=== PATIENT | female | born 1955 | race Caucasian/White ===

== ENCOUNTER → 2017-01-04 | Outpatient (CLI) | payer MEDICARE, OTHER | END | disposition home or self-care (01) | LOC: LABWHC1 09:49 | PROVIDERS: ATTEND Internal Medicine | DX: E03.9 Hypothyroidism, unspecified (principal) | CPT/HCPCS: 36415; 84443 ==

== ENCOUNTER → 2017-08-22 | Outpatient (CLI) | payer MEDICARE, OTHER ==
[2017-08-22 14:45] LABS: Potassium 3.6 mmol/L (3.5-5.1)
--- NOTE | 2017-08-23 08:14 | MM ---
Reason for exam: screening (asymptomatic). Last mammogram was performed 1 year and 11 months ago. History: Patient is postmenopausal. MG 3D Screening Mammo W/Cad Bilateral CC and MLO view(s) were taken. Prior study comparison: September 23, 2015, bilateral MG 3d screening mammo w/cad. December 08, 2004, mammogram, performed at [facility]. The breast tissue is heterogeneously dense. This may lower the sensitivity of mammography. No suspicious abnormality. No significant changes when compared with prior studies. ASSESSMENT: Negative, BI-RAD 1 RECOMMENDATION: Routine screening mammogram of both breasts in 1 year.
== END | disposition home or self-care (01) ==
LOC: RADMAMWWP 13:26
PROVIDERS: ATTEND Internal Medicine
DX: Z12.31 Encounter for screening mammogram for malignant neoplasm of breast (principal); Z13.228 Encounter for screening for other metabolic disorders; Z00.00 Encounter for general adult medical examination without abnormal findings
CPT/HCPCS: 84439; 80051; 84443; 77063; 36415; G0202

== ENCOUNTER → 2018-01-31 | Outpatient (CLI) | payer MEDICARE, OTHER ==
--- NOTE | 2018-01-31 11:08 | XR ---
EXAMINATION TYPE: XR shoulder complete LT DATE OF EXAM: 01/31/2018 COMPARISON: NONE HISTORY: Pain TECHNIQUE: Three views are submitted. FINDINGS: The osseous structures are intact. There is no acute fracture or dislocation. The AC joint is maint ained. Diffuse osteopenia noted. IMPRESSION: 1. No acute process.
--- NOTE | 2018-01-31 11:11 | XR ---
EXAMINATION TYPE: XR chest 2V DATE OF EXAM: 01/31/2018 COMPARISON: NONE TECHNIQUE: PA and lateral views submitted. HISTORY: COPD FINDINGS: The lungs are clear and there is no pneumothorax, pleural effusion, or focal pneumonia. Hyperinflat ion compatible COPD and there is biapical pleural thickening. No overt failure. Degenerative change o f the spine. Atherosclerotic change aorta. Diffuse osteopenia. Vague nodular density involving the le ft lung apex. IMPRESSION: 1. Vague nodular density left lung apex. Recommend CT chest.. 2. COPD.
== END | disposition home or self-care (01) ==
LOC: RADXRYALE 10:40
PROVIDERS: ATTEND Internal Medicine
DX: J44.9 Chronic obstructive pulmonary disease, unspecified (principal); R91.8 Other nonspecific abnormal finding of lung field; M25.512 Pain in left shoulder
CPT/HCPCS: 71046

== ENCOUNTER → 2018-03-12 | Outpatient (CLI) | payer MEDICARE, OTHER ==
--- NOTE | 2018-03-12 12:01 | CT ---
EXAMINATION TYPE: CT chest w con DATE OF EXAM: 03/12/2018 COMPARISON: NONE HISTORY: 62-year-old female COPD, baseline CT, shortness of breath. TECHNIQUE: Contiguous axial scanning of the chest after the administration of 98 mL of Isovue 300. C oronal/sagittal reconstructions performed. CT DLP: 114.4mGycm. Automatic exposure control utilized for a dose reduction. FINDINGS: Heart is normal size without pericardial effusion. Coronary vessel calcifications are present in nery rkable for coronary artery disease. Aorta normal caliber with conventional arch vessel branching anatomy and mild atherosclerotic calcifi cations. Nonenlarged 8mm precarinal lymph node. No thoracic lymphadenopathy by CT size criteria. There is moderate to advanced centrilobular emphysema with biapical pleural-parenchymal scarring. 4 mm right midlung pulmonary nodule axial image 28. 3 mm subpleural pulmonary nodule posterior right mid lung axial image 37. 4 mm peripheral right lower lobe pulmonary nodule axial image 43. 4 mm posterior left basilar pulmonary nodule axial image 54. Indeterminate 2.1 cm nodule of the left adrenal gland. Moderate atherosclerotic calcification and ashish que within the infrarenal abdominal aorta. Subcentimeter hypodensity right liver lobe, axial image 59 too small for accurate CT characterization, probable tiny cyst. Mild endplate spondylosis midthoracic spine. No osseous destructive process. IMPRESSION: 1. COPD with moderate to advanced emphysema. 2. A few scattered pulmonary nodules measuring up to 4 mm. A 1 year follow-up exam is recommended to reassess. 3. A 2.1 cm indeterminate left adrenal gland nodule statistically represents a benign adrenal adenoma . This should be reassessed at the patient's one-year follow-up.
== END | disposition home or self-care (01) ==
LOC: RADCTMAIN 11:03
PROVIDERS: ATTEND Internal Medicine
DX: J43.9 Emphysema, unspecified (principal); R91.8 Other nonspecific abnormal finding of lung field
CPT/HCPCS: 71260; Q9967

== ENCOUNTER → 2019-02-18 | Outpatient (CLI) | payer MEDICARE, OTHER ==
[2019-02-18 09:52] LABS: Blood Urea Nitrogen 26 mg/dL (7-17)
--- NOTE | 2019-02-18 11:40 | CT ---
EXAMINATION TYPE: CT chest w con DATE OF EXAM: 02/18/2019 COMPARISON: Prior CT 03/12/2018 HISTORY: Pulmonary nodule CT DLP: 327 mGycm Automated exposure control for dose reduction was used. CONTRAST: CT scan of the chest is performed with IV Contrast, patient injected with 100 ml mL of Isovue 300. FINDINGS: LUNGS: There are extensive emphysematous changes as noted on prior exam, nodular appearance seen on p revious exam the level of the distal aspect of segmental branch in the right upper lobe is stable. Ad ditional subcentimeter nodules are also stable. MEDIASTINUM: There are no greater than 1 cm hilar or mediastinal lymph nodes. No pericardial effusi on is seen. AORTA: No additional significant abnormality is seen. OTHER: Adrenal gland show stable appearance. Low dense focus within the liver is unchanged. IMPRESSION: Stable benign-appearing pulmonary nodules. Emphysema.
== END | disposition home or self-care (01) ==
LOC: RADCTMAIN 08:46
PROVIDERS: ATTEND Internal Medicine
DX: R91.1 Solitary pulmonary nodule (principal)
CPT/HCPCS: 82565; 84520; 71260; 36415; Q9967

== ENCOUNTER → 2020-12-09 | Outpatient (CLI) | payer MEDICARE, OTHER ==
[2020-12-09 11:45] LABS: African American GFR (CKD) >90 (>60 ml/min/1.73 sqM); Blood Urea Nitrogen 24 mg/dL (7-17); Non-African American GFR(CKD) >90 (>60 ml/min/1.73 sqM)
--- NOTE | 2020-12-09 13:00 | CT ---
EXAMINATION TYPE: CT chest w con DATE OF EXAM: 12/09/2020 COMPARISON: Chest CT February 18, [address] March 12, 2018 HISTORY: Lung nodule. Cough CT DLP: 105.9 mGycm. Automated Exposure Control for Dose Reduction was Utilized. TECHNIQUE: CT scan of the thorax is performed following with IV Contrast, patient injected with 80 m L of Isovue 300. MIP Images are created on CT scanner and reviewed. 3D reconstructed images are crea loraine on an independent workstation and reviewed. FINDINGS: LUNGS: Moderate to advanced underlying emphysematous change greatest in the lung apices is redemonstr ated. There is 6 mm nodule in the right lower lobe axial image 42 and coronal image 57 is slightly mo re prominent from prior studies. Scattered micronodules are stable. No pleural effusion or pneumothor ax. Moderate biapical pleural/frontal scarring again seen and stable. MEDIASTINUM: There are no greater than 1 cm hilar or mediastinal lymph nodes. No cardiomegaly or pe ricardial effusion is seen. Some reflux of contrast into IVC and hepatic veins suggesting right hear t failure. Coronary artery calcification is redemonstrated. OTHER: Osseous structures are demineralized with underlying scoliotic curvature redemonstrated. IMPRESSION: Moderate to advanced emphysematous change with slightly larger 6 mm right lower lobe nodu le. Follow-up CT in 6 months time advised to reassess.
== END | disposition home or self-care (01) ==
LOC: RADCTMAIN 10:56
PROVIDERS: ATTEND Internal Medicine
DX: J43.9 Emphysema, unspecified (principal); R91.1 Solitary pulmonary nodule; I10 Essential (primary) hypertension
CPT/HCPCS: 82565; 84520; 71260; 36415; Q9967

== ENCOUNTER 2023-02-02 14:51 | Emergency (ER) | payer MEDICARE, OTHER ==
[2023-02-02 15:22] VITALS: BP 189/87; PULSE 67; RESP 20; TEMP 98.3
[2023-02-02] MEDS ORDERED: HYDROmorphone 1 MG/ML 1 ML SYRINGE IM STA (17:03)
--- NOTE | 2023-02-02 17:56 | CT ---
EXAMINATION TYPE: CT lumbar spine wo con CT DLP: 583.6 mGycm, Automated exposure control for dose reduction was used. DATE OF EXAM: 02/02/2023 5:48 PM COMPARISON: CT chest 02/02/2023., 12/09/2020. CLINICAL INDICATION:Female, 67 years old with history of low back injury and pain; , low back pain fo llowing heavy lifting TECHNIQUE: Multiple axial images were obtained from the midportion of T11 through the sacroiliac filiberto nts. Soft tissue and bone windows in coronal and sagittal planes were obtained and reviewed. 3-D ref ormats of the bones were created on a separate workstation and submitted for review. Contrast used: none. Oral contrast used: none. FINDINGS: Alignment: There are 5 lumbar type vertebral bodies within normal alignment. Bone: Age-indeterminate compression fracture of the L1-2 vertebral body with 50% height loss and 7 m m retropulsion. Discs: T12-L1: No spinal canal or neural foraminal stenosis is identified. L1-L2: Compression fracture with retropulsion resulting in at least mild to moderate effacement of th e anterior thecal sac. Bony fragment likely abutting the exiting and/or forming right nerve's. L2-L3: Facet joint arthropathy and disc bulging result with mild spinal canal stenosis and mild bilat eral neural foraminal stenosis. L3-L4: Facet joint arthropathy and disc bulging result with mild spinal canal stenosis and mild bilat eral neural foraminal stenosis. L4-L5: Facet joint arthropathy and disc bulging result with mild spinal canal stenosis and mild bila teral neural foraminal stenosis. L5-S1: No spinal canal or neural foraminal stenosis is identified. Other: Moderate to severe centrilobular emphysema changes. Excreted IV contrast seen within the renal collecting systems. Atherosclerosis of the arterial vasculature. Adenomatous hypertrophy changes of bilateral adrenal glands. IMPRESSION: Age-indeterminate compression fracture of the L2 vertebral body with 50% height loss and 7 mm retropu lsion. Consider MRI liver spine for further characterization. Findings are new from 2020.
--- NOTE | 2023-02-02 18:21 | ED ---
Back Pain HPI - General Chief Complaint: Back Pain/Injury Stated Complaint: back pain Time Seen by Provider: 02/02/23 16:53 Source: patient Limitations: no limitations - History of Present Illness Initial Comments: Patient is a 67-year-old female presenting with chief complaint of back pain. Patient states that 3 weeks ago she was moving furniture and felt sudden pain in the low back. Patient was sent in by her PCP for pain management after positive x-rays. She has been taking naproxen at home. No loss of bowel or bladder control or saddle paresthesia. No abdominal pain, dysuria, hematuria, fever, chills and no chest pain or difficulty breathing. - Related Data Home Medications Medication Instructions Recorded Confirmed Vilazodone HCl [Viibryd] 10 mg PO DAILY 12/16/14 07/21/15 clonazePAM [KlonoPIN] 0.5 mg PO BID 12/16/14 07/21/15 Budesonide-Formot 160-4.5 Mcg 2 puff INHALATION BID 07/21/15 07/21/15 [Symbicort 160-4.5 Mcg Inhaler] Cyclobenzaprine [Flexeril] 5 mg PO BID 07/21/15 07/21/15 Levothyroxine Sodium [Synthroid] 88 mcg PO DAILY 07/21/15 07/21/15 Pravastatin Sodium [Pravachol] 60 mg PO DAILY 07/21/15 07/21/15 atenoloL [Tenormin] 25 mg PO DAILY 07/21/15 07/21/15 cloNIDine [Catapres-TTS] 1 each TRANSDERM Q7D 07/21/15 07/21/15 clonazePAM [Clonazepam] 2 mg PO BID 07/21/15 07/21/15 Previous Rx's Medication Instructions Recorded Vilazodone HCl [Viibryd] 10 mg PO DAILY #20 tab 12/16/14 HYDROcodone/APAP 7.5-325MG [Java 1 tab PO Q4H PRN 3 Days #18 tab 02/02/23 7.5-325] Lidocaine 5% Patch [Lidoderm 5% 1 patch TOPICAL DAILY PRN #1 packet 02/02/23 Patch] Allergies Allergy/AdvReac Type Severity Reaction Status Date / Time codeine Allergy Unknown Verified 02/02/23 15:22 Review of Systems ROS Statement: Those systems with pertinent positive or pertinent negative responses have been documented in the HPI. ROS Other: All systems not noted in ROS Statement are negative. Past Medical History Past Medical History: Asthma, COPD, Osteoarthritis (OA) History of Any Multi-Drug Resistant Organisms: None Reported Past Surgical History: No Surgical Hx Reported Past Psychological History: Anxiety, Depression Smoking Status: Never smoker Past Alcohol Use History: Rare Past Drug Use History: None Reported General Exam Limitations: no limitations General appearance: alert, in no apparent distress Head exam: Present: atraumatic, normocephalic, normal inspection Eye exam: Present: normal appearance Neck exam: Present: normal inspection, full ROM Respiratory exam: Present: normal lung sounds bilaterally. Absent: respiratory distress, wheezes, rales, rhonchi, stridor Cardiovascular Exam: Present: regular rate, normal rhythm, normal heart sounds. Absent: systolic murmur, diastolic murmur, rubs, gallop, clicks Extremities exam: Present: normal inspection, full ROM Back exam: Present: normal inspection, tenderness Neurological exam: Present: alert, oriented X3, CN II-XII intact Psychiatric exam: Present: normal affect, normal mood Skin exam: Present: warm, dry, intact, normal color. Absent: rash Course Vital Signs 02/02/23 15:17 Temperature 98.3 F Pulse Rate 67 Respiratory 20 Rate Blood Pressure 189/87 O2 Sat by Pulse 97 Oximetry Medical Decision Making - Medical Decision Making Was pt. sent in by a medical professional or institution (HAMZAH Byrd, CLINICAL PROVIDER TRAINER, urgent care, hospital, or group home...) When possible be specific @ -No Did you speak to anyone other than the patient for history (EMS, parent, family, police, friend...)? What history was obtained from this source @ -No Did you review nursing and triage notes (agree or disagree)? Why? @ -I reviewed and agree with nursing and triage notes Were old charts reviewed (outside hosp., previous admission, EMS record, old EKG, old radiological studies, urgent care reports/EKG's, group home records)? Report findings @ -No old charts were reviewed Differential Diagnosis (chest pain, altered mental status, abdominal pain women, abdominal pain men, vaginal bleeding, weakness, fever, dyspnea, syncope, headache, dizziness, GI bleed, back pain, seizure, CVA, palpatations, mental health, musculoskeletal)? @ - MDM Differential Back Pain: Strain, zoster, cauda equina syndrome, epidural abscess, vertebral osteomyelitis, discitis, fracture, subluxation, disc herniation, DJD, spinal stenosis, dissection, AAA, pancreatitis, peptic ulcer disease, pyelonephritis, k idney stone this is not meant to be an all-inclusive list. EKG interpreted by me (3pts min.). @ -As above X-rays interpreted by me (1pt min.). @ -None done CT interpreted by me (1pt min.). @ -CT shows age-indeterminate compression fracture of the L2 vertebral body with 50% height loss and 7 mm retropulsion. U/S interpreted by me (1pt. min.). @ -None done What testing was considered but not performed or refused? (CT, X-rays, U/S, labs)? Why? @ -None What meds were considered but not given or refused? Why? @ -None Did you discuss the management of the patient with other professionals (professionals i.e. , PA, CLINICAL PROVIDER TRAINER, lab, RT, psych nurse, social sciences professor, station examiner, teacher, community resource officer, case consultant)? Give summary @ -No Was smoking cessation discussed for >3mins.? @ -No Was critical care preformed (if so, how long)? @ -No Were there social determinants of health that impacted care today? How? (Homelessness, low income, unemployed, alcoholism, drug addiction, transportation, low edu. Level, literacy, decrease access to med. care, retirement, rehab)? @ -No Was there de-escalation of care discussed even if they declined (Discuss DNR or withdrawal of care, Hospice)? DNR status @ -No What co-morbidities impacted this encounter? (DM, HTN, Smoking, COPD, CAD, Cancer, CVA, ARF, Chemo, Hep., AIDS, mental health diagnosis, sleep apnea, morbid obesity)? @ -None Was patient admitted / discharged? Hospital course, mention meds given and route, prescriptions, significant lab abnormalities, going to OR and other pertinent info. @ -Patient is 67-year-old female presenting with chief complaint of lower back pain. No red flag symptoms. Patient's PCP informed her that she had positive x-rays after an injury that occurred 3 weeks ago and sent her here for pain management. Patient is given pain medication and CT shows evidence of compression fracture to L2. These findings are discussed with my attending physician Dr. Jackman, determined that patient may be discharged home and follow up with orthopedics in outpatient setting. On reassessment patient reports that her pain is under good control. She'll be discharged with a short course of pain medication and referral for follow-up. Follow-up with PCP. Report back to ER with any new or worsening symptoms. Discussed return parameters and answered all questions. Patient conveyed verbal understanding and agreed to the plan. I discussed this case in detail with my attending Dr. Jackman Undiagnosed new problem with uncertain prognosis? @ -No Drug Therapy requiring intensive monitoring for toxicity (Heparin, Nitro, Insulin, Cardizem)? @ -No Were any procedures done? @ -No Diagnosis/symptom? @ -Compression fracture Acute, or Chronic, or Acute on Chronic? @ -Acute Uncomplicated (without systemic symptoms) or Complicated (systemic symptoms)? @ -Uncomplicated Side effects of treatment? @ -No Exacerbation, Progression, or Severe Exacerbation? @ -No Poses a threat to life or bodily function? How? (Chest pain, [place], [place], pneumonia, PE, COPD, DKA, ARF, appy, cholecystitis, CVA, Diverticulitis, Homicidal, Suicidal, threat to staff... and all critical care pts) @ -No Disposition Clinical Impression: Compression fracture Disposition: HOME SELF-CARE Condition: Fair Instructions (If sedation given, give patient instructions): Vertebral Compression Fracture (ED), Acute Low Back Pain (ED) Additional Instructions: Follow-up with PCP and orthopedics. Report back to ER with any new or worsening symptoms. Take Motrin and Tylenol as needed for pain control. Take medication as prescribed. Prescriptions: Lidocaine 5% Patch [Lidoderm 5% Patch] 1 patch TOPICAL DAILY PRN #1 packet PRN Reason: Pain HYDROcodone/APAP 7.5-325MG [Java 7.5-325] 1 tab PO Q4H PRN 3 Days #18 tab PRN Reason: Pain Is patient prescribed a controlled substance at d/c from ED?: No Referrals: Candice Jha MD [Primary Care Provider] - 1-2 days Marcelo Wakefield DO [Doctor of Osteopathic Medicine] - 1-2 days Time of Disposition: 18:20
== END 2023-02-02 19:05 | disposition home or self-care (01) ==
LOC: EC 14:51
DX: S32.029A Unspecified fracture of second lumbar vertebra, initial encounter for closed fracture (principal); J44.9 Chronic obstructive pulmonary disease, unspecified; M19.90 Unspecified osteoarthritis, unspecified site; F41.9 Anxiety disorder, unspecified; F32.A Depression, unspecified; Z88.5 Allergy status to narcotic agent; Z79.899 Other long term (current) drug therapy; X50.9XXA Other and unspecified overexertion or strenuous movements or postures, initial encounter
CPT/HCPCS: 72131; 99283; 96372; J1170

== ENCOUNTER → 2023-02-02 | Outpatient (CLI) | payer MEDICARE, OTHER ==
[2023-02-02 11:38] LABS: African American GFR (CKD) >90 (>60 ml/min/1.73 sqM); Blood Urea Nitrogen 23 mg/dL (7-17); Non-African American GFR(CKD) >90 (>60 ml/min/1.73 sqM)
--- NOTE | 2023-02-02 12:34 | CT ---
EXAMINATION TYPE: CT chest wo/w con DATE OF EXAM: 02/02/2023 COMPARISON: 12/09/2020, 03/12/2018 HISTORY: solitary pulmonary nodule, COPD CT DLP: 470 mGycm Automated exposure control for dose reduction was used. TECHNIQUE: CT scan of the chest is performed without and with IV Contrast, patient injected with 95 mL of Isovue 300. MIP Images are created on CT scanner and reviewed. 3D reconstructed images are created on an [employer] workstation and reviewed. FINDINGS: LUNGS: The lungs are grossly clear, there is consolidative pneumonia. There is a 2 mm nodule in the r ight upper lobe axial image 28. There is fairly advanced centrilobular emphysema greatest involving t he upper lung zones. There is a 2 mm subpleural nodule axial image 32 and adjacent 2 mm nodule axial image 32 superior seg ment right lower lobe. There is a stable 6 mm nodule right lower lobe axial image 36 There is a superior segment right lower lobe nodule axial image 28 measuring 1 mm.. There is no ple ural effusion or pneumothorax seen. The tracheobronchial tree is patent. MEDIASTINUM: There are no greater than 1 cm hilar or mediastinal lymph nodes. Aorta normal caliber. A therosclerotic changes seen. There is mild coronary artery calcification. Heart size is normal. OTHER: There is a completely severe compression fracture of the lower thoracic spine and endplate co mpression fracture near the thoracolumbar junction only partially included in the [id number] best noted on sagittal image 46 at approximately levels of T10 and L2. These were noted by recent x-ray 01/19/2023. Additional multilevel degenerative disc disease and hypertrophic spurring. There is a left ad renal nodule measuring 16 Hounsfield units and 1.4 cm stable from prior exam and indeterminate. They' re stable dating back to multiple prior exams and therefore likely is benign. Small hepatic hypodensi ty previously noted is no longer identified. A punctate nonobstructing bilateral renal calculi. IMPRESSION: 1. Severe centrilobular emphysema 2. Stable 6 mm or less bilateral pulmonary nodules and therefore likely benign.Recommend continued si x-month follow-up is the nodule measures 6 mm and may be slightly increased in size from the exam of 2018. 3. Severe compression fracture lower thoracic/ upper lumbar spine significant retropulsion and probab le canal stenosis. Suspect some degree of mass effect on the spinal cord. Recommend follow-up MRI. A [place] level critical message alert has been initiated for Candice Jha MD via the [employer] Critical Results System on 02/02/2023 12:30 PM. This message alert has been sent to Candice Jha MD via the preferences provided by the clinician for the receipt of Radiology Critical Findings. [employer] Mail e ID [id number].
== END | disposition home or self-care (01) ==
LOC: RADCTMAIN 10:44
PROVIDERS: ATTEND Internal Medicine
DX: M48.55XA Collapsed vertebra, not elsewhere classified, thoracolumbar region, initial encounter for fracture (principal); J43.2 Centrilobular emphysema; R91.8 Other nonspecific abnormal finding of lung field
CPT/HCPCS: 82565; 84520; 71270; 36415; Q9967

== ENCOUNTER → 2023-03-02 | Outpatient (CLI) | payer MEDICARE, OTHER ==
--- NOTE | 2023-03-04 11:01 | MR ---
EXAMINATION TYPE: MR tspine/lspine wo con DATE OF EXAM: 03/02/2023 4:44 PM CLINICAL INDICATION:Female, 67 years old with history of M48.50XA COLLAPSED VERTEBRA, NEC, SITE UNSP, INIT Collapsed Vertebra, Low and Mid back pain COMPARISON: CT lumbar spine and chest 02/02/2023 TECHNIQUE: Multi planar, multi sequence imaging was performed utilizing: T1-weighted, T2-weighted, a nd turbo inversion recovery imaging of the thoracic and lumbar spine. IV Contrast: None. FINDINGS: Alignment: Increased kyphotic alignment at T10 secondary to compression fracture. Cord: The conus medullaris and the distal spinal cord appear unremarkable with regards to their signa l intensity and morphology. Bones/Discs: There is a compression fracture of the T10 vertebral body with 3 mm retropulsion which e xtends towards the spinal cord and displaces it slightly. There is greater than 50% height loss. Ther e is only mild inversion recovery signal anteriorly suggesting subacute chronic process. The L2 vertebral body demonstrates increased bony edema with compression fracture of at least 50% hei ght loss. There is retropulsion of at least 6 mm which does not significantly narrow the spinal canal at this level. THORACIC: No evidence of significant spinal canal or neural foraminal stenosis mild retropulsion at t he level of T10 superior endplate with narrowing of the ventral subarachnoid space. The cord signal i s maintained. The remainder of the cord signal throughout the spine is maintained. There is a T10-T11 moderate neural foraminal stenosis bilaterally. The remainder of the thoracic levels are patent without evidence of significant spinal canal or neura l foraminal stenosis. The cord signal is maintained. LUMBAR: T12-L1: No evidence of significant spinal canal stenosis or neural foraminal stenosis. L1-L2: Suspected extrusion of disc material the right central and central portion without significant height loss. Some of this may be retropulsion from the compression deformity. There is moderate bila teral neural foraminal narrowing. L2-L3: Disc bulge and facet joint arthropathy result in mild spinal canal and mild bilateral neural f oraminal stenosis. L3-L4: Disc bulge and facet joint arthropathy result in mild spinal canal and mild bilateral neural f oraminal stenosis. L4-L5: Disc bulge and facet joint arthropathy result in mild spinal canal and mild bilateral neural f oraminal stenosis. L5-S1: The disc is rounded posterior morphology without significant spinal canal stenosis. Facet join t arthropathy with mild neural foraminal stenosis. Other findings: None. IMPRESSION: 1. Acute/subacute compression fracture of the L2 vertebral body with at least 50% height loss and 6 mm retropulsion. Superimposed L1-L2 disc herniation may also be present. The spinal canal is grossly patent there is moderate neural foraminal stenosis bilaterally. 2. T10-T11 mild spinal canal stenosis secondary to vertebral body compression deformity with 3 mm re tropulsion. There is at least moderate bilateral neural foraminal stenosis at this level. Cord signal is maintained. Compression fracture at T10 appears more subacute chronic given minimal osseous edema within the vertebral body.
== END | disposition home or self-care (01) ==
LOC: RADMRIMAIN 15:43
PROVIDERS: ATTEND Nurse Practitioner Family
DX: M48.54XA Collapsed vertebra, not elsewhere classified, thoracic region, initial encounter for fracture (principal); M48.56XA Collapsed vertebra, not elsewhere classified, lumbar region, initial encounter for fracture; M51.26 Other intervertebral disc displacement, lumbar region; M99.73 Connective tissue and disc stenosis of intervertebral foramina of lumbar region
CPT/HCPCS: 72146; 72148

== ENCOUNTER 2023-03-28 06:25 | Inpatient (IN) | payer MEDICARE, OTHER ==
[2023-03-24 15:19] VITALS: BMI 19.1
--- NOTE | 2023-03-27 06:42 | P.HPOR ---
History of Present Illness H&P Date: 03/08/23 .D:Date: 03/08/23 : 05:32pm .T:Title: [facility] Follow-up Date of :[birth year] R14 Allergies: Age: 67 year Height: 5' Weight: 97 lbs BMI: 18.94 kg/m2 Occupation: U/[employer] VAS: 7 CHIEF COMPLAINT: Low back pain follow up to lumbar MRI DOI: Chronic, injury 2 month ago 01/12 DOS: n/a Duration of current treatment regiment: 2 month HISTORY : Xrays No new xrays taken in office Trauma or injury yes Work-Related No Pain description aching, burning, throbbing . Location posterior diffuse Activity Modification yes Hand Dominance right TREATMENTS COMPLETED: 6 weeks of PT completed? Month and Year of last PT date? No Physician directed home exercise completed? No Medications yes List: IBU, Aspirin, and Tizanidine Alternative interventions Chiropractic: No Massage therapy: No R.I.C.E: yes Brace: No Injections No RFA: No SUBJECTIVE: Ms. Cheema presents to the office for a follow up for their lumbar MRI. Patient reports a posterior diffuse thoracolumbar pain with an onset of 12/2022 and no changes to this pain since her last appointment. Patient denies any radicular symptoms or numbness and tingling to bilateral lower extremities. Overall the patient has seen a progressive increase in symptoms since their onset. Ms. Cheema symptoms are exacerbated with ambulation she states sharp intermittent pain, with sitting she reports a constant dull ache, due to this they notes that it is increasingly difficult for Ms. Cheema to complete many of their daily tasks. Patient is having moderate sleep disturbances as well due to their ongoing pain and associated symptoms. Patient has trialed a TLSO brace without relief od her symptoms. Regarding treatments, the patient has previously trialed the above listed modalities. Patient denies trialing any other modalities at this time. For their symptoms, the patient has been taking IBU, Tizanadine and Aspirin. Otherwise the patient denies any f/c/sob/cp, no bladder or bowel retention/incontinence, no perineal numbness/tingling, and ambulates independently. The patients' past social, medical, family, surgical history, as well as review of systems, have been reviewed. Please refer to the Neurosurgery History and Physical form that has been scanned in to our electronic medical record system. 14 points review of systems completed and as stated in HPI, all other systems reviewed are negative. Social History: Reviewed, see appropriate section of the chart for details. P3 Family History: Reviewed, see appropriate section of the chart for details. P2 Past Medical History: Reviewed, see appropriate section of the chart for details. P1 Current Medications: Rx: albuterol sulfate Ref: 0 Rx: alendronate 70 mg tablet Ref: 0 Instructions: take 1 tablet (70 mg) by oral route once weekly in the morning, at least 30 min before first food, beverage, or medication of day Rx: atorvastatin Ref: 0 Instructions: DAILY Rx: biotin 5,000 mcg disintegrating tablet Ref: 0 Instructions: DAILY Rx: citalopram 40 mg tablet Ref: 0 Instructions: take 1 tablet (40 mg) by oral route once daily Rx: cloNIDine HCl 0.1 mg tablet Ref: 0 Instructions: take 1 tablet (0.1 mg) by oral route 3 times per day Rx: CoQ-10 100 mg capsule Ref: 0 Rx: levothyroxine Ref: 0 Instructions: 88MG DAILY Rx: losartan 50 mg tablet Ref: 0 Instructions: take 1 tablet (50 mg) by oral route once daily Rx: Medrol (Savage) 4 mg tablets in a dose pack Ref: 0 Instructions: take by oral route as directed per package instructions Rx: melatonin 10 mg capsule Ref: 0 Instructions: HS Rx: mirtazapine 15 mg tablet Ref: 0 Instructions: take 1 tablet (15 mg) by oral route once daily before bedtime Rx: OLANZapine 10 mg tablet Ref: 0 Instructions: take 1 tablet (10 mg) by oral route once daily Rx: oxyBUTYnin chloride ER 5 mg tablet,extended release 24 hr Ref: 0 Instructions: take 1 tablet (5 mg) by oral route once daily Rx: Symbicort 160 mcg-4.5 mcg/actuation HFA aerosol inhaler Ref: 0 Instructions: inhale 2 puffs by inhalation route 2 times per day in the morning andevening Rx: tiZANidine 4 mg tablet Ref: 0 Instructions: take 1 tablet (4 mg) by oral route every 6-8 hours as needed not to exceed 3 doses in 24 hours P1 PHYSICAL EXAMINATION: General: Awake, alert, appropriate for age, in no acute distress. HEENT: No unusual neck masses around region of lateral neck triangle, thyroid, supraclavicular groove Extremities: Skin warm and dry without acute lesions, coloration, temperature, skin intact, no tenderness or erythema Integument: Hairy patches: ABSENT Dorsal skin dimples: ABSENT Cafe au lait spots: ABSENT Surgical incisions: n/a Palpation: Please see Pain drawing on Intake sheet for further detail. Midline spinal tenderness: yes over the L2 region E6 Cervical Tenderness: No E6 Paralumbar tenderness:yes E6over the L2 region Parathoracic tenderness:mild E6 Buttocks tenderness: No E6 Sacroilliac Tenderness: No POSTURAL and MUSCULO-SKELETAL EVALUATION: Coronal Balance: NEUTRAL Recumbent testing: Patient is able to lay flat on back Sagittal Balance: NEUTRAL Shoulder Profile: LEVEL Pelvic Girdle: LEVEL Neck ROM: UNRESTRICTED Lumbar ROM: RESTRICTED Shoulder ROM: Symmetrical Hip ROM: Symmetrical Knee ROM: Symmetrical Hands: Normal appearance, symmetrical Feet: Normal appearance, Symmetrical VASCULAR STATUS : LEFT RIGHT Wrist Pulses INTACT INTACT Pedal Pulses (Dors. pedis & post.tibialis) INTACT INTACT Color NORMAL NORMAL Edema Absent Absent NEUROLOGIC EXAMINATION: Mental Status:Awake and alert, fully oriented, with normal attention, concentration and memory, and fluent, appropriate speech. Cranial Nerves: I: Olfactory not tested. II: Visual acuity normal, no visual field deficit noted with confrontation. III,IV: Normal pupillary reflexes & intact extraocular movements without nystagmus. V,: Intact symmetrical facial sensation. VII: Intact symmetrical facial motor movement VIII: Hearing intact. IX,X: Intact gag, swallow, & normal voice. XI: Sternocleidomastoid, trapezius function intact. XII: Tongue midline with normal movements. L'hermitte's Sign: Negative / absent Spurling'Sign: Absent bilaterally. Cubital percussion test: Absent bilaterally. Oneil-Tinel sign - Carpal region: Absent bilaterally. Straight Leg Raising: Absent bilaterally. Crossed straight leg raise: negative O8 MOTOR EXAM (0-5/5, N/T Muscle appearance: Symmetrical, without signs of atrophy or dystrophy UPPER EXTREMITY RIGHT LEFT Shoulder Abduction 4/5 4/5 Biceps 4/5 4/5 Triceps 4/5 4/5 Wrist Extension 4/5 4/5 Hand Intrnsics 4/5 4/5 Cut Out Operator 4/5 4/5 Hand and finger dexterity intact bilaterally? yes Disdiadochokinesis examination negative bilaterally? yes LOWER EXTREMITY RIGHT LEFT Hip Flexion 4/5 4/5 Knee Extension 4/5 4/5 Knee Flexion 4/5 4/5 Dorsiflexion 4/5 4/5 Plantarflexion 4/5 4/5 EHL 4/5 4/5 FHL 4/5 4/5 Toe heel walk / heel-toe walk intact while maintaining satisfactory balance? No Squatting/straightening w/o assistance to a min of 60 degree knee flexion? No Single leg stance: intact Trendelenburg sign negative bilaterally REFLEXES(0-4/2, NT)Upper ExtremityLower Extremity Right 2 2 Left 2 2 Pathological Reflexes RIGHT LEFT Oneil's Absent Absent Clonus Absent Absent Babinski Absent Absent Sensory system (0-4, N/T) Test type RU MARTA RL LL Joint-Position 2 2 2 2 Vibration 2 2 2 2 Pain & LT sense 2 2 2 2 Dermatomal Deficit: None None None None Gait and Functional Evaluation: Ambulatory aids: Cane Romberg's test: Intact bilaterally Steady Gait RADIOGRAPHIC STUDIES: Xray Lumbar spine, multifview, 02/13/23 taken at [facility]: Images reviewd with pt and show compression fracture of L2 with 50% height loss, anterior wedging and kyphotic alignment due to this. Severe spondylosis through the lumbar spine noted. No other fractures seen at this time. Transitional anatomy at L5-S1 skews view. AP pelvis shows post surgical changes with Lt hip hemiarthroplasty. There is medial migration of the head in the acetrabulum. No acute fracture. Thoracic and Lumbar MRI taken on 03/02/23 at [facility]: IMagres reviewed with the patient and demonstrate 2 different compression deformities. First in the lumbar spine at L2 there is the aforementioned fracture with 50% height loss edema within the fractured level mild and small retropulsed fragment causing moderate central stenosis but no severe impingement overall alignment is kyphotic secondary to this fracture. No other complicating process seen caudally. Cranially at T10 there is a severe burst,compression deformity with anterior wedging that is near 80% compressed. There is a fracture line that transverses posteriorly as well. There is severe foraminal stenosis related to the kyphotic alignment due to this fracture. There is no other acute fracture at this time. Computed tomography scan of the lumbar spine without contrast 02/02/2023 at [facility]: this is reviewed and demonstrates the L2 burst compression type fracture with retropulsed fragment. There is air within the disc space of L1 L2 secondary to this fracture. Endplate is violated cranially and caudally however there is a large void within the fractured vertebral body which would be well treated with cement placement or Spine cedric and cement for reduction. IMPRESSION: It was my pleasure to have seen and examined Zoila. I reviewed the patient's clinical syndrome, physical findings, and imaging studies during the appointment today. It is my impression that the patient has a diagnosis of. 1. Severe T10 burst fracture, old 2. L2 vertebral compression fracture, Acute on chronic with burst component 2.Lumbar spondylosis 3. Bilateral lower extremity weakness 4. Mechanical low back pain I outlined the natural course history without intervention and various interventional options. PLAN All options were reviewed today, we decided the best course of action would be: -Advised patient to continue with supplements, health maintenance, and home exercise programs. Patient expressed understanding and will continue with these modalities. -we did discuss treatment of the T10 compression fracture burst deformity however at this time the low back was causing most of the issues in this area. I discussed treatment options with the patient, including operative and non- operative options, and they have elected to proceed with the following surgical procedure: lumbar L2 Kyphoplasty The indications, risks, benefits, and alternatives to surgery were discussed with the patient at length. Specifically (but not limited to) the risks of infection, stiffness, recurrence of symptoms, need for revision surgery, local numbness, neurovascular injury, and blood clots were discussed. The patient's questions were answered. The decision to proceed was made. Consent will be obtained for the procedure. -Wear brace as needed/when up and about, do not sleep or shower in it. -Ambulate daily -Take pain medications and post op medications as needed and as directed -Ice and rest for pain and swelling control. Spine Surgery Risk Review Ms. Cheema is presenting for evaluation of lumbar pain. It was my pleasure to have seen and examined Ms. Cheema. In our visit today we have had a chance to go over subjective complaints, physi mitesh examination findings and treatments including the natural course history without intervention and various interventional options. The patients imaging demonstrates: Xray Lumbar spine, multifview, 02/13/23 taken at [facility]: Images reviewd with pt and show compression fracture of L2 with 50% height loss, anterior wedging and kyphotic alignment due to this. Severe spondylosis through the lumbar spine noted. No other fractures seen at this time. Transitional anatomy at L5-S1 skews view. AP pelvis shows post surgical changes with Lt hip hemiarthroplasty. There is me dial migration of the head in the acetrabulum. No acute fracture. Thoracic and Lumbar MRI taken on 03/02/23 at [facility]: IMagres reviewed with the patient and demonstrate 2 different compression deformities. First in the lumbar spine at L2 there is the aforementioned fracture with 50% height loss edema within the fractured level mild and small retropulsed fragment causing moderate central stenosis but no severe impingement overall alignment is kyphotic secondary to this fracture. No other complicating process seen caudally. Cranially at T10 there is a severe burst,compression deformity with anterior wedging that is near 80% compressed. There is a fracture line that transverses posteriorly as well. There is severe foraminal stenosis related to the kyphotic alignment due to this fracture. There is no other acute fracture at this time. Computed tomography scan of the lumbar spine without contrast 02/02/2023 at [facility]: this is reviewed and demonstrates the L2 burst compression type fracture with retropulsed fragment. There is air within the disc space of L1 L2 secondary to this fracture. Endplate is violated cranially and caudally however there is a large void within the fractured vertebral body which would be well treated with cement placement or Spine cedric and cement for reduction. On physical exam, Ms. Cheema demonstrates: Patient reports a posterior diffuse thoracolumbar pain with an onset of 12/2021 after patient was moving some small furniture. Patient report she was moving a side table when she heard a snap in he mid/lower back. Patient denies any radicular symtpoms or numbness and tingling to bilateral lower extremities. Patient was sent to [facility] ER 02/02/23 for evaluation after consistent pain and positive xrays. Overall the patient has seen a progressive increase in symptoms since their onset. Ms. Cheema symptoms are exacerbated with ambulation she states sharp intermittent pain, with sitting she reports a constant dull ache, due to this they notes that it is increasingly difficult for Ms. Cheema to complete many of their daily tasks. I have explained to the patient that as their condition progresses it will cause further neurological deficits and eventual paralysis. Based on the patients imaging, physical exam, and the rapid progression and disabling nature of their symptoms, at this time I recommend surgery in the form of a: lumbar L2 Kyphoplasty . I discussed the risk and benefits of this procedure at length with Ms. Cheema. The patient agreed to considered pursuing the procedure abovementioned. Prior to surgery, she should follow up with her PCP (Cardio, ID, IM etc) for clearance. Questions were invited and answered, and the patient wishes to proceed as outlined below. Currently, I am recommendin.lumbar L2 Kyphoplasty with biopsy and spine cedric placement 2.Follow up with PCP for surgical clearance 3.Review of surgical risks and benefits as well as an educational packet on the proposed surgical procedure. Risks: All surgical procedures come with inherent risks, including those related to positioning, anesthesia, intraoperative findings, and postoperative complications. It is important to understand that surgery does not come with any guarantee of a successful outcome as complications and adverse events are always possible. The patient was given a handout in office today discussing the surgical procedure and risks associated with the intervention, both of which were discussed with the patient. These risks include but are not limited to the following: * Experiencing same, different or even worse symptoms in back, neck, arms, or legs compared to before surgery. Requiring further surgery or other forms of treatment presently or at some time in the future at same or other levels of the intended spine surgery. On an extreme but fortunately relatively rare basis severe complication such as blindness, stroke, heart attack, temporary and/or permanent nerve injury, paralysis, coma, or may occur, sometimes without known explanation. Surgical complications may include but are not limited to risk of infection, fluid accumulation in the surgical dissection site, including a s eroma or hematoma, that requires additional surgery, wound drainage, bleeding, new numbness or weakness, vision changes/loss, spinal fluid leakage, non-healing and/or infected incision, headaches, difficulty or inability to swallow, hoarseness, hemopneumothorax, pneumothorax, impotence, retrograde ejaculation, vaginal dryness; injury to nerves, spinal cord, blood vessels, lymphatics or other vital organs (i.e., bowel injury, injury to the great vessels); heterotopic bone formation; complications related to the hardware such as screws, rods, cages including misplaced hardware, device failure, i nstrumentation at the wrong spine level, hardware fracture/breakage, or hardware loosening; vertebral failure of the spinal column above or below the newly placed hardware; retained surgical instrumentations or devices and the need for further surgery. * Medical risks of the planned spine surgery include but are not limited to generalized Infections to the whole body or local areas outside of the surgical site (sepsis), heart attack, bleeding, anaphylaxis, meningitis, seizure, epilepsy, hearing loss, burn early, laceration of the head or other areas of the body, bruising, hypersensitivity of the skin, bladder over distension; allergic reaction; shoulder injury related to positioning; fat, blood and air clots to other areas of the body like heart, lungs, brain; failure of internal organs such as lungs, kidneys, liver and excessive bleeding. If blood transfusions are necessary, note that transfusions may cause intolerance reactions such as anaphylaxis or other complex reactions. Despite best efforts, the results of spine surgery might not heal in terms of bone, soft tissues such as skin, fascia, ligaments, and joints. Additionally, in order to achieve best possible results, spine surgery may be carried out beyond the initially planned levels and involve decompression, fusion including insertion of hardware at levels other than the original intended area of surgical interest change some portions of the procedure in order to ensure the best possible outcomes. With spine surgery and spinal fusion, there are different off label uses of instrumentation (devices, implants and hardware) as well as biological substances (bone morphogenic proteins, demineralized bone matrix) as well as using extra bone from allograft sources (i.e. cadaver bone) or autograft (iliac crest bone, ribs, or the spine itself). The patient has been given information about these practices and their inherent risks and benefits. [facility] is an educational center that serves as a training facility for neurosurgical and orthopedic [employer] and Nursing students. Physician assistants are medically trained surgical providers who function in the outpatient, inpatient, and operating room setting under the direct supervision of the attending surgeon. [facility] has multiple operating rooms with single and overlapping rooms running daily. They currently function under the required guidelines as produced by the [facility] with regards to the overlapping rooms and will continue to comply with changes to this policy as they occur. The requirements include and are complied with as follows: (1) the critical portions of the overlapping rooms will not occur at the same time, (2) the attending physician will be physically present during the critical portions of the procedure and immediately available during the entire case, and (3) a back-up attending is designated should the primary attending not be immediately available. The patient has had a chance to review all the listed information, has been given print outs detailing this information, and has had all his/her questions answered to their satisfaction. It was my pleasure to have seen and examined Ms. Cheema. In our visit today we have had a chance to go over my understanding of our patient's current condition, the natural course history without intervention and various interventional options. Questions were invited and answered, and the patient wishes to proceed as outlined above. I have seen and examined the patient for 25 minutes and we have spent more than 50% of the time in repeat and detailed counseling about the patient's condition, its natural course history with out and as much as can be predicted with surgery and re-review of various surgical treatment options. In conclusion, Ms. Cheema and requested we proceed with the above suggested surgery and are willing to accept risks and limitations of the suggested surgery as nature of the disease process and our best attempts at treatment for the condition. FOLLOW-UP Pre op Pt Education (Informational booklet, instructions, etc) given at today's appointment: Yes .ED:Patient Education: Y Medications Reviewed: YES Attestation: In our visit today Ms. Cheema and I have had a chance to go over my understanding of the patient's current condition, the natural course history without intervention and various interventional options. Questions were invited and answered, and the patient wishes to proceed as outlined above. I will be sure to keep you updated afterMs. Cheema returns here for further follow-up. Thank you again for your referral. Please do not hesitate to contact me if you have any further questions. Signed and authenticated by: Marcelo [facility] [address] [address] This message is confidential, intended only for the named recipient(s) and may contain information that is privileged or exempt from disclosure under applicable law. If you are not the intended recipient(s), you are notified that the dissemination, distribution or copying of this information is strictly p rohibited. If you received this message in error, please notify the sender then delete this message. CC: Candice Jha M.D. # SIGNED BY Marcelo Wakefield ([facility])03/15/2023 07:56AM Past Medical History Past Medical History: Asthma, COPD, Hyperlipidemia, Osteoarthritis (OA) Additional Past Medical History / Comment(s): lumbar compression fx-back brace on-moving coffee table, osteoporosis History of Any Multi-Drug Resistant Organisms: None Reported Past Surgical History: Joint Replacement Additional Past Surgical History / Comment(s): bhaskar cataracts,lt hip replacement Past Anesthesia/Blood Transfusion Reactions: No Reported Reaction Additional Past Anesthesia/Blood Transfusion Reaction / Comment(s): no hx blood transfusion Smoking Status: Never smoker - Past Family History Mother Family Medical History: No Reported History Medications and Allergies Home Medications Medication Instructions Recorded Confirmed Type Budesonide-Formot 160-4.5 Mcg 2 puff INHALATION BID 07/21/15 03/24/23 History [Symbicort 160-4.5 Mcg Inhaler] Levothyroxine Sodium [Synthroid] 75 mcg PO QAM 07/21/15 03/24/23 History Albuterol Inhaler [Ventolin Hfa 1 - 2 puff INHALATION Q6H PRN 03/24/23 03/24/23 History Inhaler] Atorvastatin Calcium 20 mg PO DAILY 03/24/23 03/24/23 History Citalopram Hydrobromide [CeleXA] 40 mg PO QAM 03/24/23 03/24/23 History Melatonin 20 mg PO HS 03/24/23 03/24/23 History Mirtazapine [Remeron] 15 mg PO HS 03/24/23 03/24/23 History Naproxen [Naprosyn] 500 mg PO DAILY 03/24/23 03/24/23 History cloNIDine HCL [Catapres] 0.1 mg PO TID 03/24/23 03/24/23 History tiZANidine HCL [Zanaflex] 4 mg PO BID PRN 03/24/23 03/24/23 History Allergies Allergy/AdvReac Type Severity Reaction Status Date / Time No Known Allergies Allergy Verified 03/24/23 15:01 Physical Examination Osteopathic Statement: *. No significant issues noted on an osteopathic structural exam other than those noted in the History and Physical/Consult.
[~2023-03-28 06:25] MED LIST: ACETAMINOPHEN TAB 500 MG TAB PO PRN; DEXAMETHASONE SOD PHOSPHATE 4 MG/ML 1 ML VIAL IV ONE; LIDOCAINE 1% (10MG/ML) FOR IV START INTRADERMA PRN; MIDAZOLAM 2 MG/2 ML VIAL IV PRN; ONDANSETRON 4 MG/2 ML VIAL IVP ONE; ONDANSETRON 4 MG/2 ML VIAL IVP PRN
[2023-03-28] MEDS ORDERED: LACTATED RINGERS 1,000 ML IV ONE ×2 (06:40→15:15)
[2023-03-28] MEDS ORDERED: HYDROmorphone (PF) 1 MG/ML ONE ×2 (07:23→14:45)
[2023-03-28] MEDS ORDERED: LIDOCAINE 2% INJ 20 MG/ML (2 ML VIAL) ONE ×2 (07:23→14:45)
[2023-03-28] MEDS ORDERED: SUCCINYLCHOLINE CHLORIDE 200 MG/10 ML VIAL IV ONE ×2 (07:23→14:45)
[2023-03-28] MEDS ORDERED: PROPOFOL 10 MG/ML 20 ML VIAL IV ONE ×2 (07:23→14:45)
[2023-03-28] MEDS ORDERED: MIDAZOLAM 2 MG/2 ML VIAL ONE ×2 (07:23→14:45)
[2023-03-28] MEDS ORDERED: fentaNYL (PF) 50 MCG/ML 2 ML AMP ONE ×2 (07:23→14:45)
[2023-03-28] MEDS ORDERED: BUPIVACAINE (PF) 0.25% 30 ML VIAL SQ ONE (07:56)
--- NOTE | 2023-03-28 08:48 | FL ---
EXAMINATION TYPE: FL guidance operating room DATE OF EXAM: 03/28/2023 HISTORY: Fluoroscopy time Total dose area product (DAP) in mGy*cm? (or similar): 8.0045 IMPRESSION: 1. Fluoroscopy time.
[2023-03-28] MEDS: LACTATED RINGERS 1,000 ML IV SCH ×4 (08:50→20:45)
[2023-03-28] MEDS ORDERED: HYDROcodone/APAP 5-325MG 1 EACH TAB PO PRN (09:39)
[2023-03-28] MEDS ORDERED: SENNOSIDES-DOCUSATE SODIUM 1 EACH TAB PO PRN (09:39)
[2023-03-28] MEDS ORDERED: MAGNESIUM HYDROXIDE 2,400 MG/10 ML CUP PO PRN (09:39)
[2023-03-28] MEDS ORDERED: HYDROmorphone 0.5 MG/0.5 ML SYRINGE IVP PRN (09:39)
[2023-03-28] MEDS ORDERED: DEXAMETHASONE SOD PHOSPHATE 10 MG/ML 1 ML VIAL IV STA (11:02)
--- NOTE | 2023-03-28 11:02 | P.PN ---
Progress Note - Text Progress Note Date: 03/28/23 patient was evaluated and phase 2. She is having some weakness in her left lower extremity in dorsiflexion. She is having intermittent numbness of her leg as well. She is able to lift the leg out of bed with 4+ out of 5 strength in hip flexion and knee flexion and extension. She has 4 out of 5 strength in plantar flexion and 3 out of 5 strength in dorsiflexion and EHL. We will order a stat CT to make sure the cement did not extravasate. This could be due to nerve root irritation and she had extremely small pedicles that we are working through. Discussed this with the patient and her and they understand. We will revisit her when CT is done.
[2023-03-28] MEDS ORDERED: cloNIDine HCL 0.1 MG TAB PO STA ×2 (11:55→19:21)
--- NOTE | 2023-03-28 12:14 | CT ---
EXAMINATION TYPE: CT lumbar spine wo con CT DLP: 907 mGycm, Automated exposure control for dose reduction was used. DATE OF EXAM: 03/28/2023 11:48 AM COMPARISON: CT lumbar spine 02/02/2023, fluoroscopic images 03/28/2023. CLINICAL INDICATION:Female, 67 years old with history of Left lower ext numbness following Kyphoplast y; PHH, Left lower ext numbness following kyphoplasty TECHNIQUE: Multiple axial images were obtained from the midportion of T11 through the sacroiliac filiberto nts. Soft tissue and bone windows in coronal and sagittal planes were obtained and reviewed. FINDINGS: Alignment: There are 5 lumbar type vertebral bodies within normal alignment. Bone: No evidence of fracture is identified. Postsurgical changes with vertebral augmentation involv ing known L2 compression deformity. There is improved vertebral body height measuring up to 1.9 cm, p reviously 1.1 cm. Continued retropulsion identified measuring up to 6 mm. Augmentation cement does ex tend into the central spinal canal with moderate central canal stenosis suggested. There is associate d pneumorachis. Discs: T12-L1: No spinal canal or neural foraminal stenosis is identified. L1-L2: Described above. L2-L3: Facet joint arthropathy and disc bulging resulting in mild spinal canal stenosis and mild bila teral neural foraminal stenosis. There is pneumorachis at this level. L3-L4: Facet joint arthropathy and disc bulging resulting with mild spinal canal stenosis and mild bi lateral neural foraminal stenosis. There is pneumorachis at this level. L4-L5: Facet joint arthropathy and disc bulging result with mild spinal canal stenosis and mild bila teral neural foraminal stenosis. L5-S1: No spinal canal or neural foraminal stenosis is identified. Other: Trace right pleural effusion with associated atelectasis. Stable right 2.0 and left 1.3 cm sherly ign lipid rich adrenal adenomas. Nonobstructive bilateral renal calculi with largest on the right anisa suring up to 3 mm. Atherosclerotic calcification of the aorta and its branches. Sigmoid diverticulosi s without evidence for acute diverticulitis. IMPRESSION: 1. Postsurgical changes from vertebral augmentation involving known L2 vertebral body compression fr acture. There is improvement in the vertebral body height from prior examination. There is some cemen t extending into the central spinal canal with continued 6 mm of retropulsion of the posterior endpla te resulting in suggested moderate effacement of the thecal sac. 2. Trace right pleural effusion with associated atelectasis. 3. Nonobstructive bilateral renal calculi.
[2023-03-28] MEDS ORDERED: METOCLOPRAMIDE 5 MG/ML 2 ML VIAL ONE (13:12)
[2023-03-28] MEDS ORDERED: METOCLOPRAMIDE 5 MG/ML 2 ML VIAL IVP ONE (13:18)
--- NOTE | 2023-03-28 13:58 | P.PN ---
Progress Note - Text Progress Note Date: 03/28/23 CT is reviewed there was cement extravasation posteriorly from the body and medial pedicle due to the extent of the fracture. This is causing stenosis and compression on the nerves. Additionally, there is air in the dura likely due to the cement getting hard and possibly piercing this area. There is stenosis related to this as well. Pt deneis any HASSAN, N, V. However, she just tried to get up and and walk and could not bear weight on her LLE and she had a bout of bladder incontinence followed by a second. Rectal exam shows good tone and good sensation as well as good sensation in her genitals however with this it could have been stress related, urge related or due to the stenosis. It is difficult to tell, but due to the cement findings she needs to be taken back urgently to the OR for decompression and likely stabilization due to the fracture and current issues. We discussed this at length and reviewed the risks again and she was very understanding. She was willing to assume the risks of surgery once again. She will be admitted after surgery. Spine Surgery Clinical and Risk Review Zoila Cheema is a 67 yo female presenting for evaluation of L2 fracture with now LE weakness and incontinence after Kyphoplasty and cement extravasation. It was my pleasure to have seen and examined Zoila Cheema . In our visit today we have had a chance to go over subjective complaints, physical examination findings and treatments including the natural course history without intervention and various interventional options. The patients imaging demonstrates Cement extravasation with stenosis related to this L2 On physical exam, Zoila Cheema demonstrates Weakness in L2-3 LLE as well as decreased L5 sensation on the LLE. She has 4+/5 HF, KE, KF on the LLE and 3/5 DF with 4+/5 PF on the LLE. She has 5/5 strength in all facets of the RLE at this time. She had a bout of urinary incontience in the PACU and was unable to stand on her LLE. I have explained to the patient that as their condition progresses it will cause further neurological deficits and eventual paralysis. Based on the patients imaging, physical exam, and the rapid progression and disabling nature of their symptoms, at this time I recommend surgery in the form or a: L2 decompression with stabilization. I discussed the risk and benefits of this procedure at length with Zoila Cheema . The patient and her in the room with her agreed to considered pursuing the procedure abovementioned. Prior to surgery, she should follow up with her PCP (Cardio, ID, IM etc) for clearance. Questions were invited and answered, and the patient wishes to proceed as outlined below. Currently, I am recommendin. L2 decompression with stabilization 2. Follow up with PCP for surgical clearance 3. Review of surgical risks and benefits as well as an educational packet on the proposed surgical procedure. Risks: All surgical procedures come with inherent risks, including those related to positioning, anesthesia, intraoperative findings, and postoperative complications. It is important to understand that surgery does not come with any guarantee of a successful outcome as complications and adverse events are always possible. The patient was given a handout in office today discussing the surgical procedure and risks associated with the intervention, both of which were discuss ed with the patient. These risks include but are not limited to the following: * Experiencing same, different or even worse symptoms in back, neck, arms, or legs compared to before surgery. * Requiring further surgery or other forms of treatment presently or at some time in the future at same or other levels of the intended spine surgery. * On an extreme but fortunately relatively rare basis severe complication such as blindness, stroke, heart attack, temporary and/or permanent nerve injury, paralysis, coma, or may occur, sometimes without known explanation. * Surgical complications may include but are not limited to risk of infection, fluid accumulation in the surgical dissection site, including a seroma or hematoma, that requires additional surgery, wound drainage, bleeding, new numbness or weakness, vision changes/loss, spinal fluid leakage, non-healing and/or infected incision, headaches, difficulty or inability to swallow, hoarseness, hemopneumothorax, pneumothorax, impotence, retrograde ejaculation, vaginal dryness; injury to nerves, spinal cord, blood vessels, lymphatics or other vital organs (i.e., bowel injury, injury to the great vessels); heterotopic bone formation; complications related to the hardware such as screws, rods, cages including misplaced hardware, device failure, instrumentation at the wrong spine level, hardware fracture/breakage, or hardware loosening; vertebral failure of the spinal column above or below the newly placed hardware; retained surgical instrumentations or devices and the need for further surgery. * Medical risks of the planned spine surgery include but are not limited to generalized Infections to the whole body or local areas outside of the surgical site (sepsis), heart attack, bleeding, anaphylaxis, meningitis, seizure, epilepsy, hearing loss, burn early, laceration of the head or other areas of the body, bruising, hypersensitivity of the skin, bladder over distension; allergic reaction; shoulder injury related to positioning; fat, blood and air clots to other areas of the body like heart, lungs, brain; failure of internal organs such as lungs, kidneys, liver and excessive bleeding. If blood transfusions are necessary, note that transfusions may cause intolerance reactions such as anaphylaxis or other complex reactions. * Despite best efforts, the results of spine surgery might not heal in terms of bone, soft tissues such as skin, fascia, ligaments, and joints. Additionally, in order to achieve best possible results, spine surgery may be carried out beyond the initially planned levels and involve decompression, fusion including insertion of hardware at levels other than the original intended area of surgical interest change some portions of the procedure in order to ensure the best possible outcomes. * With spine surgery and spinal fusion, there are different off label uses of instrumentation (devices, implants and hardware) as well as biological substances (bone morphogenic proteins, demineralized bone matrix) as well as using extra bone from allograft sources (i.e. cadaver bone) or autograft (iliac crest bone, ribs, or the spine itself). The patient has been given i nformation about these practices and their inherent risks and benefits. The patient has had a chance to review all the listed information, has been given print outs detailing this information, and has had all his/her questions answered to their satisfaction. It was my pleasure to have seen and examined Zoila Cheema . In our visit today we have had a chance to go over my understanding of our patient's current condition, the natural course history without intervention and various interventional options. Questions were invited and answered, and the patient wishes to proceed as outlined above. I have seen and examined the patient for 25 minutes and we have spent more than 50% of the time in repeat and detailed counseling about the patient's condition, its natural course history with out and as much as can be predicted with surgery and re-review of various surgical treatment options. In conclusion, Zoila Cheema and [her in the room with her requested we proceed with the above suggested surgery and are willing to accept risks and limitations of the suggested surgery as nature of the disease process and our best attempts at treatment for the condition. Thank you again for allowing us to be part of your patient's care. Please don't hesitate to contact me if you have any further questions. Signed and authenticated by: Marcelo Leal [facility] [address], [address] [address]
[2023-03-28] MEDS ORDERED: TRANEXAMIC ACID IN NACL,ISO-OS 1,000 MG/100 ML BAG ONE (14:45)
[2023-03-28] MEDS ORDERED: ceFAZolin 1,000 MG VIAL ONE (14:45)
[2023-03-28] MEDS ORDERED: KETAMINE 10 MG/ML 20 ML VIAL ONE (14:45)
[2023-03-28] MEDS ORDERED: LABETALOL 5 MG/ML VIAL MDV ONE (14:45)
[2023-03-28] MEDS ORDERED: GLYCOPYRROLATE 0.2 MG/ML 2 ML VIAL ONE (14:45)
[2023-03-28] MEDS ORDERED: PHENYLEPHRINE-0.9% NACL SYG 1,000 MCG/10 ML SYRINGE ONE (14:45)
[2023-03-28] MEDS ORDERED: SODIUM CHLORIDE 0.9% 100 ML BAG ONE (14:45)
[2023-03-28] MEDS ORDERED: NEOSTIGMINE 1 MG/ML 10 ML VIAL ONE (14:45)
[2023-03-28] MEDS ORDERED: ROCURONIUM 10 MG/ML (5 ML VIAL) IV ONE (14:45)
[2023-03-28] MEDS ORDERED: SODIUM CHLORIDE 0.9% 100 ML with ceFAZolin 1,000 MG IV ONE ×2 (14:50)
[2023-03-28] MEDS ORDERED: IV FLUID CONTINUATION 500 ML IV ONE (14:50)
[2023-03-28] MEDS ORDERED: TRANEXAMIC ACID 1,000 MG in SODIUM CHLORIDE 0.9% 100 ML IVPB PRN (15:17)
[2023-03-28] MEDS ORDERED: GELATIN SPONGE,ABSORB (LARGE) 1 EACH SPONGE TOPICAL ONE (15:25)
[2023-03-28] MEDS ORDERED: THROMBIN (BOVINE) 5,000 UNIT VIAL TOPICAL ONE (15:26)
[2023-03-28] MEDS ORDERED: VANCOMYCIN 1,000 MG VIAL MISCELLANE ONE (16:35)
[2023-03-28] MEDS: HYDROmorphone 0.5 MG/0.5 ML SYRINGE IVP PRN ×2 (17:39→17:50)
[2023-03-28] MEDS ORDERED: ALBUTEROL NEBULIZED 2.5 MG/3 ML INHALATION ONE (19:15)
--- NOTE | 2023-03-28 19:54 | XR ---
Fluoroscopy INDICATION: Pain FINDINGS: Fluoroscopy time: 37 seconds. Total dose area product (DAP) in uGy*m?, mGy*cm? (or similar): 4.2714 Images obtained: 7. IMPRESSIONS: 1. Documentation of fluoroscopy.
[2023-03-28] MEDS: ACETAMINOPHEN TAB 325 MG TAB PO SCH ×2 (20:39→20:44)
[2023-03-28] MEDS: DEXAMETHASONE SOD PHOSPHATE 4 MG/ML 1 ML VIAL IVP SCH (20:45)
[2023-03-28] MEDS: HYDROmorphone 1 MG/ML 1 ML SYRINGE IVP PRN (22:29)
[2023-03-29] MEDS: ACETAMINOPHEN TAB 325 MG TAB PO SCH ×4 (00:58→17:49)
[2023-03-29] MEDS: DEXAMETHASONE SOD PHOSPHATE 4 MG/ML 1 ML VIAL IVP SCH ×6 (01:01→20:03)
[2023-03-29] MEDS: HYDROcodone/APAP 10-325MG 1 EACH TAB PO PRN ×3 (05:05→18:53)
[2023-03-29 06:10] LABS: Basophils % (A) 0 %; Eosinophils % (A) 0 %; HCT 37.3 % (34.0-46.0); HGB 11.4 gm/dL (11.4-16.0); Hypochromasia Slight; Lymphocytes # (A) 0.5 k/uL (1.0-4.8); Lymphocytes % (A) 8 %; MCH 28.8 pg (25.0-35.0); MCHC 30.7 g/dL (31.0-37.0); MCV 93.8 fL (80.0-100.0); Mean Platelet Volume 8.2; Monocytes # (A) 0.1 k/uL (0-1.0); Monocytes % (A) 2 %; Neutrophils # (A) 5.9 k/uL (1.3-7.7); Neutrophils % (A) 89 %; Platelet Count 229 k/uL (150-450); RBC 3.98 m/uL (3.80-5.40); RDW 12.8 % (11.5-15.5); WBC 6.7 k/uL (3.8-10.6)
[2023-03-29 06:24] LABS: African American GFR (CKD) >90 (>60 ml/min/1.73 sqM); Anion Gap 6 mmol/L; Blood Urea Nitrogen 14 mg/dL (7-17); Calcium 8.7 mg/dL (8.4-10.2); Carbon Dioxide 25 mmol/L (22-30); Chloride 106 mmol/L (98-107); Glucose 119 mg/dL (74-99); Non-African American GFR(CKD) >90 (>60 ml/min/1.73 sqM); Potassium 4.2 mmol/L (3.5-5.1); Sodium 137 mmol/L (137-145)
--- NOTE | 2023-03-29 07:35 | P.OP ---
Date of Procedure: 03/28/23 Preoperative Diagnosis: 1. L2 wedge compression fracture 50% collapse 2. Low back pain 3. LE weakness Postoperative Diagnosis: 1. L2 wedge compression fracture 50% collapse 2. Low back pain 3. LE weakness Procedure(s) Performed: 1. L2 Kyphoplasty with biopsy (55477) 2. Insertion of Spine Joe devices with reduction of fracture (16415) Implants: Kaila spine joe x2 Kaila cement Anesthesia: GETA Surgeon: Marcelo Wakefield Sugar Trucker #1: Nicola Stafford (Was present and assisted with all aspects of the case from positioning to dressing placement) Estimated Blood Loss (ml): 5 Pathology: other (L2 vertebral body) Condition: stable Disposition: PACU Indications for Procedure: Spine Surgery Risk Review Ms. Cheema is presenting for evaluation of lumbar pain. It was my pleasure to have seen and examined Ms. Cheema. In our visit today we have had a chance to go over subjective complaints, physical examination findings and treatments including the natural course history without intervention and various interventional options. The patients imaging demonstrates: Xray Lumbar spine, [facility], 02/13/23 taken at [facility]: Images reviewd with pt and show compression fracture of L2 with 50% height loss, anterior wedging and kyphotic alignment due to this. Severe spondylosis through the lumbar spine noted. No other fractures seen at this time. Transitional anatomy at L5-S1 skews view. AP pelvis shows post surgical changes with Lt hip hemiarthroplasty. There is medial migration of the head in the acetrabulum. No acute fracture. Thoracic and Lumbar MRI taken on 03/02/23 at [facility]: IMagres reviewed with the patient and demonstrate 2 different compression deformities. First in the lumbar spine at L2 there is the aforementioned fracture with 50% height loss edema within the fractured level mild and small retropulsed fragment causing moderate central stenosis but no severe impingement overall alignment is kyphotic secondary to this fracture. No other complicating process seen caudally. Cranially at T10 there is a severe burst,compression deformity with anterior wedging that is near 80% compressed. There is a fracture line that transverses posteriorly as well. There is severe foraminal stenosis related to the kyphotic alignment due to this fracture. There is no other acute fracture at this time. Computed tomography scan of the lumbar spine without contrast 02/02/2023 at [facility]: this is reviewed and demonstrates the L2 burst compression type fracture with retropulsed fragment. There is air within the disc space of L1 L2 secondary to this fracture. Endplate is violated cranially and caudally however there is a large void within the fractured vertebral body which would be well treated with cement placement or Spine joe and cement for reduction. On physical exam, Ms. Cheema demonstrates: Patient reports a posterior diffuse thoracolumbar pain with an onset of 12/2021 after patient was moving some small furniture. Patient report she was moving a side table when she heard a snap in he mid/lower back. Patient denies any radicular symtpoms or numbness and tingling to bilateral lower extremities. Patient was sent to [facility] ER 02/02/23 for evaluation after consistent pain and positive xrays. Overall the patient has seen a progressive increase in symptoms since their onset. Ms. Cheema symptoms are exacerbated with ambulation she states sharp intermittent pain, with sitting she reports a constant dull ache, due to this they notes that it is increasingly difficult for Ms. Cheema to complete many of their daily tasks. I have explained to the patient that as their condition progresses it will cause further neurological deficits and eventual paralysis. Based on the patients imaging, physical exam, and the rapid progression and disabling nature of their symptoms, at this time I recommend surgery in the form of a: lumbar L2 Kyphoplasty . I discussed the risk and benefits of this procedure at length with Ms. Cheema. The patient agreed to considered pursuing the procedure abovementioned. Prior to surgery, she should follow up with her PCP (Cardio, ID, IM etc) for clearance. Questions were invited and answered, and the patient wishes to proceed as outlined below. Currently, I am recommendin.lumbar L2 Kyphoplasty with biopsy and spine joe placement Description of Procedure: L2 Kyphoplasty, biopsy, spine joe The patient was seen and examined in the preoperative area. All preoperative protocols were followed. Informed consent was obtained, risks and benefits of the procedure were discussed at length. Risks including bleeding infection damage to the surrounding tissue and risk of re-operation were discussed with the patient. Risk of anesthesia up to and including was discussed with the patient. These are outlined in the risk review. They were willing to accept these risks and all the risks of surgery. The patient was given a weight-based dose of antibiotics in the form of 2 g Ancef. The patient was seen and evaluated by the anesthesia team who deemed them fit for surgery. The site was marked, the patient was willing to proceed with the procedure. The patient was transferred to the operative suite by the Department of anesthesia. They were then drifted off to sleep by the department anesthesia and GETA was performed. The patient tolerated this well. Once confirmation of lines and ventilation the patient was transferred to a prone Edward table very carefully. All bony prominences including wrists, elbows, axilla, chest, hips, and thighs, and feet were padded very well. Special attention was paid to the genitalia, and these were padded accordingly. SCDs were placed on bilateral lower extremities and were connected. Arms were well padded and placed on arm boards up and out in the 90/90 position. Once in position, again we confirmed good ventilation capabilities and that lines were running appropriately. The patients Lumbar spine was then exposed. 1010s were placed outlining the incision site. Standard alcohol was used to clean the incision site and allowed to dry. C-arm was used to needle localize the pedicles at L2 and bio-jenifer the patient and confirm level for incision which was marked with a skin marker. Operative briefing was performed with all teams and everyone in agreement to proceed. The patient was then prepped and draped in a normal sterile fashion. Timeout was then performed, and all parties agreed with the procedure to be performed. Skin hanna was made. Jamshitdi was passed into the L2 vertebral body via the pedicle bilaterally. The Left pedicle was difficult to enter and was poorly visualized on imaging. This was done with biplane fluoroscopy. Once in good position in the body the trochar removed. Biopsy needle was passed into the body and biopsy taken. Drill was then passed and biopsy material taken from drill as well. Curette then used to reduce endplate and create more space. The Spine Joe system was then used. Wire was placed and jamshidis removed. The trochar was then placed over the wire followed by the drill and then the template checking AP and lateral with every advancement. The left side again was somewhat medial, but seemed to be in good position and safe. The spine joe system was then placed through the trochar and expanded sequentially until there was good reduction in height of the vertebral body. Then cement was placed into the the spine joe system in standard fashion and under pulsed lateral flouroscopy. During placement on the left hand side there was noted some extravassation and so pressure was removed and this was stopped immediately. The patient remained stable. AP and Lateral were checked and there was good fill so this was aborted on the LHS. The trochar was then removed from the spine joe and the wound irrigated. The skin was closed with a simple stitch and dressed with a bandaid. The patient was then transferred off the table back to their hospital bed a- traumatically. They were extubated by the department of anesthesia. They were then transferred to PACU in stable condition having tolerated the procedure with no complications.
--- NOTE | 2023-03-29 07:49 | P.OP ---
Date of Procedure: 03/28/23 Preoperative Diagnosis: 1. Cement extravasation s/p L2 kyphoplast and spine cedric placement 2. LLE weakness 3. UI Postoperative Diagnosis: 1. Cement extravasation s/p L2 kyphoplasty and spine cedric placement 2. Dural tear due to #1 3. LLE weakness 4. UI Procedure(s) Performed: 1. Open reduction with L1-L3 stabilization and posteriolateral fusion for L2 fracture (27394, [id number], [id number]) 2. Bilateral laminectomy complete facetectomy and foraminotomy L1-3 for decompression of neural elements and exploration of dural sac and leak 3. Dural repair with patch graft Left L2 root take off (04364, [id number]) Implants: [place] everest screw and sp system MagnatOs, autograft Anesthesia: CRISTIAN Surgeon: Marcelo Wakefield Historic Interpreter #1: Nicola Stafford (Was present and assisted with all aspects of the case from positioning to dressing placement) Estimated Blood Loss (ml): 200 IV fluids (ml): 500 Urine output (ml): 1,250 Pathology: none sent Condition: stable Disposition: PACU Indications for Procedure: Zoila Chemea is a 67 yo female presenting for evaluation of L2 fracture with now LE weakness and incontinence after Kyphoplasty and cement extravasation. It was my pleasure to have seen and examined Zoila Cheema . In our visit today we have had a chance to go over subjective complaints, physical examination findings and treatments including the natural course history without intervention and various interventional options. The patients imaging demonstrates Cement extravasation with stenosis related to this L2 On physical exam, Zoila Cheema demonstrates Weakness in L2-3 LLE as well as decreased L5 sensation on the LLE. She has 4+/5 HF, KE, KF on the LLE and 3/5 DF with 4+/5 PF on the LLE. She has 5/5 strength in all facets of the RLE at this time. She had a bout of urinary incontience in the PACU and was unable to stand on her LLE. I have explained to the patient that as their condition progresses it will cause further neurological deficits and eventual paralysis. Based on the patients imaging, physical exam, and the rapid progression and disabling nature of their symptoms, at this time I recommend surgery in the form or a: L2 decompression with stabilization. I discussed the risk and benefits of this procedure at length with Zoila Cheema . The patient and her in the room with her agreed to considered pursuing the procedure abovementioned. Prior to surgery, she should follow up with her PCP (Cardio, ID, IM etc) for clearance. Questions were invited and answered, and the patient wishes to proceed as outlined below. Currently, I am recommendin. L2 decompression with stabilization Description of Procedure: The patient was seen and examined in the preoperative area. All preoperative protocols were followed. Informed consent was obtained risks and benefits of the procedure were discussed at length. Risks including bleeding infection damage to the surrounding tissue and risk of reoperation were discussed with the patient. Risk of anesthesia up to and including was a discussed with the patient. These are outlined in the risk review. They were willing to accept these risks and all of the risks of surgery. The patient was given a weight- based dose of antibiotics in the form of 2g ancef. The patient was seen and evaluated by the anesthesia team who deemed them fit for surgery. The site was marked, the patient was willing to proceed with the procedure. The patient was transferred to the operative suite by the Department of anesthesia. They were then drifted off to sleep by the department anesthesia and GETA was performed. The patient tolerated this well. Feldman catheter was placed by nursing staff, atraumatically. Once confirmation of lines and ventilation the patient was transferred to a prone Edward table very carefully. All bony prominences including wrists, elbows, axilla, chest, hips, and thighs, and feet were padded very well. Special attention was paid to the genitalia and these were padded accordingly. SCDs were placed on bilateral lower extremities and were connected. Arms were well padded and placed on arm boards up and out in the 90/90 position. Once in position, again we confirmed good ventilation capabilities and that lines were running appropriately. The patient's lumbar spine was then exposed. 1010s were placed outlining the incision site. Standard alcohol was used to clean the incision site and allowed to dry. C-arm was used to biomark the patient and confirm level for incision which was marked with a skin marker. Operative briefing was performed with all teams and everyone in agreement to proceed. The patient was then prepped and draped in a normal sterile fashion. Timeout was then performed and all parties were in agreement with the procedure to be performed. Midline skin incision was made over the previously biomarked area and dissection taken down to the facia over the SP of L1-L3. Facia was split and subperiosteal dissection done over the lamina, facet joints and TP of L1-3. Lateral imaged confirmed levels for surgery. Retractors were placed. Bilateral laminectomy partial medial facetectomy and foraminotomies were performed at L1 through L3 for decompressive purposes once this was unroofed it was evident there was dural leak and dural tear due to the flaccid nature of the dural sac as well as presence of CSF fluid. At this point it was necessary for a further decompression which would destabilize the spine and so it was elected for stabilization. Under Lateral fluoroscopy using a freehand technique screws were placed into L1 and L3 bilaterally. High-speed bur was used to make a master pilot hole followed by a pedicle finder feeler confirmed within the rubalcava of the pedicle and then a measured screw was placed. This was done under lateral fluoroscopy. Once completed at these levels AP fluoroscopy confirmed good placement of screws. Attention was then drawn back to the decompression bilateral complete facetectomy foraminotomy and complete laminectomy was performed from L1 through L3. This revealed on the left-hand side that there have been a dural injury. Cement was noted to be extravasated anteriorly and pushing its way through the dura. There was also likely injury from the Jamshidi in this area. It appears as though the pedicle had broken medially and there was likely translation of the Jamshidi medially undenounced and difficult to identify due to the fracture. The pedicles were exceedingly small and this patient and very fragile. There is also likely propagation of the fracture more posteriorly than initially observed. Once the area of dural leak was identified as well as a cement extravasation the cement was removed from this area. The dural leak was then identified and 6-0 Prolene was used to fix the dura. This is right over the area of the takeoff of the L2 nerve root. Nerve rootlets were placed back within the dural sac and the dural sac was then closed. A good closure was obtained with 6-0 Prolene. A Valsalva to 40 mmHg confirmed good closure with no continuous leak. Rods were then selected and placed into the screws and setscrews placed and final tightened. The wound was then copiously irrigated with 3 L of Ancef irrigation followed by 3 L of gentamicin followed by 3 L of normal sterile saline. Once this was accomplished a DuraGen graft was then sewn into place over the dura for added protection and fixed with fixation. Again a Valsalva 40 confirmed no continuous dural leak. Tisseel was then placed over this repair followed by Surgicel followed by another layer of Tisseel and a final layer of Surgicel. A cross-link was selected and placed and final tightened into position in the posterior lateral gutters were decorticated and a mixture of autograft and MagnatOs was placed for posterior lateral fusion and impacted into position. Final x-ray images confirmed good placement of hardware decompression and alignment. Vancomycin was then placed deep within the wound. A deep drain was placed and set to gravity suction only. A layered closure was then performed first in the deep fascia with #1 PDS followed by a running unidirectional strata fix oversew 0 PDS was then placed in the deep subcu tissue 2-0 Vicryl in the superficial subcu tissue and monika in the skin. The wound edges approximated very well. The patient was transferred back to their hospital bed atraumatically. Drain continued to hold suction and were in good position. Patient was then awakened and extubated by the department of anesthesia having tolerated the procedure very well with no complications. They were transferred to the postoperative care unit in stable condition.
--- NOTE | 2023-03-29 08:22 | FL ---
EXAMINATION TYPE: FL guidance operating room DATE OF EXAM: 03/28/2023 HISTORY: Fluoroscopy time Total dose area product (DAP) in mGy*cm? (or similar): 4.2714 IMPRESSION: 1. Fluoroscopy time.
--- NOTE | 2023-03-29 09:51 | P.PN ---
Subjective Progress Note Date: 03/29/23 Principal diagnosis: 1. Severe T10 burst fracture, old 2. L2 vertebral compression fracture, Acute on chronic with burst component 2.Lumbar spondylosis 3. Bilateral lower extremity weakness 4. Mechanical low back pain Patient seen and examined at bedside this morning. She is resting with head of bed at 0 and laying supine. Patient does have complaint of low back pain, states that it is managed on current regimen. She is also continuing to report left lower extremity weakness. Patient reports that from laying flat she does believe she is having some heartburn, medications will be ordered. Patient is currently denying any headaches, dizziness, blurred vision, or nausea or vomiting. Head of bed has been elevated to 10, nursing staff may continue to raise head of bed in 10 increments every hour as long as patient is not having any symptoms. If symptoms persist, return HOB to 0. Patient is to work with physical therapy today. Encouraged use of incentive spirometer. Patient has been afebrile, denies shortness of breath or chest pain. Objective - Vital Signs Vital signs: Vital Signs Temp 99.1 F 03/29/23 07:21 Pulse 78 03/29/23 07:21 Resp 19 03/29/23 07:21 BP 154/76 03/29/23 07:21 Pulse Ox 98 03/29/23 08:26 FiO2 Intake & Output 03/28/23 03/29/23 03/29/23 18:59 06:59 18:59 Intake Total 2800 Output Total 985 980 Balance 1815 -980 Weight 46.4 kg Intake: IV 2800 Output: Drainage 80 Lower Back 80 Urine 725 900 Estimated Blood Loss 260 Other: Voiding Method Indwelling Catheter - Exam Physical Examination General: The patient is awake and alert, in no acute distress Skin: Skin is warm and dry with no obvious rashes or lesions. Surgical incision to the lumbar spine, dressing is clean dry and intact with VALDEMAR drain present. Output of 80 mL overnight. Eye: Pupils are equal, round and reactive to light, extra-ocular movements are intact; there is normal conjunctiva bilaterally. Neck: The neck is supple, there is no tenderness and ROM intact. Cardiovascular: There is a regular rate and rhythm. No murmur, rub or gallop is appreciated. Respiratory: Lungs are clear to auscultation, respirations are non-labored, breath sounds are equal. Gastrointestinal: Soft, non-distended, non-tender abdomen. Back: There is mild tenderness to palpation in the midline lumbar region. There is no obvious deformity . Musculoskeletal: ROM limited secondary to pain and stiffness from surgical procedure. Muscle strength in all major muscle groups of bilateral upper extremities 5/5, right lower extremities 5/5; left lower extremity 2/5 dorsiflexion and 4-/5 plantar flexion, overall muscle strength 3/5. Neurological: CN 2-12 intact. There are no obvious motor or sensory deficits. Movement and coordination equal and intact. Sensory exam to light touch intact C5-T1 and intact from L2-S1. Reflexes 2/4 in bilateral upper and lower extremities. Negative Hoffmans, babinski, and clonus signs. Psychiatric: Cooperative, appropriate mood & affect, normal judgment. - Labs CBC & Chem 7: 03/29/23 05:28 03/29/23 05:28 Labs: Abnormal Lab Results - Last 24 Hours (Table) 03/29/23 03/29/23 Range/Units 05: 05:28 MCHC 30.7 L (31.0-37.0) g/dL Lymphocytes # 0.5 L (1.0-4.8) k/uL Glucose 119 H (74-99) mg/dL Assessment and Plan Assessment: Postop day 1: L2 kyphoplasty; L2 laminectomy and stabilization with dura repair 1. Severe T10 burst fracture, old 2. L2 vertebral compression fracture, Acute on chronic with burst component 2.Lumbar spondylosis 3. Bilateral lower extremity weakness 4. Mechanical low back pain Plan: -Appreciate supply chain consultant and team management. -Activity: Continue to raise head of bed in increments of 10 every hour as long patient continues to deny symptoms. If symptoms develop return HOB to 0. End goal is to proceed with the following : Ambulate QID, OOB all meals, up and about, limit lifting bending twisting to less than 5 lbs. Use walker or cane if needed for stability. -Daily PT/OT, increase ambulation strength and balance. -Brace when up and about, not needed in bed or chair -Pain control: Adequate at this time -Meds: reviewed -GI ppx: senna, Miralax -DC blackburn when up and about, bedside commode if needed -DVT PPX: OK to restart Heparin tonight -Hygiene: Shower today. Maintain dressing clean and dry. Meticulous cleaning after BMs away from the incision site -Drains: Maintain for now. Continue -Encourage IS 10x/hr -Dispo: Anticipate discharge home with homecare 48-72hrs *I reviewed and discussed this case with my attending Dr. Wakefield, whom has reviewed this chart and films and is in agreement with assessment and plan of care as outlined above. I have personally seen and examined the patient, performed the documentation and the assessment and plan as written. Number of minutes spent on the visit: 20m.
[2023-03-29] MEDS ORDERED: ALBUTEROL NEBULIZED 2.5 MG/3 ML INHALATION PRN (10:04)
[2023-03-29] MEDS: CYCLOBENZAPRINE 5 MG TAB PO PRN ×2 (10:24→18:54)
--- NOTE | 2023-03-29 10:24 | CT ---
EXAMINATION TYPE: CT lumbar spine wo con DATE OF EXAM: 03/29/2023 COMPARISON: 03/28/2023 HISTORY: post-op lumbar fusion CT DLP: 640.8 mGycm CONTRAST: None TECHNIQUE: CT of the lumbar spine is performed on a spiral scan at 3 mm thick sections. Reconstructed images are performed in the coronal and sagittal planes. FINDINGS: There are some minimal pleural effusions present within the emphysematous lung bases. T12-L1: No focal disc herniation or significant disc bulge is evident. No spinal canal stenosis or neural foraminal stenosis is present. L1-L2: No focal disc herniation or significant disc bulge is evident. No spinal canal stenosis or n eural foraminal stenosis is present Postsurgical changes are present from pedicle screw placement L1-L3. There is some vertebroplasty of L2 evident. There may be somewhat medial placement of the right L1 and L3 pedicle screws. L2 contains cement from vertebroplasty. There is some posterior wall displacement of the superior pos terior wall. Laminectomy has been performed and no spinal canal stenosis is appreciated. Postsurgical air is within the spinal canal at the L2-3 level. Postsurgical air is present within the laminectomy at L2-3 and L1-2. L2-L3: No focal disc herniation or significant disc bulge is evident. No spinal canal stenosis or n eural foraminal stenosis is present L3-L4: Minimal disc bulge with anterior thecal sac contact is present at the L3-4 level. No AP spinal canal stenosis present. The neural foramen appear patent. L4-L5: Broad-based disc bulge has moderate anterior thecal sac flattening. No AP spinal canal stenosi s is present. Some moderate left and mild right foraminal narrowing is present. L5-S1: No focal disc herniation or significant disc bulge is evident. No spinal canal stenosis or n eural foraminal stenosis is present Vertebral alignment appears normal. IMPRESSION: 1. Postsurgical changes from L1 through L3 fixation discussed above. 2. Disc bulging with moderate anterior thecal sac flattening without AP stenosis at L4-5.
--- NOTE | 2023-03-29 12:23 | P.CONS ---
History of Present Illness - Reason for Consult Consult date: 03/29/23 Medical management - History of Present Illness History of present illness; patient is a 67-year-old lady with past medical history significant for COPD, hyperlipidemia, hypothyroidism who was being seen outpatient by orthopedics for her back pain. Patient stated her back pain started in December of this year. Patient has been noticing progressive increase in her back pain symptoms. Back pain increases with ambulation and patient is unable to carry out her activities of daily living. Patient was initially recommended conservative treatment but all those measures failed, orthopedics recommended surgical intervention for which patient was admitted Initial lab work done showed WBC 6.7, hemoglobin 10.4, platelet count 229, sodium 137, potassium 4.2, chloride 106, BUN 14, creatinine 0.67 Patient underwent L2 kyphoplasty; L2 laminectomy and stabilization with dura repair 03/28. Interval medicine team was consulted for medical management REVIEW OF SYSTEMS: CONSTITUTIONAL: No fever, no malaise, no fatigue. HEENT: No recent visual problems or hearing problems. Denied any sore throat. CARDIOVASCULAR: No chest pain, orthopnea, PND, no palpitations, no syncope. PULMONARY: No shortness of breath, no cough, no hemoptysis. GASTROINTESTINAL: No diarrhea, no nausea, no vomiting, no abdominal pain. NEUROLOGICAL: No headaches, no weakness, no numbness. HEMATOLOGICAL: Denies any bleeding or petechiae. GENITOURINARY: Denies any burning micturition, frequency, or urgency. MUSCULOSKELETAL/RHEUMATOLOGICAL: Complaining of back pain. Complaining of numbness in the thigh area, improved from before ENDOCRINE: Denies any polyuria or polydipsia. The rest of the 14-point review of systems is negative. PHYSICAL EXAMINATION: GENERAL: The patient is alert and oriented x3, not in any acute distress. Well developed, well nourished. HEENT: Pupils are round and equally reacting to light. EOMI. No scleral icterus. No conjunctival pallor. Normocephalic, atraumatic. No pharyngeal erythema. No thyromegaly. CARDIOVASCULAR: S1 and S2 present. No murmurs, rubs, or gallops. PULMONARY: Chest is clear to auscultation, no wheezing or crackles. ABDOMEN: Soft, nontender, nondistended, normoactive bowel sounds. No palpable organomegaly. MUSCULOSKELETAL: No joint swelling or deformity. EXTREMITIES: No cyanosis, clubbing, or pedal edema. NEUROLOGICAL: Gross neurological examination did not reveal any focal deficits. SKIN: Lumbar area surgical incision seen, drain in place Assessment and plan Severe T10 burst fracture, old L2 vertebral compression fracture, Acute on chronic with burst component Lumbar spondylosis Bilateral lower extremity weakness Mechanical low back pain COPD Hyperlipidemia Plan; Monitor vital signs Monitor CBC Monitor CMP Status post L2 kyphoplasty; L2 laminectomy and stabilization with dura repair Encourage use of I-S Aggressive bronchopulmonary hygiene Continue home inhaler regimen Symbicort and albuterol Continue pain management per orthopedics Continue DVT prophylaxis per orthopedics PT and OT evaluation Past Medical History Past Medical History: Asthma, COPD, Hyperlipidemia, Osteoarthritis (OA) Additional Past Medical History / Comment(s): lumbar compression fx-back brace on-moving coffee table, osteoporosis History of Any Multi-Drug Resistant Organisms: None Reported Past Surgical History: Joint Replacement Additional Past Surgical History / Comment(s): bhaskar cataracts,left hip replacement Past Anesthesia/Blood Transfusion Reactions: No Reported Reaction Additional Past Anesthesia/Blood Transfusion Reaction / Comm: no hx blood transfusion Past Psychological History: Anxiety, Depression Smoking Status: Never smoker Past Alcohol Use History: Rare Past Drug Use History: None Reported - Past Family History Mother Family Medical History: No Reported History Medications and Allergies Home Medications Medication Instructions Recorded Confirmed Type Budesonide-Formot 160-4.5 Mcg 2 puff INHALATION BID 07/21/15 03/28/23 History [Symbicort 160-4.5 Mcg Inhaler] Levothyroxine Sodium [Synthroid] 75 mcg PO QAM 07/21/15 03/28/23 History Albuterol Inhaler [Ventolin Hfa 1 - 2 puff INHALATION Q6H PRN 03/24/23 03/28/23 History Inhaler] Atorvastatin Calcium 20 mg PO DAILY 03/24/23 03/28/23 History Citalopram Hydrobromide [CeleXA] 40 mg PO QAM 03/24/23 03/28/23 History Melatonin 20 mg PO HS 03/24/23 03/28/23 History Mirtazapine [Remeron] 15 mg PO HS 03/24/23 03/28/23 History Naproxen [Naprosyn] 500 mg PO DAILY 03/24/23 03/28/23 History cloNIDine HCL [Catapres] 0.1 mg PO TID 03/24/23 03/28/23 History tiZANidine HCL [Zanaflex] 4 mg PO BID PRN 03/24/23 03/28/23 History HYDROcodone/APAP 7.5-325MG [[place] 1 tab PO Q6HR PRN #28 tab 03/28/23 Rx 7.5-325] Sennosides/Docusate Sodium [Senna 1 each PO DAILY #20 capsule 03/28/23 Rx Plus 8.6-50 mg Softgel] cefaDROXiL [Duricef] 500 mg PO Q12HR 5 Days #10 cap 03/28/23 Rx tiZANidine [Zanaflex] 4 mg PO Q8HR PRN #21 tab 03/28/23 Rx Allergies Allergy/AdvReac Type Severity Reaction Status Date / Time No Known Allergies Allergy Verified 03/28/23 06:50 Physical Exam Vitals: Vital Signs Temp Pulse Pulse Pulse Resp BP Pulse Ox 03/29/23 08:26 98 03/29/23 07:21 99.1 F 78 19 154/76 98 03/29/23 00:45 98.2 F 94 18 149/82 96 03/28/23 21:30 89 151/82 03/28/23 21:15 94 163/89 93 L 03/28/23 21:00 96 150/82 03/28/23 20:45 97 162/86 95 03/28/23 20:30 98.9 F 103 H 18 195/98 92 L 03/28/23 20:00 78 16 120/67 98 03/28/23 19:45 80 16 114/75 97 03/28/23 19:30 80 16 137/79 98 03/28/23 19:00 88 16 191/106 96 03/28/23 18:45 80 16 183/84 98 03/28/23 18:30 74 16 151/76 100 03/28/23 18:15 74 16 133/71 100 03/28/23 18:00 74 16 150/79 99 03/28/23 17:45 88 16 201/97 94 L 03/28/23 17:26 75 16 179/86 100 03/28/23 17:11 97.2 F L 78 16 184/86 100 03/28/23 14:11 87 16 158/80 94 L 03/28/23 12:51 86 16 163/91 94 L 03/28/23 12:15 87 16 168/47 94 L 03/28/23 11:43 88 16 186/104 91 L 03/28/23 11:07 92 16 178/96 94 L 03/28/23 10:57 89 16 185/106 98 03/28/23 10:33 92 16 196/90 97 03/28/23 10:21 100 16 206/98 91 L 03/28/23 10:15 103 H 16 144/70 93 L Intake and Output 03/28/23 03/29/23 03/29/23 22:59 06:59 14:59 Intake Total 1500 Output Total 1425 530 Balance 75 -530 Intake: IV 1500 Output: Drainage 80 Lower Back 80 Urine 1175 450 Estimated Blood Loss 250 Other: Voiding Method Indwelling Catheter Weight 46.4 kg Results CBC & Chem 7: 03/29/23 05:28 03/29/23 05:28 Labs: Abnormal Lab Results - Last 24 Hours (Table) 03/29/23 03/29/23 Range/Units 05:28 05:28 MCHC 30.7 L (31.0-37.0) g/dL Lymphocytes # 0.5 L (1.0-4.8) k/uL Glucose 119 H (74-99) mg/dL
[2023-03-29] MEDS: HYDROmorphone 1 MG/ML 1 ML SYRINGE IVP PRN ×2 (13:49→20:11)
[2023-03-29] MEDS: SYMBICORT 160-4.5 MCG INHALER INHALATION SCH (20:38)
[2023-03-29] MEDS: cloNIDine HCL 0.1 MG TAB PO SCH ×2 (21:29→21:33)
[2023-03-29] MEDS: MIRTAZAPINE 15 MG TAB PO SCH (21:29)
[2023-03-30] MEDS: DEXAMETHASONE SOD PHOSPHATE 4 MG/ML 1 ML VIAL IVP SCH ×6 (00:42→21:01)
[2023-03-30] MEDS: ACETAMINOPHEN TAB 325 MG TAB PO SCH ×4 (00:42→17:44)
[2023-03-30] MEDS: HYDROcodone/APAP 10-325MG 1 EACH TAB PO PRN ×2 (04:20→21:13)
[2023-03-30] MEDS: CYCLOBENZAPRINE 5 MG TAB PO PRN ×2 (04:20→21:13)
[2023-03-30] MEDS: LEVOTHYROXINE 75 MCG TAB PO SCH (05:30)
--- NOTE | 2023-03-30 07:35 | P.PN ---
Subjective Progress Note Date: 03/30/23 Principal diagnosis: 1. Severe T10 burst fracture, old 2. L2 vertebral compression fracture, Acute on chronic with burst component 2.Lumbar spondylosis 3. Bilateral lower extremity weakness 4. Mechanical low back pain Patient seen and examined at bedside this morning. She is resting with head of bed at 40 and tolerating well. She has not sat at edge of bed or work with PT yet. Informed nursing staff that it is appropriate for patient to be up today in chair and increase her activity as tolerated. Patient does have complaint of low back pain, states that it is managed on current regimen. She continues to report left lower extremity weakness. Patient is currently denying any headaches, dizziness, blurred vision, or nausea or vomiting. Encouraged use of incentive spirometer. Patient has been afebrile, denies shortness of breath or chest pain. Objective - Vital Signs Vital signs: Vital Signs Temp 98.5 F 03/30/23 01:29 Pulse 77 03/30/23 01:29 Resp 17 03/30/23 01:29 BP 149/84 03/30/23 01:29 Pulse Ox 92 L 03/30/23 01:29 FiO2 Intake & Output 03/29/23 03/30/23 03/30/23 18:59 06:59 18:59 Output Total 1500 330 Balance -1500 -330 Output: Drainage 30 Lower Back 30 Urine 1500 300 Other: Voiding Method Indwelling Catheter Indwelling Catheter - Exam Physical Examination General: The patient is awake and alert, in no acute distress Skin: Skin is warm and dry with no obvious rashes or lesions. Surgical incision to the lumbar spine, dressing is clean dry and intact with VALDEMAR drain present. Output of 80 mL overnight. Eye: Pupils are equal, round and reactive to light, extra-ocular movements are intact; there is normal conjunctiva bilaterally. Neck: The neck is supple, there is no tenderness and ROM intact. Cardiovascular: There is a regular rate and rhythm. No murmur, rub or gallop is appreciated. Respiratory: Lungs are clear to auscultation, respirations are non-labored, breath sounds are equal. Gastrointestinal: Soft, non-distended, non-tender abdomen. Back: There is mild tenderness to palpation in the midline lumbar region. There is no obvious deformity . Musculoskeletal: ROM limited secondary to pain and stiffness from surgical procedure. Muscle strength in all major muscle groups of bilateral upper extremities 5/5, right lower extremities 5/5; left lower extremity 2/5 dorsiflexion and 4-/5 plantar flexion, overall muscle strength 3/5. Neurological: CN 2-12 intact. There are no obvious motor or sensory deficits. Movement and coordination equal and intact. Sensory exam to light touch intact C5-T1 and intact from L2-S1. Reflexes 2/4 in bilateral upper and lower extremities. Negative Hoffmans, babinski, and clonus signs. Psychiatric: Cooperative, appropriate mood & affect, normal judgment. - Labs CBC & Chem 7: 03/29/23 05:28 03/29/23 05:28 Assessment and Plan Assessment: Postop day 2: L2 kyphoplasty; L2 laminectomy and stabilization with dura repair 1. Severe T10 burst fracture, old 2. L2 vertebral compression fracture, Acute on chronic with burst component 2.Lumbar spondylosis 3. Bilateral lower extremity weakness 4. Mechanical low back pain Plan: -Appreciate market consultant and team management. -Activity: Ambulate QID, OOB all meals, up and about, limit lifting bending tw isting to less than 5 lbs. Use walker or cane if needed for stability. -Daily PT/OT, increase ambulation strength and balance. -Brace when up and about, not needed in bed or chair -Pain control: Adequate at this time -Meds: reviewed -GI ppx: senna, Miralax -DC blackburn when up and about, bedside commode if needed -DVT PPX: OK to restart Heparin tonight -Hygiene: Shower today. Maintain dressing clean and dry. Meticulous cleaning after BMs away from the incision site -Drains: Maintain for now. Continue -Encourage IS 10x/hr -Dispo: Anticipate discharge home with homecare *I reviewed and discussed this case with my attending Dr. Wakefield, whom has reviewed this chart and films and is in agreement with assessment and plan of care as outlined above. I have personally seen and examined the patient, performed the documentation and the assessment and plan as written. Number of minutes spent on the visit: 20m.
[2023-03-30] MEDS: SYMBICORT 160-4.5 MCG INHALER INHALATION SCH ×2 (09:18→21:12)
[2023-03-30] MEDS: cloNIDine HCL 0.1 MG TAB PO SCH ×3 (09:38→21:01)
[2023-03-30] MEDS: ATORVASTATIN 20 MG TAB PO SCH (09:38)
[2023-03-30] MEDS: CITALOPRAM HYDROBROMIDE 20 MG TAB PO SCH (09:38)
[2023-03-30] MEDS: HYDROmorphone 1 MG/ML 1 ML SYRINGE IVP PRN (09:43)
[2023-03-30 10:33] LABS: African American GFR (CKD) 102.5 (60.0-200.0); Albumin 3.5 g/dL (3.8-4.9); Albumin/Globulin Ratio 1.4 (1.60-3.17); Anion Gap 11.2 mmol/L (10.00-18.00); BUN/Creat Ratio 34.57 Ratio (12.00-20.00); Blood Urea Nitrogen 24.2 mg/dL (9.0-27.0); Calcium 9.4 mg/dL (8.7-10.3); Carbon Dioxide 21.8 mmol/L (20.0-27.5); Globulin 2.5 g/dL (1.6-3.3); Non-African American GFR(CKD) 88.4 (60.0-200.0); Potassium 3.6 mmol/L (3.5-5.5); Total Bilirubin 0.2 mg/dL (0.30-1.20)
[2023-03-30] MEDS: amLODIPine 5 MG TAB PO SCH (12:02)
[2023-03-30 12:27] LABS: Basophils # (A) 0 X 10*3/uL (0.00-0.10); Basophils % (A) 0 %; Eosinophils # (A) 0 X 10*3/uL (0.04-0.35); Eosinophils % (A) 0 %; HCT 34.2 % (37.2-46.3); HGB 10.9 g/dL (12.0-15.0); Immature Grans, Automated 0.5 %; Lymphocytes # (A) 0.66 X 10*3/uL (0.90-5.00); MCH 29.2 pg (27.0-32.0); MCHC 31.9 g/dL (32.0-37.0); MCV 91.7 fL (80.0-97.0); Mean Platelet Volume 11.3 fL (9.5-12.2); Monocytes # (A) 0.55 X 10*3/uL (0.20-1.00); NRBC Per 100 WBC 0 /100 WBCS (0.0-0.0); Neutrophils # (A) 9.68 X 10*3/uL (1.80-7.70); Neutrophils % (A) 88.5 %; Platelet Count 233 X 10*3/uL (140-440); RBC 3.73 X 10*6/uL (4.10-5.20); WBC 10.95 X 10*3/uL (4.50-10.00)
[2023-03-30 12:28] LABS: Acanthocytes 2+; Elliptocytes 2+
[2023-03-30] MEDS: MIRTAZAPINE 15 MG TAB PO SCH (21:01)
[2023-03-31] MEDS: ACETAMINOPHEN TAB 325 MG TAB PO SCH ×3 (00:24→12:21)
[2023-03-31] MEDS: DEXAMETHASONE SOD PHOSPHATE 4 MG/ML 1 ML VIAL IVP SCH ×5 (00:24→16:58)
[2023-03-31] MEDS: HYDROmorphone 1 MG/ML 1 ML SYRINGE IVP PRN ×2 (02:11→12:43)
[2023-03-31] MEDS: LEVOTHYROXINE 75 MCG TAB PO SCH (06:08)
[2023-03-31] MEDS: LACTATED RINGERS 1,000 ML IV SCH (06:09)
--- NOTE | 2023-03-31 08:32 | P.PN ---
Subjective Progress Note Date: 03/31/23 Principal diagnosis: 1. Severe T10 burst fracture, old 2. L2 vertebral compression fracture, Acute on chronic with burst component 2.Lumbar spondylosis 3. Bilateral lower extremity weakness 4. Mechanical low back pain Patient seen and examined at bedside this morning. Patient denies any pain at this time. She had been up with PT yesterday; she states she sat up in chair for approx 3 hours. Blackburn cath had been removed yesterday morning and patient has been incontinent of urine since. Blackburn cath will need to be replaced to maintain skin integrity. She reports this morning that she has no urge or feeling to go. She states she is passing gas, no BM since surgery. Patient states she has increased sensation into her left lower extremity and foot. Informed patient that we had ordered an AFO brace to assist her with ambulating. She states they did measure her foot for this yesterday. Patient has been afebrile, denies shortness of breath or chest pain. Objective - Vital Signs Vital signs: Vital Signs Temp 98.0 F 03/31/23 01:57 Pulse 76 03/31/23 01:57 Resp 19 03/31/23 01:57 BP 173/82 03/31/23 01:57 Pulse Ox 97 03/31/23 01:57 FiO2 Intake & Output 03/30/23 03/31/23 03/31/23 18:59 06:59 18:59 Intake Total 236 240 Output Total 30 12 60 Balance 206 228 -60 Intake: Oral 236 240 Output: Drainage 30 10 60 Lower Back 30 10 60 Urine 2 Other: Voiding Method Bedside Commode # Voids 2 - Exam Physical Examination General: The patient is awake and alert, in no acute distress Skin: Skin is warm and dry with no obvious rashes or lesions. Surgical incision to the lumbar spine, dressing is clean dry and intact with VALDEMAR drain present. Output of 60 mL overnight. Eye: Pupils are equal, round and reactive to light, extra-ocular movements are intact; there is normal conjunctiva bilaterally. Neck: The neck is supple, there is no tenderness and ROM intact. Cardiovascular: There is a regular rate and rhythm. No murmur, rub or gallop is appreciated. Respiratory: Lungs are clear to auscultation, respirations are non-labored, breath sounds are equal. Gastrointestinal: Soft, non-distended, non-tender abdomen. Back: There is mild tenderness to palpation in the midline lumbar region. There is no obvious deformity . Musculoskeletal: ROM limited secondary to pain and stiffness from surgical procedure. Muscle strength in all major muscle groups of bilateral upper extremities 5/5, right lower extremities 5/5; left lower extremity 2/5 dorsiflexion and 4-/5 plantar flexion, overall muscle strength 3/5. Neurological: CN 2-12 intact. There are no obvious motor or sensory deficits. Movement and coordination equal and intact. Sensory exam to light touch intact C5-T1 and intact from L2-S1. Reflexes 2/4 in bilateral upper and lower extremities. Negative Hoffmans, babinski, and clonus signs. Psychiatric: Cooperative, appropriate mood & affect, normal judgment. - Labs CBC & Chem 7: 03/30/23 05:05 03/30/23 05:05 Labs: Abnormal Lab Results - Last 24 Hours (Table) 03/30/23 03/30/23 Range/Units 05:05 05:05 WBC 10.95 H (4.50-10.00) X 10*3/uL RBC 3.73 L (4.10-5.20) X 10*6/uL Hgb 10.9 L (12.0-15.0) g/dL Hct 34.2 L (37.2-46.3) % MCHC 31.9 L (32.0-37.0) g/dL Immature Gran # 0.06 H (0.00-0.04) X 10*3/uL Neutrophils # 9.68 H (1.80-7.70) X 10*3/uL Lymphocytes # 0.66 L (0.90-5.00) X 10*3/uL Eosinophils # 0 L (0.04-0.35) X 10*3/uL BUN/Creatinine Ratio 34.57 H (12.00-20.00) Ratio Glucose 149 H (70-110) mg/dL Total Bilirubin 0.20 L (0.30-1.20) mg/dL AST 99 H (13-35) U/L Total Protein 6.0 L (6.2-8.2) g/dL Albumin 3.5 L (3.8-4.9) g/dL Albumin/Globulin Ratio 1.40 L (1.60-3.17) g/dL Assessment and Plan Assessment: Postop day 3: L2 kyphoplasty; L2 laminectomy and stabilization with dura repair 1. Severe T10 burst fracture, old 2. L2 vertebral compression fracture, Acute on chronic with burst component 2.Lumbar spondylosis 3. Bilateral lower extremity weakness 4. Mechanical low back pain Plan: -Appreciate technical assistance consultant and team management. -Insert blackburn catheter and record output q shift -Activity: Ambulate QID, OOB all meals, up and about, limit lifting bending twisting to less than 5 lbs. Use walker or cane if needed for stability. -Daily PT/OT, increase ambulation strength and balance. -Brace when up and about, not needed in bed or chair -Pain control: Adequate at this time -Meds: reviewed -GI ppx: senna, Miralax -DVT PPX: Heparin -Hygiene: Shower today. Maintain dressing clean and dry. Meticulous cleaning after BMs away from the incision site -Drains: Maintain for now. Continue -Encourage IS 10x/hr -Dispo: Anticipate discharge home with homecare *I reviewed and discussed this case with my attending Dr. Wakefield, whom has reviewed this chart and films and is in agreement with assessment and plan of care as outlined above. I have personally seen and examined the patient, performed the documentation and the assessment and plan as written. Number of minutes spent on the visit: 20m.
[2023-03-31] MEDS: SYMBICORT 160-4.5 MCG INHALER INHALATION SCH (08:46)
[2023-03-31] MEDS ORDERED: HEPARIN SODIUM,PORCINE/PF 5,000 UNIT/0.5 ML SYRINGE SQ SCH (09:00)
[2023-03-31] MEDS: amLODIPine 5 MG TAB PO SCH (09:01)
[2023-03-31] MEDS: cloNIDine HCL 0.1 MG TAB PO SCH ×2 (09:01→16:55)
[2023-03-31] MEDS: CITALOPRAM HYDROBROMIDE 20 MG TAB PO SCH (09:01)
[2023-03-31] MEDS: ATORVASTATIN 20 MG TAB PO SCH (09:01)
[2023-03-31] MEDS: HYDROcodone/APAP 10-325MG 1 EACH TAB PO PRN ×2 (09:01→16:55)
--- NOTE | 2023-03-31 09:58 | P.PN ---
Subjective Progress Note Date: 03/30/23 History of present illness; patient is a 67-year-old lady with past medical history significant for COPD, hyperlipidemia, hypothyroidism who was being seen outpatient by orthopedics for her back pain. Patient stated her back pain started in December of this year. Patient has been noticing progressive in crease in her back pain symptoms. Back pain increases with ambulation and patient is unable to carry out her activities of daily living. Patient was initially recommended conservative treatment but all those measures failed, orthopedics recommended surgical intervention for which patient was admitted Initial lab work done showed WBC 6.7, hemoglobin 10.4, platelet count 229, sodium 137, potassium 4.2, chloride 106, BUN 14, creatinine 0.67 Patient underwent L2 kyphoplasty; L2 laminectomy and stabilization with dura repair 03/28. Interval medicine team was consulted for medical management 03/30/2023 Patient is currently sitting in the bed. Awake alert and oriented x3. Pain is 7 out of 10 in severity. Otherwise blood pressure is elevated with SBP in 180s. Patient was started back on Catapres last night, Norvasc 5 mg daily was added. Denied any complaints of chest pain or shortness of breath. No nausea vomiting abdominal pain or diarrhea. No cough or sputum production. Patient is being continued on pain management with Dilaudid and Forest 10. Laboratory data showed WBC 10.9 hemoglobin 10.9 and platelets 233 blood sugar is 149 and albumin 3.5. Potassium 3.6. Current medications reviewed. REVIEW OF SYSTEMS: CONSTITUTIONAL: No fever, no malaise, no fatigue. HEENT: No recent visual problems or hearing problems. Denied any sore throat. CARDIOVASCULAR: No chest pain, orthopnea, PND, no palpitations, no syncope. PULMONARY: No shortness of breath, no cough, no hemoptysis. GASTROINTESTINAL: No diarrhea, no nausea, no vomiting, no abdominal pain. NEUROLOGICAL: No headaches, no weakness, no numbness. HEMATOLOGICAL: Denies any bleeding or petechiae. GENITOURINARY: Denies any burning micturition, frequency, or urgency. MUSCULOSKELETAL/RHEUMATOLOGICAL: Complaining of back pain. Complaining of numbness in the thigh area, improved from before ENDOCRINE: Denies any polyuria or polydipsia. The rest of the 14-point review of systems is negative. PHYSICAL EXAMINATION: GENERAL: The patient is alert and oriented x3, not in any acute distress. Well developed, well nourished. HEENT: Pupils are round and equally reacting to light. EOMI. No scleral icterus. No conjunctival pallor. Normocephalic, atraumatic. No pharyngeal erythema. No thyromegaly. CARDIOVASCULAR: S1 and S2 present. No murmurs, rubs, or gallops. PULMONARY: Chest is clear to auscultation, no wheezing or crackles. ABDOMEN: Soft, nontender, nondistended, normoactive bowel sounds. No palpable organomegaly. MUSCULOSKELETAL: No joint swelling or deformity. EXTREMITIES: No cyanosis, clubbing, or pedal edema. NEUROLOGICAL: Gross neurological examination did not reveal any focal deficits. SKIN: Lumbar area surgical incision seen, drain in place Assessment and plan Postoperative day 2. L2 kyphoplasty, L2 laminectomy and stabilization with dura repair. Severe T10 burst fracture, old L2 vertebral compression fracture, Acute on chronic with burst component Lumbar spondylosis Bilateral lower extremity weakness Mechanical low back pain Uncontrolled blood pressure COPD Hyperlipidemia Plan; Monitor vital signs Monitor CBC Monitor CMP Status post L2 kyphoplasty; L2 laminectomy and stabilization with dura repair Encourage use of I-S Aggressive bronchopulmonary hygiene Continue home inhaler regimen Symbicort and albuterol Continue pain management per orthopedics Continue the Catapres and Norvasc 5 mg daily was added for better blood pressure control. Continue to titrate blood pressure medications. Continue DVT prophylaxis per orthopedics PT and OT evaluation Objective - Vital Signs Vital signs: Vital Signs Temp 98.0 F 03/30/23 07:19 Pulse 92 03/30/23 07:19 Resp 17 03/30/23 07:19 BP 183/97 03/30/23 07:19 Pulse Ox 92 L 03/30/23 09:18 FiO2 Intake & Output 03/29/23 03/30/23 03/30/23 18:59 06:59 18:59 Intake Total 118 Output Total 1500 330 Balance -1500 -330 118 Intake: Oral 118 Output: Drainage 30 Lower Back 30 Urine 1500 300 Other: Voiding Method Indwelling Catheter Indwelling Catheter - Labs CBC & Chem 7: 03/30/23 05:05 03/30/23 05:05 Assessment and Plan Time with Patient: Greater than 30
[2023-03-31 11:13] LABS: Basophils # (A) 0.01 X 10*3/uL (0.00-0.10); Basophils % (A) 0.1 %; Eosinophils # (A) 0 X 10*3/uL (0.04-0.35); Eosinophils % (A) 0 %; HCT 36.2 % (37.2-46.3); HGB 11.6 g/dL (12.0-15.0); Immature Grans, Automated 0.5 %; Lymphocytes # (A) 0.65 X 10*3/uL (0.90-5.00); Lymphocytes % (A) 5.7 %; MCH 29.3 pg (27.0-32.0); MCV 91.4 fL (80.0-97.0); Mean Platelet Volume 11.3 fL (9.5-12.2); Monocytes # (A) 0.38 X 10*3/uL (0.20-1.00); Monocytes % (A) 3.4 %; NRBC Per 100 WBC 0 /100 WBCS (0.0-0.0); Neutrophils # (A) 10.22 X 10*3/uL (1.80-7.70); Neutrophils % (A) 90.3 %; Platelet Count 246 X 10*3/uL (140-440); RBC 3.96 X 10*6/uL (4.10-5.20); RDW 13.1 % (11.5-14.5); WBC 11.32 X 10*3/uL (4.50-10.00)
[2023-03-31 11:20] LABS: African American GFR (CKD) 114.5 (60.0-200.0); Anion Gap 12.5 mmol/L (10.00-18.00); BUN/Creat Ratio 50.4 Ratio (12.00-20.00); Blood Urea Nitrogen 25.2 mg/dL (9.0-27.0); Calcium 9.1 mg/dL (8.7-10.3); Carbon Dioxide 21.5 mmol/L (20.0-27.5); Non-African American GFR(CKD) 98.8 (60.0-200.0); Potassium 3.8 mmol/L (3.5-5.5)
[2023-03-31] MEDS: CYCLOBENZAPRINE 5 MG TAB PO PRN (12:22)
--- NOTE | 2023-03-31 14:28 | P.GSCN ---
History of Present Illness Consult date: 03/31/23 History of present illness: 67-year-old female who had a back fracture due to lifting requiring emergency surgery and stabilization of her back . She is postoperative and recuperating. She has been incontinent of urine in the postoperative period we are asked see the patient. Historically the patient be denies any significant leakage preoperatively other than some mild stress incontinence. She did not have recurrent urine infections. She had no major bowel issues preoperatively. She has not had a bowel movement postoperatively. Her left leg is weak in her right leg is relatively normal. Her incontinence is without awareness. Her depends has been wet. A bladder scan at my request was just done showing no evidence of urine remaining in the bladder. Review of Systems All systems: negative - Constitutional Denies fever, Denies weight loss - EENT Eyes: denies blurred vision Ears, nose, mouth and throat: Denies dysphagia - Cardiovascular Denies chest pain, Denies shortness of breath - Respiratory Denies cough, Denies 7 - Gastrointestinal Reports as per HPI - Genitourinary Genitourinary: Denies dysuria, Denies hematuria - Integumentary Denies rash, Denies unusual bruising - Neurological Denies headaches, Denies syncope - Hematologic/Lymphatic Denies easy bleeding, Denies easy bruising Past Medical History Past Medical History: Asthma, COPD, Hyperlipidemia, Osteoarthritis (OA) Additional Past Medical History / Comment(s): lumbar compression fx-back brace on-moving coffee table, osteoporosis History of Any Multi-Drug Resistant Organisms: None Reported Past Surgical History: Joint Replacement Additional Past Surgical History / Comment(s): bhaskar cataracts,left hip replacement Past Anesthesia/Blood Transfusion Reactions: No Reported Reaction Additional Past Anesthesia/Blood Transfusion Reaction / Comm: no hx blood transfusion Past Psychological History: Anxiety, Depression Smoking Status: Never smoker Past Alcohol Use History: Rare Past Drug Use History: None Reported - Past Family History Mother Family Medical History: No Reported History Medications and Allergies Home Medications Medication Instructions Recorded Confirmed Type Budesonide-Formot 160-4.5 Mcg 2 puff INHALATION BID 07/21/15 03/28/23 History [Symbicort 160-4.5 Mcg Inhaler] Levothyroxine Sodium [Synthroid] 75 mcg PO QAM 07/21/15 03/28/23 History Albuterol Inhaler [Ventolin Hfa 1 - 2 puff INHALATION Q6H PRN 03/24/23 03/28/23 History Inhaler] Atorvastatin Calcium 20 mg PO DAILY 03/24/23 03/28/23 History Citalopram Hydrobromide [CeleXA] 40 mg PO QAM 03/24/23 03/28/23 History Melatonin 20 mg PO HS 03/24/23 03/28/23 History Mirtazapine [Remeron] 15 mg PO HS 03/24/23 03/28/23 History Naproxen [Naprosyn] 500 mg PO DAILY 03/24/23 03/28/23 History cloNIDine HCL [Catapres] 0.1 mg PO TID 03/24/23 03/28/23 History tiZANidine HCL [Zanaflex] 4 mg PO BID PRN 03/24/23 03/28/23 History Cyclobenzaprine [Flexeril] 5 mg PO TID PRN #60 tablet 03/31/23 Rx Gabapentin 300 mg PO TID #90 cap 03/31/23 Rx HYDROcodone/APAP 10-325MG [Stephen 1 tab PO Q4-6H PRN #56 tab 03/31/23 Rx 10-325] Sennosides/Docusate Sodium [Senna 1 each PO DAILY PRN #20 tablet 03/31/23 Rx Plus 8.6-50 mg Tablet] cefaDROXiL [Duricef] 500 mg PO Q12HR 5 Days #10 cap 03/31/23 Rx Allergies Allergy/AdvReac Type Severity Reaction Status Date / Time No Known Allergies Allergy Verified 03/28/23 06:50 Surgical - Exam Vital Signs Temp Pulse Resp BP Pulse Ox 97.9 F 86 16 184/84 95 03/28/23 06:40 03/28/23 06:40 03/28/23 06:40 03/28/23 06:40 03/28/23 06:40 - General well developed, well nourished - Eyes PERRL - ENT no hearing loss - Neck no masses - Respiratory normal expansion, normal respiratory effort - Cardiovascular Rhythm: regular - Abdomen Abdomen: soft, non tender - Genitourinary normal external genitalia, normal perineum - Neurologic Decreased movement and sensation of the left leg - Psychiatric oriented to time, oriented to person, oriented to place Results - Labs 03/31/23 06:37 03/31/23 06:37 Abnormal Lab Results - Last 24 Hours (Table) 03/31/23 03/31/23 Range/Units 06:37 06:37 WBC 11.32 H (4.50-10.00) X 10*3/uL RBC 3.96 L (4.10-5.20) X 10*6/uL Hgb 11.6 L (12.0-15.0) g/dL Hct 36.2 L (37.2-46.3) % Immature Gran # 0.06 H (0.00-0.04) X 10*3/uL Neutrophils # 10.22 H (1.80-7.70) X 10*3/uL Lymphocytes # 0.65 L (0.90-5.00) X 10*3/uL Eosinophils # 0 L (0.04-0.35) X 10*3/uL Creatinine 0.5 L (0.6-1.5) mg/dL BUN/Creatinine Ratio 50.40 H (12.00-20.00) Ratio Glucose 154 H (70-110) mg/dL Diabetes panel 03/31/23 Range/Units 06:37 Sodium 139 (135-145) mmol/L Potassium 3.8 (3.5-5.5) mmol/L Chloride 105 (96-109) mmol/L Carbon Dioxide 21.5 (20.0-27.5) mmol/L BUN 25.2 (9.0-27.0) mg/dL Creatinine 0.5 L (0.6-1.5) mg/dL Glucose 154 H (70-110) mg/dL Calcium 9.1 (8.7-10.3) mg/dL Calcium panel 03/31/23 Range/Units 06:37 Calcium 9.1 (8.7-10.3) mg/dL Pituitary panel 03/31/23 Range/Units 06:37 Sodium 139 (135-145) mmol/L Potassium 3.8 (3.5-5.5) mmol/L Chloride 105 (96-109) mmol/L Carbon Dioxide 21.5 (20.0-27.5) mmol/L BUN 25.2 (9.0-27.0) mg/dL Creatinine 0.5 L (0.6-1.5) mg/dL Glucose 154 H (70-110) mg/dL Calcium 9.1 (8.7-10.3) mg/dL Adrenal panel 03/31/23 Range/Units 06:37 Sodium 139 (135-145) mmol/L Potassium 3.8 (3.5-5.5) mmol/L Chloride 105 (96-109) mmol/L Carbon Dioxide 21.5 (20.0-27.5) mmol/L BUN 25.2 (9.0-27.0) mg/dL Creatinine 0.5 L (0.6-1.5) mg/dL Glucose 154 H (70-110) mg/dL Calcium 9.1 (8.7-10.3) mg/dL Assessment and Plan Assessment: Impression: Urinary incontinence due to possible sphincteric weakness versus lack of sensation of a full bladder. Postoperative emergency surgery due to compression fracture of the vertebra. Recommendations: I concur with the Feldman catheter. Patient is going to [facility] in the near future. She should go with the catheter until she is more ambulatory and some of her sensations return. At that point in time a catheter can be removed for a voiding trial to try to clarify voiding dysfunction. If we're unable to do that she may need urodynamics to verify status.
[2023-03-31 15:13] VITALS: BP 133/83; PULSE 91; RESP 18; TEMP 98.8
--- NOTE | 2023-03-31 15:45 | P.DS ---
Providers Date of admission: 03/28/23 17:17 Expected date of discharge: 03/31/23 Attending physician: Marcelo Wakefield DO Consults: 03/28/23 17:13 Consult Physician Routine Consulting Provider: Richar Cavanaugh Consult Reason/Comments: Medical Management Do you want consulting provider notified?: Yes 03/31/23 10:14 Consult Physician Routine Consulting Provider: Mike Sánchez Consult Reason/Comments: Post-Op urinary incontinence Do you want consulting provider notified?: Yes Primary care physician: Candice Jha [facility] Course: Hospital Course: The patient was evaluated preoperatively and found to have the diagnosis of L2 compression fracture. They underwent appropriate preoperative care and were willing to undergo the intended procedure. They underwent a successful L2 kyphoplasty, L2 laminectomy with stabilization and dura repair, were recovered appropriately and sent to the floor. While on the floor they worked with physic al therapy, occupational therapy and nursing to enhance their recovery experience. Their pain was well controlled through their stay and they were started on appropriate medications, DVT ppx modalities, activity and dietary needs. Daily labs were monitored closely, and transfusions were only used when necessary. Medicine as well as other consulting services have made their input and have helped with our team approach and multidisciplinary care. PT milestones have been met and passed and they have made the recommendation of subacute rehab for this patient and treating providers agree with this care path. The patient will be discharged home with appropriate medications, instructions and follow-up information and in stable condition. Patient Condition at Discharge: Good Plan - Discharge Summary Discharge Rx Participant: No New Discharge Prescriptions: New Cyclobenzaprine [Flexeril] 5 mg PO TID PRN #60 tablet PRN Reason: Muscle Spasm Magnesium Hydroxide [Milk of Magnesia Concentrate] 2,400 mg PO DAILY PRN ml PRN Reason: Constipation amLODIPine [Norvasc] 5 mg PO DAILY tab cefaDROXiL [Duricef] 500 mg PO Q12HR 5 Days #10 cap Gabapentin 300 mg PO TID #90 cap HYDROcodone/APAP 10-325MG [[place] 10-325] 1 tab PO Q4-6H PRN #56 tab PRN Reason: Pain Sennosides/Docusate Sodium [Senna Plus 8.6-50 mg Tablet] 1 each PO DAILY PRN #20 tablet PRN Reason: Constipation Acetaminophen Tab [Tylenol] 650 mg PO Q6HR tab Continue Budesonide-Formot 160-4.5 Mcg [Symbicort 160-4.5 Mcg Inhaler] 2 puff INHALATION BID Levothyroxine Sodium [Synthroid] 75 mcg PO QAM Mirtazapine [Remeron] 15 mg PO HS Citalopram Hydrobromide [CeleXA] 40 mg PO QAM Atorvastatin Calcium 20 mg PO DAILY Albuterol Inhaler [Ventolin Hfa Inhaler] 1 - 2 puff INHALATION Q6H PRN PRN Reason: sob Melatonin 20 mg PO HS cloNIDine HCL [Catapres] 0.1 mg PO TID Discontinued Naproxen [Naprosyn] 500 mg PO DAILY tiZANidine HCL [Zanaflex] 4 mg PO BID PRN PRN Reason: Pain Discharge Medication List Budesonide-Formot 160-4.5 Mcg [Symbicort 160-4.5 Mcg Inhaler] 2 puff INHALATION BID 07/21/15 [History] Levothyroxine Sodium [Synthroid] 75 mcg PO QAM 07/21/15 [History] Albuterol Inhaler [Ventolin Hfa Inhaler] 1 - 2 puff INHALATION Q6H PRN 03/24/23 [History] Atorvastatin Calcium 20 mg PO DAILY 03/24/23 [History] Citalopram Hydrobromide [CeleXA] 40 mg PO QAM 03/24/23 [History] Melatonin 20 mg PO HS 03/24/23 [History] Mirtazapine [Remeron] 15 mg PO HS 03/24/23 [History] cloNIDine HCL [Catapres] 0.1 mg PO TID 03/24/23 [History] Acetaminophen Tab [Tylenol] 650 mg PO Q6HR tab 03/31/23 [Rx] Cyclobenzaprine [Flexeril] 5 mg PO TID PRN #60 tablet 03/31/23 [Rx] Gabapentin 300 mg PO TID #90 cap 03/31/23 [Rx] HYDROcodone/APAP 10-325MG [[place] 10-325] 1 tab PO Q4-6H PRN #56 tab 03/31/23 [Rx] Magnesium Hydroxide [Milk of Magnesia Concentrate] 2,400 mg PO DAILY PRN ml 03/31/23 [Rx] Sennosides/Docusate Sodium [Senna Plus 8.6-50 mg Tablet] 1 each PO DAILY PRN #20 tablet 03/31/23 [Rx] amLODIPine [Norvasc] 5 mg PO DAILY tab 03/31/23 [Rx] cefaDROXiL [Duricef] 500 mg PO Q12HR 5 Days #10 cap 03/31/23 [Rx] Follow up Appointment(s)/Referral(s): Marcelo Wakefield DO [Doctor of Osteopathic Medicine] - 2 Weeks Mike Sánchez MD [STAFF PHYSICIAN] - 1 Week (Follow up for Post-Op urinary incontinence and possible bladder training) Patient Instructions/Handouts: *Surgery [facility] - (Anesthesia) Discharge Instructions Outpatient Surgery, Kyphoplasty (DC) Activity/Diet/Wound Care/Special Instructions: - keep incision clean, dry, intact. Please change dressing daily or as needed, gauze and tape. - Okay to shower. Do not soak incision - weight bear as tolerated with walker and brace - pain medication as needed - follow up in office in 2 weeks - contact [facility] at [phone] if you have any questions Discharge Disposition: TRANSFER TO SNF/ECF
--- NOTE | 2023-03-31 16:03 | P.PN ---
Subjective Progress Note Date: 03/31/23 67-year-old lady with past medical history significant for COPD, hyperlipidemia, hypothyroidism who was being seen outpatient by orthopedics for her back pain. Patient stated her back pain started in December of this year. Patient has been noticing progressive increase in her back pain symptoms. Back pain increases with ambulation and patient is unable to carry out her activities of daily living. Patient was initially recommended conservative treatment but all those measures failed, orthopedics recommended surgical intervention for which patient was admitted Initial lab work done showed WBC 6.7, hemoglobin 10.4, platelet count 229, sodium 137, potassium 4.2, chloride 106, BUN 14, creatinine 0.67 Patient underwent L2 kyphoplasty; L2 laminectomy and stabilization with dura repair 03/28. Interval medicine team was consulted for medical management Patient has been recommended discharge home with home health care; patient is stable for discharge when deemed appropriate by orthopedic service Objective - Vital Signs Vital signs: Vital Signs Temp 98.8 F 03/31/23 13:42 Pulse 91 03/31/23 13:42 Resp 18 03/31/23 13:42 BP 133/83 03/31/23 13:42 Pulse Ox 97 03/31/23 13:42 FiO2 Intake & Output 03/30/23 03/31/23 03/31/23 18:59 06:59 18:59 Intake Total 236 240 Output Total 30 12 60 Balance 206 228 -60 Intake: Oral 236 240 Output: Drainage 30 10 60 Lower Back 30 10 60 Urine 2 Other: Voiding Method Bedside Commode Incontinent # Voids 2 - Exam GENERAL: The patient is alert and oriented x3, not in any acute distress. Well developed, well nourished. HEENT: Pupils are round and equally reacting to light. EOMI. No scleral icterus. No conjunctival pallor. Normocephalic, atraumatic. No pharyngeal erythema. No thyromegaly. CARDIOVASCULAR: S1 and S2 present. No murmurs, rubs, or gallops. PULMONARY: Chest is clear to auscultation, no wheezing or crackles. ABDOMEN: Soft, nontender, nondistended, normoactive bowel sounds. No palpable organomegaly. MUSCULOSKELETAL: No joint swelling or deformity. EXTREMITIES: No cyanosis, clubbing, or pedal edema. NEUROLOGICAL: Gross neurological examination did not reveal any focal deficits. SKIN: Lumbar area surgical incision seen, drain in place - Labs CBC & Chem 7: 03/31/23 06:37 03/31/23 06:37 Labs: Abnormal Lab Results - Last 24 Hours (Table) 03/31/23 03/31/23 Range/Units 06:37 06:37 WBC 11.32 H (4.50-10.00) X 10*3/uL RBC 3.96 L (4.10-5.20) X 10*6/uL Hgb 11.6 L (12.0-15.0) g/dL Hct 36.2 L (37.2-46.3) % Immature Gran # 0.06 H (0.00-0.04) X 10*3/uL Neutrophils # 10.22 H (1.80-7.70) X 10*3/uL Lymphocytes # 0.65 L (0.90-5.00) X 10*3/uL Eosinophils # 0 L (0.04-0.35) X 10*3/uL Creatinine 0.5 L (0.6-1.5) mg/dL BUN/Creatinine Ratio 50.40 H (12.00-20.00) Ratio Glucose 154 H (70-110) mg/dL Assessment and Plan Assessment: Postoperative day 2. L2 kyphoplasty, L2 laminectomy and stabilization with dura repair. Severe T10 burst fracture, old L2 vertebral compression fracture, Acute on chronic with burst component Lumbar spondylosis Bilateral lower extremity weakness Mechanical low back pain Uncontrolled blood pressure COPD Hyperlipidemia Plan; Monitor vital signs Monitor CBC Monitor CMP Status post L2 kyphoplasty; L2 laminectomy and stabilization with dura repair Encourage use of I-S Aggressive bronchopulmonary hygiene Continue home inhaler regimen Symbicort and albuterol Continue pain management per orthopedics Continue the Catapres and Norvasc 5 mg daily was added for better blood pressure control. Continue to titrate blood pressure medications. Continue DVT prophylaxis per orthopedics PT and OT evaluation
== END 2023-03-31 17:19 | DRG 460 ==
LOC: OR 06:25 → 4SSUR 16:58 → OR 17:17 → 4SSUR 17:17
PROVIDERS: ADMIT Orthopaedic Surgery; ATTEND Orthopaedic Surgery
PROC: 0QB00ZX Excision of Lumbar Vertebra, Open Approach, Diagnostic (ICD-10-PCS; principal; 2023-03-28 07:30)
PROC: 0QS004Z Reposition Lumbar Vertebra with Internal Fixation Device, Open Approach (ICD-10-PCS; principal; 2023-03-28 07:30)
PROC: 00U20KZ Supplement Dura Mater with Nonautologous Tissue Substitute, Open Approach (ICD-10-PCS; principal; 2023-03-28 07:30)
PROC: 0SG0071 Fusion of Lumbar Vertebral Joint with Autologous Tissue Substitute, Posterior Approach, Posterior Column, Open Approach (ICD-10-PCS; principal; 2023-03-28 07:30)
PROC: XNU0356 Supplement Lumbar Vertebra with Mechanically Expandable (Paired) Synthetic Substitute, Percutaneous Approach, New Technology Group 6 (ICD-10-PCS; principal; 2023-03-28 07:30)
DX: S32.020A Wedge compression fracture of second lumbar vertebra, initial encounter for closed fracture (principal); S22.071A Stable burst fracture of T9-T10 vertebra, initial encounter for closed fracture; G97.41 Accidental puncture or laceration of dura during a procedure; M47.816 Spondylosis without myelopathy or radiculopathy, lumbar region; E03.9 Hypothyroidism, unspecified; E78.5 Hyperlipidemia, unspecified; J44.9 Chronic obstructive pulmonary disease, unspecified; M48.00 Spinal stenosis, site unspecified; M81.0 Age-related osteoporosis without current pathological fracture; N39.3 Stress incontinence (female) (male); Z79.51 Long term (current) use of inhaled steroids; Z79.83 Long term (current) use of bisphosphonates; Z79.890 Hormone replacement therapy; Z79.899 Other long term (current) drug therapy; Z96.642 Presence of left artificial hip joint
CPT/HCPCS: 72100; 72131; 80048; 80053; 85025; 88307; 88311; 94640; 94760

== ENCOUNTER 2023-04-17 21:35 | Emergency (ER) | payer MEDICARE, OTHER ==
[2023-04-17] MEDS: SODIUM CHLORIDE 0.9% 500 ML 500 ML IV SCH ×2 (22:17→22:18)
--- NOTE | 2023-04-17 22:19 | XR ---
EXAMINATION TYPE: XR chest 1V portable DATE OF EXAM: 04/17/2023 9:57 PM COMPARISON: Chest radiographs from 01/31/2018 TECHNIQUE: XR chest 1V portable Frontal view of the chest. CLINICAL INDICATION:Female, 67 years old with history of Fever; FINDINGS: Lungs/Pleura: There is flattening of the diaphragm with increased lucency of the lungs. No evidence o f pneumothorax, pleural effusion or focal consolidation. Pulmonary vascularity: Unremarkable. Heart/mediastinum: Cardiomediastinal silhouette is unremarkable. Musculoskeletal: No acute osseous pathology. There is lower spine fixation hardware is present. IMPRESSION: 1. No acute cardiopulmonary disease process. 2. COPD changes.
[2023-04-17 22:38] LABS: Basophils % (A) 0 %; Eosinophils % (A) 1 %; HCT 32.5 % (34.0-46.0); HGB 10.7 gm/dL (11.4-16.0); Lymphocytes # (A) 0.3 k/uL (1.0-4.8); Lymphocytes % (A) 4 %; MCH 29.7 pg (25.0-35.0); MCHC 33.1 g/dL (31.0-37.0); MCV 89.7 fL (80.0-100.0); Mean Platelet Volume 7.7; Monocytes # (A) 0.4 k/uL (0-1.0); Monocytes % (A) 4 %; Neutrophils # (A) 7.2 k/uL (1.3-7.7); Neutrophils % (A) 89 %; Platelet Count 340 k/uL (150-450); RBC 3.62 m/uL (3.80-5.40); RDW 13.5 % (11.5-15.5); WBC 8.1 k/uL (3.8-10.6)
[2023-04-17 22:46] LABS: INR 0.9 (<1.2); Partial Thromboplastin Time 22.8 sec (22.0-30.0)
[2023-04-17 22:47] LABS: ALT 21 U/L (4-34); AST 39 U/L (14-36); African American GFR (CKD) >90 (>60 ml/min/1.73 sqM); Albumin 3.9 g/dL (3.5-5.0); Alkaline Phosphatase 142 U/L (38-126); Anion Gap 9 mmol/L; Blood Urea Nitrogen 19 mg/dL (7-17); Carbon Dioxide 19 mmol/L (22-30); Chloride 109 mmol/L (98-107); Glucose 147 mg/dL (74-99); Non-African American GFR(CKD) >90 (>60 ml/min/1.73 sqM); Sodium 137 mmol/L (137-145); Total Bilirubin 1.1 mg/dL (0.2-1.3); Total Protein 7.6 g/dL (6.3-8.2)
[2023-04-17 22:50] LABS: Potassium 3.9 mmol/L (3.5-5.1)
[2023-04-17 23:48] LABS: Appearance,Urine Turbid (Clear); Bacteria,Urine Many /hpf; Bilirubin,Urine Negative (Negative); Blood,Urine Large (Negative); Color,Urine Yellow; Glucose,Urine (UA) Negative (Negative); Ketones,Urine Negative (Negative); Leukocyte Esterase,Urine Large (Negative); Mucus,Urine Rare /hpf; Nitrite,Urine Negative (Negative); Protein,Urine 1+ (Negative); RBC,Urine 39 /hpf (0-5); Specific Gravity,Urine 1.013 (1.001-1.035); Squamous Epithelial Cell,Urine 3 /hpf (0-4); Urobilinogen,Urine <2.0 mg/dL (<2.0); WBC,Urine >182 /hpf (0-5)
--- NOTE | 2023-04-18 01:14 | CT ---
EXAM: CT Abdomen and Pelvis With Intravenous Contrast CLINICAL HISTORY: ITS.REASON CT Reason: Acute abd pain TECHNIQUE: Axial computed tomography images of the abdomen and pelvis with intravenous contrast. CTDI is . 22.9 mGy and DLP is 1114.1 mGy-cm. This CT exam was performed using one or more of the following dose reduction techniques: automated exposure control, adjustment of the mA and/or kV according to patient size, and/or use of iterative reconstruction technique. COMPARISON: No relevant prior studies available. FINDINGS: Lung bases: diffuse changes COPD. ABDOMEN: Liver: Unremarkable. No mass. Gallbladder and bile ducts: Unremarkable. No calcified stones. No ductal dilation. Pancreas: Unremarkable. No mass. No ductal dilation. Spleen: Unremarkable. No splenomegaly. Adrenals: Unremarkable. No mass. Kidneys and ureters: Unremarkable. No solid mass. No hydronephrosis. Stomach and bowel: Large amount of stool within the colon. No mucosal thickening. PELVIS: Appendix: No findings to suggest acute appendicitis. Bladder: Markedly distended urinary bladder. Reproductive: Unremarkable as visualized. ABDOMEN and PELVIS: Intraperitoneal space: Unremarkable. No free air. No significant fluid collection. Subtle hyperemia involving the rubalcava of a few nondistended loops of small bowel within the left mid abdomen. And Bones/joints: Postoperative changes left hip arthroplasty limits evaluation of the pelvis. Postoperative changes posterior fusion L1-L3. Patient is also status post L2 vertebroplasty. No acute fracture. No dislocation. Soft tissues: Unremarkable. Vasculature: Unremarkable. No abdominal aortic aneurysm. Lymph nodes: Unremarkable. No enlarged lymph nodes. IMPRESSION: Mild enteritis involving a number of loops of small bowel within the left mid abdomen. Other chronic changes as above
--- NOTE | 2023-04-18 01:47 | ED ---
General Adult HPI - General Chief complaint: Fever Stated complaint: FEVER Time Seen by Provider: 04/17/23 21:40 Source: patient Mode of arrival: EMS - History of Present Illness Initial comments: This is a 67-year-old female who presented to the emergency department via EMS from her nursing facility for concern for sepsis. The patient reportedly had a significantly elevated fever of 103F at the nursing facility and concern for worsening infection. The patient was brought into the emergency department for continued evaluation and management. The patient had been given Tylenol prior to arrival and was afebrile on arrival. The patient was ANO 2 and was unable to confirm what her baseline is. The patient otherwise was resting in bed comfortably without any further acute distress. The patient did state that she had some generalized abdominal pain but denied anything specific. The patient was resting in bed comfortably. - Related Data Home Medications Medication Instructions Recorded Confirmed Budesonide-Formot 160-4.5 Mcg 2 puff INHALATION BID 07/21/15 03/28/23 [Symbicort 160-4.5 Mcg Inhaler] Levothyroxine Sodium [Synthroid] 75 mcg PO QAM 07/21/15 03/28/23 Albuterol Inhaler [Ventolin Hfa 1 - 2 puff INHALATION Q6H PRN 03/24/23 03/28/23 Inhaler] Atorvastatin Calcium 20 mg PO DAILY 03/24/23 03/28/23 Citalopram Hydrobromide [CeleXA] 40 mg PO QAM 03/24/23 03/28/23 Melatonin 20 mg PO HS 03/24/23 03/28/23 Mirtazapine [Remeron] 15 mg PO HS 03/24/23 03/28/23 cloNIDine HCL [Catapres] 0.1 mg PO TID 03/24/23 03/28/23 Previous Rx's Medication Instructions Recorded Acetaminophen Tab [Tylenol] 650 mg PO Q6HR tab 03/31/23 Cyclobenzaprine [Flexeril] 5 mg PO TID PRN #60 tablet 03/31/23 Gabapentin 300 mg PO TID #90 cap 03/31/23 HYDROcodone/APAP 10-325MG [May 1 tab PO Q4-6H PRN #56 tab 03/31/23 10-325] Magnesium Hydroxide [Milk of 2,400 mg PO DAILY PRN ml 03/31/23 Magnesia Concentrate] Sennosides/Docusate Sodium [Senna 1 each PO DAILY PRN #20 tablet 03/31/23 Plus 8.6-50 mg Tablet] amLODIPine [Norvasc] 5 mg PO DAILY tab 03/31/23 cefaDROXiL [Duricef] 500 mg PO Q12HR 5 Days #10 cap 03/31/23 Cephalexin [Keflex] 500 mg PO Q6HR 1 Days #20 cap 04/18/23 Allergies Allergy/AdvReac Type Severity Reaction Status Date / Time No Known Allergies Allergy Verified 03/28/23 06:50 Review of Systems ROS Statement: Those systems with pertinent positive or pertinent negative responses have been documented in the HPI. ROS Other: All systems not noted in ROS Statement are negative. Past Medical History Past Medical History: Asthma, COPD, Hyperlipidemia, Osteoarthritis (OA) Additional Past Medical History / Comment(s): lumbar compression fx-back brace on-moving coffee table, osteoporosis History of Any Multi-Drug Resistant Organisms: None Reported Past Surgical History: Joint Replacement Additional Past Surgical History / Comment(s): bhaskar cataracts,left hip replacement Past Anesthesia/Blood Transfusion Reactions: No Reported Reaction Additional Past Anesthesia/Blood Transfusion Reaction / Comment(s): no hx blood transfusion Past Psychological History: Anxiety, Depression Smoking Status: Never smoker Past Alcohol Use History: Rare Past Drug Use History: None Reported - Past Family History Mother Family Medical History: No Reported History General Exam Limitations: altered mental status (ANOx2, possibly at baseline) General appearance: alert, in no apparent distress Head exam: Present: atraumatic, normocephalic, normal inspection Eye exam: Present: normal appearance, PERRL Pupils: Present: normal accommodation ENT exam: Present: normal exam, normal oropharynx, mucous membranes moist Neck exam: Present: normal inspection, full ROM Respiratory exam: Present: normal lung sounds bilaterally Cardiovascular Exam: Present: regular rate, normal rhythm, normal heart sounds GI/Abdominal exam: Present: soft, normal bowel sounds Extremities exam: Present: normal inspection, full ROM Back exam: Present: normal inspection, full ROM Neurological exam: Present: alert, altered (ANOx2, possibly at baseline) Psychiatric exam: Present: normal affect, normal mood Skin exam: Present: warm, dry Course Vital Signs 04/17/23 04/17/23 04/17/23 21:38 22:00 23:00 Temperature 99.1 F Pulse Rate 116 H 92 Pulse Rate [ 110 H [place] ] Respiratory 16 20 Rate Blood Pressure 150/78 148/82 O2 Sat by Pulse 97 98 Oximetry EKG Findings - EKG Comments: EKG Findings:: An EKG was obtained and was interpreted by myself showing a rate of 109, [place] interval 152, QRS duration 104 and QTC of 420. This EKG showed a sinus tachycardia with no ST segment elevation or depression noted. Medical Decision Making - Medical Decision Making Was pt. sent in by a medical professional or institution (, PA, FIRE ENGINE OPERATOR, urgent care, hospital, or fci...) When possible be specific @ -Yes, nursing facility with concern for high fever. Did you speak to anyone other than the patient for history (EMS, parent, family, police, friend...)? What history was obtained from this source @ -No Did you review nursing and triage notes (agree or disagree)? Why? @ -I reviewed and agree with nursing and triage notes Were old charts reviewed (outside hosp., previous admission, EMS record, old EKG, old radiological studies, urgent care reports/EKG's, fci records)? Report findings @ -No old charts were reviewed Differential Diagnosis (chest pain, altered mental status, abdominal pain women, abdominal pain men, vaginal bleeding, weakness, fever, dyspnea, syncope, headache, dizziness, GI bleed, back pain, seizure, CVA, palpatations, mental health)? @ -Sepsis, UTI, pneumonia EKG interpreted by me (3pts min.). @ -As above X-rays interpreted by me (1pt min.). @ -Chest x-ray was obtained and was interpreted by myself showing no active process. CT interpreted by me (1pt min.). @ -CT abdomen and pelvis with IV contrast was obtained and was interpreted by myself showing mild enteritis involving the number of loops of small bowel within the left mid abdomen otherwise there was no acute changes noted. U/S interpreted by me (1pt. min.). @ -None done What testing was considered but not performed or refused? (CT, X-rays, U/S, labs)? Why? @ -None What meds were considered but not given or refused? Why? @ -None Did you discuss the management of the patient with other professionals (professionals i.e. , PA, FIRE ENGINE OPERATOR, lab, RT, psych nurse, social sciences instructor, used car make ready mechanic, teacher, sheriff officer, pillowcase turner)? Give summary @ -No Was smoking cessation discussed for >3mins.? @ -No Was critical care preformed (if so, how long)? @ -No Were there social determinants of health that impacted care today? How? (Homelessness, low income, unemployed, alcoholism, drug addiction, transportation, low edu. Level, literacy, decrease access to med. care, fpc, rehab)? @ -No Was there de-escalation of care discussed even if they declined (Discuss DNR or withdrawal of care, Hospice)? DNR status @ -No What co-morbidities impacted this encounter? (DM, HTN, Smoking, COPD, CAD, Cancer, CVA, ARF, Chemo, Hep., AIDS, mental health diagnosis, sleep apnea, morbid obesity)? @ -Hypertension, COPD Was patient admitted / discharged? Hospital course, mention meds given and route, prescriptions, significant lab abnormalities, going to OR and other pertinent info. @ -The patient was seen and evaluated emergency department. Physical exam, the patient was resting in bed without any acute distress. Vital signs admission did show tachycardia however the patient was afebrile. Due to the concern for the patient's elevated fever and concern for sepsis, sepsis protocol was ordered. The patient did receive blood cultures and 30 mL per KG of normal s karen fluid. The patient did also receive 1 g of Rocephin. Laboratory workup was obtained and did not show any signs of sepsis however there was positive UTI. The patient remained stable in the emergency department with a normalized heart rate in the 70s and the patient remained afebrile. Due to the patient's negative workup in the setting of a UTI, the patient will be discharged back to the nursing facility with a prescription for Keflex to be taken at the nursing facility. The patient was agreeable to this as was a nursing facility. The patient was discharged back in stable condition. Undiagnosed new problem with uncertain prognosis? @ -No Drug Therapy requiring intensive monitoring for toxicity (Heparin, Nitro, Insulin, Cardizem)? @ -No Were any procedures done? @ -No Diagnosis/symptom? @ -Urinary tract infection Acute, or Chronic, or Acute on Chronic? @ -Acute Uncomplicated (without systemic symptoms) or Complicated (systemic symptoms)? @ -Uncomplicated Side effects of treatment? @ -No Exacerbation, Progression, or Severe Exacerbation? @ -No Poses a threat to life or bodily function? How? (Chest pain, USA, DC, pneumonia, PE, COPD, DKA, ARF, appy, cholecystitis, CVA, Diverticulitis, Homicidal, Suicidal, threat to staff... and all critical care pts) @ -No - Lab Data Result diagrams: 04/17/23 22:12 04/17/23 22:12 Lab Results 04/17/23 04/17/23 04/17/23 Range/Units 22:12 22:12 22:12 WBC 8.1 (3.8-10.6) k/uL RBC 3.62 L (3.80-5.40) m/uL Hgb 10.7 L (11.4-16.0) gm/dL Hct 32.5 L (34.0-46.0) % MCV 89.7 (80.0-100.0) fL MCH 29.7 (25.0-35.0) pg MCHC 33.1 (31.0-37.0) g/dL RDW 13.5 (11.5-15.5) % Plt Count 340 (150-450) k/uL MPV 7.7 Neutrophils % 89 % Lymphocytes % 4 % Monocytes % 4 % Eosinophils % 1 % Basophils % 0 % Neutrophils # 7.2 (1.3-7.7) k/uL Lymphocytes # 0.3 L (1.0-4.8) k/uL Monocytes # 0.4 (0-1.0) k/uL Eosinophils # 0.0 (0-0.7) k/uL Basophils # 0.0 (0-0.2) k/uL PT 10.0 (9.0-12.0) sec INR 0.9 (<1.2) APTT 22.8 (22.0-30.0) sec Sodium 137 (137-145) mmol/L Potassium 3.9 (3.5-5.1) mmol/L Chloride 109 H (98-107) mmol/L Carbon Dioxide 19 L (22-30) mmol/L Anion Gap 9 mmol/L BUN 19 H (7-17) mg/dL Creatinine 0.54 (0.52-1.04) mg/dL Est GFR (CKD-EPI)AfAm >90 (>60 ml/min/1.73 sqM) Est GFR (CKD-EPI)NonAf >90 (>60 ml/min/1.73 sqM) Glucose 147 H (74-99) mg/dL Plasma Lactic Acid Sunny (0.7-2.0) mmol/L Calcium 9.0 (8.4-10.2) mg/dL Total Bilirubin 1.1 (0.2-1.3) mg/dL AST 39 H (14-36) U/L ALT 21 (4-34) U/L Alkaline Phosphatase 142 H (38-126) U/L Total Protein 7.6 (6.3-8.2) g/dL Albumin 3.9 (3.5-5.0) g/dL Urine Color Urine Appearance (Clear) Urine pH (5.0-8.0) Ur Specific [place] (1.001-1.035) Urine Protein (Negative) Urine Glucose (UA) (Negative) Urine Ketones (Negative) Urine Blood (Negative) Urine Nitrite (Negative) Urine Bilirubin (Negative) Urine Urobilinogen (<2.0) mg/dL Ur Leukocyte Esterase (Negative) Urine RBC (0-5) /hpf Urine WBC (0-5) /hpf Urine WBC Clumps (None) /hpf Ur Squamous Epith Cells (0-4) /hpf Urine Bacteria (None) /hpf Urine Mucus (None) /hpf 04/17/23 04/17/23 Range/Units 22:12 23:22 WBC (3.8-10.6) k/uL RBC (3.80-5.40) m/uL Hgb (11.4-16.0) gm/dL Hct (34.0-46.0) % MCV (80.0-100.0) fL MCH (25.0-35.0) pg MCHC (31.0-37.0) g/dL RDW (11.5-15.5) % Plt Count (150-450) k/uL MPV Neutrophils % % Lymphocytes % % Monocytes % % Eosinophils % % Basophils % % Neutrophils # (1.3-7.7) k/uL Lymphocytes # (1.0-4.8) k/uL Monocytes # (0-1.0) k/uL Eosinophils # (0-0.7) k/uL Basophils # (0-0.2) k/uL PT (9.0-12.0) sec INR (<1.2) APTT (22.0-30.0) sec Sodium (137-145) mmol/L Potassium (3.5-5.1) mmol/L Chloride (98-107) mmol/L Carbon Dioxide (22-30) mmol/L Anion Gap mmol/L BUN (7-17) mg/dL Creatinine (0.52-1.04) mg/dL Est GFR (CKD-EPI)AfAm (>60 ml/min/1.73 sqM) Est GFR (CKD-EPI)NonAf (>60 ml/min/1.73 sqM) Glucose (74-99) mg/dL Plasma Lactic Acid Sunny 0.9 (0.7-2.0) mmol/L Calcium (8.4-10.2) mg/dL Total Bilirubin (0.2-1.3) mg/dL AST (14-36) U/L ALT (4-34) U/L Alkaline Phosphatase (38-126) U/L Total Protein (6.3-8.2) g/dL Albumin (3.5-5.0) g/dL Urine Color Yellow Urine Appearance Turbid H (Clear) Urine pH 6.0 (5.0-8.0) Ur Specific [place] 1.013 (1.001-1.035) Urine Protein 1+ H (Negative) Urine Glucose (UA) Negative (Negative) Urine Ketones Negative (Negative) Urine Blood Large H (Negative) Urine Nitrite Negative (Negative) Urine Bilirubin Negative (Negative) Urine Urobilinogen <2.0 (<2.0) mg/dL Ur Leukocyte Esterase Large H (Negative) Urine RBC 39 H (0-5) /hpf Urine WBC >182 H (0-5) /hpf Urine WBC Clumps Many H (None) /hpf Ur Squamous Epith Cells 3 (0-4) /hpf Urine Bacteria Many H (None) /hpf Urine Mucus Rare H (None) /hpf Disposition Clinical Impression: UTI (urinary tract infection) Disposition: HOME SELF-CARE Condition: Stable Instructions (If sedation given, give patient instructions): Urinary Tract Infection in Women (DC) Prescriptions: Cephalexin [Keflex] 500 mg PO Q6HR 1 Days #20 cap Is patient prescribed a controlled substance at d/c from ED?: No Referrals: Candice Jha MD [Primary Care Provider] - 1-2 days Time of Disposition: 00:30
[2023-04-18 02:49] VITALS: TEMP 98.6
[2023-04-18 04:07] VITALS: BP 120/74; PULSE 85; RESP 18
== END 2023-04-18 04:09 | disposition home or self-care (01) ==
LOC: EC 21:35
DX: N39.0 Urinary tract infection, site not specified (principal); R00.0 Tachycardia, unspecified; J44.9 Chronic obstructive pulmonary disease, unspecified; E78.5 Hyperlipidemia, unspecified; F32.A Depression, unspecified; F41.9 Anxiety disorder, unspecified; M19.90 Unspecified osteoarthritis, unspecified site; Z79.899 Other long term (current) drug therapy
CPT/HCPCS: 99285; 96365; 96361; 36415; 93005; 80053; 83605; 85025; 85610; 85730; 87040; 71045; 74177; J0696; Q9967; 81001; 87086

== ENCOUNTER → 2023-10-13 | Outpatient (CLI) | payer MEDICARE, OTHER ==
--- NOTE | 2023-10-13 11:02 | CT ---
EXAMINATION TYPE: CT chest wo con DATE OF EXAM: 10/13/2023 COMPARISON: 02/02/2023 HISTORY: 68-year-old female J18.1, right lobar pneumonia TECHNIQUE: Contiguous axial scanning of the chest without contrast. Coronal/sagittal reconstructions performed. CT DLP: 134.7mGycm. Automatic exposure control utilized for a dose reduction. FINDINGS: The heart is normal size without pericardial effusion. Three-vessel coronary artery calcifications ar e present and unremarkable for coronary artery disease. Aorta normal caliber with mild to moderate atherosclerotic arch calcifications and conventional arch vessel branching anatomy. 1 cm precarinal lymph node likely reactive/post inflammatory. Otherwise, no thoracic lymphadenopathy identified. Advanced emphysematous change. 5 mm posterior right lower lobe pulmonary nodule, axial image 34. Follow-up recommended. 6 mm posterior right midlung pulmonary nodule, axial image 30. Irregular patchy and confluent opacities posterior right midlung extending down along the posterior r ight lower lobe along with mild groundglass in the inferior lingula. Focal irregular opacity measurin g 1.6 x 0.9 cm medial left upper lobe also new. No pleural effusion. There is a small hiatal hernia. Moderate to large stool in the visualized upper abdomen. Nonobstructive renal calculi, one on each side measuring up to 3 mm. Low density thickening of the bi lateral adrenal glands without discrete nodularity remains unchanged. T10 vertebral compression collapse unchanged from 02/02/2023 with mild retropulsion into the ventral s penny canal. Posterior lumbar fusion changes are new from that time. IMPRESSION: 1. COPD with advanced emphysema and new patchy irregular opacities posterior right midlung extending down along the posterior right lower lobe. Mild groundglass change also in the inferior lingula and n ew focal irregular opacity measuring 1.6 x 0.9 cm in the left upper lobe. Findings suspected to repre sent multifocal pneumonia. Follow up in 2-3 months to ensure clearance and exclude any underlying per sisting abnormality/neoplasm. 2. A couple pulmonary nodules measuring 5 and 6 mm on the right should be reassessed at that time as well.
== END | disposition home or self-care (01) ==
LOC: RADCTMAIN 08:55
PROVIDERS: ATTEND Internal Medicine Sleep Medicine
DX: J18.1 Lobar pneumonia, unspecified organism (principal); J44.9 Chronic obstructive pulmonary disease, unspecified; J43.9 Emphysema, unspecified; R91.8 Other nonspecific abnormal finding of lung field
CPT/HCPCS: 71250

== ENCOUNTER 2023-11-24 11:47 | Inpatient (IN) | payer MEDICARE, OTHER ==
[2023-11-24] MEDS ORDERED: MORPHINE SULFATE 4 MG/ML SYRINGE IVP STA (12:39)
--- NOTE | 2023-11-24 13:57 | CT ---
EXAMINATION TYPE: CT brain cspine wo con DATE OF EXAM: 11/24/2023 COMPARISON: Prior brain CT July 21, 2015 HISTORY: Fall, head injury CT DLP: 1287.7 mGycm. Automated Exposure Control for Dose Reduction was Utilized. TECHNIQUE: CT scan of the head and cervical spine are performed without contrast. FINDINGS: Stable roughly 5 mm hyperdense focus right posterior brainstem near midbrain and mckayla xiomara ction axial image 22 favoring calcification given was present on prior. There is no new acute intracr anial hemorrhage or midline shift identified. Mild ventricular and sulcal prominence. Soto-white vishnu er differentiation is preserved. Bilateral aphakia is present. The calvarium is intact. Cervical spine is visualized in its entirety from C1 through upper thoracic levels and demonstrates s light grade 1 retrolisthesis C4 on C5 without evidence of acute fracture or dislocation. Prevertebra l soft tissue appears within normal limits. The C1-C2 articulation is within normal limits on craig l images. Vertebral body heights are within normal limits. Moderate multilevel disc space narrowing C3-C4 through C6-C7 levels. Mild to moderate multilevel anterior spurring. Posterior spur disc comple xes efface the anterior thecal sac at C3-C4 through C5-C6 levels. Axial images show some multilevel u ncovertebral facet degenerative changes bilaterally. Lung apices show moderate to advanced emphysemat ous change without pneumothorax. 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 There is moderate calcified plaque at bilateral carotid bulb level. IMPRESSION: 1. There is no acute fracture or dislocation evident in the cervical spine. 2. No acute intracranial hemorrhage or midline shift is clearly seen.
--- NOTE | 2023-11-24 14:48 | XR ---
EXAMINATION TYPE: XR ankle limited LT DATE OF EXAM: 11/24/2023 2:41 PM CLINICAL INDICATION:Female, 68 years old with history of pain, fall; COMPARISON: None TECHNIQUE: XR ankle limited LT; ankle is imaged in frontal, lateral projections. FINDINGS: There is no evidence of acute osseous pathology. The joint spaces are well-preserved without evidenc e of subluxation or dislocation. Kager's fat pad is intact. No radiopaque foreign bodies are identifi ed. IMPRESSION: 1. No evidence of acute fracture.
--- NOTE | 2023-11-24 14:50 | XR ---
EXAMINATION TYPE: XR Hip LT and AP Pelvis DATE OF EXAM: 11/24/2023 2:41 PM CLINICAL INDICATION:Female, 68 years old with history of fall, left hip pain; [facility] COMPARISON: None. TECHNIQUE: XR Hip LT and AP Pelvis; hip was examined in the frontal and lateral projections and a AP pelvis. FINDINGS/IMPRESSION: 1. No definitive fracture, 2. Hip arthroplasty with femoral head component migrating medially and superiorly. Unclear if this i s chronic given no priors. 3. Remote appearing left inferior pubic ramus fracture. 4. Fixation hardware in the lumbar spine appears intact. Multilevel degeneration changes of the spin e. 5. Moderate amount stool in the colon.
--- NOTE | 2023-11-24 15:46 | ED ---
General Adult HPI - General Chief complaint: Fall Stated complaint: Fall, L Hip Pain Time Seen by Provider: 11/24/23 12:10 Source: patient Mode of arrival: EMS Limitations: no limitations - History of Present Illness Initial comments: 68-year-old female presents to the emergency department as her transfer from [facility]. She states that she was attempting to help staff make her bed today. She leaned too far and fell out of her wheelchair. She recently just started walking. States that she landed on her left hip and has been having left hip pain. Patient was unable to weight bear on that extremity after the incident happened. EMS was called and transported the patient the hospital with her complaints. She is not provided any pain medications. She also hit her head and has a hematoma to the left occiput. Patient does not take any blood th inners. She has had previous hip replacement on the left by a surgeon at [facility]. No other alleviating, presented or modifying factors - Related Data Home Medications Medication Instructions Recorded Confirmed Albuterol Inhaler [Ventolin Hfa 2 puff INHALATION RT-Q6H PRN 03/24/23 11/24/23 Inhaler] Atorvastatin Calcium 20 mg PO HS 03/24/23 11/24/23 Citalopram Hydrobromide [CeleXA] 40 mg PO HS 03/24/23 11/24/23 Melatonin 10 mg PO HS 03/24/23 11/24/23 Mirtazapine [Remeron] 15 mg PO HS 03/24/23 11/24/23 cloNIDine HCL [Catapres] 0.1 mg PO Q8HR@0600,1400,2200 03/24/23 11/24/23 Acetaminophen Tab [Tylenol] 650 mg PO Q6HR PRN 11/24/23 11/24/23 Albuterol Nebulized [Ventolin 2.5 mg INHALATION RT-Q4H PRN 11/24/23 11/24/23 Nebulized] Ascorbic Acid [Vitamin C] 500 mg PO DAILY 11/24/23 11/24/23 Benzonatate [Tessalon Perles] 200 mg PO TID PRN 11/24/23 11/24/23 Cholecalciferol [Vitamin D3 (25 50 mcg PO DAILY 11/24/23 11/24/23 Mcg = 1000 Iu)] Cyclobenzaprine [Flexeril] 10 mg PO TID PRN 11/24/23 11/24/23 Fluticasone/Umeclidin/Vilanter 1 puff INHALATION RT-DAILY 11/24/23 11/24/23 [Treleliset Ellipta 100-62.5-25] Ipratropium-Albuterol Nebulize 3 ml INHALATION RT-Q8H 11/24/23 11/24/23 [Duoneb 0.5 mg-3 mg/3 ml Soln] Lactose-Reduced Food [Ensure Plus] 237 ml PO DAILY 11/24/23 11/24/23 Levothyroxine Sodium [Synthroid] 75 mcg PO DAILY@0600 11/24/23 11/24/23 Loratadine 10 mg PO Q24H PRN 11/24/23 11/24/23 Omeprazole Magnesium [PriLOSEC OTC] 20 mg PO HS 11/24/23 11/24/23 Sennosides/Docusate Sodium [Senna 1 tab PO DAILY PRN 11/24/23 11/24/23 Plus 8.6-50 mg Tablet] Suvorexant [Belsomra] 5 mg PO HS 11/24/23 11/24/23 Zinc Sulfate [Orazinc] 220 mg PO DAILY 11/24/23 11/24/23 Previous Rx's Medication Instructions Recorded amLODIPine [Norvasc] 5 mg PO DAILY tab 03/31/23 Budesonide-Formot 160-4.5 Mcg 2 puff INHALATION RT-BID each 11/30/23 [Symbicort 160-4.5 Mcg Inhaler] Gabapentin 300 mg PO Q8HR@0600,1400,2200 #6 11/30/23 cap HYDROcodone/APAP 5-325MG [[place] 1 tab PO Q4HR PRN #4 tab 11/30/23 5-325] Heparin Sodium,Porcine (1 ml) 5,000 unit SQ Q8HR each 11/30/23 [Heparin Sodium] Ipratropium-Albuterol Nebulize 3 ml INHALATION RT-QID PRN each 11/30/23 [Duoneb 0.5 mg-3 mg/3 ml Soln] cefUROXime axetiL [Ceftin] 500 mg PO BID 1 Days #2 tab 11/30/23 clonazePAM [KlonoPIN] 0.5 mg PO HS #2 tab 11/30/23 predniSONE 10 mg PO DIRECTED #30 tab 11/30/23 Allergies Allergy/AdvReac Type Severity Reaction Status Date / Time nut - unspecified Allergy Unknown Verified 11/24/23 15:45 Review of Systems ROS Statement: Those systems with pertinent positive or pertinent negative responses have been documented in the HPI. ROS Other: All systems not noted in ROS Statement are negative. Past Medical History Past Medical History: Asthma, COPD, Hyperlipidemia, Osteoarthritis (OA) Additional Past Medical History / Comment(s): lumbar compression fx-back brace on-moving coffee table, osteoporosis History of Any Multi-Drug Resistant Organisms: None Reported Past Surgical History: Joint Replacement Additional Past Surgical History / Comment(s): bhaskar cataracts,left hip replacement Past Anesthesia/Blood Transfusion Reactions: No Reported Reaction Additional Past Anesthesia/Blood Transfusion Reaction / Comment(s): no hx blood transfusion Past Psychological History: Anxiety, Depression Smoking Status: Never smoker Past Alcohol Use History: Rare Past Drug Use History: None Reported - Past Family History Mother Family Medical History: No Reported History General Exam Limitations: no limitations General appearance: alert, in distress Head exam: Present: other (left occipital hematoma with small overlying abrasion) Eye exam: Present: normal appearance, PERRL, EOMI. Absent: scleral icterus, conjunctival injection, periorbital swelling ENT exam: Present: normal exam, mucous membranes moist Neck exam: Present: normal inspection. Absent: tenderness, meningismus, lymphadenopathy Respiratory exam: Present: normal lung sounds bilaterally. Absent: respiratory distress, wheezes, rales, rhonchi, stridor Cardiovascular Exam: Present: regular rate, normal rhythm, normal heart sounds. Absent: systolic murmur, diastolic murmur, rubs, gallop, clicks GI/Abdominal exam: Present: soft, normal bowel sounds. Absent: distended, tenderness, guarding, rebound, rigid Extremities exam: Present: other (extreme tenderness to the left groin. unable to straight leg raise due to pain. no lumbar back pain. some tenderness to distal femur. no gross deformity). Absent: pedal edema Neurological exam: Present: alert, oriented X3, CN II-XII intact Psychiatric exam: Present: normal affect, normal mood Skin exam: Present: warm Course Vital Signs 11/24/23 11/24/23 11:51 20:50 Temperature 97.8 F Pulse Rate 92 94 Respiratory 20 22 Rate Blood Pressure 121/77 126/85 O2 Sat by Pulse 93 L 94 L Oximetry Medical Decision Making - Medical Decision Making Was pt. sent in by a medical professional or institution (HAMZAH Byrd, RN OFFICE, urgent care, hospital, or detention...) When possible be specific @ -nursing facility Did you speak to anyone other than the patient for history (EMS, parent, family, police, friend...)? What history was obtained from this source @ -ems Did you review nursing and triage notes (agree or disagree)? Why? @ -I reviewed and agree with nursing and triage notes Were old charts reviewed (outside hosp., previous admission, EMS record, old EKG, old radiological studies, urgent care reports/EKG's, detention records)? Report findings @ -No old charts were reviewed Differential Diagnosis (chest pain, altered mental status, abdominal pain women, abdominal pain men, vaginal bleeding, weakness, fever, dyspnea, syncope, headache, dizziness, GI bleed, back pain, seizure, CVA, palpatations, mental health, musculoskeletal)? @ -strain, sprain, fracture, hematoma EKG interpreted by me (3pts min.). @ -not done X-rays interpreted by me (1pt min.). @ -yes, no fractures CT interpreted by me (1pt min.). @ -yes, no fractures U/S interpreted by me (1pt. min.). @ -None done What testing was considered but not performed or refused? (CT, X-rays, U/S, labs)? Why? @ -None What meds were considered but not given or refused? Why? @ -None Did you discuss the management of the patient with other professionals (professionals i.e. HAMZAH Byrd, RN OFFICE, lab, RT, psych nurse, social worker psychiatric, chalk cutter, teacher, dispatch officer, home health care case manager)? Give summary @ -Dr. Vidal, dr mullins Was smoking cessation discussed for >3mins.? @ -No Was critical care preformed (if so, how long)? @ -No Were there social determinants of health that impacted care today? How? (Homelessness, low income, unemployed, alcoholism, drug addiction, transportation, low edu. Level, literacy, decrease access to med. care, long-term, rehab)? @ -No Was there de-escalation of care discussed even if they declined (Discuss DNR or withdrawal of care, Hospice)? DNR status @ -No What co-morbidities impacted this encounter? (DM, HTN, Smoking, COPD, CAD, Cancer, CVA, ARF, Chemo, Hep., AIDS, mental health diagnosis, sleep apnea, morbid obesity)? @ -copd, previous left hip replacement Was patient admitted / discharged? Hospital course, mention meds given and route, prescriptions, significant lab abnormalities, going to OR and other pertinent info. @ -Upon arrival patient was placed in the hallway 20. There are history of physical exam was performed. Patient is taking for CT of her head and cervical spine. No acute fractures. She does have an abrasion over her hematoma but no need for suture or staple repair. C-collar is removed. Patient is sent over for x-ray of her hip and pelvis. No acute fractures. Patient cannot weight- bear and therefore I did perform a CT of the extremity which continues to demonstrate no acute injuries. I did a further do an x-ray of the femur as the patient does have significant pain in this is not identified the source of her pain. Called and spoke with Dr. Mullins stating that the patient is in considerable amount of pain and cannot ambulate. He was agreeable to counseling on the patient should she be admitted to medicine. I spoke with Dr. Vidal who was agreeable to admitting the patient. Patient is pending a bed on the floor in stable condition Undiagnosed new problem with uncertain prognosis? @ -yes Drug Therapy requiring intensive monitoring for toxicity (Heparin, Nitro, Insulin, Cardizem)? @ -No Were any procedures done? @ -No Diagnosis/symptom? @ -acute fall, intractable left hip pain, blunt head trauma, scalp hematoma Acute, or Chronic, or Acute on Chronic? @ -acute Uncomplicated (without systemic symptoms) or Complicated (systemic symptoms)? @ -complicated Side effects of treatment? @ -No Exacerbation, Progression, or Severe Exacerbation? @ -No Poses a threat to life or bodily function? How? (Chest pain, [place], [place], pneumonia, PE, COPD, DKA, ARF, appy, cholecystitis, CVA, Diverticulitis, Homicidal, Suicidal, threat to staff... and all critical care pts) @ -No - Lab Data Result diagrams: 11/28/23 06:00 11/28/23 06:00 Disposition Clinical Impression: Left hip pain, Fall Disposition: ADMITTED IP TO [facility] Condition: Stable Is patient prescribed a controlled substance at d/c from ED?: No Time of Disposition: 19:51 Decision to Admit Reason: Admit from EC Decision Date: 11/24/23 Decision Time: 19:51
--- NOTE | 2023-11-24 15:56 | CT ---
EXAMINATION TYPE: CT pelvis wo con DATE OF EXAM: 11/24/2023 COMPARISON: CT abdomen and pelvis April 17, 2023 HISTORY: left hip pain, pall, unable to walk CT DLP: 479.3 mGycm Automated exposure control for dose reduction was used. FINDINGS: Surgical change to the lower lumbar spine terminating at L3 level is redemonstrated. There is persist ent asymmetric narrowing of the left sacroiliac joint. Metallic left hip prosthesis redemonstrated wi th protrusio acetabulum again seen. Streak artifact from metallic hardware is noted. No acute displac ed fracture is clearly seen. Pubic symphysis remains intact. Mildly distended bladder. No suspicious bowel dilatation. Normal-appearing appendix. Sigmoid colonic diverticula with mild thecal prominence. Asymmetric left thigh mild generalized muscular atrophy noted. IMPRESSION: No acute findings are present. No significant change from prior CT.
[2023-11-24] MEDS ORDERED: MORPHINE SULFATE 4 MG/ML SYRINGE IM STA (16:39)
--- NOTE | 2023-11-24 17:28 | XR ---
EXAMINATION TYPE: XR femur LT DATE OF EXAM: 11/24/2023 5:12 PM CLINICAL INDICATION:Female, 68 years old with history of intractable pain; [facility] COMPARISON: Hip radiograph same day. TECHNIQUE: XR femur LT examined in Frontal and lateral projections. FINDINGS/IMPRESSION: 1. There is high riding left femoral head component into the pelvis similar prior imaging same day f or acute fracture visualized. Consider cross-sectional imaging given patient's pain. 2. Remote appearing left inferior pubic ramus fracture suggested. 3. Degeneration changes of the left knee with osteophyte formation of the tibial plateau and patella . 4. Atherosclerosis of the vasculature of the leg.
[2023-11-24] MEDS ORDERED: HYDROmorphone 0.5 MG/0.5 ML SYRINGE IM STA (18:38)
[2023-11-24] MEDS ORDERED: ORPHENADRINE 30 MG/ML 2 ML VIAL IM STA (18:39)
[2023-11-24] MEDS ORDERED: NALOXONE 0.4 MG/ML 1 ML VIAL IV PRN (19:53)
[2023-11-24] MEDS: HYDROmorphone 0.5 MG/0.5 ML SYRINGE IVP PRN (21:01)
[2023-11-24] MEDS ORDERED: CYCLOBENZAPRINE 10 MG TAB PO PRN (21:35)
[2023-11-24] MEDS ORDERED: ACETAMINOPHEN TAB 325 MG TAB PO PRN (21:35)
[2023-11-24] MEDS ORDERED: ALBUTEROL NEBULIZED 2.5 MG/3 ML INHALATION PRN ×2 (21:35)
[2023-11-24] MEDS ORDERED: SENNOSIDES-DOCUSATE SODIUM 1 EACH TAB PO PRN (21:35)
[2023-11-24] MEDS: CITALOPRAM HYDROBROMIDE 20 MG TAB PO SCH (22:04)
[2023-11-24] MEDS: MELATONIN 5 MG TABLET PO SCH (22:04)
[2023-11-24] MEDS: MIRTAZAPINE 15 MG TAB PO SCH (22:04)
[2023-11-24] MEDS: clonazePAM 0.5 MG TAB PO SCH (22:04)
[2023-11-24] MEDS: PANTOPRAZOLE 40 MG TABLET PO SCH (22:05)
[2023-11-24] MEDS: cloNIDine HCL 0.1 MG TAB PO SCH (22:05)
[2023-11-24] MEDS: GABAPENTIN 300 MG CAP PO SCH (22:05)
[2023-11-24] MEDS: SUVOREXANT 5 MG PO SCH (23:25)
[2023-11-24] MEDS: IPRATROPIUM-ALBUTEROL 3 ML NEB INHALATION SCH (23:50)
[2023-11-25] MEDS: LEVOTHYROXINE 75 MCG TAB PO SCH (06:51)
[2023-11-25] MEDS: cloNIDine HCL 0.1 MG TAB PO SCH ×3 (06:51→20:53)
[2023-11-25] MEDS: GABAPENTIN 300 MG CAP PO SCH ×3 (06:51→20:53)
[2023-11-25] MEDS ORDERED: IPRATROPIUM 0.5 MG/2.5 ML NEBU INHALATION SCH (08:00)
[2023-11-25] MEDS: ZINC SULFATE 220 MG CAP PO SCH (08:24)
[2023-11-25] MEDS: ASCORBIC ACID 500 MG TAB PO SCH (08:24)
[2023-11-25] MEDS: amLODIPine 5 MG TAB PO SCH (08:24)
[2023-11-25] MEDS: CHOLECALCIFEROL 25 MCG (1000 IU) TABLET PO SCH (08:24)
[2023-11-25] MEDS: LORATADINE 10 MG TAB PO PRN (08:28)
[2023-11-25] MEDS: SYMBICORT 80-4.5 MCG INHALER INHALATION SCH ×2 (09:21→19:58)
[2023-11-25] MEDS: IPRATROPIUM-ALBUTEROL 3 ML NEB INHALATION SCH ×2 (09:21→15:48)
[2023-11-25 09:24] LABS: Basophils # (A) 0.04 X 10*3/uL (0.00-0.10); Basophils % (A) 0.4 %; Eosinophils # (A) 0.13 X 10*3/uL (0.04-0.35); Eosinophils % (A) 1.2 %; HCT 38.9 % (37.2-46.3); HGB 12.1 g/dL (12.0-15.0); Lymphocytes # (A) 1.81 X 10*3/uL (0.90-5.00); MCH 27.5 pg (27.0-32.0); MCHC 31.1 g/dL (32.0-37.0); MCV 88.4 FL (80.0-97.0); Mean Platelet Volume 10.7 FL (9.5-12.2); Monocytes # (A) 1.06 X 10*3/uL (0.20-1.00); Monocytes % (A) 9.4 %; NRBC Per 100 WBC 0 X 10*3/uL (0.00-0.01); Neutrophils # (A) 8.17 X 10*3/uL (1.80-7.70); Neutrophils % (A) 72.4 %; Platelet Count 302 X 10*3/uL (140-440); RDW 15.3 % (11.5-14.5); WBC 11.28 X 10*3/uL (4.50-10.00)
[2023-11-25 10:39] LABS: Calcium 9.2 mg/dL (8.7-10.3); Carbon Dioxide 25.6 mmol/L (21.6-31.8); Chloride 104 mmol/L (96-109); Glucose 111 mg/dL (70-110); Potassium 4.3 mmol/L (3.5-5.5); Sodium 139 mmol/L (135-145)
--- NOTE | 2023-11-25 11:09 | P.CNOR ---
History of Present Illness - HPI Consult date: 11/25/23 History of present illness: This is a 68-year-old female who is admitted for left hip pain after a fall. Patient states that she lives at [facility] and fell out of her wheelchair trying to help make her bed. Patient states that she fell on the left side and also hit her head. Orthopedics is consulted due to left hip pain. Patient reports pain in the groin and states that she had a left hip replacement about 4 years ago at an outside facility. Patient states that she also has a history of back surgery last year. Patient states that before her fall she was able to ambulate with a walker. Patient denies any fever/chills, numbness, weakness or tingling. Review of Systems See HPI. Past Medical History Past Medical History: Asthma, COPD, Hyperlipidemia, Osteoarthritis (OA) Additional Past Medical History / Comment(s): lumbar compression fx-back brace on-moving coffee table, osteoporosis History of Any Multi-Drug Resistant Organisms: None Reported Past Surgical History: Joint Replacement Additional Past Surgical History / Comment(s): bhaskar cataracts,left hip replacement Past Anesthesia/Blood Transfusion Reactions: No Reported Reaction Additional Past Anesthesia/Blood Transfusion Reaction / Comm: no hx blood transfusion Past Psychological History: Anxiety, Depression Smoking Status: Former smoker Past Alcohol Use History: Rare Past Drug Use History: None Reported - Past Family History Mother Family Medical History: No Reported History Medications and Allergies Home Medications Medication Instructions Recorded Confirmed Type Albuterol Inhaler [Ventolin Hfa 2 puff INHALATION RT-Q6H PRN 03/24/23 11/24/23 History Inhaler] Atorvastatin Calcium 20 mg PO HS 03/24/23 11/24/23 History Citalopram Hydrobromide [CeleXA] 40 mg PO HS 03/24/23 11/24/23 History Melatonin 10 mg PO HS 03/24/23 11/24/23 History Mirtazapine [Remeron] 15 mg PO HS 03/24/23 11/24/23 History cloNIDine HCL [Catapres] 0.1 mg PO Q8HR@0600,1400,2200 03/24/23 11/24/23 History amLODIPine [Norvasc] 5 mg PO DAILY tab 03/31/23 11/24/23 Rx Acetaminophen Tab [Tylenol] 650 mg PO Q6HR PRN 11/24/23 11/24/23 History Albuterol Nebulized [Ventolin 2.5 mg INHALATION RT-Q4H PRN 11/24/23 11/24/23 History Nebulized] Ascorbic Acid [Vitamin C] 500 mg PO DAILY 11/24/23 11/24/23 History Benzonatate [Tessalon Perles] 200 mg PO TID PRN 11/24/23 11/24/23 History Cholecalciferol [Vitamin D3 (25 50 mcg PO DAILY 11/24/23 11/24/23 History Mcg = 1000 Iu)] Cyclobenzaprine [Flexeril] 10 mg PO TID PRN 11/24/23 11/24/23 History Fluticasone/Umeclidin/Vilanter 1 puff INHALATION RT-DAILY 11/24/23 11/24/23 His tory [Trelegy Ellipta 100-62.5-25] Gabapentin 300 mg PO Q8HR@0600,1400,2200 11/24/23 11/24/23 History HYDROcodone/APAP 5-325MG [[place] 1 tab PO Q4HR PRN 11/24/23 11/24/23 History 5-325] Ipratropium-Albuterol Nebulize 3 ml INHALATION RT-Q8H 11/24/23 11/24/23 History [Duoneb 0.5 mg-3 mg/3 ml Soln] Lactose-Reduced Food [Ensure Plus] 237 ml PO DAILY 11/24/23 11/24/23 History Levothyroxine Sodium [Synthroid] 75 mcg PO DAILY@0600 11/24/23 11/24/23 History Loratadine 10 mg PO Q24H PRN 11/24/23 11/24/23 History Omeprazole Magnesium [PriLOSEC OTC] 20 mg PO HS 11/24/23 11/24/23 History Sennosides/Docusate Sodium [Senna 1 tab PO DAILY PRN 11/24/23 11/24/23 History Plus 8.6-50 mg Tablet] Suvorexant [Belsomra] 5 mg PO HS 11/24/23 11/24/23 History Zinc Sulfate [Orazinc] 220 mg PO DAILY 11/24/23 11/24/23 History clonazePAM [KlonoPIN] 0.5 mg PO HS 11/24/23 11/24/23 History Allergies Allergy/AdvReac Type Severity Reaction Status Date / Time nut - unspecified Allergy Unknown Verified 11/24/23 15:45 Physical Examination On exam patient is resting comfortably in bed in no acute distress. Patient is alert and oriented 3. Patient has pain in the left side groin with logroll and attempted flexion of the left thigh. Calf is soft and nontender to palpation. The left lower extremity is warm and well perfused. Sensation intact. Neurovascular status and circulatory status are intact. Results X-rays and Pelvis CT scan are reviewed revealing chronic protrusio of the left acetabulum. There is no acute fracture identified. - Labs Labs: Abnormal Lab Results - Last 24 Hours (Table) 11/25/23 11/25/23 Range/Units 04:02 04:02 WBC 11.28 H (4.50-10.00) X 10*3/uL MCHC 31.1 L (32.0-37.0) g/dL RDW 15.3 H (11.5-14.5) % Immature Gran # 0.07 H (0.00-0.04) X 10*3/uL Neutrophils # 8.17 H (1.80-7.70) X 10*3/uL Monocytes # 1.06 H (0.20-1.00) X 10*3/uL BUN/Creatinine Ratio 25.00 H (12.00-20.00) Ratio Glucose 111 H (70-110) mg/dL H & H 11/25/23 Range/Units 04:02 Hgb 12.1 (12.0-15.0) g/dL Hct 38.9 (37.2-46.3) % Result Diagrams: 11/25/23 04:02 11/25/23 04:02 Assessment and Plan (1) Protrusio acetabuli Current Visit: Yes Status: Acute Code(s): M24.7 - PROTRUSIO ACETABULI SNOMED Code(s): 55766870 (2) Fall Current Visit: Yes Status: Acute Code(s): W19.XXXA - UNSPECIFIED FALL, INITIAL ENCOUNTER SNOMED Code(s): 6306819 (3) Left hip pain Current Visit: Yes Status: Acute Code(s): M25.552 - PAIN IN LEFT HIP SNO MED Code(s): 01725019 Plan: 1. Imaging is reviewed. Patient may be weightbearing as tolerated to the left extremity with a walker. 2. Recommend physical therapy for mobilization. 3. There is no surgical intervention planned. We will follow as needed.
--- NOTE | 2023-11-25 15:06 | P.HPIM ---
History of Present Illness H&P Date: 11/25/23 History of present illness; she is 68-year-old lady with past medical history si gnificant for hypertension, hyperlipidemia, hypothyroidism brought to the ER for fall. Patient stated that she lives at [facility] and fell out of her wheelchair while making her bed and fell on her left hip. There was no complain of loss of consciousness. No complaint of palpitations. Denies orthopnea or pnd. there was no clear fever or chills. following the fall, she started pain in left groi n. Patient hard time ambulating. Because of his fall, patient brought to the ER Initial lab work done in the ER showed WBC 11.28, hemoglobin 12.1, platelet count 302, sodium 1:30, potassium 4.3, BUN 15, creatinine 0.6, glucose 111 X-ray femur done there is high riding left femoral head component in the pelvis, remote appearing left pubic ramus CT head done showed no acute intracranial process CT cervical spine done showed no acute fractures X-ray of ankle of left showed no acute fracture X-ray pelvis done showed no definite fractures, showed hip arthroplasty with femoral head component migrating superiorly CT pelvis done showed no acute findings Patient admitted to internal medicine service REVIEW OF SYSTEMS: CONSTITUTIONAL: No fever, no malaise, no fatigue. HEENT: No recent visual problems or hearing problems. Denied any sore throat. CARDIOVASCULAR: No chest pain, orthopnea, PND, no palpitations, no syncope. PULMONARY: No shortness of breath, no cough, no hemoptysis. GASTROINTESTINAL: No diarrhea, no nausea, no vomiting, no abdominal pain. NEUROLOGICAL: No headaches, no weakness, no numbness. HEMATOLOGICAL: Denies any bleeding or petechiae. GENITOURINARY: Denies any burning micturition, frequency, or urgency. MUSCULOSKELETAL/RHEUMATOLOGICAL: As mentioned in HPI. ENDOCRINE: Denies any polyuria or polydipsia. The rest of the 14-point review of systems is negative. PHYSICAL EXAMINATION: GENERAL: The patient is alert and oriented x3, not in any acute distress. Well developed, well nourished. HEENT: Pupils are round and equally reacting to light. EOMI. No scleral icterus. No conjunctival pallor. Normocephalic, atraumatic. No pharyngeal erythema. No thyromegaly. CARDIOVASCULAR: S1 and S2 present. No murmurs, rubs, or gallops. PULMONARY: Chest is clear to auscultation, no wheezing or crackles. ABDOMEN: Soft, nontender, nondistended, normoactive bowel sounds. No palpable organomegaly. MUSCULOSKELETAL: Left Hip tenderness, reduced range of motion EXTREMITIES: No cyanosis, clubbing, or pedal edema. NEUROLOGICAL: Gross neurological examination did not reveal any focal deficits. SKIN: No rashes. Assessment and plan Fall Left hip pain Hypertension Hyperlipidemia Hypothyroidism Monitor vital signs Monitor CBC Monitor CMP Continue telemetry monitoring Continue pain management PT and OT consulted Resume home meds Consult orthopedics Labs and medication were reviewed.. Continue same treatment. Continue with symptomatic treatment. Resume home medication. Monitor labs and vitals. DVT and GI prophylaxis. Further recommendations as per clinical course of the patient Dictation was produced using [employer] dictation software. please excuse any grammatical, word or spelling errors. Past Medical History Past Medical History: Asthma, COPD, Hyperlipidemia, Osteoarthritis (OA) Additional Past Medical History / Comment(s): lumbar compression fx-back brace on-moving coffee table, osteoporosis History of Any Multi-Drug Resistant Organisms: None Reported Past Surgical History: Joint Replacement Additional Past Surgical History / Comment(s): bhaskar cataracts,left hip replacement Past Anesthesia/Blood Transfusion Reactions: No Reported Reaction Additional Past Anesthesia/Blood Transfusion Reaction / Comment(s): no hx blood transfusion Past Psychological History: Anxiety, Depression Smoking Status: Former smoker Past Alcohol Use History: Rare Past Drug Use History: None Reported - Past Family History Mother Family Medical History: No Reported History Medications and Allergies Home Medications Medication Instructions Recorded Confirmed Type Albuterol Inhaler [Ventolin Hfa 2 puff INHALATION RT-Q6H PRN 03/24/23 11/24/23 History Inhaler] Atorvastatin Calcium 20 mg PO HS 03/24/23 11/24/23 History Citalopram Hydrobromide [CeleXA] 40 mg PO HS 03/24/23 11/24/23 History Melatonin 10 mg PO HS 03/24/23 11/24/23 History Mirtazapine [Remeron] 15 mg PO HS 03/24/23 11/24/23 History cloNIDine HCL [Catapres] 0.1 mg PO Q8HR@0600,1400,2200 03/24/23 11/24/23 History amLODIPine [Norvasc] 5 mg PO DAILY tab 03/31/23 11/24/23 Rx Acetaminophen Tab [Tylenol] 650 mg PO Q6HR PRN 11/24/23 11/24/23 History Albuterol Nebulized [Ventolin 2.5 mg INHALATION RT-Q4H PRN 11/24/23 11/24/23 History Nebulized] Ascorbic Acid [Vitamin C] 500 mg PO DAILY 11/24/23 11/24/23 History Benzonatate [Tessalon Perles] 200 mg PO TID PRN 11/24/23 11/24/23 History Cholecalciferol [Vitamin D3 (25 50 mcg PO DAILY 11/24/23 11/24/23 History Mcg = 1000 Iu)] Cyclobenzaprine [Flexeril] 10 mg PO TID PRN 11/24/23 11/24/23 History Fluticasone/Umeclidin/Vilanter 1 puff INHALATION RT-DAILY 11/24/23 11/24/23 History [Treleliset Ellipta 100-62.5-25] Gabapentin 300 mg PO Q8HR@0600,1400,2200 11/24/23 11/24/23 History HYDROcodone/APAP 5-325MG [[place] 1 tab PO Q4HR PRN 11/24/23 11/24/23 History 5-325] Ipratropium-Albuterol Nebulize 3 ml INHALATION RT-Q8H 11/24/23 11/24/23 History [Duoneb 0.5 mg-3 mg/3 ml Soln] Lactose-Reduced Food [Ensure Plus] 237 ml PO DAILY 11/24/23 11/24/23 History Levothyroxine Sodium [Synthroid] 75 mcg PO DAILY@0600 11/24/23 11/24/23 History Loratadine 10 mg PO Q24H PRN 11/24/23 11/24/23 History Omeprazole Magnesium [PriLOSEC OTC] 20 mg PO HS 11/24/23 11/24/23 History Sennosides/Docusate Sodium [Senna 1 tab PO DAILY PRN 11/24/23 11/24/23 History Plus 8.6-50 mg Tablet] Suvorexant [Belsomra] 5 mg PO HS 11/24/23 11/24/23 History Zinc Sulfate [Orazinc] 220 mg PO DAILY 11/24/23 11/24/23 History clonazePAM [KlonoPIN] 0.5 mg PO HS 11/24/23 11/24/23 History Allergies Allergy/AdvReac Type Severity Reaction Status Date / Time nut - unspecified Allergy Unknown Verified 11/24/23 15:45 Physical Exam Vitals: Vital Signs Temp Pulse Pulse Resp BP BP Pulse Ox 11/25/23 09:36 86 11/25/23 09:25 97 11/25/23 09:21 86 11/25/23 08:00 94 17 11/25/23 07:00 98.9 F 94 17 132/70 99 11/25/23 02:25 93 16 11/25/23 01:30 98.5 F 93 16 116/74 93 L 11/24/23 23:59 103 H 11/24/23 23:52 105 H 11/24/23 21:40 98.3 F 111 H 16 137/83 96 11/24/23 20:50 94 22 126/85 94 L Intake and Output 11/24/23 11/25/23 11/25/23 22:59 06:59 14:59 Other: Voiding Method Toilet External Catheter # Voids 1 1 Weight 56.699 kg Results CBC & Chem 7: 11/25/23 04:02 11/25/23 04:02 Labs: Abnormal Lab Results - Last 24 Hours (Table) 11/25/23 11/25/23 Range/Units 04:02 04:02 WBC 11.28 H (4.50-10.00) X 10*3/uL MCHC 31.1 L (32.0-37.0) g/dL RDW 15.3 H (11.5-14.5) % Immature Gran # 0.07 H (0.00-0.04) X 10*3/uL Neutrophils # 8.17 H (1.80-7.70) X 10*3/uL Monocytes # 1.06 H (0.20-1.00) X 10*3/uL BUN/Creatinine Ratio 25.00 H (12.00-20.00) Ratio Glucose 111 H (70-110) mg/dL Thrombosis Risk Factor Assmnt - Choose All That Apply Any of the Below Risk Factors Present?: Yes Each Factor Represents 1 point: Abnormal pulmonary function (COPD) Other Risk Factors: Yes Each Risk Factor Represents 2 Points: Age 61-74 years Other congenital or acquired thrombophilia - If yes, enter type in comment: Yes Each Risk Factor Represents 5 Points: Hip, pelvis, or leg fracture (< 1 month) Thrombosis Risk Factor Assessment Total Risk Factor Score: 8 Thrombosis Risk Factor Assessment Level: High Risk
[2023-11-25] MEDS: HYDROmorphone 0.5 MG/0.5 ML SYRINGE IVP PRN ×2 (16:46→20:55)
[2023-11-25] MEDS: clonazePAM 0.5 MG TAB PO SCH (20:52)
[2023-11-25] MEDS: CITALOPRAM HYDROBROMIDE 20 MG TAB PO SCH (20:52)
[2023-11-25] MEDS: ATORVASTATIN 20 MG TAB PO SCH (20:52)
[2023-11-25] MEDS: MELATONIN 5 MG TABLET PO SCH (20:53)
[2023-11-25] MEDS: PANTOPRAZOLE 40 MG TABLET PO SCH (20:53)
[2023-11-25] MEDS: SUVOREXANT 5 MG PO SCH (20:53)
[2023-11-25] MEDS: MIRTAZAPINE 15 MG TAB PO SCH (20:53)
[2023-11-26] MEDS: IPRATROPIUM-ALBUTEROL 3 ML NEB INHALATION SCH ×4 (00:50→20:33)
[2023-11-26] MEDS: HYDROmorphone 0.5 MG/0.5 ML SYRINGE IVP PRN ×4 (01:06→13:28)
[2023-11-26] MEDS: cloNIDine HCL 0.1 MG TAB PO SCH ×3 (05:56→20:48)
[2023-11-26] MEDS: LEVOTHYROXINE 75 MCG TAB PO SCH (05:56)
[2023-11-26] MEDS: GABAPENTIN 300 MG CAP PO SCH ×3 (05:56→20:53)
[2023-11-26] MEDS: BENZONATATE 100 MG CAP PO PRN ×2 (07:01→15:52)
--- NOTE | 2023-11-26 07:53 | XR ---
EXAMINATION TYPE: XR chest 2V DATE OF EXAM: 11/26/2023 COMPARISON: 04/17/[address] chest 10/13/2023 HISTORY: 68-year-old female with cough TECHNIQUE: Frontal and lateral views FINDINGS: Heart normal size. Atherosclerotic arch calcifications. Hyperinflation. Focal right midlung opacity. Large appearance to the main right pulmonary artery on the lateral view. No pleural effusion. Anterio r wedge deformity of a lower thoracic vertebral body unchanged compared to the patient's CT of 2022 compatible with a chronic compression deformity. IMPRESSION: COPD with focal right midlung opacity suggestive of pneumonia. Follow-up after treatment to ensure cl earance and exclude underlying neoplasm.
[2023-11-26] MEDS: ASCORBIC ACID 500 MG TAB PO SCH (09:03)
[2023-11-26] MEDS: CHOLECALCIFEROL 25 MCG (1000 IU) TABLET PO SCH (09:03)
[2023-11-26] MEDS: ZINC SULFATE 220 MG CAP PO SCH (09:03)
[2023-11-26] MEDS: amLODIPine 5 MG TAB PO SCH (09:03)
[2023-11-26] MEDS: LORATADINE 10 MG TAB PO PRN (09:08)
[2023-11-26] MEDS: SYMBICORT 80-4.5 MCG INHALER INHALATION SCH ×2 (09:25→20:33)
--- NOTE | 2023-11-26 10:56 | P.PN ---
Subjective Progress Note Date: 11/26/23 This is a 68 year old female who is admitted for left hip pain after a fall. Patient is seen and evaluated at bedside today. Patient states that she has noticed some improvement in her left leg pain. Patient states that she has not attempted to get out of bed yet. Patient denies any new complaints today. Objective - Vital Signs Vital signs: Vital Signs Temp 98.1 F 11/26/23 07:00 Pulse 87 11/26/23 09:43 Resp 16 11/26/23 08:00 BP 111/71 11/26/23 07:00 Pulse Ox 98 11/26/23 09:28 FiO2 Intake & Output 11/25/23 11/26/23 11/26/23 18:59 06:59 18:59 Intake Total 118 240 Output Total 300 500 450 Balance -182 -500 -210 Intake: Oral 118 240 Output: Urine 300 500 450 Other: Voiding Method External Catheter External Catheter External Catheter # Voids 2 - Exam On exam patient is resting comfortably in bed in no acute distress. Patient is alert and oriented 3. Patient has pain in the left-side groin with logroll and attempted flexion of the left thigh. Calf is soft and nontender to palpation. The left lower extremity is warm and well perfused. Sensation intact. Neurovascular status and circulatory status are intact. - Labs CBC & Chem 7: 11/25/23 04:02 11/25/23 04:02 Assessment and Plan (1) Protrusio acetabuli Current Visit: Yes Status: Acute Code(s): M24.7 - PROTRUSIO ACETABULI SNOMED Code(s): 36794199 (2) Fall Current Visit: Yes Status: Acute Code(s): W19.XXXA - UNSPECIFIED FALL, INITIAL ENCOUNTER SNOMED Code(s): 9281379 (3) Left hip pain Current Visit: Yes Status: Acute Code(s): M25.552 - PAIN IN LEFT HIP SNOMED Code(s): 52342731 Plan: 1. Imaging is reviewed. Patient may be weightbearing as tolerated to the left extremity with a walker. 2. Recommend physical therapy for mobilization. 3. There is no surgical intervention planned. We will follow as needed.
--- NOTE | 2023-11-26 16:06 | P.PN ---
Subjective Progress Note Date: 11/26/23 she is 68-year-old lady with past medical history significant for hypertension, hyperlipidemia, hypothyroidism brought to the ER for fall. Patient stated that she lives at [facility] and fell out of her wheelchair while making her bed and fell on her left hip. There was no complain of loss of consciousness. No complaint of palpitations. Denies orthopnea or pnd. there was no clear fever or chills. following the fall, she started pain in left groin. Patient hard time ambulating. Because of his fall, patient brought to the ER Initial lab work done in the ER showed WBC 11.28, hemoglobin 12.1, platelet count 302, sodium 1:30, potassium 4.3, BUN 15, creatinine 0.6, glucose 111 X-ray femur done there is high riding left femoral head component in the pelvis, remote appearing left pubic ramus CT head done showed no acute intracranial process CT cervical spine done showed no acute fractures X-ray of ankle of left showed no acute fracture X-ray pelvis done showed no definite fractures, showed hip arthroplasty with femoral head component migrating superiorly CT pelvis done showed no acute findings Patient admitted to internal medicine service 11/26. Patient seen and examined. Chest x-ray done overnight showed changes suspicious of pneumonia. Currently requiring 3 L of oxygen. Complaining of shortness of breath on exertion. Complaining of left hip pain REVIEW OF SYSTEMS: CONSTITUTIONAL: No fever, no malaise,. CARDIOVASCULAR: No chest pain, no palpitations, no syncope. PULMONARY: As mentioned above GASTROINTESTINAL: No diarrhea, no nausea, no vomiting, no abdominal pain. NEUROLOGICAL: No headaches, no weakness, PHYSICAL EXAMINATION: GENERAL: The patient is alert and oriented x3, not in any acute distress. Well developed, well nourished. HEENT: Pupils are round and equally reacting to light. EOMI. No scleral icterus. No conjunctival pallor. Normocephalic, atraumatic. No pharyngeal erythema. No thyromegaly. CARDIOVASCULAR: S1 and S2 present. No murmurs, rubs, or gallops. PULMONARY: Diminished breath sounds at bases ABDOMEN: Soft, nontender, nondistended, normoactive bowel sounds. No palpable organomegaly. MUSCULOSKELETAL: No joint swelling or deformity. EXTREMITIES: No cyanosis, clubbing, or pedal edema. NEUROLOGICAL: Gross neurological examination did not reveal any focal deficits. SKIN: No rashes. Assessment and plan Fall Acute hypoxemic respiratory failure Bacterial pneumonia Left hip pain Hypertension Hyperlipidemia Hypothyroidism Monitor vital signs Monitor CBC Monitor CMP Continue telemetry monitoring Results of chest x-ray noted. Start IV Rocephin and azithromycin Encourage use of I-S Continue pain management PT and OT following orthopedic following Labs and medication were reviewed.. Continue same treatment. Continue with symptomatic treatment. Resume home medication. Monitor labs and vitals. DVT and GI prophylaxis. Further recommendations as per clinical course of the patient Dictation was produced using [employer] dictation software. please excuse any grammatical, word or spelling errors. Objective - Vital Signs Vital signs: Vital Signs Temp 98.1 F 11/26/23 07:00 Pulse 94 11/26/23 15:58 Resp 16 11/26/23 13:43 BP 111/71 11/26/23 07:00 Pulse Ox 98 11/26/23 09:28 FiO2 Intake & Output 11/25/23 11/26/23 11/26/23 18:59 06:59 18:59 Intake Total 118 240 Output Total 300 500 450 Balance -182 -500 -210 Intake: Oral 118 240 Output: Urine 300 500 450 Other: Voiding Method External Catheter External Catheter External Catheter # Voids 2 - Labs CBC & Chem 7: 11/25/23 04:02 11/25/23 04:02
[2023-11-26] MEDS: AZITHROMYCIN 500 MG in SODIUM CHLORIDE 0.9% 250 ML IVPB SCH (17:01)
[2023-11-26] MEDS: HYDROcodone/APAP 10-325MG 1 EACH TAB PO PRN (17:06)
[2023-11-26] MEDS: CITALOPRAM HYDROBROMIDE 20 MG TAB PO SCH (20:47)
[2023-11-26] MEDS: clonazePAM 0.5 MG TAB PO SCH (20:47)
[2023-11-26] MEDS: ATORVASTATIN 20 MG TAB PO SCH (20:47)
[2023-11-26] MEDS: PANTOPRAZOLE 40 MG TABLET PO SCH (20:47)
[2023-11-26] MEDS: SUVOREXANT 5 MG PO SCH (20:48)
[2023-11-26] MEDS: MELATONIN 5 MG TABLET PO SCH (20:48)
[2023-11-26] MEDS: MIRTAZAPINE 15 MG TAB PO SCH (20:48)
[2023-11-27] MEDS: HYDROcodone/APAP 10-325MG 1 EACH TAB PO PRN ×3 (00:25→20:06)
[2023-11-27] MEDS: BENZONATATE 100 MG CAP PO PRN ×2 (01:06→19:58)
[2023-11-27] MEDS: GABAPENTIN 300 MG CAP PO SCH ×3 (05:59→21:23)
[2023-11-27] MEDS: LEVOTHYROXINE 75 MCG TAB PO SCH (05:59)
[2023-11-27] MEDS: cloNIDine HCL 0.1 MG TAB PO SCH ×3 (05:59→19:57)
[2023-11-27] MEDS: CHOLECALCIFEROL 25 MCG (1000 IU) TABLET PO SCH (08:12)
[2023-11-27] MEDS: ASCORBIC ACID 500 MG TAB PO SCH (08:12)
[2023-11-27] MEDS: ZINC SULFATE 220 MG CAP PO SCH (08:12)
[2023-11-27 08:52] LABS: ALT 24 U/L (8-44); AST 23 U/L (13-35); Albumin 3.3 g/dL (3.8-4.9); Albumin/Globulin Ratio 1.27 Ratio (1.60-3.17); Alkaline Phosphatase 123 U/L (41-126); BUN/Creat Ratio 27.17 Ratio (12.00-20.00); Blood Urea Nitrogen 16.3 mg/dL (9.0-27.0); Calcium 8.9 mg/dL (8.7-10.3); Carbon Dioxide 24.7 mmol/L (21.6-31.8); Chloride 105 mmol/L (96-109); Globulin 2.6 g/dL (1.6-3.3); Glucose 99 mg/dL (70-110); Potassium 4.4 mmol/L (3.5-5.5); Sodium 140 mmol/L (135-145); Total Bilirubin 0.3 mg/dL (0.3-1.2); Total Protein 5.9 g/dL (6.2-8.2)
[2023-11-27 08:53] LABS: HCT 38.1 % (37.2-46.3); HGB 11.3 g/dL (12.0-15.0); MCHC 29.7 g/dL (32.0-37.0); MCV 90.9 FL (80.0-97.0); Mean Platelet Volume 10.8 FL (9.5-12.2); NRBC Per 100 WBC 0 X 10*3/uL (0.00-0.01); Platelet Count 262 X 10*3/uL (140-440); RBC 4.19 X 10*6/uL (4.10-5.20); RDW 14.8 % (11.5-14.5); WBC 7.42 X 10*3/uL (4.50-10.00)
[2023-11-27] MEDS: IPRATROPIUM-ALBUTEROL 3 ML NEB INHALATION SCH ×3 (09:02→20:09)
[2023-11-27] MEDS: SYMBICORT 80-4.5 MCG INHALER INHALATION SCH ×2 (09:02→20:10)
[2023-11-27] MEDS: AZITHROMYCIN 500 MG in SODIUM CHLORIDE 0.9% 250 ML IVPB SCH (09:47)
[2023-11-27] MEDS: amLODIPine 5 MG TAB PO SCH (09:47)
--- NOTE | 2023-11-27 13:50 | XR ---
EXAMINATION TYPE: XR chest 1V portable DATE OF EXAM: 11/27/2023 Comparison: 11/26/2023 Clinical History: 68-year-old female short of breath Findings: Heart normal size. Mild hyperinflation. Relative upper lung lucencies. Focal right midlung opacity pe rsists. No other consolidation or pleural effusion. Posterior lumbar fusion hardware. Impression: COPD and unchanged focal right midlung opacity, probable pneumonia. Follow-up after treatment to ensu re clearance and exclude underlying neoplasm.
[2023-11-27] MEDS ORDERED: IPRATROPIUM-ALBUTEROL 3 ML NEB INHALATION PRN (13:58)
[2023-11-27] MEDS: HYDROcodone/APAP 5-325MG 1 EACH TAB PO PRN (14:36)
[2023-11-27 15:31] LABS: INR 0.8 (<1.2); Prothrombin Time 9.6 sec (10.0-12.5)
[2023-11-27] MEDS: HEPARIN SODIUM,PORCINE 5,000 UNIT/ML 1 ML VIAL SQ SCH (18:11)
[2023-11-27] MEDS: methylPREDNISolone SOD SUCCI 40 MG/ML 1 ML VIAL IV SCH (18:12)
[2023-11-27] MEDS: ATORVASTATIN 20 MG TAB PO SCH (19:56)
[2023-11-27] MEDS: MIRTAZAPINE 15 MG TAB PO SCH (19:56)
[2023-11-27] MEDS: CITALOPRAM HYDROBROMIDE 20 MG TAB PO SCH (19:56)
[2023-11-27] MEDS: PANTOPRAZOLE 40 MG TABLET PO SCH (19:57)
[2023-11-27] MEDS: SUVOREXANT 5 MG PO SCH (19:57)
[2023-11-27] MEDS: MELATONIN 5 MG TABLET PO SCH (19:57)
[2023-11-27] MEDS: clonazePAM 0.5 MG TAB PO SCH (19:57)
--- NOTE | 2023-11-27 23:14 | P.CONS ---
History of Present Illness - Reason for Consult Consult date: 11/27/23 - History of Present Illness Patient is a 68-year-old female with a past medical history significant for hyperlipidemia COPD asthma osteoarthritis the longterm resident patient was sent to the ER 3 days ago from the local longterm after the patient fell out of her wheelchair patient landed on her left hip and the patient was complaining of pain to the left hip area x-rays of the hip did not show any evidence of fracture patient also have a pelvic CT no acute findings are present patient did have a chest x-ray COPD and focal right midlung opacity probable pneumonia patient was started on Rocephin and Zithromax infectious disease was consulted for further management of antibiotic therapy. Patient on presentation to the hospital was afebrile and the patient denies having any fever or any chills. Denies having any URI symptoms. Denies having any chest pain she did have mild cough with occasional sputum production the patient denies having any nausea vomiting no choking on the food no abdominal pain or diarrhea Past Medical History Past Medical History: Asthma, COPD, Hyperlipidemia, Osteoarthritis (OA) Additional Past Medical History / Comment(s): lumbar compression fx-back brace on-moving coffee table, osteoporosis History of Any Multi-Drug Resistant Organisms: None Reported Past Surgical History: Joint Replacement Additional Past Surgical History / Comment(s): bhaskar cataracts,left hip replacement Past Anesthesia/Blood Transfusion Reactions: No Reported Reaction Additional Past Anesthesia/Blood Transfusion Reaction / Comm: no hx blood transfusion Past Psychological History: Anxiety, Depression Smoking Status: Former smoker Past Alcohol Use History: Rare Past Drug Use History: None Reported - Past Family History Mother Family Medical History: No Reported History Medications and Allergies Home Medications Medication Instructions Recorded Confirmed Type Albuterol Inhaler [Ventolin Hfa 2 puff INHALATION RT-Q6H PRN 03/24/23 11/24/23 History Inhaler] Atorvastatin Calcium 20 mg PO HS 03/24/23 11/24/23 History Citalopram Hydrobromide [CeleXA] 40 mg PO HS 03/24/23 11/24/23 History Melatonin 10 mg PO HS 03/24/23 11/24/23 History Mirtazapine [Remeron] 15 mg PO HS 03/24/23 11/24/23 History cloNIDine HCL [Catapres] 0.1 mg PO Q8HR@0600,1400,2200 03/24/23 11/24/23 History amLODIPine [Norvasc] 5 mg PO DAILY tab 03/31/23 11/24/23 Rx Acetaminophen Tab [Tylenol] 650 mg PO Q6HR PRN 11/24/23 11/24/23 History Albuterol Nebulized [Ventolin 2.5 mg INHALATION RT-Q4H PRN 11/24/23 11/24/23 History Nebulized] Ascorbic Acid [Vitamin C] 500 mg PO DAILY 11/24/23 11/24/23 History Benzonatate [Tessalon Perles] 200 mg PO TID PRN 11/24/23 11/24/23 History Cholecalciferol [Vitamin D3 (25 50 mcg PO DAILY 11/24/23 11/24/23 History Mcg = 1000 Iu)] Cyclobenzaprine [Flexeril] 10 mg PO TID PRN 11/24/23 11/24/23 History Fluticasone/Umeclidin/Vilanter 1 puff INHALATION RT-DAILY 11/24/23 11/24/23 History [Trelegy Ellipta 100-62.5-25] Gabapentin 300 mg PO Q8HR@0600,1400,2200 11/24/23 11/24/23 History HYDROcodone/APAP 5-325MG [[place] 1 tab PO Q4HR PRN 11/24/23 11/24/23 History 5-325] Ipratropium-Albuterol Nebulize 3 ml INHALATION RT-Q8H 11/24/23 11/24/23 History [Duoneb 0.5 mg-3 mg/3 ml Soln] Lactose-Reduced Food [Ensure Plus] 237 ml PO DAILY 11/24/23 11/24/23 History Levothyroxine Sodium [Synthroid] 75 mcg PO DAILY@0600 11/24/23 11/24/23 History Loratadine 10 mg PO Q24H PRN 11/24/23 11/24/23 History Omeprazole Magnesium [PriLOSEC OTC] 20 mg PO HS 11/24/23 11/24/23 History Sennosides/Docusate Sodium [Senna 1 tab PO DAILY PRN 11/24/23 11/24/23 History Plus 8.6-50 mg Tablet] Suvorexant [Belsomra] 5 mg PO HS 11/24/23 11/24/23 History Zinc Sulfate [Orazinc] 220 mg PO DAILY 11/24/23 11/24/23 History clonazePAM [KlonoPIN] 0.5 mg PO HS 11/24/23 11/24/23 History Allergies Allergy/AdvReac Type Severity Reaction Status Date / Time nut - unspecified Allergy Unknown Verified 11/24/23 15:45 Physical Exam Vitals: Vital Signs Temp Pulse Pulse Resp BP Pulse Ox 11/27/23 20:11 88 11/27/23 16:18 102 H 11/27/23 16:09 102 H 11/27/23 14:00 98.6 F 94 16 115/74 96 11/27/23 09:33 100/65 11/27/23 09:14 96 11/27/23 09:04 96 11/27/23 09:02 96 11/27/23 07:00 97.7 F 72 16 98/62 97 11/27/23 02:12 98.0 F 72 16 101/67 96 Intake and Output 11/27/23 11/27/23 11/28/23 14:59 22:59 06:59 Intake Total 270 118 Output Total 200 Balance 270 -82 Intake: Oral 270 118 Output: Urine 200 Other: Voiding Method External Catheter # Voids 2 Results CBC & Chem 7: 11/27/23 05:51 11/27/23 05:51 Labs: Abnormal Lab Results - Last 24 Hours (Table) 11/27/23 11/27/23 11/27/23 Range/Units 05:51 05:51 13:50 Hgb 11.3 L (12.0-15.0) g/dL MCHC 29.7 L (32.0-37.0) g/dL RDW 14.8 H (11.5-14.5) % PT (10.0-12.5) sec D-Dimer 2.55 H (<0.60) mg/L FEU BUN/Creatinine Ratio 27.17 H (12.00-20.00) Ratio Total Protein 5.9 L (6.2-8.2) g/dL Albumin 3.3 L (3.8-4.9) g/dL Albumin/Globulin Ratio 1.27 L (1.60-3.17) Ratio 11/27/23 Range/Units 14:47 Hgb (12.0-15.0) g/dL MCHC (32.0-37.0) g/dL RDW (11.5-14.5) % PT 9.6 L (10.0-12.5) sec D-Dimer (<0.60) mg/L FEU BUN/Creatinine Ratio (12.00-20.00) Ratio Total Protein (6.2-8.2) g/dL Albumin (3.8-4.9) g/dL Albumin/Globulin Ratio (1.60-3.17) Ratio Assessment and Plan Plan: 1patient presented to hospital with a fall and left hip pain patient did have x-rays and a CT that has been negative for any fracture and is being managed by orthopedics. 2patient also have a history of COPD on home O2 also have increasing shortness of breath and a cough with evidence of right midlung infiltrate concerning for pneumonia 3-we will obtain a sputum for Gram stain culture check a CRP and a procalcitonin 4-continue with Rocephin and Zithromax while awaiting further workup to be completed We will follow on clinical condition and cultures to further adjust medication if needed Thank you for this consultation we will follow the patient along with you Dictation was produced using [employer] dictation software. please excuse any gra mmatical, word or spelling errors. Time with Patient: Greater than 30
--- NOTE | 2023-11-27 23:48 | CT ---
EXAMINATION TYPE: CT chest angio for PE CT DLP: 188.3 mGycm, Automated exposure control for dose reduction was used. DATE OF EXAM: 11/27/2023 3:24 PM COMPARISON: Chest x-ray earlier today, CT chest without contrast 10/13/2023 CLINICAL INDICATION:Female, 68 years old with history of elevated d dimer; elevated d-dimer TECHNIQUE/CONTRAST: CTA scan of the thorax is performed with IV Contrast, patient injected with 65 cc mL of Isovue 300, M IP images are created and reviewed these are created on a separate workstation.. FINDINGS: There is adequate contrast bolus and timing. PULMONARY ARTERIES: There is no evidence for a filling defect within the pulmonary vasculature to sug gest acute pulmonary embolism. Pulmonary trunk is normal in size. Trunk measures 2.7 CM. HEART: Normal heart size. Moderate coronary artery calcification and/or stents. No appreciable peric ardial effusion. AORTA: Moderate atherosclerotic calcifications of the aorta and branches. Ascending aorta is 3.1 CM, descending is 2.6 CM. Aorta is considered normal in size. LOWER NECK: No significant findings. Thyroid is not seen or included. MEDIASTINUM: Multiple nonenlarged and borderline prominent mediastinal nodes, most likely reactive, w ithout significant change from prior. Right hilar adenopathy 2.1 x 1.4 cm, uncertain if was present b efore due to the limits of noncontrast technique. Some infrahilar soft tissue thickening is also sugg ested. SOFT TISSUES/LYMPH NODES: Unremarkable soft tissues. No axillary adenopathy. LUNGS/ PLEURA: Moderate to severe pulmonary emphysematous changes with an upper lobe predominance. In the posterior inferior right upper lobe abutting and mildly distorting the upper end of the oblique fissure, there is again a masslike consolidative opacity which is irregular in shape but measures caleb roximately 4.5 x 3 cm image 53 series 5, and extends about 3 cm craniocaudally; by my estimation ther e has not been a significant change from the prior. Small solid appearing nodule in the anterior infe rior right upper lobe along the oblique horizontal horizontal fissure measures 0.5 cm, image 66. Righ t lower lobe posterior lateral subpleural solid nodule is 0.7 cm image 83. These show no significant change. The previously noted groundglass change in the inferior lingula and small focal irregular op[place] in the left upper lobe do not persist. Bibasilar stranding suggesting scarring or atelectasis. T here is no pleural effusion or pneumothorax. AIRWAY: Central airways are patent. MUSCULOSKELETAL: Moderate multilevel degenerative changes throughout the visualized spine. There is m oderate to severe compression fracture deformity of T10 with mild retropulsion into the canal, appear s unchanged since at least 10/13/2023 compatible with subacute to chronic fracture. Partially imaged posterior fixation hardware at L1. UPPER ABDOMEN: Mild thickening and nodularity of the left adrenal, similar to prior. No evidence of a drenal mass. IMPRESSION: 1. No evidence of pulmonary embolism. 2. Moderate to severe pulmonary emphysematous changes redemonstrated. 3. Irregular masslike consolidative opacity again seen in the posterior inferior right upper lobe me asuring about 4.5 x 3 cm, without significant change since 10/13/2023. Given the timeframe without ch yadiel, this raises the level of concern for malignancy. Biopsy and/or PET/CT should be considered at t his time. 4. Mild right hilar adenopathy, potentially metastatic. 5. Multiple mildly prominent mediastinal nodes, appear unchanged and could be reactive.
[2023-11-28] MEDS: HEPARIN SODIUM,PORCINE 5,000 UNIT/ML 1 ML VIAL SQ SCH ×4 (00:22→23:57)
[2023-11-28] MEDS: methylPREDNISolone SOD SUCCI 40 MG/ML 1 ML VIAL IV SCH ×4 (00:22→23:57)
[2023-11-28] MEDS: IPRATROPIUM-ALBUTEROL 3 ML NEB INHALATION SCH ×4 (02:32→18:35)
[2023-11-28] MEDS: LEVOTHYROXINE 75 MCG TAB PO SCH (06:16)
[2023-11-28] MEDS: HYDROcodone/APAP 5-325MG 1 EACH TAB PO PRN ×4 (06:17→20:29)
[2023-11-28] MEDS: cloNIDine HCL 0.1 MG TAB PO SCH ×3 (06:17→20:30)
[2023-11-28] MEDS: GABAPENTIN 300 MG CAP PO SCH ×3 (06:17→20:30)
[2023-11-28] MEDS: SYMBICORT 160-4.5 MCG INHALER INHALATION SCH ×2 (08:50→18:35)
[2023-11-28] MEDS: CHOLECALCIFEROL 25 MCG (1000 IU) TABLET PO SCH (08:59)
[2023-11-28] MEDS: ZINC SULFATE 220 MG CAP PO SCH (08:59)
[2023-11-28] MEDS: ASCORBIC ACID 500 MG TAB PO SCH (08:59)
[2023-11-28] MEDS: amLODIPine 5 MG TAB PO SCH (08:59)
[2023-11-28] MEDS ORDERED: AZITHROMYCIN 500 MG TAB PO SCH (09:00)
[2023-11-28 09:15] LABS: Basophils # (A) 0.01 X 10*3/uL (0.00-0.10); Basophils % (A) 0.1 %; Eosinophils # (A) 0 X 10*3/uL (0.04-0.35); Eosinophils % (A) 0 %; HCT 38.8 % (37.2-46.3); Lymphocytes # (A) 0.49 X 10*3/uL (0.90-5.00); Lymphocytes % (A) 6.2 %; MCH 27.4 pg (27.0-32.0); MCHC 30.9 g/dL (32.0-37.0); MCV 88.6 FL (80.0-97.0); Mean Platelet Volume 10.9 FL (9.5-12.2); Monocytes # (A) 0.03 X 10*3/uL (0.20-1.00); Monocytes % (A) 0.4 %; NRBC Per 100 WBC 0 X 10*3/uL (0.00-0.01); Neutrophils # (A) 7.32 X 10*3/uL (1.80-7.70); Neutrophils % (A) 92.7 %; Platelet Count 310 X 10*3/uL (140-440); RBC 4.38 X 10*6/uL (4.10-5.20); RDW 14.6 % (11.5-14.5)
[2023-11-28 09:45] LABS: ALT 27 U/L (8-44); AST 21 U/L (13-35); Albumin 3.8 g/dL (3.8-4.9); Albumin/Globulin Ratio 1.27 Ratio (1.60-3.17); Alkaline Phosphatase 139 U/L (41-126); Blood Urea Nitrogen 18.9 mg/dL (9.0-27.0); Calcium 9.2 mg/dL (8.7-10.3); Carbon Dioxide 20.9 mmol/L (21.6-31.8); Chloride 105 mmol/L (96-109); Glucose 144 mg/dL (70-110); Sodium 141 mmol/L (135-145); Total Bilirubin <0.2 mg/dL (0.3-1.2); Total Protein 6.8 g/dL (6.2-8.2)
--- NOTE | 2023-11-28 12:25 | PN ---
PROGRESS NOTE DATE OF SERVICE: 11/27/2023 SUBJECTIVE: This is a 68-year-old woman, who was admitted with left-sided hip pain, also had significant shortness of breath with cough and right pneumonia also. D-dimer is significantly elevated. COVID-19 is a distinct possibility even the COVID-19 testing is negative. I would recommend CT angio to rule out the possibility of pulmonary embolism. The patient was started on broad-spectrum IV antibiotics. Infectious Disease also will be consulted and we continue to monitor. PAST MEDICAL HISTORY: Reviewed. REVIEW OF SYSTEMS: A 14-point review is negative except as mentioned. CURRENT MEDICATIONS: Reviewed include Anna, dose and rest of medications noted. PHYSICAL EXAMINATION: VITAL SIGNS: Pulse is 96, blood pressure 98/60, respirations 16. CHEST: Few scattered rhonchi and crackles. ABDOMEN: Soft. NERVOUS SYSTEM: Nonfocal. LABORATORY DATA: Reviewed. ASSESSMENT: 1. Left hip pain, present on admission, possibly musculoskeletal. 2. Chronic obstructive pulmonary disease exacerbation, acute hypoxic respiratory failure with right middle lobe pneumonia, possibly bacterial gram-negative. 3. Hypertension. 4. Hyperlipidemia. 5. Hypothyroidism. 6. Elevated D-dimer rule out pulmonary embolism. RECOMMENDATIONS AND DISCUSSION: This 68-year-old woman presented with multiple complex medical issues, we will monitor the patient closely. Recommend CT angio of chest. Otherwise, continue the antibiotics. Infectious Disease evaluation, and Pulmonary consultation. Prognosis guarded because of multiple complex medical issues and further recommendations to follow. Empiric antibiotics for now. MMODL / IJN: [id number] /
--- NOTE | 2023-11-28 14:46 | P.PN ---
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 On today's evaluation that is 11/28/2023, the patient denies having any fever or any chills patient is breathing more comfortably currently on her 2 L nasal cannula oxygen but denies having any chest pain cough is decreased in intensity not bring up any sputum no nausea vomiting no abdominal pain no diarrhea. The patient white count of 7.90, creatinine 0.7 Pro-Armando 0.15 Objective - Vital Signs Vital signs: Vital Signs Temp 98.1 F 11/28/23 08:00 Pulse 80 11/28/23 14:06 Resp 18 11/28/23 08:00 BP 113/72 11/28/23 08:00 Pulse Ox 96 11/28/23 08:00 FiO2 Intake & Output 11/27/23 11/28/23 11/28/23 18:59 06:59 18:59 Intake Total 388 Output Total 200 500 Balance 188 -500 Intake: Oral 388 Output: Urine 200 500 Other: Voiding Method External Catheter # Voids 2 - Exam GENERAL DESCRIPTION: An elderly female up in the chair in no distress RESPIRATORY SYSTEM: Unlabored breathing , decreased breath sounds at bases HEART: S1 S2 regular rate and rhythm , ABDOMEN: Soft , no tenderness EXTREMITIES: No edema feet - Labs CBC & Chem 7: 11/28/23 06:00 11/28/23 06:00 Labs: Abnormal Lab Results - Last 24 Hours (Table) 11/27/23 11/27/23 11/28/23 Range/Units 14:47 14:47 06:00 MCHC 30.9 L (32.0-37.0) g/dL RDW 14.6 H (11.5-14.5) % Immature Gran # 0.05 H (0.00-0.04) X 10*3/uL Lymphocytes # 0.49 L (0.90-5.00) X 10*3/uL Monocytes # 0.03 L (0.20-1.00) X 10*3/uL Eosinophils # 0 L (0.04-0.35) X 10*3/uL PT 9.6 L (10.0-12.5) sec Carbon Dioxide (21.6-31.8) mmol/L Anion Gap (4.00-12.00) mmol/L BUN/Creatinine Ratio (12.00-20.00) Ratio Glucose (70-110) mg/dL Total Bilirubin (0.3-1.2) mg/dL Alkaline Phosphatase (41-126) U/L Albumin/Globulin Ratio (1.60-3.17) Ratio Procalcitonin 0.15 H (0.02-0.09) ng/mL 11/28/23 Range/Units 06:00 MCHC (32.0-37.0) g/dL RDW (11.5-14.5) % Immature Gran # (0.00-0.04) X 10*3/uL Lymphocytes # (0.90-5.00) X 10*3/uL Monocytes # (0.20-1.00) X 10*3/uL Eosinophils # (0.04-0.35) X 10*3/uL PT (10.0-12.5) sec Carbon Dioxide 20.9 L (21.6-31.8) mmol/L Anion Gap 15.10 H (4.00-12.00) mmol/L BUN/Creatinine Ratio 27.00 H (12.00-20.00) Ratio Glucose 144 H (70-110) mg/dL Total Bilirubin <0.2 L (0.3-1.2) mg/dL Alkaline Phosphatase 139 H (41-126) U/L Albumin/Globulin Ratio 1.27 L (1.60-3.17) Ratio Procalcitonin (0.02-0.09) ng/mL Assessment and Plan (1) Elevated procalcitonin Current Visit: Yes Status: Acute Code(s): R79.89 - OTHER SPECIFIED ABNORMAL FINDINGS OF BLOOD CHEMISTRY SNOMED Code(s): 469240481 (2) Pneumonia Current Visit: Yes Status: Acute Code(s): J18.9 - PNEUMONIA, UNSPECIFIED ORGANISM SNOMED Code(s): 651011721 Plan: 1patient presented to hospital with a fall and left hip pain patient did have x-rays and a CT that has been negative for any fracture and is being managed by orthopedics. 2patient also have a history of COPD on home O2 also have increasing shortness of breath and a cough with evidence of right midlung infiltrate concerning for pneumonia 3- patient did have mildly elevated CRP and a procalcitonin, sputum not collected 4-patient to continue with Rocephin and Zithromax and monitor clinical course closely Dictation was produced using [employer] dictation software. please excuse any grammatical, word or spelling errors. Time with Patient: Less than 30
--- NOTE | 2023-11-28 15:20 | P.CNPUL ---
History of Present Illness Consult date: 11/28/23 Requesting physician: Omar Vidal Reason for consult: COPD, abnormal CXR/CT Chief complaint: Left hip pain, fall History of present illness: This is a pleasant 68-year-old female patient with a known history of COPD, hyperlipidemia, anxiety/depression, former smoker, medical debility residing and [facility]. She was at the facility assisting staff and making her bed when she leaned too far out of her wheelchair and fell onto the floor. She had left hip pain in the left occipital hematoma. She was brought here back on 11/24/[address] scan of the brain and C-spine revealed no acute fracture or dislocation. No acute intracranial hemorrhage or midline shift. CT scan of the pelvis revealed no acute findings. Computed tomography scan of the chest ruled out pulmonary embolism. There is moderate to severe pulmonary emphysema changes. Irregular masslike consolidative opacity seen in the posterior right upper lobe measuring 4.5 x 3 centimeters no change compared to previous CAT scan on 10/13/2023. We were consulted today for the same. Currently sitting up in a chair at the bedside. Awake and alert in no acute distress. She denies any shortness of breath, cough or congestion. No fever or chills. Maintaining O2 saturations in the 90s on 2 L/m per nasal cannula. White count 7.9. Hemoglobin 12.0. Platelets 310. Sodium 141 potassium 4.0. Bicarb 21. BUN 19. Creatinine 0.7. Review of Systems REVIEW OF SYSTEMS: CONSTITUTIONAL: Denies any recent significant weight loss or weight gain. EYES: Denies change in vision. EARS, NOSE, MOUTH, THROAT: Denies headaches, denies sore throat. CARDIOVASCULAR: Denies chest pain, palpitations or syncopal episodes. RESPIRATORY: Denies shortness of breath, cough, congestion or hemoptysis. GASTROINTESTINAL: Denies change in appetite, denies abdominal pain GENITOURINARY: Denies hematuria, denies infections. MUSKULOSKELETAL: Positive for left hip pain. INTEGUMENTARY: Denies rash, denies eczema. NEUROLOGICAL: Denies recent memory loss, no recent seizure activity. PSYCHIATRIC: Denies anxiety, denies depression. HEMATOLOGIC/LYMPHATIC: Denies anemia, denies enlarged lymph nodes. Past Medical History Past Medical History: Asthma, COPD, Hyperlipidemia, Osteoarthritis (OA) Additional Past Medical History / Comment(s): lumbar compression fx-back brace on-moving coffee table, osteoporosis History of Any Multi-Drug Resistant Organisms: None Reported Past Surgical History: Joint Replacement Additional Past Surgical History / Comment(s): bhaskar cataracts,left hip replacement Past Anesthesia/Blood Transfusion Reactions: No Reported Reaction Additional Past Anesthesia/Blood Transfusion Reaction / Comment(s): no hx blood transfusion Past Psychological History: Anxiety, Depression Smoking Status: Former smoker Past Alcohol Use History: Rare Past Drug Use History: None Reported - Past Family History Mother Family Medical History: No Reported History Medications and Allergies Home Medications Medication Instructions Recorded Confirmed Type Albuterol Inhaler [Ventolin Hfa 2 puff INHALATION RT-Q6H PRN 03/24/23 11/24/23 History Inhaler] Atorvastatin Calcium 20 mg PO HS 03/24/23 11/24/23 History Citalopram Hydrobromide [CeleXA] 40 mg PO HS 03/24/23 11/24/23 History Melatonin 10 mg PO HS 03/24/23 11/24/23 History Mirtazapine [Remeron] 15 mg PO HS 03/24/23 11/24/23 History cloNIDine HCL [Catapres] 0.1 mg PO Q8HR@0600,1400,2200 03/24/23 11/24/23 History amLODIPine [Norvasc] 5 mg PO DAILY tab 03/31/23 11/24/23 Rx Acetaminophen Tab [Tylenol] 650 mg PO Q6HR PRN 11/24/23 11/24/23 History Albuterol Nebulized [Ventolin 2.5 mg INHALATION RT-Q4H PRN 11/24/23 11/24/23 History Nebulized] Ascorbic Acid [Vitamin C] 500 mg PO DAILY 11/24/23 11/24/23 History Benzonatate [Tessalon Perles] 200 mg PO TID PRN 11/24/23 11/24/23 History Cholecalciferol [Vitamin D3 (25 50 mcg PO DAILY 11/24/23 11/24/23 History Mcg = 1000 Iu)] Cyclobenzaprine [Flexeril] 10 mg PO TID PRN 11/24/23 11/24/23 History Fluticasone/Umeclidin/Vilanter 1 puff INHALATION RT-DAILY 11/24/23 11/24/23 History [Brian Ellipta 100-62.5-25] Gabapentin 300 mg PO Q8HR@0600,1400,2200 11/24/23 11/24/23 History HYDROcodone/APAP 5-325MG [[place] 1 tab PO Q4HR PRN 11/24/23 11/24/23 History 5-325] Ipratropium-Albuterol Nebulize 3 ml INHALATION RT-Q8H 11/24/23 11/24/23 History [Duoneb 0.5 mg-3 mg/3 ml Soln] Lactose-Reduced Food [Ensure Plus] 237 ml PO DAILY 11/24/23 11/24/23 History Levothyroxine Sodium [Synthroid] 75 mcg PO DAILY@0600 11/24/23 11/24/23 History Loratadine 10 mg PO Q24H PRN 11/24/23 11/24/23 History Omeprazole Magnesium [PriLOSEC OTC] 20 mg PO HS 11/24/23 11/24/23 History Sennosides/Docusate Sodium [Senna 1 tab PO DAILY PRN 11/24/23 11/24/23 History Plus 8.6-50 mg Tablet] Suvorexant [Belsomra] 5 mg PO HS 11/24/23 11/24/23 History Zinc Sulfate [Orazinc] 220 mg PO DAILY 11/24/23 11/24/23 History clonazePAM [KlonoPIN] 0.5 mg PO HS 11/24/23 11/24/23 History Allergies Allergy/AdvReac Type Severity Reaction Status Date / Time nut - unspecified Allergy Unknown Verified 11/24/23 15:45 Physical Exam Vitals: Vital Signs Temp Pulse Pulse Resp BP Pulse Ox 11/28/23 14:06 80 11/28/23 13:56 80 11/28/23 09:01 84 11/28/23 08:51 80 11/28/23 08:00 98.1 F 92 18 113/72 96 11/28/23 02:41 80 11/28/23 02:33 98.3 F 89 16 108/71 94 L 11/28/23 02:32 80 11/27/23 20:11 88 11/27/23 19:36 98.7 F 96 15 113/75 94 L 11/27/23 16:18 102 H 11/27/23 16:09 102 H Intake and Output 11/28/23 11/28/23 11/28/23 06:59 14:59 22:59 Output Total 500 Balance -500 Output: Urine 500 GENERAL EXAM: Alert, pleasant 68-year-old female, up in a chair, on 2 L nasal cannula, comfortable in no apparent distress. HEAD: Normocephalic. EYES: Normal reaction of pupils, equal size. NOSE: Clear with pink turbinates. THROAT: No erythema or exudates. NECK: No masses, no JVD. CHEST: No chest wall deformity. LUNGS: Equal air entry with no crackles, wheeze, rhonchi or dullness. CVS: S1 and S2 normal with no audible murmur, regular rhythm. ABDOMEN: No hepatosplenomegaly, normal bowel sounds, no guarding or rigidity. SPINE: No scoliosis or deformity SKIN: No rashes CENTRAL NERVOUS SYSTEM: No focal deficits, tone is normal in all 4 extremities. EXTREMITIES: There is no peripheral edema. No clubbing, no cyanosis. Peripheral pulses are intact. Results - Laboratory Findings CBC and BMP: 11/28/23 06:00 11/28/23 06:00 PT/INR, D-dimer PT 9.6 sec (10.0-12.5) L 11/27/23 14:47 INR 0.8 (<1.2) 11/27/23 14:47 D-Dimer 2.55 mg/L FEU (<0.60) H 11/27/23 13:50 Abnormal lab findings: Abnormal Labs 11/25/23 11/25/23 11/27/23 04:02 04:02 05:51 WBC 11.28 H Hgb 11.3 L MCHC 31.1 L 29.7 L RDW 15.3 H 14.8 H Immature Gran # 0.07 H Neutrophils # 8.17 H Lymphocytes # Monocytes # 1.06 H Eosinophils # PT D-Dimer Carbon Dioxide Anion Gap BUN/Creatinine Ratio 25.00 H Glucose 111 H Total Bilirubin Alkaline Phosphatase Total Protein Albumin Albumin/Globulin Ratio Procalcitonin 11/27/23 11/27/23 11/27/23 05:51 13:50 14:47 WBC Hgb MCHC RDW Immature Gran # Neutrophils # Lymphocytes # Monocytes # Eosinophils # PT D-Dimer 2.55 H Carbon Dioxide Anion Gap BUN/Creatinine Ratio 27.17 H Glucose Total Bilirubin Alkaline Phosphatase Total Protein 5.9 L Albumin 3.3 L Albumin/Globulin Ratio 1.27 L Procalcitonin 0.15 H 11/27/23 11/28/23 11/28/23 14:47 06:00 06:00 WBC Hgb MCHC 30.9 L RDW 14.6 H Immature Gran # 0.05 H Neutrophils # Lymphocytes # 0.49 L Monocytes # 0.03 L Eosinophils # 0 L PT 9.6 L D-Dimer Carbon Dioxide 20.9 L Anion Gap 15.10 H BUN/Creatinine Ratio 27.00 H Glucose 144 H Total Bilirubin <0.2 L Alkaline Phosphatase 139 H Total Protein Albumin Albumin/Globulin Ratio 1.27 L Procalcitonin - Diagnostic Findings Chest x-ray: image reviewed CT scan - chest: image reviewed Assessment and Plan Assessment: Left hip pain status post fall from wheelchair with no evidence of fracture Irregular masslike consolidative opacities seen in the posterior inferior right upper lobe measuring 4.5 x 3 cm. 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 Number of minutes spent on the visit: 20.
--- NOTE | 2023-11-28 16:05 | P.PN ---
Subjective Progress Note Date: 11/28/23 This is a pleasant 68-year-old female who was recently admitted with left-sided hip pain also had significant shortness of breath and cough with concerns of pneumonia being closely monitored. Patient had a d-dimer that was elevated and CT angiogram was done which showed no evidence of PE with moderate to severe pulmonary emphysematous changes redemonstrated in a regular masslike consolidative opacification again seen in the posterior inferior right upper lobe measuring approximately 4.5 x 3 cm without significant change from September along with mild right hilar adenopathy potentially metastatic multiple mildly prominent mediastinal nodes that appear unchanged and could be reactive. Coronary was consulted recommending outpatient follow-up with PET scan. Patient is a resident at [facility] with plans on returning there for continued rehab. Infectious disease following as well and patient is maintained on Rocephin and Zithromax while monitoring the clinical course. Sputum culture was ordered although remains uncollected. Encourage incentive spirometer use at least 10 times every hour while awake and would recommend physical therapy evaluation daily. Review of systems: Constitutional: No reports of fatigue, fever, or chills Cardiovascular: No reports of chest pain or palpitations Respiratory: No reports of shortness of breath , reports cough GI: No reports of nausea, no reports of vomiting, no diarrhea : No reports of dysuria or retention Neurovascular: reports of generalized weakness, reports continued left hip pain All medications have been reviewed Active Medications PHYSICAL EXAMINATION: GENERAL: The patient is alert and oriented x2-3, Well developed, well no urished. Ill-appearing, elderly appearing HEENT: Pupils are round and equally reacting to light. EOMI. no scleral icterus. No conjunctival pallor. Normocephalic, atraumatic. No pharyngeal erythema. No thyromegaly. CARDIOVASCULAR: S1 and S2 muffled PULMONARY: diminished breath sounds bilaterally with some scattered rhonchi noted. ABDOMEN: soft. Nontender on exam. non-distended, normoactive bowel sounds. No palpable organomegaly. MUSCULOSKELETAL: No joint swelling or deformity. EXTREMITIES: No cyanosis, clubbing, or pedal edema. NEUROLOGICAL: Gross neurological examination did not reveal any focal deficits. Diffuse weakness SKIN: No rashes. Assessment: Left hip pain, present on admission, possibly musculoskeletal Chronic obstructive pulmonary disease, acute exacerbation with acute on chronic hypoxic respiratory failure Elevated d-dimer, PE ruled out Right middle lobe pneumonia, possibly bacterial gram-negative Hypertension Hyperlipidemia and neck sign hypothyroidism GI prophylaxis DVT prophylaxis Full code Plan: Recommend to continue with current medications and management with infectious disease following Patient was started on IV steroids along with DuoNeb treatments and pulmonary was consulted and appreciate input recommendations regarding pneumonia. Patient has been on a number of antibiotics in the outpatient setting with concerns of pneumonia although there are some abnormal pulmonary findings recommending outpatient PET scan once discharged. Encouraged increased activity as tolerated Plan is for returns to [facility] on the [place] once stabilized and cleared by consultations Will follow-up with infectious disease and pulmonary on treatment plan and disch arge planning Possible discharge in the next 24-48 hours. Due to multiple convex medical issues, prognosis is guarded The impression and plan of care has been dictated by Richelle Sifuentes, nurse practitioner as directed. Dr. Mao MD I have performed a history and examination and MDM of this patient, discussed the same with the dictator, and agree with the dictator's assessment and plan as written ,documented as a scribe. Based on total visit time, I have performed more than 50% of the visit. Any additional findings or plans will be noted. Objective - Vital Signs Vital signs: Vital Signs Temp 98.1 F 11/28/23 08:00 Pulse 84 11/28/23 09:01 Resp 18 11/28/23 08:00 BP 113/72 11/28/23 08:00 Pulse Ox 96 11/28/23 08:00 FiO2 Intake & Output 11/27/23 11/28/23 11/28/23 18:59 06:59 18:59 Intake Total 388 Output Total 200 500 Balance 188 -500 Intake: Oral 388 Output: Urine 200 500 Other: Voiding Method External Catheter # Voids 2 - Labs CBC & Chem 7: 11/28/23 06:00 11/28/23 06:00 Labs: Abnormal Lab Results - Last 24 Hours (Table) 11/27/23 11/27/23 11/27/23 Range/Units 13:50 14:47 14:47 MCHC (32.0-37.0) g/dL RDW (11.5-14.5) % Immature Gran # (0.00-0.04) X 10*3/uL Lymphocytes # (0.90-5.00) X 10*3/uL Monocytes # (0.20-1.00) X 10*3/uL Eosinophils # (0.04-0.35) X 10*3/uL PT 9.6 L (10.0-12.5) sec D-Dimer 2.55 H (<0.60) mg/L FEU Carbon Dioxide (21.6-31.8) mmol/L Anion Gap (4.00-12.00) mmol/L BUN/Creatinine Ratio (12.00-20.00) Ratio Glucose (70-110) mg/dL Total Bilirubin (0.3-1.2) mg/dL Alkaline Phosphatase (41-126) U/L Albumin/Globulin Ratio (1.60-3.17) Ratio Procalcitonin 0.15 H (0.02-0.09) ng/mL 11/28/23 11/28/23 Range/Units 06:00 06:00 MCHC 30.9 L (32.0-37.0) g/dL RDW 14.6 H (11.5-14.5) % Immature Gran # 0.05 H (0.00-0.04) X 10*3/uL Lymphocytes # 0.49 L (0.90-5.00) X 10*3/uL Monocytes # 0.03 L (0.20-1.00) X 10*3/uL Eosinophils # 0 L (0.04-0.35) X 10*3/uL PT (10.0-12.5) sec D-Dimer (<0.60) mg/L FEU Carbon Dioxide 20.9 L (21.6-31.8) mmol/L Anion Gap 15.10 H (4.00-12.00) mmol/L BUN/Creatinine Ratio 27.00 H (12.00-20.00) Ratio Glucose 144 H (70-110) mg/dL Total Bilirubin <0.2 L (0.3-1.2) mg/dL Alkaline Phosphatase 139 H (41-126) U/L Albumin/Globulin Ratio 1.27 L (1.60-3.17) Ratio Procalcitonin (0.02-0.09) ng/mL
[2023-11-28] MEDS: SUVOREXANT 5 MG PO SCH (20:23)
[2023-11-28] MEDS: ATORVASTATIN 20 MG TAB PO SCH (20:30)
[2023-11-28] MEDS: PANTOPRAZOLE 40 MG TABLET PO SCH (20:30)
[2023-11-28] MEDS: MIRTAZAPINE 15 MG TAB PO SCH (20:30)
[2023-11-28] MEDS: MELATONIN 5 MG TABLET PO SCH (20:30)
[2023-11-28] MEDS: CITALOPRAM HYDROBROMIDE 20 MG TAB PO SCH (20:30)
[2023-11-28] MEDS: clonazePAM 0.5 MG TAB PO SCH (20:30)
[2023-11-29] MEDS: IPRATROPIUM-ALBUTEROL 3 ML NEB INHALATION SCH ×4 (04:20→19:32)
[2023-11-29] MEDS: HYDROcodone/APAP 5-325MG 1 EACH TAB PO PRN ×4 (05:16→20:56)
[2023-11-29] MEDS: GABAPENTIN 300 MG CAP PO SCH ×3 (05:17→20:56)
[2023-11-29] MEDS: cloNIDine HCL 0.1 MG TAB PO SCH ×3 (05:17→20:55)
[2023-11-29] MEDS: LEVOTHYROXINE 75 MCG TAB PO SCH (05:17)
[2023-11-29] MEDS: SYMBICORT 160-4.5 MCG INHALER INHALATION SCH ×2 (08:14→19:32)
[2023-11-29] MEDS: methylPREDNISolone SOD SUCCI 40 MG/ML 1 ML VIAL IV SCH (09:22)
[2023-11-29] MEDS: HEPARIN SODIUM,PORCINE 5,000 UNIT/ML 1 ML VIAL SQ SCH ×3 (09:22→23:49)
[2023-11-29] MEDS: ASCORBIC ACID 500 MG TAB PO SCH (09:24)
[2023-11-29] MEDS: amLODIPine 5 MG TAB PO SCH (09:24)
[2023-11-29] MEDS: CHOLECALCIFEROL 25 MCG (1000 IU) TABLET PO SCH (09:25)
[2023-11-29] MEDS: ZINC SULFATE 220 MG CAP PO SCH (09:25)
--- NOTE | 2023-11-29 14:04 | P.PN ---
Subjective Progress Note Date: 11/29/23 This is a pleasant 68-year-old female patient with a known history of COPD, hyperlipidemia, anxiety/depression, former smoker, medical debility residing and [facility] [place]. She was at the facility assisting staff and making her bed when she leaned too far out of her wheelchair and fell onto the floor. She had left hip pain in the left occipital hematoma. She was brought here back on 11/24/[address] scan of the brain and C-spine revealed no acute fracture or dislocation. No acute intracranial hemorrhage or midline shift. CT scan of the pelvis revealed no acute findings. Computed tomography scan of the chest ruled out pulmonary embolism. There is moderate to severe pulmonary emphysema changes. Irregular masslike consolidative opacity seen in the posterior right upper lobe measuring 4.5 x 3 centimeters no change compared to previous CAT scan on 10/13/2023. We were consulted today for the same. Currently sitting up in a chair at the bedside. Awake and alert in no acute distress. She denies any shortness of breath, cough or congestion. No fever or chills. Maintaining O2 saturations in the 90s on 2 L/m per nasal cannula. White count 7.9. Hemoglobin 12.0. Platelets 310. Sodium 141 potassium 4.0. Bicarb 21. BUN 19. Creatinine 0.7. The patient is seen today 11/29/2023 in follow-up on the regular medical floor. She is currently sitting up in bed. Awake and alert in no acute distress. Breathing easier today compared to yesterday. Maintaining good O2 saturations in the 90s on 2 L/m per nasal cannula. No IV fluids. Her pro-calcitonin was 0.15. She is continued on ceftriaxone, DuoNeb inhalations, Symbicort, Solu- Medrol. Heparin for DVT prophylaxis. No new labs today. Objective - Vital Signs Vital signs: Vital Signs Temp 97.9 F 11/29/23 08:00 Pulse 88 11/29/23 12:24 Resp 16 11/29/23 08:00 BP 125/80 11/29/23 08:00 Pulse Ox 98 11/29/23 12:16 FiO2 2 11/29/23 12:16 Intake & Output 11/28/23 11/29/23 11/29/23 18:59 06:59 18:59 Intake Total 240 180 Output Total 400 1000 Balance 240 -400 -820 Intake: Oral 240 180 Output: Urine 400 1000 Other: Voiding Method External Catheter External Catheter # Voids 0 - Exam GENERAL EXAM: Alert, 68-year-old female, on 2 L nasal cannula, comfortable in no apparent distress. HEAD: Normocephalic. EYES: Normal reaction of pupils, equal size. NOSE: Clear with pink turbinates. THROAT: No erythema or exudates. NECK: No masses, no JVD. CHEST: No chest wall deformity. LUNGS: Equal air entry with few scattered rhonchi. CVS: S1 and S2 normal with no audible murmur, regular rhythm. ABDOMEN: No hepatosplenomegaly, normal bowel sounds, no guarding or rigidity. SPINE: No scoliosis or deformity SKIN: No rashes CENTRAL NERVOUS SYSTEM: No focal deficits, tone is normal in all 4 extremities. EXTREMITIES: There is no peripheral edema. No clubbing, no cyanosis. Peripheral pulses are intact. - Labs CBC & Chem 7: 11/28/23 06:00 11/28/23 06:00 Assessment and Plan Assessment: Left hip pain status post fall from wheelchair with no evidence of fracture Irregular masslike consolidative opacities seen in the posterior inferior right upper lobe measuring 4.5 x 3 cm. Moderate to severe pulmonary emphysema on home oxygen Former smoker Hyperlipidemia History of anxiety/depression [facility] resident Plan: The patient was seen and evaluated Medications reviewed Currently on 2 L nasal cannula Transitioned to oral steroids Continue bronchodilators Recommend outpatient PET scan Antibiotics per infectious disease The plan is return to [facility] at discharge This patient was seen independently by the pulmonary nurse practitioner addressing pulmonary issues I have personally seen and examined the patient, performed the documentation and the assessment and plan as written. Number of minutes spent on the visit: 23.
--- NOTE | 2023-11-29 17:49 | P.PN ---
Subjective Progress Note Date: 11/29/23 Principal diagnosis: Reason for follow-up is pneumonia Patient is a 68-year-old female with a past medical history significant for hyperlipidemia COPD asthma osteoarthritis the long term resident patient was sent to the ER after the patient did have a fall complained of some left hip pain CT was negative for any fracture chest x-ray with right midlung opacity suggestive of pneumonia and the patient did have respiratory symptoms. On today's evaluation that is 11/29/2023, the patient remains to be afebrile, patient is breathing comfortably currently on 2 L nasal cannula oxygen, the patient denies having any chest pain cough is decreased in intensity not bring u p any sputum no nausea vomiting no abdominal pain no diarrhea. No new symptoms The patient white count of 7.90, creatinine 0.7 as of yesterday no lab draw today Pro-Armando 0.15 Objective - Vital Signs Vital signs: Vital Signs Temp 97.9 F 11/29/23 08:00 Pulse 88 11/29/23 12:24 Resp 16 11/29/23 08:00 BP 125/80 11/29/23 08:00 Pulse Ox 98 11/29/23 12:16 FiO2 2 11/29/23 12:16 Intake & Output 11/28/23 11/29/23 11/29/23 18:59 06:59 18:59 Intake Total 240 180 Output Total 400 1000 Balance 240 -400 -820 Intake: Oral 240 180 Output: Urine 400 1000 Other: Voiding Method External Catheter External Catheter # Voids 0 - Exam GENERAL DESCRIPTION: An elderly female up in the chair in no distress RESPIRATORY SYSTEM: Unlabored breathing , decreased breath sounds at bases HEART: S1 S2 regular rate and rhythm , ABDOMEN: Soft , no tenderness EXTREMITIES: No edema feet - Labs CBC & Chem 7: 11/28/23 06:00 11/28/23 06:00 Assessment and Plan (1) Elevated procalcitonin Current Visit: Yes Status: Acute Code(s): R79.89 - OTHER SPECIFIED ABNORMAL FINDINGS OF BLOOD CHEMISTRY SNOMED Code(s): 274208810 (2) Pneumonia Current Visit: Yes Status: Acute Code(s): J18.9 - PNEUMONIA, UNSPECIFIED ORGANISM SNOMED Code(s): 862692876 Plan: 1patient presented to hospital with a fall and left hip pain patient did have x-rays and a CT that has been negative for any fracture and is being managed by orthopedics. 2patient also have a history of COPD on home O2 also have increasing shortness of breath and a cough with evidence of right midlung infiltrate concerning for pneumonia 3- patient did have mildly elevated CRP and a procalcitonin, 4-patient did have some clinical improvement we will try to obtain a sputum, patient to continue with Rocephin and Zithromax and monitor clinical course closely Dictation was produced using [employer] dictation software. please excuse any grammatical, word or spelling errors. Time with Patient: Less than 30
[2023-11-29] MEDS: SUVOREXANT 5 MG PO SCH (20:09)
[2023-11-29] MEDS: PANTOPRAZOLE 40 MG TABLET PO SCH (20:55)
[2023-11-29] MEDS: MIRTAZAPINE 15 MG TAB PO SCH (20:55)
[2023-11-29] MEDS: ATORVASTATIN 20 MG TAB PO SCH (20:56)
[2023-11-29] MEDS: CITALOPRAM HYDROBROMIDE 20 MG TAB PO SCH (20:56)
[2023-11-29] MEDS: clonazePAM 0.5 MG TAB PO SCH (20:56)
[2023-11-29] MEDS: MELATONIN 5 MG TABLET PO SCH (20:56)
[2023-11-30] MEDS: IPRATROPIUM-ALBUTEROL 3 ML NEB INHALATION SCH ×2 (02:14→08:33)
[2023-11-30] MEDS: LEVOTHYROXINE 75 MCG TAB PO SCH (05:21)
[2023-11-30] MEDS: cloNIDine HCL 0.1 MG TAB PO SCH ×2 (05:21→13:37)
[2023-11-30] MEDS: GABAPENTIN 300 MG CAP PO SCH ×2 (05:21→13:37)
--- NOTE | 2023-11-30 05:27 | P.PN ---
Subjective Progress Note Date: 11/29/23 This is a pleasant 68-year-old female who was recently admitted with left-sided hip pain also had significant shortness of breath and cough with concerns of pneumonia being closely monitored. Patient had a d-dimer that was elevated and CT angiogram was done which showed no evidence of PE with moderate to severe pulmonary emphysematous changes redemonstrated in a regular masslike consolidative opacification again seen in the posterior inferior right upper lobe measuring approximately 4.5 x 3 cm without significant change from September along with mild right hilar adenopathy potentially metastatic multiple mildly prominent mediastinal nodes that appear unchanged and could be reactive. Coronary was consulted recommending outpatient follow-up with PET scan. Patient is a resident at [facility] with plans on returning there for continued rehab. Infectious disease following as well and patient is maintained on Rocephin and Zithromax while monitoring the clinical course. Sputum culture was ordered although remains uncollected. Encourage incentive spirometer use at least 10 times every hour while awake and would recommend physical therapy evaluation daily. 11/29/2023 Patient is seen in follow-up this morning with multiple medical consultations following. Patient was continued on IV steroids for COPD exacerbation along with antibiotics in the form of ceftriaxone and Zithromax with infectious disease and pulmonary following. Patient is being transitioned to oral prednisone and continued on her breathing inhalational treatments. Patient chronically wears 2 L outpatient and denies any worsening shortness of breath. Patient also being evaluated by orthopedics recommending pain management for her left hip pain. Patient was seen and evaluated by physical therapy recommending continued rehab and patient will be going to [facility]. Patient is currently afebrile with no reports of chest pain or worsening shortness of breath. Patient will need outpatient follow-up for further testing and possible PET scan Review of systems: Constitutional: No reports of fatigue, fever, or chills Cardiovascular: No reports of chest pain or palpitations Respiratory: No reports of worsening shortness of breath , reports cough GI: No reports of nausea, no reports of vomiting, no diarrhea : No reports of dysuria or retention Neurovascular: reports of generalized weakness, reports continued left hip pain also little improved All medications have been reviewed PHYSICAL EXAMINATION: GENERAL: The patient is alert and oriented x2-3, Well developed, well nourished. Ill-appearing, elderly appearing HEENT: Pupils are round and equally reacting to light. EOMI. no scleral icterus. No conjunctival pallor. Normocephalic, atraumatic. No pharyngeal erythema. No thyromegaly. CARDIOVASCULAR: S1 and S2 muffled PULMONARY: diminished breath sounds bilaterally with some scattered rhonchi noted. ABDOMEN: soft. Nontender on exam. non-distended, normoactive bowel sounds. No palpable organomegaly. MUSCULOSKELETAL: No joint swelling or deformity. EXTREMITIES: No cyanosis, clubbing, or pedal edema. NEUROLOGICAL: Gross neurological examination did not reveal any focal deficits. Diffuse weakness SKIN: No rashes. Assessment: Left hip pain, present on admission, possibly musculoskeletal Chronic obstructive pulmonary disease, acute exacerbation with acute on chronic hypoxic respiratory failure Elevated d-dimer, PE ruled out Right middle lobe pneumonia, possibly bacterial gram-negative Hypertension Hyperlipidemia hypothyroidism GI prophylaxis DVT prophylaxis Full code Plan: Recommend to continue with current medications and management with infectious disease following. Patient has completed Zithromax and maintained on ceftriaxone. Sputum culture remains uncollected Patient was started on IV steroids along with DuoNeb treatments and pulmonary following. Patient being transitioned oral prednisone. there are some abnormal pulmonary findings recommending outpatient PET scan once discharged. Encouraged increased activity as tolerated Recommend limiting IV narcotic use Plan is for returns to [facility] on the [place] once stabilized and cleared by consultations Will follow-up with infectious disease and pulmonary on treatment plan and discharge planning Possible discharge in the next 24-48 hours. Due to multiple complex medical issues, prognosis is guarded The impression and plan of care has been dictated by Richelle Sifuentes, nurse practitioner as directed. Dr. Mao MD I have performed a history and examination and MDM of this patient, discussed the same with the dictator, and agree with the dictator's assessment and plan as written ,documented as a scribe. Based on total visit time, I have performed more than 50% of the visit. Any additional findings or plans will be noted. Objective - Vital Signs Vital signs: Vital Signs Temp 97.6 F 11/30/23 03:39 Pulse 80 11/30/23 03:39 Resp 15 11/30/23 03:39 BP 132/74 11/30/23 03:39 Pulse Ox 98 11/30/23 03:39 FiO2 2 11/29/23 12:16 Intake & Output 11/29/23 11/29/23 11/30/23 06:59 18:59 06:59 Intake Total 518 Output Total 400 1250 Balance -400 -732 Intake: Oral 518 Output: Urine 400 1250 Other: Voiding Method External Catheter External Catheter External Catheter - Labs CBC & Chem 7: 11/28/23 06:00 11/28/23 06:00
[2023-11-30] MEDS: HYDROcodone/APAP 5-325MG 1 EACH TAB PO PRN ×3 (06:29→14:54)
[2023-11-30 08:03] VITALS: RESP 16; TEMP 98.2
[2023-11-30] MEDS: SYMBICORT 160-4.5 MCG INHALER INHALATION SCH (08:33)
[2023-11-30 08:54] VITALS: PULSE 80
[2023-11-30] MEDS ORDERED: predniSONE 20 MG TAB PO SCH (09:00)
[2023-11-30] MEDS: HEPARIN SODIUM,PORCINE 5,000 UNIT/ML 1 ML VIAL SQ SCH (09:48)
[2023-11-30] MEDS: ASCORBIC ACID 500 MG TAB PO SCH (09:48)
[2023-11-30] MEDS: CHOLECALCIFEROL 25 MCG (1000 IU) TABLET PO SCH (09:48)
[2023-11-30] MEDS: ZINC SULFATE 220 MG CAP PO SCH (09:48)
[2023-11-30] MEDS: amLODIPine 5 MG TAB PO SCH (09:48)
--- NOTE | 2023-11-30 12:12 | P.DS ---
Providers Date of admission: 11/24/23 20:01 Expected date of discharge: 11/30/23 Attending physician: Omar Vidal Consults: 11/27/23 14:38 Consult Physician Routine Consulting Provider: Oc Lloyd Consult Reason/Comments: copd Do you want consulting provider notified?: Yes Consult Physician Routine Consulting Provider: Barak Garcia Consult Reason/Comments: pneumonia Do you want consulting provider notified?: Yes Primary care physician: Erasmo Rodriguez Hospital Course: Final diagnosis Left hip pain, present on admission, likely musculoskeletal Chronic obstructive pulmonary disease, acute exacerbation with acute on chronic hypoxic respiratory failure Elevated d-dimer, PE ruled out Right middle lobe pneumonia, possibly bacterial gram-negative Hypertension Hyperlipidemia hypothyroidism GI prophylaxis DVT prophylaxis Full code Discharge disposition Patient is being discharged in a stable condition with guarded prognosis to [facility]. Patient will follow-up with with Dr. Rodriguez in the outpatient setting upon discharge. Patient is to continue with oral Ceftin 500 mg twice daily for the next 5 days. [facility] as [facility] as scheduled. Patient did have some abnormal findings on the CT of the chest in the inferior right upper lobe measuring 4.5 x 3 cm recommend an outpatient PET scan. Patient will need to arrange this once discharged from [facility] and is agreeable to this. Total time taken is greater than 35 minutes. Hospital course This is a 68-year-old female who was recently admitted with left-sided hip pain along with significant shortness of breath and cough with concerns of pneumonia being closely monitored. Multiple medical consultations following including pulmonary, infectious disease, and orthopedics. No plans for surgical interventions recommending pain management and outpatient follow-up. Patient did have an elevated d-dimer which was negative for PE although showing severe pulmonary emphysematous changes as well as a masslike consolidative opacification patient in the right upper lobe measuring approximately 4.5 x 3 cm with concerns of metastasis. Patient will need outpatient follow-up once discharged from [facility] to obtain a PET scan and close outpatient follow-up with pulmonary. Patient is continued on breathing inhalational treatments and will continue on a prednisone taper along with oral Ceftin 500 mg twice daily for the next 5 days to complete a course per ID recommendations. Patient has been cleared by consultations for discharge to [facility]. Please refer to other consultation notes for further HPI. Currently no reports of chest pain, no worsening shortness of breath, or palpitations. Patient is afebrile. No reports of nausea or vomiting and patient is tolerating diet. Patient will be going to [facility] [place] today. Guarded prognosis Physical exam: Gen: This is a 68-year-old female who is awake, alert and oriented 3, well-developed, well-nourished HEENT: Head is atraumatic, normocephalic. Pupils equal, round. Sclerae is anicteric. NECK: Supple. No JVD. No lymphadenopathy. No thyromegaly. LUNGS: Diminished breath sounds bilaterally otherwise Clear to auscultation. No wheezes or rhonchi. No intercostal retractions. HEART: Regular rate and rhythm. No murmur. ABDOMEN: Soft. Bowel sounds are present. No masses. No tenderness. EXTREMITIES: No pedal edema. No calf tenderness. Left hip pain noted on palpation NEUROLOGICAL: Patient is awake, alert and oriented x3. Cranial nerves 2 through 12 are grossly intact. Diffusely weak Please refer to medication reconciliation sheet for a list of medications. The impression and plan of care has been dictated by Richelle Sifuentes, Nurse Practitioner as directed. Dr. Mao MD I have performed a history and examination and MDM of this patient, discussed the same with the dictator, and agree with the dictator's assessment and plan as written ,documented as a scribe. Based on total visit time, I have performed more than 50% of the visit. Patient Condition at Discharge: Stable Plan - Discharge Summary Discharge Rx Participant: No New Discharge Prescriptions: New cefUROXime axetiL [Ceftin] 500 mg PO BID 1 Days #2 tab predniSONE 10 mg PO DIRECTED #30 tab Ipratropium-Albuterol Nebulize [Duoneb 0.5 mg-3 mg/3 ml Soln] 3 ml INHALATION RT-QID PRN each PRN Reason: Shortness Of Breath Or Wheezing Heparin Sodium,Porcine (1 ml) [Heparin Sodium] 5,000 unit SQ Q8HR each Budesonide-Formot 160-4.5 Mcg [Symbicort 160-4.5 Mcg Inhaler] 2 puff INHALATION RT-BID each Continue Mirtazapine [Remeron] 15 mg PO HS Citalopram Hydrobromide [CeleXA] 40 mg PO HS Atorvastatin Calcium 20 mg PO HS amLODIPine [Norvasc] 5 mg PO DAILY tab Albuterol Nebulized [Ventolin Nebulized] 2.5 mg INHALATION RT-Q4H PRN PRN Reason: Shortness Of Breath Ascorbic Acid [Vitamin C] 500 mg PO DAILY Benzonatate [Tessalon Perles] 200 mg PO TID PRN PRN Reason: Cough Cholecalciferol [Vitamin D3 (25 Mcg = 1000 Iu)] 50 mcg PO DAILY Lactose-Reduced Food [Ensure Plus] 237 ml PO DAILY Levothyroxine Sodium [Synthroid] 75 mcg PO DAILY@0600 Suvorexant [Belsomra] 5 mg PO HS Acetaminophen Tab [Tylenol] 650 mg PO Q6HR PRN PRN Reason: Pain clonazePAM [KlonoPIN] 0.5 mg PO HS #2 tab Albuterol Inhaler [Ventolin Hfa Inhaler] 2 puff INHALATION RT-Q6H PRN PRN Reason: Shortness Of Breath Melatonin 10 mg PO HS cloNIDine HCL [Catapres] 0.1 mg PO Q8HR@0600,1400,2200 Fluticasone/Umeclidin/Vilanter [Trelegy Ellipta 100-62.5-25] 1 puff INHALATION RT-DAILY HYDROcodone/APAP 5-325MG [Lanagan 5-325] 1 tab PO Q4HR PRN PRN Reason: Pain Ipratropium-Albuterol Nebulize [Duoneb 0.5 mg-3 mg/3 ml Soln] 3 ml INHALATION RT-Q8H Loratadine 10 mg PO Q24H PRN PRN Reason: Allergy Symptoms Omeprazole Magnesium [PriLOSEC OTC] 20 mg PO HS Zinc Sulfate [Orazinc] 220 mg PO DAILY Cyclobenzaprine [Flexeril] 10 mg PO TID PRN PRN Reason: Muscle Spasm Sennosides/Docusate Sodium [Senna Plus 8.6-50 mg Tablet] 1 tab PO DAILY PRN PRN Reason: Constipation Changed Gabapentin 300 mg PO Q8HR@0600,1400,2200 #6 cap Discharge Medication List Albuterol Inhaler [Ventolin Hfa Inhaler] 2 puff INHALATION RT-Q6H PRN 03/24/23 [History] Atorvastatin Calcium 20 mg PO HS 03/24/23 [History] Citalopram Hydrobromide [CeleXA] 40 mg PO HS 03/24/23 [History] Melatonin 10 mg PO HS 03/24/23 [History] Mirtazapine [Remeron] 15 mg PO HS 03/24/23 [History] cloNIDine HCL [Catapres] 0.1 mg PO Q8HR@0600,1400,2200 03/24/23 [History] amLODIPine [Norvasc] 5 mg PO DAILY tab 03/31/23 [Rx] Acetaminophen Tab [Tylenol] 650 mg PO Q6HR PRN 11/24/23 [History] Albuterol Nebulized [Ventolin Nebulized] 2.5 mg INHALATION RT-Q4H PRN 11/24/23 [History] Ascorbic Acid [Vitamin C] 500 mg PO DAILY 11/24/23 [History] Benzonatate [Tessalon Perles] 200 mg PO TID PRN 11/24/23 [History] Cholecalciferol [Vitamin D3 (25 Mcg = 1000 Iu)] 50 mcg PO DAILY 11/24/23 [Hist ory] Cyclobenzaprine [Flexeril] 10 mg PO TID PRN 11/24/23 [History] Fluticasone/Umeclidin/Vilanter [Trelegy Ellipta 100-62.5-25] 1 puff INHALATION RT-DAILY 11/24/23 [History] HYDROcodone/APAP 5-325MG [Lanagan 5-325] 1 tab PO Q4HR PRN 11/24/23 [History] Ipratropium-Albuterol Nebulize [Duoneb 0.5 mg-3 mg/3 ml Soln] 3 ml INHALATION RT-Q8H 11/24/23 [History] Lactose-Reduced Food [Ensure Plus] 237 ml PO DAILY 11/24/23 [History] Levothyroxine Sodium [Synthroid] 75 mcg PO DAILY@0600 11/24/23 [History] Loratadine 10 mg PO Q24H PRN 11/24/23 [History] Omeprazole Magnesium [PriLOSEC OTC] 20 mg PO HS 11/24/23 [History] Sennosides/Docusate Sodium [Senna Plus 8.6-50 mg Tablet] 1 tab PO DAILY PRN 11/24/23 [History] Suvorexant [Belsomra] 5 mg PO HS 11/24/23 [History] Zinc Sulfate [Orazinc] 220 mg PO DAILY 11/24/23 [History] Budesonide-Formot 160-4.5 Mcg [Symbicort 160-4.5 Mcg Inhaler] 2 puff INHALATION RT-BID each 11/30/23 [Rx] Gabapentin 300 mg PO Q8HR@0600,1400,2200 #6 cap 11/30/23 [Rx] Heparin Sodium,Porcine (1 ml) [Heparin Sodium] 5,000 unit SQ Q8HR each 11/30/23 [Rx] Ipratropium-Albuterol Nebulize [Duoneb 0.5 mg-3 mg/3 ml Soln] 3 ml INHALATION RT-QID PRN each 11/30/23 [Rx] cefUROXime axetiL [Ceftin] 500 mg PO BID 1 Days #2 tab 11/30/23 [Rx] clonazePAM [KlonoPIN] 0.5 mg PO HS #2 tab 11/30/23 [Rx] predniSONE 10 mg PO DIRECTED #30 tab 11/30/23 [Rx] Follow up Appointment(s)/Referral(s): Erasmo Rodriguez MD [Primary Care Provider] - 1-2 days Oc Lloyd DO [Doctor of Osteopathic Medicine] - 1 Week
--- NOTE | 2023-11-30 13:07 | P.PN ---
Subjective Progress Note Date: 11/30/23 This is a pleasant 68-year-old female patient with a known history of COPD, hyperlipidemia, anxiety/depression, former smoker, medical debility residing and [facility]. She was at the facility assisting staff and making her bed when she leaned too far out of her wheelchair and fell onto the floor. She had left hip pain in the left occipital hematoma. She was brought here back on 11/24/[address] scan of the brain and C-spine revealed no acute fracture or dislocation. No acute intracranial hemorrhage or midline shift. CT scan of the pelvis revealed no acute findings. Computed tomography scan of the chest ruled out pulmonary embolism. There is moderate to severe pulmonary emphysema changes. Irregular masslike consolidative opacity seen in the posterior right upper lobe measuring 4.5 x 3 centimeters no change compared to previous CAT scan on 10/13/2023. We were consulted today for the same. Currently sitting up in a chair at the bedside. Awake and alert in no acute distress. She denies any shortness of breath, cough or congestion. No fever or chills. Maintaining O2 saturations in the 90s on 2 L/m per nasal cannula. White count 7.9. Hemoglobin 12.0. Platelets 310. Sodium 141 potassium 4.0. Bicarb 21. BUN 19. Creatinine 0.7. The patient is seen today 11/29/2023 in follow-up on the regular medical floor. She is currently sitting up in bed. Awake and alert in no acute distress. Breathing easier today compared to yesterday. Maintaining good O2 saturations in the 90s on 2 L/m per nasal cannula. No IV fluids. Her pro-calcitonin was 0.15. She is continued on ceftriaxone, DuoNeb inhalations, Symbicort, Solu- Medrol. Heparin for DVT prophylaxis. No new labs today. The patient is seen today 11/30/2023 in follow-up on the regular medical floor. She is awake and alert in no acute distress. Resting comfortably in bed. Feeling back to her baseline. No worsening shortness of breath, cough or congestion. She is continue Symbicort, DuoNeb inhalations, prednisone. Ceftriaxone will be discontinued. The plan is for outpatient PET scan regarding the irregular masslike consolidation in the posterior right upper lobe. No new labs today. Objective - Vital Signs Vital signs: Vital Signs Temp 98.2 F 11/30/23 07:20 Pulse 80 11/30/23 08:46 Resp 16 11/30/23 07:20 BP 119/75 11/30/23 07:20 Pulse Ox 98 11/30/23 07:20 FiO2 2 11/29/23 12:16 Intake & Output 11/29/23 11/30/23 11/30/23 18:59 06:59 18:59 Intake Total 518 472 Output Total 1250 600 Balance -732 -600 472 Intake: Oral 518 472 Output: Urine 1250 600 Other: Voiding Method External Catheter External Catheter - Exam GENERAL EXAM: Alert, very pleasant 68-year-old female, on 2 L nasal cannula, in no apparent distress. HEAD: Normocephalic. EYES: Normal reaction of pupils, equal size. NOSE: Clear with pink turbinates. THROAT: No erythema or exudates. NECK: No masses, no JVD. CHEST: No chest wall deformity. LUNGS: Equal air entry with few scattered rhonchi. CVS: S1 and S2 normal with no audible murmur, regular rhythm. ABDOMEN: No hepatosplenomegaly, normal bowel sounds, no guarding or rigidity. SPINE: No scoliosis or deformity SKIN: No rashes CENTRAL NERVOUS SYSTEM: No focal deficits, tone is normal in all 4 extremities. EXTREMITIES: There is no peripheral edema. No clubbing, no cyanosis. Periphe ral pulses are intact. - Labs CBC & Chem 7: 11/28/23 06:00 11/28/23 06:00 Assessment and Plan Assessment: Left hip pain status post fall from wheelchair with no evidence of fracture Irregular masslike consolidative opacities seen in the posterior inferior right upper lobe measuring 4.5 x 3 cm. Moderate to severe pulmonary emphysema on home oxygen Former smoker Hyperlipidemia History of anxiety/depression long term resident Plan: The patient was seen and evaluated Medications reviewed Cleared for discharge from the pulmonary standpoint Continue her home pulmonary medications, oxygen Complete a prednisone taper Recommend outpatient PET scan The plan is return to [facility] at discharge Follow-up in our office in 1 week per her request This patient was seen independently by the pulmonary nurse practitioner addressing pulmonary issues I have personally seen and examined the patient, performed the documentation and the assessment and plan as written. Number of minutes spent on the visit: 22.
[2023-11-30 13:55] VITALS: BP 130/78
[2023-11-30 14:23] VITALS: BMI 24.4
--- NOTE | 2023-11-30 15:36 | P.PN ---
Subjective Progress Note Date: 11/30/23 Principal diagnosis: Reason for follow-up is pneumonia Patient is a 68-year-old female with a past medical history significant for hyperlipidemia COPD asthma osteoarthritis the [facility] resident patient was sent to the ER after the patient did have a fall complained of some left hip pain CT was negative for any fracture chest x-ray with right midlung opacity suggestive of pneumonia and the patient did have respiratory symptoms. On today's evaluation that is 11/30/2023, the patient continues to be afebrile, patient is breathing comfortably currently on 2 L nasal cannula oxygen, the patient denies chest pain, the patient and cough is decreased in intensity not bring up any sputum no nausea vomiting no abdominal pain and feeling better no diarrhea. The patient white count of 7.90, creatinine 0.7 as of 11/28/2023 no lab draw today Pro-Armando 0.15 Objective - Vital Signs Vital signs: Vital Signs Temp 98.2 F 11/30/23 07:20 Pulse 80 11/30/23 08:46 Resp 16 11/30/23 07:20 BP 130/78 11/30/23 13:33 Pulse Ox 98 11/30/23 07:20 FiO2 2 11/29/23 12:16 Intake & Output 11/29/23 11/30/23 11/30/23 18:59 06:59 18:59 Intake Total 518 472 Output Total 1250 600 400 Balance -732 -600 72 Weight 56.699 kg Intake: Oral 518 472 Output: Urine 1250 600 400 Other: Voiding Method External Catheter External Catheter # Voids 1 - Exam GENERAL DESCRIPTION: An elderly female up in the chair in no distress RESPIRATORY SYSTEM: Unlabored breathing , decreased breath sounds at bases HEART: S1 S2 regular rate and rhythm , ABDOMEN: Soft , no tenderness EXTREMITIES: No edema feet - Labs CBC & Chem 7: 11/28/23 06:00 11/28/23 06:00 Assessment and Plan (1) Elevated procalcitonin Status: Acute Code(s): R79.89 - OTHER SPECIFIED ABNORMAL FINDINGS OF BLOOD CHEMISTRY SNOMED Code(s): 504933982 (2) Pneumonia Status: Acute Code(s): J18.9 - PNEUMONIA, UNSPECIFIED ORGANISM SNOMED Code(s): 921678162 Plan: 1patient presented to hospital with a fall and left hip pain patient did have x-rays and a CT that has been negative for any fracture and is being managed by orthopedics. 2patient also have a history of COPD on home O2 also have increasing shortness of breath and a cough with evidence of right midlung infiltrate concerning for pneumonia 3- patient did have mildly elevated CRP and a procalcitonin, 4-patient did have some clinical improvement patient was unable to provide a sputum keeping in mind improvement on Rocephin will finish therapy with a short course of oral Ceftin discussed with the SENIOR JAVA SOFTWARE ENGINEER for admitting team working on discharge Dictation was produced using [employer] dictation software. please excuse any gramma tical, word or spelling errors. Time with Patient: Less than 30
== END 2023-11-30 15:02 | DRG 555 ==
LOC: EC 11:47 → 6NMEDSUR 20:01 → OBSVTOIN 20:01 → 6NMEDSUR 20:59
PROVIDERS: ADMIT Internal Medicine; ATTEND Internal Medicine
DX: M25.552 Pain in left hip (principal); J15.9 Unspecified bacterial pneumonia; J96.21 Acute and chronic respiratory failure with hypoxia; W05.0XXA Fall from non-moving wheelchair, initial encounter; Y92.122 Bedroom in nursing home as the place of occurrence of the external cause; E03.9 Hypothyroidism, unspecified; E78.5 Hyperlipidemia, unspecified; F32.A Depression, unspecified; F41.9 Anxiety disorder, unspecified; J45.909 Unspecified asthma, uncomplicated; I10 Essential (primary) hypertension; R79.1 Abnormal coagulation profile; J43.9 Emphysema, unspecified; M24.7 Protrusio acetabuli; M81.0 Age-related osteoporosis without current pathological fracture; S00.03XA Contusion of scalp, initial encounter; Z79.890 Hormone replacement therapy; Z79.899 Other long term (current) drug therapy; Z87.891 Personal history of nicotine dependence; Z96.642 Presence of left artificial hip joint; Z91.018 Allergy to other foods; Z11.52 Encounter for screening for COVID-19; Z99.81 Dependence on supplemental oxygen
CPT/HCPCS: 70450; 71045; 71046; 71275; 72125; 72192; 73502; 80048; 80053; 84145; 85025; 85027; 85379; 85610; 87636; 94640; 94667; 94760; 96372; 96374; 96375; 99285

== ENCOUNTER → 2024-10-11 | Outpatient (CLI) | payer MEDICARE, OTHER ==
[2024-10-11 12:38] LABS: African American GFR (CKD) >90 (>60 ml/min/1.73 sqM); Blood Urea Nitrogen 15 mg/dL (7-17); Non-African American GFR(CKD) 90 (>60 ml/min/1.73 sqM)
--- NOTE | 2024-10-12 09:30 | CT ---
CTA abdomen and runoff. HISTORY: Bilateral leg pain and swelling. COMPARISON: None TECHNIQUE: CTA of the abdomen and runoff was performed according to department protocol. FINDINGS: Inflow CTA: There is moderate calcified plaque involving the abdominal aorta and iliac arteries. There is mild fo mitesh stenoses within the right common iliac artery. There is a severe focal stenosis of the left commo n iliac artery just distal to its origin. Outflow CTA: On the right, there is moderate calcified plaque in the right common femoral artery but no focal sten osis. There are scattered calcified plaques of the right superficial femoral artery and popliteal art karyna with mild scattered focal stenoses. On the left, there are scattered plaques within the left common and superficial femoral arteries and left popliteal artery with mild scattered focal stenoses. Runoff CTA: On the right, there is three-vessel runoff into the foot and ankle. There are scattered calcified ashish ques in the trifurcation vessel origins. On the left, there are calcified plaques in the trifurcation vessel origins. There is three-vessel ru noff into the foot and ankle. Nonvascular findings: There is COPD changes in the lung bases but no acute infiltrate. There is no focal mass or organomega ly involving liver, pancreas, spleen and adrenal glands. There are 2 small 3 to 4 mm nonobstructing right renal calcifications. There is mild left renal atrop hy. There is a small beatriz-like and obstructing calcification left kidney. The bowel loops are normal in caliber and there is no dilatation or obstruction. There is no free int raperitoneal air or fluid. No focal osseous lesions are seen. There is left hip arthroplasty. IMPRESSION: 1. Bilateral inflow disease involving the common iliac arteries bilaterally, mild on the right and se jarod on the left. 2. Mild bilateral outflow disease with scattered calcified plaques but no severe stenoses. 3. Three-vessel runoff bilaterally. 4. Nonobstructing renal calcifications with mild left renal atrophy. [facility], , 10/12/2024 9:27 AM
== END | disposition home or self-care (01) ==
LOC: RADCTMAIN 11:19
PROVIDERS: ATTEND Surgery
DX: I70.213 Atherosclerosis of native arteries of extremities with intermittent claudication, bilateral legs (principal); I70.0 Atherosclerosis of aorta; N26.1 Atrophy of kidney (terminal)
CPT/HCPCS: 82565; 84520; 75635; 36415; Q9967

== ENCOUNTER 2024-10-16 23:54 | Inpatient (IN) | payer MEDICARE, OTHER ==
--- NOTE | 2024-10-17 00:28 | ED ---
SOB HPI - General Chief Complaint: Shortness of Breath Stated Complaint: KALPANA Time Seen by Provider: 10/17/24 00:01 Source: patient, EMS Mode of arrival: EMS Limitations: no limitations - History of Present Illness Initial Comments: This patient is a 69-year-old woman transferred here from her facility to have evaluation for shortness of breath and decreased pulse oximetry reading. The patient reports that she was in her usual state of health until Monday. She states that around noon she felt like she was starting to get sinus infection. She complains of cough and congestion. She states that the cough became a little more persistent over the next couple of days and she is also feeling a little short of breath. She states that tonight where she lives they checked her pulse oximetry and it was in the mid 80s. Patient does have history of COPD and asthma. The patient does acknowledge some bilateral chest pain with the cough but no pain at rest. The cough has had occasional yellow sputum. She denies leg swelling or pain. No change in urination or bowel movements. MD Complaint: shortness of breath, cough -: days(s) Severity: moderate Quality: aching Consistency: constant Improves With: nothing Worsens With: nothing Known History Of: COPD, asthma Associated Symptoms: cough Treatments Prior to Arrival: none - Related Data Home Oxygen Therapy: No Home Medications Medication Instructions Recorded Confirmed Albuterol Inhaler [Ventolin Hfa 2 puff INHALATION RT-Q6H PRN 03/24/23 10/17/24 Inhaler] Atorvastatin Calcium 20 mg PO HS 03/24/23 10/17/24 cloNIDine HCL [Catapres] 0.1 mg PO Q8HR@0600,1400,2200 03/24/23 10/17/24 Acetaminophen Tab [Tylenol] 650 mg PO Q6HR PRN 11/24/23 10/17/24 Albuterol Nebulized [Ventolin 2.5 mg INHALATION RT-Q4H PRN 11/24/23 10/17/24 Nebulized] Ascorbic Acid [Vitamin C] 500 mg PO DAILY 11/24/23 10/17/24 Cholecalciferol [Vitamin D3 (25 50 mcg PO DAILY 11/24/23 10/17/24 Mcg = 1000 Iu)] Ipratropium-Albuterol Nebulize 3 ml INHALATION RT-Q6H 11/24/23 10/17/24 [Duoneb 0.5 mg-3 mg/3 ml Soln] Levothyroxine Sodium [Synthroid] 75 mcg PO SUTUWEFRSA@0600 11/24/23 10/17/24 Loratadine 10 mg PO DAILY PRN 11/24/23 10/17/24 Omeprazole Magnesium [PriLOSEC OTC] 20 mg PO DAILY@0600 11/24/23 10/17/24 Sennosides/Docusate Sodium [Senna 1 tab PO DAILY PRN 11/24/23 10/17/24 Plus 8.6-50 mg Tablet] Zinc Sulfate [Orazinc] 220 mg PO DAILY 11/24/23 10/17/24 Aspirin EC [Ecotrin Low Dose] 81 mg PO DAILY 10/17/24 10/17/24 Citalopram Hydrobromide [CeleXA] 40 mg PO DAILY@0600 10/17/24 10/17/24 Cyclobenzaprine [Flexeril] 10 mg PO TID PRN 10/17/24 10/17/24 Levothyroxine Sodium [Synthroid] 100 mcg PO MOTH@0600 10/17/24 10/17/24 Losartan [Cozaar] 50 mg PO BID 10/17/24 10/17/24 Melatonin 10 mg PO HS PRN 10/17/24 10/17/24 Mirtazapine [Remeron] 45 mg PO HS 10/17/24 10/17/24 busPIRone HCL 15 mg PO BID 10/17/24 10/17/24 guaiFENesin [Mucinex] 1,200 mg PO Q6H PRN 10/17/24 10/17/24 guaiFENesin-DM 100-10MG/5ML 10 ml PO Q4H PRN 10/17/24 10/17/24 [Robitussin DM] Previous Rx's Medication Instructions Recorded amLODIPine [Norvasc] 5 mg PO DAILY tab 03/31/23 Budesonide-Formot 160-4.5 Mcg 2 puff INHALATION RT-BID each 11/30/23 [Symbicort 160-4.5 Mcg Inhaler] Gabapentin 300 mg PO Q8HR@0600,1400,2200 #6 11/30/23 cap Ipratropium-Albuterol Nebulize 3 ml INHALATION RT-QID PRN each 11/30/23 [Duoneb 0.5 mg-3 mg/3 ml Soln] Fluticasone Nasal [place] [Flonase 2 spray EA NOSTRIL DAILY PRN ml 10/25/24 Nasal [place]] HYDROcodone/APAP 5-325MG [[place] 1 tab PO TID@0900,1700,2100 #9 tab 10/25/24 5-325] Nystatin 100,000 Unit/ml Susp 500,000 unit PO QID 5 Days ml 10/25/24 [Mycostatin Oral Susp] clonazePAM [KlonoPIN] 1 mg PO HS #3 tab 10/25/24 predniSONE 0 mg PO DIRECTED #30 tab 10/25/24 Allergies Allergy/AdvReac Type Severity Reaction Status Date / Time nut - unspecified Allergy Unknown Verified 10/17/24 10:52 Review of Systems ROS Statement: Those systems with pertinent positive or pertinent negative responses have been documented in the HPI. ROS Other: All systems not noted in ROS Statement are negative. Constitutional: Denies: fever, chills, weakness ENT: Reports: congestion. Denies: throat pain Respiratory: Reports: cough, dyspnea, wheezes. Denies: hemoptysis Cardiovascular: Reports: as per HPI, chest pain. Denies: palpitations, orthopnea, edema, syncope Gastrointestinal: Denies: abdominal pain, nausea, vomiting, diarrhea Genitourinary: Denies: dysuria, hematuria Musculoskeletal: Denies: back pain Skin: Denies: rash Neurological: Denies: headache, weakness Past Medical History Past Medical History: Asthma, COPD, Hyperlipidemia, Osteoarthritis (OA) Additional Past Medical History / Comment(s): lumbar compression fx-back brace on-moving coffee table, osteoporosis History of Any Multi-Drug Resistant Organisms: None Reported Past Surgical History: Joint Replacement Additional Past Surgical History / Comment(s): bhaskar cataracts,left hip replacement Past Anesthesia/Blood Transfusion Reactions: No Reported Reaction Additional Past Anesthesia/Blood Transfusion Reaction / Comment(s): no hx blood transfusion Past Psychological History: Anxiety, Depression Smoking Status: Former smoker Past Alcohol Use History: Rare Past Drug Use History: None Reported - Past Family History Mother Family Medical History: No Reported History General Exam Limitations: no limitations General appearance: alert, in no apparent distress Head exam: Present: atraumatic, normocephalic Eye exam: Present: normal appearance. Absent: scleral icterus, conjunctival injection Neck exam: Present: normal inspection Respiratory exam: Present: wheezes, chest wall tenderness (Bilateral rib tenderness at the costal margin). Absent: respiratory distress, rales, rhonchi, stridor, accessory muscle use Cardiovascular Exam: Present: regular rate, normal rhythm, normal heart sounds. Absent: systolic murmur, diastolic murmur, rubs, gallop GI/Abdominal exam: Present: soft. Absent: distended, tenderness, guarding, rebound, rigid, mass Extremities exam: Present: normal inspection, normal capillary refill, pedal edema (Mild right leg edema greater than left.). Absent: calf tenderness Back exam: Present: normal inspection. Absent: CVA tenderness (R), CVA ten derness (L) Neurological exam: Present: alert Skin exam: Present: warm, dry, intact, normal color. Absent: rash Course Vital Signs 10/16/24 10/17/24 10/17/24 23:55 00:03 01:01 Temperature 99.2 F Pulse Rate 95 87 Respiratory 24 24 Rate Blood Pressure 94/58 85/49 90/53 O2 Sat by Pulse 81 L 93 L 93 L Oximetry 10/17/24 10/17/24 10/17/24 01:17 01:23 03:00 Temperature Pulse Rate 87 90 86 Respiratory 22 Rate Blood Pressure 92/54 O2 Sat by Pulse 93 L Oximetry 10/17/24 10/17/24 10/17/24 03:30 04:00 05:00 Temperature Pulse Rate 89 90 92 Respiratory 22 22 21 Rate Blood Pressure 111/64 107/59 118/76 O2 Sat by Pulse 93 L 93 L 93 L Oximetry 10/17/24 10/17/24 10/17/24 06:00 08:01 08:02 Temperature Pulse Rate 93 103 H Respiratory 21 24 Rate Blood Pressure 127/64 O2 Sat by Pulse 94 L Oximetry 10/17/24 10/17/24 08:12 08:14 Temperature 98.8 F Pulse Rate 103 H 104 H Respiratory 22 Rate Blood Pressure 122/75 O2 Sat by Pulse 93 L Oximetry Medical Decision Making - Medical Decision Making Was pt. sent in by a medical professional or institution (, PA, HEATING PLANT SUPERINTENDENT, urgent care, hospital, or group home...) When possible be specific @ -[ Did you speak to anyone other than the patient for history (EMS, parent, family, police, friend...)? What history was obtained from this source @ -[No] Did you review nursing and triage notes (agree or disagree)? Why? @ -[I reviewed and agree with nursing and triage notes] Were old charts reviewed (outside hosp., previous admission, EMS record, old EKG, old radiological studies, urgent care reports/EKG's, group home records)? Report findings @ -[No old charts were reviewed] Differential Diagnosis (chest pain, altered mental status, abdominal pain women, abdominal pain men, vaginal bleeding, weakness, fever, dyspnea, syncope, headache, dizziness, GI bleed, back pain, seizure, CVA, palpatations, mental health, musculoskeletal)? @ -[Differential Dyspnea: Coronary syndrome, arrhythmia, tamponade, asthma, COPD, pulmonary embolism, pneumonia, pneumothorax, pulmonary effusion, anaphylaxis, diabetic ketoacidosis, flailed chest, pulmonary contusion, diaphragmatic rupture, anemia, neuromuscular, this is not meant to be an all-inclusive list. EKG interpreted by me (3pts min.). @ -[I interpreted as above] X-rays interpreted by me (1pt min.). @ -[I interpreted as above CT interpreted by me (1pt min.). @ -[None done] U/S interpreted by me (1pt. min.). @ -[None done] What testing was considered but not performed or refused? (CT, X-rays, U/S, labs)? Why? @ -[None] What meds were considered but not given or refused? Why? @ -[None] Did you discuss the management of the patient with other professionals (professionals i.e. , PA, HEATING PLANT SUPERINTENDENT, lab, RT, psych nurse, health care social worker, interior wirer, teacher, security control room officer, welfare case worker)? Give summary @ -[Case discussed with admitting physician and treatment recommendations are incorporated. Was smoking cessation discussed for >3mins.? @ -[No] Was critical care preformed (if so, how long)? @ -[No] Were there social determinants of health that impacted care today? How? (Homelessness, low income, unemployed, alcoholism, drug addiction, transportation, low edu. Level, literacy, decrease access to med. care, care home, rehab)? @ -[No] Was there de-escalation of care discussed even if they declined (Discuss DNR or withdrawal of care, Hospice)? DNR status @ -[No] What co-morbidities impacted this encounter? (DM, HTN, Smoking, COPD, CAD, Cancer, CVA, ARF, Chemo, Hep., AIDS, mental health diagnosis, sleep apnea, morbid obesity)? @ -[COPD Was patient admitted / discharged? Hospital course, mention meds given and route, prescriptions, significant lab abnormalities, going to OR and other pertinent info. @ -[Patient is 69-year-old woman with some underlying COPD presenting with worsening from her usual respiratory status. The patient's chest x-ray does reveal some bilateral infiltrates, greater on the than left. patient will be admitted to have antibiotic therapy Undiagnosed new problem with uncertain prognosis? @ -[No] Drug Therapy requiring intensive monitoring for toxicity (Heparin, Nitro, Insulin, Cardizem)? @ -[No] Were any procedures done? @ -[No] Diagnosis/symptom? @ -[Acute pneumonia Acute exacerbation of COPD Acute, or Chronic, or Acute on Chronic? @ -[Acute Uncomplicated (without systemic symptoms) or Complicated (systemic symptoms)? @ -[default] Side effects of treatment? @ -[No] Exacerbation, Progression, or Severe Exacerbation? @ -[Exacerbation of COPD Poses a threat to life or bodily function? How? (Chest pain, [place], ME, pneumonia, PE, COPD, DKA, ARF, appy, cholecystitis, CVA, Diverticulitis, Homicidal, Suicidal, threat to staff... and all critical care pts) @ -[Yes there is risk of worsening COPD/pneumonia into respiratory failure and - Lab Data Result diagrams: 10/25/24 03:28 10/25/24 03:28 Lab Results 10/17/24 10/17/24 10/17/24 Range/Units 00:10 00:10 00:10 WBC 10.7 H (3.8-10.6) k/uL RBC 3.61 L (3.80-5.40) m/uL Hgb 10.1 L (11.4-16.0) gm/dL Hct 32.1 L (34.0-46.0) % MCV 88.9 (80.0-100.0) fL MCH 28.1 (25.0-35.0) pg MCHC 31.6 (31.0-37.0) g/dL RDW 14.8 (11.5-15.5) % Plt Count 230 (150-450) k/uL MPV 8.7 Neutrophils % 81 % Lymphocytes % 9 % Monocytes % 8 % Eosinophils % 0 % Basophils % 0 % Neutrophils # 8.6 H (1.3-7.7) k/uL Lymphocytes # 1.0 (1.0-4.8) k/uL Monocytes # 0.8 (0-1.0) k/uL Eosinophils # 0.0 (0-0.7) k/uL Basophils # 0.0 (0-0.2) k/uL Hypochromasia Slight PT 10.3 (10.0-12.5) sec INR 0.9 (<1.2) APTT 23.6 (22.0-30.0) sec D-Dimer 2.49 H (<0.60) mg/L FEU Sodium 137 (137-145) mmol/L Potassium 3.6 (3.5-5.1) mmol/L Chloride 107 (98-107) mmol/L Carbon Dioxide 21 L (22-30) mmol/L Anion Gap 9 mmol/L BUN 34 H (7-17) mg/dL Creatinine 1.33 H (0.52-1.04) mg/dL Est GFR (CKD-EPI)AfAm 46 (>60 ml/min/1.73 sqM) Est GFR (CKD-EPI)NonAf 40 (>60 ml/min/1.73 sqM) Glucose 120 H (74-99) mg/dL Plasma Lactic Acid Sunny (0.7-2.0) mmol/L Calcium 8.5 (8.4-10.2) mg/dL Total Bilirubin 0.7 (0.2-1.3) mg/dL AST 24 (14-36) U/L ALT 19 (4-34) U/L Alkaline Phosphatase 110 (38-126) U/L Troponin I (0.000-0.034) ng/mL NT-Pro-B Natriuret Pep 742 pg/mL Total Protein 6.2 L (6.3-8.2) g/dL Albumin 3.3 L (3.5-5.0) g/dL Influenza Type A (PCR) (Not Detectd) Influenza Type B (PCR) (Not Detectd) RSV (PCR) (Not Detectd) SARS-CoV-2 (PCR) (Not Detectd) 10/17/24 10/17/24 10/17/24 Range/Units 00:10 00:10 01:31 WBC (3.8-10.6) k/uL RBC (3.80-5.40) m/uL Hgb (11.4-16.0) gm/dL Hct (34.0-46.0) % MCV (80.0-100.0) fL MCH (25.0-35.0) pg MCHC (31.0-37.0) g/dL RDW (11.5-15.5) % Plt Count (150-450) k/uL MPV Neutrophils % % Lymphocytes % % Monocytes % % Eosinophils % % Basophils % % Neutrophils # (1.3-7.7) k/uL Lymphocytes # (1.0-4.8) k/uL Monocytes # (0-1.0) k/uL Eosinophils # (0-0.7) k/uL Basophils # (0-0.2) k/uL Hypochromasia PT (10.0-12.5) sec INR (<1.2) APTT (22.0-30.0) sec D-Dimer (<0.60) mg/L FEU Sodium (137-145) mmol/L Potassium (3.5-5.1) mmol/L Chloride (98-107) mmol/L Carbon Dioxide (22-30) mmol/L Anion Gap mmol/L BUN (7-17) mg/dL Creatinine (0.52-1.04) mg/dL Est GFR (CKD-EPI)AfAm (>60 ml/min/1.73 sqM) Est GFR (CKD-EPI)NonAf (>60 ml/min/1.73 sqM) Glucose (74-99) mg/dL Plasma Lactic Acid Sunny 0.9 (0.7-2.0) mmol/L Calcium (8.4-10.2) mg/dL Total Bilirubin (0.2-1.3) mg/dL AST (14-36) U/L ALT (4-34) U/L Alkaline Phosphatase (38-126) U/L Troponin I 0.025 (0.000-0.034) ng/mL NT-Pro-B Natriuret Pep pg/mL Total Protein (6.3-8.2) g/dL Albumin (3.5-5.0) g/dL Influenza Type A (PCR) Not Detected (Not Detectd) Influenza Type B (PCR) Not Detected (Not Detectd) RSV (PCR) Not Detected (Not Detectd) SARS-CoV-2 (PCR) Not Detected (Not Detectd) - EKG Data -: EKG Interpreted by Me EKG shows normal: sinus rhythm, axis (Normal), intervals (Normal), QRS complexes (Normal) Rate: normal (Rate 88 bpm) Interpretation: nonspecific ST-T wave changes Disposition Clinical Impression: Pneumonia, COPD exacerbation Disposition: ADMITTED IP TO THIS HOSP Condition: Fair Is patient prescribed a controlled substance at d/c from ED?: No
[2024-10-17 00:59] LABS: ALT 19 U/L (4-34); AST 24 U/L (14-36); African American GFR (CKD) 46 (>60 ml/min/1.73 sqM); Albumin 3.3 g/dL (3.5-5.0); Alkaline Phosphatase 110 U/L (38-126); Anion Gap 9 mmol/L; Blood Urea Nitrogen 34 mg/dL (7-17); Calcium 8.5 mg/dL (8.4-10.2); Carbon Dioxide 21 mmol/L (22-30); Chloride 107 mmol/L (98-107); Glucose 120 mg/dL (74-99); Non-African American GFR(CKD) 40 (>60 ml/min/1.73 sqM); Potassium 3.6 mmol/L (3.5-5.1); Sodium 137 mmol/L (137-145); Total Bilirubin 0.7 mg/dL (0.2-1.3); Total Protein 6.2 g/dL (6.3-8.2)
[2024-10-17 01:00] LABS: INR 0.9 (<1.2); Partial Thromboplastin Time 23.6 sec (22.0-30.0); Prothrombin Time 10.3 sec (10.0-12.5)
[2024-10-17 01:04] LABS: Basophils % (A) 0 %; Eosinophils % (A) 0 %; HCT 32.1 % (34.0-46.0); HGB 10.1 gm/dL (11.4-16.0); Hypochromasia Slight; Lymphocytes % (A) 9 %; MCH 28.1 pg (25.0-35.0); MCHC 31.6 g/dL (31.0-37.0); MCV 88.9 fL (80.0-100.0); Mean Platelet Volume 8.7; Monocytes # (A) 0.8 k/uL (0-1.0); Monocytes % (A) 8 %; Neutrophils # (A) 8.6 k/uL (1.3-7.7); Neutrophils % (A) 81 %; Platelet Count 230 k/uL (150-450); RBC 3.61 m/uL (3.80-5.40); RDW 14.8 % (11.5-15.5); WBC 10.7 k/uL (3.8-10.6)
[2024-10-17 01:06] LABS: NT-Pro-B-Type Natriuretic Pept 742 pg/mL
[2024-10-17] MEDS: IPRATROPIUM-ALBUTEROL 3 ML NEB INHALATION STA (01:15)
--- NOTE | 2024-10-17 01:18 | XR ---
EXAM: XR Chest, 2 Views CLINICAL HISTORY: ITS.REASON XR Reason: difficulty breathing TECHNIQUE: Frontal and lateral views of the chest. COMPARISON: No relevant prior studies available. IMPRESSION: Increased interstitial opacities in the right more than left lung.
[2024-10-17] MEDS: SODIUM CHLORIDE 0.9% 1,000 ML IV ONE (01:21)
[2024-10-17] MEDS: SODIUM CHLORIDE 0.9% 1,000 ML IV SCH (01:23)
[2024-10-17] MEDS: AZITHROMYCIN 500 MG TAB PO STA (01:28)
[2024-10-17] MEDS ORDERED: PNEUMONIA PROTOCOL UTILIZED 1 EACH MISC PO PRN (03:03)
[2024-10-17] MEDS ORDERED: ALBUTEROL NEBULIZED 2.5 MG/3 ML INHALATION PRN (03:03)
[2024-10-17] MEDS: ENOXAPARIN 80 MG/0.8 ML SYRINGE SQ STA (03:41)
[2024-10-17] MEDS: IPRATROPIUM-ALBUTEROL 3 ML NEB INHALATION SCH (08:01)
[2024-10-17] MEDS: AZITHROMYCIN 500 MG TAB PO SCH (08:15)
[2024-10-17 10:20] LABS: ALT 18 U/L (4-34); AST 23 U/L (14-36); African American GFR (CKD) 88 (>60 ml/min/1.73 sqM); Albumin 3.1 g/dL (3.5-5.0); Alkaline Phosphatase 116 U/L (38-126); Anion Gap 12 mmol/L; Blood Urea Nitrogen 26 mg/dL (7-17); Calcium 8.1 mg/dL (8.4-10.2); Carbon Dioxide 16 mmol/L (22-30); Chloride 113 mmol/L (98-107); Glucose 114 mg/dL (74-99); Non-African American GFR(CKD) 76 (>60 ml/min/1.73 sqM); Potassium 3.7 mmol/L (3.5-5.1); Sodium 141 mmol/L (137-145); Total Bilirubin 0.3 mg/dL (0.2-1.3); Total Protein 6.1 g/dL (6.3-8.2)
--- NOTE | 2024-10-17 12:59 | P.HPIM ---
History of Present Illness Patient is a pleasant 69 years old female with multiple medical problems Presents because of worsening dyspnea over a few days associated with cough and phlegm She complains from chest pain which bother her a lot especially her chest below her ribs and in her abdomen whenever she c coughs, she is asking for cough medicine She has bowel movement yesterday which she thinks she is fine, she denies abdominal tenderness or vomiting, she has low appetite She has not urinated in 2 days No headache dizziness weakness or numbness She denies smoking alcohol or illicit drugs she uses 2 L of oxygen at home Currently she is on 6 L oxygen Labs reviewed, WBC 10.7 which is slightly up, hemoglobin 10.1, creatinine 1.3 with baseline 0.7 INR is unremarkable, troponin 0.02. proBNP 742. Influenza A and type B, RSV, SARS (coronavirus) are and detected Chest x-ray showed increased interstitial opacity more on the right lower area EKG showing sinus rhythm at [address]-T changes D-dimer is 2.49 Review of Systems Review of systems CONSTITUTIONAL: No fever, no malaise, no fatigue. HEENT: No recent visual problems or hearing problems. Denied any sore throat. CARDIOVASCULAR: No orthopnea, PND, no palpitations, no syncope. PULMONARY: As above GASTROINTESTINAL: No diarrhea, no nausea, no vomiting, no abdominal pain. Normoactive bowel sounds. NEUROLOGICAL: No headaches, no weakness, no numbness. HEMATOLOGICAL: Denies any bleeding or petechiae. GENITOURINARY: Denies any burning micturition, frequency, or urgency. MUSCULOSKELETAL/RHEUMATOLOGICAL: Denies any joint pain, swelling, or any muscle pain. ENDOCRINE: Denies any polyuria or polydipsia. Past Medical History Past Medical History: Asthma, COPD, Hyperlipidemia, Osteoarthritis (OA) Additional Past Medical History / Comment(s): lumbar compression fx-back brace on-moving coffee table, osteoporosis History of Any Multi-Drug Resistant Organisms: None Reported Past Surgical History: Joint Replacement Additional Past Surgical History / Comment(s): bhaskar cataracts,left hip replacement Past Anesthesia/Blood Transfusion Reactions: No Reported Reaction Additional Past Anesthesia/Blood Transfusion Reaction / Comment(s): no hx blood transfusion Past Psychological History: Anxiety, Depression Smoking Status: Former smoker Past Alcohol Use History: Rare Past Drug Use History: None Reported - Past Family History Mother Family Medical History: No Reported History Medications and Allergies Home Medications Medication Instructions Recorded Confirmed Type Albuterol Inhaler [Ventolin Hfa 2 puff INHALATION RT-Q6H PRN 03/24/23 10/17/24 History Inhaler] Atorvastatin Calcium 20 mg PO HS 03/24/23 10/17/24 History cloNIDine HCL [Catapres] 0.1 mg PO Q8HR@0600,1400,2200 03/24/23 10/17/24 History amLODIPine [Norvasc] 5 mg PO DAILY tab 03/31/23 10/17/24 Rx Acetaminophen Tab [Tylenol] 650 mg PO Q6HR PRN 11/24/23 10/17/24 History Albuterol Nebulized [Ventolin 2.5 mg INHALATION RT-Q4H PRN 11/24/23 10/17/24 History Nebulized] Ascorbic Acid [Vitamin C] 500 mg PO DAILY 11/24/23 10/17/24 History Cholecalciferol [Vitamin D3 (25 50 mcg PO DAILY 11/24/23 10/17/24 History Mcg = 1000 Iu)] Ipratropium-Albuterol Nebulize 3 ml INHALATION RT-Q6H 11/24/23 10/17/24 History [Duoneb 0.5 mg-3 mg/3 ml Soln] Levothyroxine Sodium [Synthroid] 75 mcg PO SUTUWEFRSA@0600 11/24/23 10/17/24 History Loratadine 10 mg PO DAILY PRN 11/24/23 10/17/24 History Omeprazole Magnesium [PriLOSEC OTC] 20 mg PO DAILY@0600 11/24/23 10/17/24 History Sennosides/Docusate Sodium [Senna 1 tab PO DAILY PRN 11/24/23 10/17/24 History Plus 8.6-50 mg Tablet] Zinc Sulfate [Orazinc] 220 mg PO DAILY 11/24/23 10/17/24 History Budesonide-Formot 160-4.5 Mcg 2 puff INHALATION RT-BID each 11/30/23 10/17/24 Rx [Symbicort 160-4.5 Mcg Inhaler] Gabapentin 300 mg PO Q8HR@0600,1400,2200 #6 11/30/23 10/17/24 Rx cap Ipratropium-Albuterol Nebulize 3 ml INHALATION RT-QID PRN each 11/30/23 10/17/24 Rx [Duoneb 0.5 mg-3 mg/3 ml Soln] Aspirin EC [Ecotrin Low Dose] 81 mg PO DAILY 10/17/24 10/17/24 History Citalopram Hydrobromide [CeleXA] 40 mg PO DAILY@0600 10/17/24 10/17/24 History Cyclobenzaprine [Flexeril] 10 mg PO TID PRN 10/17/24 10/17/24 History HYDROcodone/APAP 5-325MG [[place] 1 tab PO TID@0900,1700,2100 10/17/24 10/17/24 History 5-325] Levothyroxine Sodium [Synthroid] 100 mcg PO MOTH@0600 10/17/24 10/17/24 History Losartan [Cozaar] 50 mg PO BID 10/17/24 10/17/24 History Melatonin 10 mg PO HS PRN 10/17/24 10/17/24 History Mirtazapine [Remeron] 45 mg PO HS 10/17/24 10/17/24 History busPIRone HCL 15 mg PO BID 10/17/24 10/17/24 History clonazePAM [KlonoPIN] 1 mg PO HS 10/17/24 10/17/24 History dexAMETHasone [Decadron] 6 mg PO DAILY 10/17/24 10/17/24 History guaiFENesin [Mucinex] 1,200 mg PO Q6H PRN 10/17/24 10/17/24 History guaiFENesin-DM 100-10MG/5ML 10 ml PO Q4H PRN 10/17/24 10/17/24 History [Robitussin DM] Allergies Allergy/AdvReac Type Severity Reaction Status Date / Time nut - unspecified Allergy Unknown Verified 10/17/24 10:52 Physical Exam Vitals: Vital Signs Temp Pulse Pulse Resp BP BP Pulse Ox 10/17/24 12:30 100 10/17/24 12:17 96 10/17/24 10:30 98.3 F 98 17 116/75 93 L 10/17/24 08:14 104 H 10/17/24 08:12 98.8 F 103 H 22 122/75 93 L 10/17/24 08:02 103 H 10/17/24 08:01 24 10/17/24 06:00 93 21 127/64 94 L 10/17/24 05:00 92 21 118/76 93 L 10/17/24 04:00 90 22 107/59 93 L 10/17/24 03:30 89 22 111/64 93 L 10/17/24 03:00 86 22 92/54 93 L 10/17/24 01:23 90 10/17/24 01:17 87 10/17/24 01:01 87 24 90/53 93 L 10/17/24 00:03 85/49 93 L 10/16/24 23:55 99.2 F 95 24 94/58 81 L Intake and Output 10/16/24 10/17/24 10/17/24 22:59 06:59 14:59 Other: Weight 65.317 kg GENERAL: The patient is alert and oriented x3, not in any acute distress. Well developed, well nourished. HEENT: Pupils are round and equally reacting to light. EOMI. No scleral icterus. No conjunctival pallor. Normocephalic, atraumatic. No pharyngeal erythema. No thyromegaly. CARDIOVASCULAR: S1 and S2 present. No murmurs, rubs, or gallops. PULMONARY: Chest is clear to auscultation, no wheezing , no crackles. Tachypnea, decreased air entry on the right lung, at bases ABDOMEN: Soft, nontender, nondistended, normoactive bowel sounds. No palpable organomegaly. MUSCULOSKELETAL: No joint swelling or deformity. EXTREMITIES: No cyanosis, clubbing, or pedal edema. NEUROLOGICAL: Gross neurological examination did not reveal any focal deficits. SKIN: No rashes. no petechiae. Results CBC & Chem 7: 10/17/24 00:10 10/17/24 09:15 Labs: Abnormal Lab Results - Last 24 Hours (Table) 10/17/24 10/17/24 10/17/24 Range/Units 00:10 00:10 00:10 WBC 10.7 H (3.8-10.6) k/uL RBC 3.61 L (3.80-5.40) m/uL Hgb 10.1 L (11.4-16.0) gm/dL Hct 32.1 L (34.0-46.0) % Neutrophils # 8.6 H (1.3-7.7) k/uL D-Dimer 2.49 H (<0.60) mg/L FEU Chloride (98-107) mmol/L Carbon Dioxide 21 L (22-30) mmol/L BUN 34 H (7-17) mg/dL Creatinine 1.33 H (0.52-1.04) mg/dL Glucose 120 H (74-99) mg/dL Calcium (8.4-10.2) mg/dL Total Protein 6.2 L (6.3-8.2) g/dL Albumin 3.3 L (3.5-5.0) g/dL 10/17/24 Range/Units 09:15 WBC (3.8-10.6) k/uL RBC (3.80-5.40) m/uL Hgb (11.4-16.0) gm/dL Hct (34.0-46.0) % Neutrophils # (1.3-7.7) k/uL D-Dimer (<0.60) mg/L FEU Chloride 113 H (98-107) mmol/L Carbon Dioxide 16 L (22-30) mmol/L BUN 26 H (7-17) mg/dL Creatinine (0.52-1.04) mg/dL Glucose 114 H (74-99) mg/dL Calcium 8.1 L (8.4-10.2) mg/dL Total Protein 6.1 L (6.3-8.2) g/dL Albumin 3.1 L (3.5-5.0) g/dL Assessment and Plan Assessment: pulmonary acquired pneumonia, more on the right lower lobe Acute on chronic hypoxic respiratory failure Sepsis secondary to above Acute kidney injury acute COPD exacerbation Plan: Continue with ceftriaxone and Zithromax Continue with normal saline but lowered the rate to 75 mL/h Continue with IV Solu-Medrol Labs and medication were reviewed.. Continue same treatment. Continue with symptomatic treatment. Resume home medication. Monitor labs and vitals. DVT and GI prophylaxis. Further recommendations as per clinical course of the patient DVT prophylaxis: Subcutaneous heparin GI Prophylaxis: Protonix Prognosis is guarded
[2024-10-17] MEDS: GABAPENTIN 300 MG CAP PO SCH (14:46)
[2024-10-17] MEDS: methylPREDNISolone SOD SUCCI 125 MG/2 ML VIAL IV SCH (14:46)
[2024-10-17] MEDS: amLODIPine 5 MG TAB PO SCH (14:46)
--- NOTE | 2024-10-17 15:13 | P.CNPUL ---
History of Present Illness Consult date: 10/17/24 Reason for consult: COPD History of present illness: This is a 69-year-old female patient, known history of advanced COPD, oxygen dependent 2 L/min nasal cannula, resides at [facility] [place]. Quite debilitated, nonambulatory at this point in time. The patient presented to the hospital because of worsening shortness of breath, cough, chest congestion and worsening respiratory status. No reported aspiration. No chest pain. No swelling in lower extremities. She is known to have osteoporosis and previous compression fracture of her spine and she suffers from chronic back pain. The patient accordingly was admitted to the hospital. Her white cell count of 10.7 with a hemoglobin 10.1 and a platelet count of 230. D-dimer is at 2.49 and the rest of the coagulation profiles been within normal limits. Creatinine was at 1.3 dropped down to 0.7. Serum bicarb was at 21 dropped down to 16 with a gap of 12 and a sodium levels at 141 and a potassium level is 3.7. Procalcitonin level is at 1.9. The viral screen was negative. Urine drug screen was positive for cannabinoids. She denies smoking for now. A chest x-ray was done in the emergency department and it showed COPD with chronic interstitial opacities bilaterally right more than left. Previous CT scan of the chest that was done in January 2024 was consistent with advanced emphysematous changes bilaterally and there was some resolving inflammatory changes in the right upper lobe. No evidence of any masses or malignant process. The patient accordingly was started on a combination of Rocephin and Zithromax. The patient is currently on DuoNeb AND IV Solu-Medrol was also started in addition to her home medications. Oxygenation remained worse as the patient is currently on 6 L of oxygen nasal cannula as the patient has been maintained on 2 L at baseline at the halfway. Troponins are negative. proBNP level is at 742. Review of Systems Constitutional: Reports daytime sleepiness, Reports fatigue, Reports lethargy Eyes: denies as per HPI, denies blurred vision, denies bulging eye, denies de creased vision, denies diplopia, denies discharge, denies dry eye, denies irritation, denies itching, denies pain, denies photophobia, denies loss of peripheral vision, denies loss of vision, denies tunnel vision/blind spots Ears: deny: decreased hearing, ear discharge, earache, tinnitus Ears, nose, mouth and throat: Reports as per HPI Breasts: absent: as per HPI, change in shape, gynecomastia, masses, nipple discharge, pain, skin changes, swelling Breasts: Reports as per HPI Cardiovascular: Reports decreased exercise tolerance, Reports dyspnea on exertion, Reports shortness of breath Respiratory: Reports congestion, Reports cough, Reports dyspnea, Reports home oxygen Gastrointestinal: Reports as per HPI Genitourinary: Reports as per HPI Menstruation: Reports as per HPI Musculoskeletal: Reports frequent falls, Reports gait dysfunction, Reports low back pain, Reports muscle weakness Musculoskeletal: absent: ankle pain, ankle stiffness, ankle swelling, as per HPI, elbow pain, elbow stiffness, elbow swelling, foot pain, foot stiffness, foot swelling, hand pain, hand stiffness, hand swelling, hip pain, hip stiff ness, hip swelling, knee pain, knee stiffness, knee swelling, shoulder pain, shoulder stiffness, shoulder swelling, wrist pain, wrist stiffness, wrist swelling Integumentary: Reports as per HPI Neurological: Reports as per HPI, Reports gait dysfunction, Reports weakness Psychiatric: Reports as per HPI Endocrine: Reports as per HPI, Reports fatigue Hematologic/Lymphatic: Reports as per HPI Past Medical History Past Medical History: COPD, Hyperlipidemia, Osteoarthritis (OA) Additional Past Medical History / Comment(s): lumbar compression fx-back brace on-moving coffee table, osteoporosis History of Any Multi-Drug Resistant Organisms: None Reported Past Surgical History: Joint Replacement Additional Past Surgical History / Comment(s): bhaskar cataracts,left hip replacement Past Anesthesia/Blood Transfusion Reactions: No Reported Reaction Additional Past Anesthesia/Blood Transfusion Reaction / Comment(s): no hx blood transfusion Past Psychological History: Anxiety, Depression Smoking Status: Former smoker Past Alcohol Use History: Rare Past Drug Use History: None Reported - Past Family History Mother Family Medical History: No Reported History Medications and Allergies Home Medications Medication Instructions Recorded Confirmed Type Albuterol Inhaler [Ventolin Hfa 2 puff INHALATION RT-Q6H PRN 03/24/23 10/17/24 History Inhaler] Atorvastatin Calcium 20 mg PO HS 03/24/23 10/17/24 History cloNIDine HCL [Catapres] 0.1 mg PO Q8HR@0600,1400,2200 03/24/23 10/17/24 History amLODIPine [Norvasc] 5 mg PO DAILY tab 03/31/23 10/17/24 Rx Acetaminophen Tab [Tylenol] 650 mg PO Q6HR PRN 11/24/23 10/17/24 History Albuterol Nebulized [Ventolin 2.5 mg INHALATION RT-Q4H PRN 11/24/23 10/17/24 History Nebulized] Ascorbic Acid [Vitamin C] 500 mg PO DAILY 11/24/23 10/17/24 History Cholecalciferol [Vitamin D3 (25 50 mcg PO DAILY 11/24/23 10/17/24 History Mcg = 1000 Iu)] Ipratropium-Albuterol Nebulize 3 ml INHALATION RT-Q6H 11/24/23 10/17/24 History [Duoneb 0.5 mg-3 mg/3 ml Soln] Levothyroxine Sodium [Synthroid] 75 mcg PO SUTUWEFRSA@0600 11/24/23 10/17/24 History Loratadine 10 mg PO DAILY PRN 11/24/23 10/17/24 History Omeprazole Magnesium [PriLOSEC OTC] 20 mg PO DAILY@0600 11/24/23 10/17/24 History Sennosides/Docusate Sodium [[place]enna 1 tab PO DAILY PRN 11/24/23 10/17/24 History Plus 8.6-50 mg Tablet] Zinc Sulfate [Orazinc] 220 mg PO DAILY 11/24/23 10/17/24 History Budesonide-Formot 160-4.5 Mcg 2 puff INHALATION RT-BID each 11/30/23 10/17/24 Rx [Symbicort 160-4.5 Mcg Inhaler] Gabapentin 300 mg PO Q8HR@0600,1400,2200 #6 11/30/23 10/17/24 Rx cap Ipratropium-Albuterol Nebulize 3 ml INHALATION RT-QID PRN each 11/30/23 10/17/24 Rx [Duoneb 0.5 mg-3 mg/3 ml Soln] Aspirin EC [Ecotrin Low Dose] 81 mg PO DAILY 10/17/24 10/17/24 History Citalopram Hydrobromide [CeleXA] 40 mg PO DAILY@0600 10/17/24 10/17/24 History Cyclobenzaprine [Flexeril] 10 mg PO TID PRN 10/17/24 10/17/24 History HYDROcodone/APAP 5-325MG [[place] 1 tab PO TID@0900,1700,2100 10/17/24 10/17/24 History 5-325] Levothyroxine Sodium [Synthroid] 100 mcg PO MOTH@0600 10/17/24 10/17/24 History Losartan [Cozaar] 50 mg PO BID 10/17/24 10/17/24 History Melatonin 10 mg PO HS PRN 10/17/24 10/17/24 History Mirtazapine [Remeron] 45 mg PO HS 10/17/24 10/17/24 History busPIRone HCL 15 mg PO BID 10/17/24 10/17/24 History clonazePAM [KlonoPIN] 1 mg PO HS 10/17/24 10/17/24 History dexAMETHasone [Decadron] 6 mg PO DAILY 10/17/24 10/17/24 History guaiFENesin [Mucinex] 1,200 mg PO Q6H PRN 10/17/24 10/17/24 History guaiFENesin-DM 100-10MG/5ML 10 ml PO Q4H PRN 10/17/24 10/17/24 History [Robitussin DM] Allergies Allergy/AdvReac Type Severity Reaction Status Date / Time nut - unspecified Allergy Unknown Verified 10/17/24 10:52 Physical Exam Vitals: Vital Signs Temp Pulse Pulse Resp BP BP Pulse Ox 10/17/24 12:30 100 10/17/24 12:17 96 10/17/24 10:30 98.3 F 98 17 116/75 93 L 10/17/24 08:14 104 H 10/17/24 08:12 98.8 F 103 H 22 122/75 93 L 10/17/24 08:02 103 H 10/17/24 08:01 24 10/17/24 06:00 93 21 127/64 94 L 10/17/24 05:00 92 21 118/76 93 L 10/17/24 04:00 90 22 107/59 93 L 10/17/24 03:30 89 22 111/64 93 L 10/17/24 03:00 86 22 92/54 93 L 10/17/24 01:23 90 11/28/24 01:17 87 10/17/24 01:01 87 24 90/53 93 L 10/17/24 00:03 85/49 93 L 10/16/24 23:55 99.2 F 95 24 94/58 81 L Intake and Output 10/17/24 10/17/24 10/17/24 06:59 14:59 22:59 Other: Weight 65.317 kg GENERAL EXAM: Alert, very pleasant 69-year-old female, on 5 L nasal cannula, in no apparent distress. HEAD: Normocephalic. EYES: Normal reaction of pupils, equal size. NOSE: Clear with pink turbinates. THROAT: No erythema or exudates. NECK: No masses, no JVD. CHEST: No chest wall deformity. LUNGS: Diminished but equal air entry with few scattered rhonchi. The patient has scattered rhonchi throughout the lung base bilaterally right more than left along with expiratory wheezes and air entry is diminished bilaterally. CVS: S1 and S2 normal with no audible murmur, regular rhythm. ABDOMEN: No hepatosplenomegaly, normal bowel sounds, no guarding or rigidity. SPINE: No scoliosis or deformity SKIN: No rashes CENTRAL NERVOUS SYSTEM: No focal deficits, tone is normal in all 4 extremities. The patient has profound generalized weakness and the patient is nonambulatory at this point. EXTREMITIES: There is no peripheral edema. No clubbing, no cyanosis. Peripheral pulses are intact. Results - Laboratory Findings CBC and BMP: 10/17/24 00:10 10/17/24 09:15 PT/INR, D-dimer PT 10.3 sec (10.0-12.5) 10/17/24 00:10 INR 0.9 (<1.2) 10/17/24 00:10 D-Dimer 2.49 mg/L FEU (<0.60) H 10/17/24 00:10 Abnormal lab findings: Abnormal Labs 10/17/24 10/17/24 10/17/24 00:10 00:10 00:10 WBC 10.7 H RBC 3.61 L Hgb 10.1 L Hct 32.1 L Neutrophils # 8.6 H D-Dimer 2.49 H Chloride Carbon Dioxide 21 L BUN 34 H Creatinine 1.33 H Glucose 120 H Calcium Total Protein 6.2 L Albumin 3.3 L Procalcitonin 10/17/24 10/17/24 09:15 09:15 WBC RBC Hgb Hct Neutrophils # D-Dimer Chloride 113 H Carbon Dioxide 16 L BUN 26 H Creatinine Glucose 114 H Calcium 8.1 L Total Protein 6.1 L Albumin 3.1 L Procalcitonin 1.90 H - Diagnostic Findings Chest x-ray: image reviewed Assessment and Plan Plan: Acute on chronic hypoxic respiratory failure, the patient is on 6 L O2 nasal cannula, baseline is up to. This is related to a combination of COPD and right lung pneumonia. Acute COPD exacerbation Acute right lung pneumonia as the patient has new areas of infiltration/consolidation involving the right lung compared to the previous chest x-rays. Clinically, the patient continues to have increased cough and congestion and worsening shortness of breath. Advanced COPD with chronic hypoxic respiratory failure maintained on oxygen at 2 L Osteoporosis Compression fracture of the lumbar spine Hyperlipidemia Hyperlipidemia anxiety/depression Acute kidney injury, improved creatinine is normalized Elevated procalcitonin level, consider underlying bacterial right lung infection Plan Titrate oxygen flow to maintain oxygen saturation above 90%, currently on 6 L/min nasal cannula Sputum Gram stain and culture DuoNeb nebulized treatments [id number] Continue Rocephin and Zithromax IV Solu-Medrol 60 mg every 6 hours Resume home medications Continue normal saline at 75 cc an hour D-dimer is moderately elevated. Nevertheless, the suspicion for pulmonary embolism is quite low in this patient. Obtain follow-up chest x-ray in the morning and will continue to follow.
[2024-10-17] MEDS: HYDROcodone/APAP 5-325MG 1 EACH TAB PO SCH (17:45)
[2024-10-17] MEDS: FLUTICASONE NASAL 50MCG/SPRAY 16GM BTL EA NOSTRIL PRN (21:16)
[2024-10-17] MEDS: busPIRone HCl 5 MG TAB PO SCH (21:17)
[2024-10-17] MEDS: ATORVASTATIN 20 MG TAB PO SCH (21:17)
[2024-10-17] MEDS: MIRTAZAPINE 45 MG TABLET PO SCH (21:17)
[2024-10-17] MEDS: guaiFENesin 600 MG TABLET.ER PO PRN (21:17)
[2024-10-17] MEDS: clonazePAM 1 MG TAB PO SCH (21:17)
[2024-10-17] MEDS: LOSARTAN 50 MG TAB PO SCH (21:18)
[2024-10-17 21:40] LABS: Amorphous Sediment,Urine Rare /hpf; Appearance,Urine Clear (Clear); Bacteria,Urine Occasional /hpf; Bilirubin,Urine Negative (Negative); Blood,Urine Small (Negative); Color,Urine Colorless; Glucose,Urine (UA) Negative (Negative); Ketones,Urine 2+ (Negative); Leukocyte Esterase,Urine Moderate (Negative); Mucus,Urine Rare /hpf; Nitrite,Urine Negative (Negative); Protein,Urine Trace (Negative); RBC,Urine 2 /hpf (0-5); Squamous Epithelial Cell,Urine 1 /hpf (0-4); Urobilinogen,Urine <2.0 mg/dL (<2.0); WBC,Urine 7 /hpf (0-5)
[2024-10-17] MEDS: guaiFENesin-DM 100-10MG/5ML 10 ML CUP PO PRN (22:07)
[2024-10-18] MEDS: CITALOPRAM HYDROBROMIDE 20 MG TAB PO SCH (06:11)
[2024-10-18] MEDS: LEVOTHYROXINE 75 MCG TAB PO SCH (06:11)
[2024-10-18] MEDS: PANTOPRAZOLE 40 MG TABLET PO SCH (06:11)
--- NOTE | 2024-10-18 07:56 | XR ---
EXAMINATION TYPE: XR chest 1V portable DATE OF EXAM: 10/18/2024 COMPARISON: 10/17/2024 CLINICAL INDICATION: Female, 69 years old with history of pneumonia; , TECHNIQUE: XR chest 1V portable views of the chest. FINDINGS: Emphysematous changes with coarsened interstitium and patchy right perihilar and lower lobe infiltrat e. Increased density along the periphery of the left lower lobe. No sizable pleural effusion or pneum othorax. Osteopenia, degenerative changes spine and arthropathy of the shoulders. Atherosclerotic nicholas nge aorta. IMPRESSION: 1. COPD with findings suggestive of pulmonary fibrosis. Right perihilar and lower lobe infiltrate sta ble. [facility], , 10/18/2024 7:53 AM
[2024-10-18] MEDS ORDERED: ALBUTEROL HFA INHALER INHALATION PRN (09:15)
[2024-10-18] MEDS: ASCORBIC ACID 500 MG TAB PO SCH (09:27)
[2024-10-18] MEDS: ASPIRIN 81 MG PO SCH (09:27)
[2024-10-18] MEDS: CHOLECALCIFEROL 25 MCG (1000 IU) TABLET PO SCH (09:27)
[2024-10-18] MEDS: ENOXAPARIN 80 MG/0.8 ML SYRINGE SQ SCH (09:28)
[2024-10-18 09:57] LABS: Basophils # (A) 0.01 X 10*3/uL (0.00-0.10); Basophils % (A) 0.2 %; Eosinophils # (A) 0 X 10*3/uL (0.04-0.35); Eosinophils % (A) 0 %; HCT 30.9 % (37.2-46.3); HGB 9.1 g/dL (12.0-15.0); Lymphocytes # (A) 0.29 X 10*3/uL (0.90-5.00); Lymphocytes % (A) 4.7 %; MCH 27.2 pg (27.0-32.0); MCHC 29.4 g/dL (32.0-37.0); MCV 92.2 FL (80.0-97.0); Mean Platelet Volume 11.1 FL (9.5-12.2); Monocytes # (A) 0.12 X 10*3/uL (0.20-1.00); Monocytes % (A) 1.9 %; NRBC Per 100 WBC 0 X 10*3/uL (0.00-0.01); Neutrophils # (A) 5.71 X 10*3/uL (1.80-7.70); Neutrophils % (A) 92.7 %; Platelet Count 246 X 10*3/uL (140-440); RBC 3.35 X 10*6/uL (4.10-5.20); RDW 15.4 % (11.5-14.5); WBC 6.16 X 10*3/uL (4.50-10.00)
[2024-10-18 10:07] LABS: Blood Urea Nitrogen 18.9 mg/dL (9.0-27.0); Calcium 7.8 mg/dL (8.7-10.3); Chloride 116 mmol/L (96-109); Glucose 214 mg/dL (70-110); Potassium 3.8 mmol/L (3.5-5.5); Sodium 143 mmol/L (135-145)
--- NOTE | 2024-10-18 11:20 | P.PN ---
Subjective Patient is a pleasant 69 years old female with multiple medical problems Presents because of worsening dyspnea over a few days associated with cough and phlegm She complains from chest pain which bother her a lot especially her chest below her ribs and in her abdomen whenever she c coughs, she is asking for cough medicine She has bowel movement yesterday which she thinks she is fine, she denies abdominal tenderness or vomiting, she has low appetite She has not urinated in 2 days No headache dizziness weakness or numbness She denies smoking alcohol or illicit drugs she uses 2 L of oxygen at home Currently she is on 6 L oxygen Labs reviewed, WBC 10.7 which is slightly up, hemoglobin 10.1, creatinine 1.3 with baseline 0.7 INR is unremarkable, troponin 0.02. proBNP 742. Influenza A and type B, RSV, SARS (coronavirus) are and detected Chest x-ray showed increased interstitial opacity more on the right lower area EKG showing sinus rhythm at [address]-T changes D-dimer is 2.49 10/18 Patient still complaining from breathing difficulty although she still is a little better Her oxygen requirement went 5 up to 6 L/min She still coughing a lot and she was counseled to use antitussive as needed medication No significant chest pain. She remains on broad-spectrum antibiotics with Zithromax and ceftriaxone and normal saline at 75 mL/h Repeat chest x-ray this morning it looks to be little better than yesterday. With some evidence of perihilar fibrosis Review of systems CONSTITUTIONAL: No fever, no malaise, no fatigue. HEENT: No recent visual problems or hearing problems. Denied any sore throat. CARDIOVASCULAR: No orthopnea, PND, no palpitations, no syncope. HEMATOLOGICAL: Denies any bleeding or petechiae. GENITOURINARY: Denies any burning micturition, frequency, or urgency. MUSCULOSKELETAL/RHEUMATOLOGICAL: Denies any joint pain, swelling, or any muscle pain. ENDOCRINE: Denies any polyuria or polydipsia. Active Medications Generic Name Dose Route Start Last Admin Trade Name Freq PRN Reason Stop Dose Admin Hydrocodone Bitart/Acetaminophen 1 each 10/17/24 17:00 10/18/24 09:25 Hydrocodone/Apap 5-325mg 1 Each Tab PO 1 each TID@0900,1700,2100 [facility] Administration Albuterol Sulfate 2 puff 10/18/24 09:15 Albuterol Hfa Inhaler INHALATION RT-Q4H PRN Shortness Of Breath Or Wheezing Albuterol Sulfate 2 puff 10/18/24 12:00 Albuterol Hfa Inhaler INHALATION RT-QID [facility] Amlodipine Besylate 5 mg 10/17/24 12:00 10/18/24 09:27 Amlodipine 5 Mg Tab PO 5 mg DAILY MIRI Administration Ascorbic Acid 500 mg 10/18/24 09:00 10/18/24 09:27 Ascorbic Acid 500 Mg Tab PO 500 mg DAILY [facility] Administration Aspirin 81 mg 10/18/24 09:00 10/18/24 09:27 Aspirin 81 Mg PO 81 mg DAILY [facility] Administration Atorvastatin Calcium 20 mg 10/17/24 21:00 10/17/24 21:17 Atorvastatin 20 Mg Tab PO 20 mg HS [facility] Administration Buspirone HCl 15 mg 10/17/24 21:00 10/18/24 09:27 Buspirone Hcl 5 Mg Tab PO 15 mg BID [facility] Administration Cholecalciferol 50 mcg 10/18/24 09:00 10/18/24 09:27 Cholecalciferol 25 Mcg (1000 Iu) Tablet PO 50 mcg DAILY [facility] Administration Citalopram Hydrobromide 40 mg 10/18/24 06:00 10/18/24 06:11 Citalopram Hydrobromide 20 Mg Tab PO 40 mg DAILY@0600 [facility] Administration Clonazepam 1 mg 10/17/24 21:00 10/17/24 21:17 Clonazepam 1 Mg Tab PO 1 mg HS [facility] Administration Cyclobenzaprine HCl 10 mg 10/17/24 11:51 Cyclobenzaprine 10 Mg Tab PO TID PRN Muscle Spasm Enoxaparin Sodium 70 mg 10/18/24 09:00 10/18/24 09:28 Enoxaparin 80 Mg/0.8 Ml Syringe SQ 70 mg DAILY [facility] Administration Fluticasone Propionate 2 spray 10/17/24 19:44 10/17/24 21:16 Fluticasone Nasal 50mcg/Wells 16gm Btl EA NOSTRIL 2 spray DAILY PRN Administration Allergy Symptoms Gabapentin 300 mg 10/17/24 14:00 10/18/24 06:11 Gabapentin 300 Mg Cap PO 300 mg Q8HR@0600,1400,2200 [facility] Administration Guaifenesin 600 mg 10/17/24 19:42 10/17/24 21:17 Guaifenesin 600 Mg Tablet.Er PO 600 mg Q12HR PRN Administration Cough Guaifenesin/Dextromethorphan 10 ml 10/17/24 11:51 10/17/24 22:07 Guaifenesin-Dm 100-10mg/5ml 10 Ml Cup PO 10 ml Q4H PRN Administration Cough Sodium Chloride 1,000 mls @ 75 mls/hr 10/17/24 01:15 10/18/24 09:25 Saline 0.9% IV 75 mls/hr .[id number] [facility] Administration Ceftriaxone Sodium 2 gm/ 50 mls @ 100 mls/hr 10/17/24 09:00 10/18/24 09:27 Sodium Chloride IVPB 10/20/24 09:29 100 mls/hr Q24HR [facility] Administration Protocol Levothyroxine Sodium 75 mcg 10/18/24 06:00 10/18/24 06:11 Levothyroxine 75 Mcg Tab PO 75 mcg SUTUWEFRSA@0600 [facility] Administration Levothyroxine Sodium 100 mcg 10/21/24 06:00 Levothyroxine 100 Mcg Tab PO MOTH@0600 [facility] Losartan Potassium 50 mg 10/17/24 21:00 10/18/24 09:27 Losartan 50 Mg Tab PO 50 mg BID [facility] Administration Methylprednisolone Sodium Succinate 60 mg 10/17/24 12:00 10/18/24 06:11 Methylprednisolone Sod Succi 125 Mg/2 Ml Vial IV 60 mg Q6HR [facility] Administration Mirtazapine 45 mg 10/17/24 21:00 10/17/24 21:17 Mirtazapine 45 Mg Tablet PO 45 mg HS [facility] Administration Miscellaneous Information 1 each 10/17/24 03:03 Pneumonia Protocol Utilized 1 Each Misc PO ONCE PRN Per Protocol Pantoprazole Sodium 40 mg 10/18/24 06:00 10/18/24 06:11 Pantoprazole 40 Mg Tablet PO 40 mg DAILY@0600 [facility] Administration Tiotropium [place] 2 puff 10/18/24 12:00 Tiotropium 2.5 Mcg Inhaler INHALATION RT-DAILY [facility] Objective - Vital Signs Vital signs: Vital Signs Temp 97.3 F L 10/18/24 07:46 Pulse 97 10/18/24 07:46 Resp 18 10/18/24 07:46 BP 139/82 10/18/24 07:46 Pulse Ox 95 10/18/24 07:46 FiO2 Intake & Output 10/17/24 10/18/24 10/18/24 18:59 06:59 18:59 Intake Total 900 Output Total 600 Balance 300 Weight 65.317 kg Intake: Intake, IV Titration 900 Amount Sodium Chloride 0.9% 1, 900 000 ml @ 75 mls/hr IV . [id number] [facility] Rx#:[id number] Output: Urine 600 Other: Voiding Method External Catheter # Voids 2 # Bowel Movements 1 1 - Exam GENERAL: The patient is alert and oriented x3, not in any acute distress. Well developed, well nourished. HEENT: Pupils are round and equally reacting to light. EOMI. No scleral icterus. No conjunctival pallor. Normocephalic, atraumatic. No pharyngeal erythema. No thyromegaly. CARDIOVASCULAR: S1 and S2 present. No murmurs, rubs, or gallops. -PULMONARY: Chest is clear to auscultation, no wheezing , scattered crackles. ABDOMEN: Soft, nontender, nondistended, normoactive bowel sounds. No palpable organomegaly. MUSCULOSKELETAL: No joint swelling or deformity. EXTREMITIES: No cyanosis, clubbing, or pedal edema. NEUROLOGICAL: Gross neurological examination did not reveal any focal deficits. SKIN: No rashes. no petechiae. - Labs CBC & Chem 7: 10/18/24 02:46 10/18/24 02:46 Labs: Abnormal Lab Results - Last 24 Hours (Table) 10/17/24 10/17/24 10/18/24 Range/Units 09:15 21:12 02:46 RBC 3.35 L (4.10-5.20) X 10*6/uL Hgb 9.1 L (12.0-15.0) g/dL Hct 30.9 L (37.2-46.3) % MCHC 29.4 L (32.0-37.0) g/dL RDW 15.4 H (11.5-14.5) % Lymphocytes # 0.29 L (0.90-5.00) X 10*3/uL Monocytes # 0.12 L (0.20-1.00) X 10*3/uL Eosinophils # 0 L (0.04-0.35) X 10*3/uL Chloride (96-109) mmol/L Carbon Dioxide (21.6-31.8) mmol/L BUN/Creatinine Ratio (12.00-20.00) Ratio Glucose (70-110) mg/dL Calcium (8.7-10.3) mg/dL Procalcitonin 1.90 H (0.02-0.50) ng/mL Urine Protein Trace H (Negative) Urine Ketones 2+ H (Negative) Urine Blood Small H (Negative) Ur Leukocyte Esterase Moderate H (Negative) Urine WBC 7 H (0-5) /hpf Amorphous Sediment Rare H (None) /hpf Urine Bacteria Occasional H (None) /hpf Urine Mucus Rare H (None) /hpf 10/18/24 Range/Units 02:46 RBC (4.10-5.20) X 10*6/uL Hgb (12.0-15.0) g/dL Hct (37.2-46.3) % MCHC (32.0-37.0) g/dL RDW (11.5-14.5) % Lymphocytes # (0.90-5.00) X 10*3/uL Monocytes # (0.20-1.00) X 10*3/uL Eosinophils # (0.04-0.35) X 10*3/uL Chloride 116 H (96-109) mmol/L Carbon Dioxide 19.0 L (21.6-31.8) mmol/L BUN/Creatinine Ratio 31.50 H (12.00-20.00) Ratio Glucose 214 H (70-110) mg/dL Calcium 7.8 L (8.7-10.3) mg/dL Procalcitonin (0.02-0.50) ng/mL Urine Protein (Negative) Urine Ketones (Negative) Urine Blood (Negative) Ur Leukocyte Esterase (Negative) Urine WBC (0-5) /hpf Amorphous Sediment (None) /hpf Urine Bacteria (None) /hpf Urine Mucus (None) /hpf Assessment and Plan Assessment: pulmonary acquired pneumonia, more on the right lower lobe Acute on chronic hypoxic respiratory failure acute COPD exacerbation Sepsis secondary to above Acute kidney injury Plan: Continue with ceftriaxone and Zithromax Continue with normal saline but lowered the rate to 75 mL/h Continue with IV Solu-Medrol Labs and medication were reviewed.. Continue same treatment. Continue with symptomatic treatment. Resume home medication. Monitor labs and vitals. DVT and GI prophylaxis. Further recommendations as per clinical course of the patient DVT prophylaxis: Subcutaneous heparin GI Prophylaxis: Protonix Prognosis is guarded
[2024-10-18] MEDS: ALBUTEROL HFA INHALER INHALATION SCH (12:04)
[2024-10-18] MEDS: TIOTROPIUM 2.5 MCG INHALER INHALATION SCH (12:05)
[2024-10-18] MEDS: guaiFENesin-DM 100-10MG/5ML 10 ML CUP PO SCH (13:15)
[2024-10-18] MEDS: CYCLOBENZAPRINE 10 MG TAB PO PRN (13:20)
--- NOTE | 2024-10-18 18:44 | P.PN ---
Subjective Progress Note Date: 10/18/24 This is a 69-year-old female patient, known history of advanced COPD, oxygen dependent 2 L/min nasal cannula, resides at [facility] on the [place]. Quite debilitated, nonambulatory at this point in time. The patient presented to the hospital because of worsening shortness of breath, cough, chest congestion and worsening respiratory status. No reported aspiration. No chest pain. No swelling in lower extremities. She is known to have osteoporosis and previous compression fracture of her spine and she suffers from chronic back pain. The patient accordingly was admitted to the hospital. Her white cell count of 10.7 with a hemoglobin 10.1 and a platelet count of 230. D-dimer is at 2.49 and the rest of the coagulation profiles been within normal limits. Creatinine was at 1.3 dropped down to 0.7. Serum bicarb was at 21 dropped down to 16 with a gap of 12 and a sodium levels at 141 and a potassium level is 3.7. Procalcitonin level is at 1.9. The viral screen was negative. Urine drug screen was positive for cannabinoids. She denies smoking for now. A chest x-ray was done in the emergency department and it showed COPD with chronic interstitial opacities bilaterally right more than left. Previous CT scan of the chest that was done in January 2024 was consistent with advanced emphysematous changes bilaterally and there was some resolving inflammatory changes in the right upper lobe. No evidence of any masses or malignant process. The patient accordingly was started on a combination of Rocephin and Zithromax. The patient is currently on DuoNeb AND IV Solu-Medrol was also started in addition to her home medications. Oxygenation remained worse as the patient is currently on 6 L of oxygen nasal cannula as the patient has been maintained on 2 L at baseline at the group home. Troponins are negative. proBNP level is at 742. On 10/18/2024, the patient is being seen for a follow-up. Patient is essentially the same as yesterday and the patient continues to be bronchospastic and wheezy. She does have a right lung pneumonia in addition. Blood cultures been negative. The patient is afebrile. She remains hemodynamically stable and she remains on 60 Suboxone by nasal cannula with a pulse ox of 97%. She is currently afebrile. She is on IV Rocephin. She is also on IV Solu-Medrol 60 mg every 6 hours. No nausea. No vomiting. No diarrhea. No abdominal pain. No altered mentation. The viral screen was negative. Legionella urine antigen was negative. Follow-up chest x-ray was done today and the patient was found to have COPD with right perihilar and right lower lobe pulmonary infiltrate which remains essentially stable. Objective - Vital Signs Vital signs: Vital Signs Temp 97.3 F L 10/18/24 07:46 Pulse 97 10/18/24 07:46 Resp 18 10/18/24 07:46 BP 139/82 10/18/24 07:46 Pulse Ox 95 10/18/24 07:46 FiO2 Intake & Output 10/17/24 10/18/24 10/18/24 18:59 06:59 18:59 Intake Total 900 Output Total 600 Balance 300 Weight 65.317 kg Intake: Intake, IV Titration 900 Amount Sodium Chloride 0.9% 1, 900 000 ml @ 75 mls/hr IV . [id number] [facility] Rx#:[id number] Output: Urine 600 Other: Voiding Method External Catheter # Voids 2 # Bowel Movements 1 1 - Exam GENERAL EXAM: Alert, very pleasant 69-year-old female, on 6 L nasal cannula, in no apparent distress. HEAD: Normocephalic. EYES: Normal reaction of pupils, equal size. NOSE: Clear with pink turbinates. THROAT: No erythema or exudates. NECK: No masses, no JVD. CHEST: No chest wall deformity. LUNGS: Diminished but equal air entry with few scattered rhonchi. The patient has scattered rhonchi throughout the lung base bilaterally right more than left along with expiratory wheezes and air entry is diminished bilaterally. CVS: S1 and S2 normal with no audible murmur, regular rhythm. ABDOMEN: No hepatosplenomegaly, normal bowel sounds, no guarding or rigidity. SPINE: No scoliosis or deformity SKIN: No rashes CENTRAL NERVOUS SYSTEM: No focal deficits, tone is normal in all 4 extremities. The patient has profound generalized weakness and the patient is nonambulatory at this point. EXTREMITIES: There is no peripheral edema. No clubbing, no cyanosis. Peripheral pulses are intact. - Labs CBC & Chem 7: 10/18/24 02:46 10/18/24 02:46 Labs: Abnormal Lab Results - Last 24 Hours (Table) 10/17/24 10/17/24 10/18/24 Range/Units 09:15 21:12 02:46 RBC 3.35 L (4.10-5.20) X 10*6/uL Hgb 9.1 L (12.0-15.0) g/dL Hct 30.9 L (37.2-46.3) % MCHC 29.4 L (32.0-37.0) g/dL RDW 15.4 H (11.5-14.5) % Lymphocytes # 0.29 L (0.90-5.00) X 10*3/uL Monocytes # 0.12 L (0.20-1.00) X 10*3/uL Eosinophils # 0 L (0.04-0.35) X 10*3/uL Chloride (96-109) mmol/L Carbon Dioxide (21.6-31.8) mmol/L BUN/Creatinine Ratio (12.00-20.00) Ratio Glucose (70-110) mg/dL Calcium (8.7-10.3) mg/dL Procalcitonin 1.90 H (0.02-0.50) ng/mL Urine Protein Trace H (Negative) Urine Ketones 2+ H (Negative) Urine Blood Small H (Negative) Ur Leukocyte Esterase Moderate H (Negative) Urine WBC 7 H (0-5) /hpf Amorphous Sediment Rare H (None) /hpf Urine Bacteria Occasional H (None) /hpf Urine Mucus Rare H (None) /hpf 10/18/24 Range/Units 02:46 RBC (4.10-5.20) X 10*6/uL Hgb (12.0-15.0) g/dL Hct (37.2-46.3) % MCHC (32.0-37.0) g/dL RDW (11.5-14.5) % Lymphocytes # (0.90-5.00) X 10*3/uL Monocytes # (0.20-1.00) X 10*3/uL Eosinophils # (0.04-0.35) X 10*3/uL Chloride 116 H (96-109) mmol/L Carbon Dioxide 19.0 L (21.6-31.8) mmol/L BUN/Creatinine Ratio 31.50 H (12.00-20.00) Ratio Glucose 214 H (70-110) mg/dL Calcium 7.8 L (8.7-10.3) mg/dL Procalcitonin (0.02-0.50) ng/mL Urine Protein (Negative) Urine Ketones (Negative) Urine Blood (Negative) Ur Leukocyte Esterase (Negative) Urine WBC (0-5) /hpf Amorphous Sediment (None) /hpf Urine Bacteria (None) /hpf Urine Mucus (None) /hpf Microbiology - Last 24 Hours (Table) 10/17/24 01:25 Blood Culture - Preliminary Blood Assessment and Plan Plan: Acute on chronic hypoxic respiratory failure, the patient is on 6 L O2 nasal cannula, baseline is up to. This is related to a combination of COPD and right lung pneumonia. Acute COPD exacerbation Acute right lung pneumonia as the patient has new areas of infiltration/consolidation involving the right lung compared to the previous chest x-rays. Clinically, the patient continues to have increased cough and congestion and worsening shortness of breath. The procalcitonin level is at 1.9 Advanced COPD with chronic hypoxic respiratory failure maintained on oxygen at 2 L Osteoporosis Compression fracture of the lumbar spine Hyperlipidemia Hyperlipidemia anxiety/depression Acute kidney injury, improved creatinine is normalized Elevated procalcitonin level, consider underlying bacterial right lung infection Plan Clinically unchanged compared to yesterday Chest x-ray shows stable infiltration of the right perihilar/right lower lobe Titrate oxygen flow to maintain oxygen saturation above 90%, currently on 6 L/min nasal cannula Sputum Gram stain and culture pending DuoNeb nebulized treatments [id number] Continue Rocephin and Zithromax IV Solu-Medrol 60 mg every 6 hours Continue normal saline at 75 cc an hour D-dimer is moderately elevated. Nevertheless, the suspicion for pulmonary embolism is quite low in this patient. Will continue to follow.
[2024-10-18] MEDS: AZITHROMYCIN 500 MG in SODIUM CHLORIDE 0.9% 250 ML IVPB SCH (20:01)
[2024-10-18] MEDS: IPRATROPIUM-ALBUTEROL 3 ML NEB INHALATION SCH (20:37)
--- NOTE | 2024-10-19 15:38 | P.PN ---
Subjective Progress Note Date: 10/19/24 This is a 69-year-old female patient, known history of advanced COPD, oxygen dependent 2 L/min nasal cannula, resides at [facility] on the [place]. Quite debilitated, nonambulatory at this point in time. The patient presented to the hospital because of worsening shortness of breath, cough, chest congestion and worsening respiratory status. No reported aspiration. No chest pain. No swelling in lower extremities. She is known to have osteoporosis and previous compression fracture of her spine and she suffers from chronic back pain. The patient accordingly was admitted to the hospital. Her white cell count of 10.7 with a hemoglobin 10.1 and a platelet count of 230. D-dimer is at 2.49 and the rest of the coagulation profiles been within normal limits. Creatinine was at 1.3 dropped down to 0.7. Serum bicarb was at 21 dropped down to 16 with a gap of 12 and a sodium levels at 141 and a potassium level is 3.7. Procalcitonin level is at 1.9. The viral screen was negative. Urine drug screen was positive for cannabinoids. She denies smoking for now. A chest x-ray was done in the emergency department and it showed COPD with chronic interstitial opacities bilaterally right more than left. Previous CT scan of the chest that was done in January 2024 was consistent with advanced emphysematous changes bilaterally and there was some resolving inflammatory changes in the right upper lobe. No evidence of any masses or malignant process. The patient accordingly was started on a combination of Rocephin and Zithromax. The patient is currently on DuoNeb AND IV Solu-Medrol was also started in addition to her home medications. Oxygenation remained worse as the patient is currently on 6 L of oxygen nasal cannula as the patient has been maintained on 2 L at baseline at the group home. Troponins are negative. proBNP level is at 742. On 10/18/2024, the patient is being seen for a follow-up. Patient is essentially the same as yesterday and the patient continues to be bronchospastic and wheezy. She does have a right lung pneumonia in addition. Blood cultures been negative. The patient is afebrile. She remains hemodynamically stable and she remains on 60 Suboxone by nasal cannula with a pulse ox of 97%. She is currently afebrile. She is on IV Rocephin. She is also on IV Solu-Medrol 60 mg every 6 hours. No nausea. No vomiting. No diarrhea. No abdominal pain. No altered mentation. The viral screen was negative. Legionella urine antigen was negative. Follow-up chest x-ray was done today and the patient was found to have COPD with right perihilar and right lower lobe pulmonary infiltrate which remains essentially stable. On 10/19/2024, the patient is being seen for a follow-up. Less bronchospastic and wheezy compared to yesterday. Less congested. She continues to have some cough however and she remains on oxygen at 6 liters of oxygen nasal cannula with a pulse ox of 93%. The white cell count is 6.1 with a hemoglobin 9.1 and a platelet count of 256. Electrolytes show a sodium level of 143, serum bicarb is at 19, potassium level 3.8. Legionella urine antigen is negative. Viral screen is also negative. No altered mentation. The patient remains on a combination of Rocephin and Zithromax. Objective - Vital Signs Vital signs: Vital Signs Temp 97.6 F 10/19/24 07:47 Pulse 100 10/19/24 09:52 Resp 16 10/19/24 07:47 BP 147/70 10/19/24 07:47 Pulse Ox 94 L 10/19/24 09:33 FiO2 Intake & Output 10/18/24 10/19/24 10/19/24 18:59 06:59 18:59 Intake Total 540 Output Total 425 650 Balance -425 -110 Intake: Oral 540 Output: Urine 425 650 Other: Voiding Method External Catheter External Catheter External Catheter - Exam GENERAL EXAM: Alert, very pleasant 69-year-old female, on 6 L nasal cannula, in no apparent distress. HEAD: Normocephalic. EYES: Normal reaction of pupils, equal size. NOSE: Clear with pink turbinates. THROAT: No erythema or exudates. NECK: No masses, no JVD. CHEST: No chest wall deformity. LUNGS: Diminished but equal air entry with few scattered rhonchi. The patient has scattered rhonchi throughout the lung base bilaterally right more than left along with expiratory wheezes and air entry is diminished bilaterally. CVS: S1 and S2 normal with no audible murmur, regular rhythm. ABDOMEN: No hepatosplenomegaly, normal bowel sounds, no guarding or rigidity. SPINE: No scoliosis or deformity SKIN: No rashes CENTRAL NERVOUS SYSTEM: No focal deficits, tone is normal in all 4 extremities. The patient has profound generalized weakness and the patient is nonambulatory at this point. EXTREMITIES: There is no peripheral edema. No clubbing, no cyanosis. Peripheral pulses are intact. - Labs CBC & Chem 7: 10/18/24 02:46 10/18/24 02:46 Labs: Microbiology - Last 24 Hours (Table) 10/17/24 01:25 Blood Culture - Preliminary Blood Assessment and Plan Plan: Acute on chronic hypoxic respiratory failure, the patient is on 6 L O2 nasal cannula, baseline is up to. This is related to a combination of COPD and right lung pneumonia. The patient remains on a combination Rocephin and Zithromax. Acute COPD exacerbation, slightly improved compared to yesterday Acute right lung pneumonia as the patient has new areas of infiltratio n/consolidation involving the right lung compared to the previous chest x-rays. Clinically, the patient continues to have increased cough and congestion and worsening shortness of breath. The procalcitonin level is at 1.9 Advanced COPD with chronic hypoxic respiratory failure maintained on oxygen at 2 L Osteoporosis Compression fracture of the lumbar spine Hyperlipidemia Hyperlipidemia anxiety/depression Acute kidney injury, improved creatinine is normalized Elevated procalcitonin level, consider underlying bacterial right lung infection Plan Clinically slightly better compared to yesterday. Will continue same treatment for now. Chest x-ray shows stable infiltration of the right perihilar/right lower lobe Titrate oxygen flow to maintain oxygen saturation above 90%, currently on 6 L/min nasal cannula Sputum Gram stain and culture pending DuoNeb nebulized treatments [id number] Continue Rocephin and Zithromax IV Solu-Medrol 60 mg every 6 hours Continue normal saline at 75 cc an hour D-dimer is moderately elevated. Nevertheless, the suspicion for pulmonary embolism is quite low in this patient. Will continue to follow.
--- NOTE | 2024-10-19 20:44 | P.PN ---
Subjective Patient is a pleasant 69 years old female with multiple medical problems Presents because of worsening dyspnea over a few days associated with cough and phlegm She complains from chest pain which bother her a lot especially her chest below her ribs and in her abdomen whenever she c coughs, she is asking for cough medicine She has bowel movement yesterday which she thinks she is fine, she denies abdominal tenderness or vomiting, she has low appetite She has not urinated in 2 days No headache dizziness weakness or numbness She denies smoking alcohol or illicit drugs she uses 2 L of oxygen at home Currently she is on 6 L oxygen Labs reviewed, WBC 10.7 which is slightly up, hemoglobin 10.1, creatinine 1.3 with baseline 0.7 INR is unremarkable, troponin 0.02. proBNP 742. Influenza A and type B, RSV, SARS (coronavirus) are and detected Chest x-ray showed increased interstitial opacity more on the right lower area EKG showing sinus rhythm at [address]-T changes D-dimer is 2.49 10/18 Patient still complaining from breathing difficulty although she still is a little better Her oxygen requirement went 5 up to 6 L/min She still coughing a lot and she was counseled to use antitussive as needed medication No significant chest pain. She remains on broad-spectrum antibiotics with Zithromax and ceftriaxone and normal saline at 75 mL/h Repeat chest x-ray this morning it looks to be little better than yesterday. With some evidence of perihilar fibrosis 10/19 Patient pneumonia is improving slowly and gradually Patient states she still short of breath but she looks better with less coughing She remains on IV Solu-Medrol, she remains on broad-spectrum antibiotic with ceftriaxone and Zithromax Chest x-ray showing right perihilar infiltrate Objective - Vital Signs Vital signs: Vital Signs Temp 97.6 F 10/19/24 07:47 Pulse 98 10/19/24 13:18 Resp 16 10/19/24 07:47 BP 147/70 10/19/24 07:47 Pulse Ox 94 L 10/19/24 09:33 FiO2 Intake & Output 10/18/24 10/19/24 10/19/24 18:59 06:59 18:59 Intake Total 540 Output Total 425 650 Balance -425 -110 Intake: Oral 540 Output: Urine 425 650 Other: Voiding Method External Catheter External Catheter External Catheter - Exam GENERAL: The patient is alert and oriented x3, not in any acute distress. Well developed, well nourished. HEENT: Pupils are round and equally reacting to light. EOMI. No scleral icterus. No conjunctival pallor. Normocephalic, atraumatic. No pharyngeal erythema. No thyromegaly. CARDIOVASCULAR: S1 and S2 present. No murmurs, rubs, or gallops. -PULMONARY: Chest is clear to auscultation, no wheezing , scattered crackles. ABDOMEN: Soft, nontender, nondistended, normoactive bowel sounds. No palpable organomegaly. MUSCULOSKELETAL: No joint swelling or deformity. EXTREMITIES: No cyanosis, clubbing, or pedal edema. NEUROLOGICAL: Gross neurological examination did not reveal any focal deficits. SKIN: No rashes. no petechiae. - Labs CBC & Chem 7: 10/18/24 02:46 10/18/24 02:46 Labs: Microbiology - Last 24 Hours (Table) 10/17/24 01:25 Blood Culture - Preliminary Blood Assessment and Plan Assessment: pulmonary acquired pneumonia, more on the right lower lobe Acute on chronic hypoxic respiratory failure acute COPD exacerbation Sepsis secondary to above Acute kidney injury Plan: Continue with ceftriaxone and Zithromax Continue with normal saline but lowered the rate to 75 mL/h Continue with IV Solu-Medrol Labs and medication were reviewed.. Continue same treatment. Continue with symptomatic treatment. Resume home medication. Monitor labs and vitals. DVT and GI prophylaxis. Further recommendations as per clinical course of the patient DVT prophylaxis: Subcutaneous he Lovenox GI Prophylaxis: Protonix Prognosis is guarded
--- NOTE | 2024-10-20 12:40 | P.PN ---
Subjective Patient is a pleasant 69 years old female with multiple medical problems Presents because of worsening dyspnea over a few days associated with cough and phlegm She complains from chest pain which bother her a lot especially her chest below her ribs and in her abdomen whenever she c coughs, she is asking for cough medicine She has bowel movement yesterday which she thinks she is fine, she denies abdominal tenderness or vomiting, she has low appetite She has not urinated in 2 days No headache dizziness weakness or numbness She denies smoking alcohol or illicit drugs she uses 2 L of oxygen at home Currently she is on 6 L oxygen Labs reviewed, WBC 10.7 which is slightly up, hemoglobin 10.1, creatinine 1.3 with baseline 0.7 INR is unremarkable, troponin 0.02. proBNP 742. Influenza A and type B, RSV, SARS (coronavirus) are and detected Chest x-ray showed increased interstitial opacity more on the right lower area EKG showing sinus rhythm at [address]-T changes D-dimer is 2.49 10/18 Patient still complaining from breathing difficulty although she still is a little better Her oxygen requirement went 5 up to 6 L/min She still coughing a lot and she was counseled to use antitussive as needed medication No significant chest pain. She remains on broad-spectrum antibiotics with Zithromax and ceftriaxone and normal saline at 75 mL/h Repeat chest x-ray this morning it looks to be little better than yesterday. With some evidence of perihilar fibrosis 10/19 Patient pneumonia is improving slowly and gradually Patient states she still short of breath but she looks better with less coughing She remains on IV Solu-Medrol, she remains on broad-spectrum antibiotic with ceftriaxone and Zithromax Chest x-ray showing right perihilar infiltrate 10/20/2024 Patient improving slowly and gradually She is very tired still in bed most of the time She still complains from dyspnea and occasional coughing but no significant chest pain Her oxygen saturation improving and today she is saturating 97% on 4 L oxygen Will check labs tomorrow morning She remains on Zithromax and ceftriaxone and IV Solu-Medrol 60 mg. Active Medications Generic Name Dose Route Start Last Admin Trade Name Freq PRN Reason Stop Dose Admin Hydrocodone Bitart/Acetaminophen 1 each 10/17/24 17:00 10/20/24 09:12 Hydrocodone/Apap 5-325mg 1 Each Tab PO 1 each TID@0900,1700,2100 MIRI Administration Albuterol/Ipratropium 3 ml 10/18/24 20:00 10/20/24 09:42 Ipratropium-Albuterol 3 Ml Neb INHALATION 3 ml RT-QID MIRI Administration Amlodipine Besylate 5 mg 10/17/24 12:00 10/20/24 09:12 Amlodipine 5 Mg Tab PO 5 mg DAILY MIRI Administration Ascorbic Acid 500 mg 10/18/24 09:00 10/20/24 09:13 Ascorbic Acid 500 Mg Tab PO 500 mg DAILY MIRI Administration Aspirin 81 mg 10/18/24 09:00 10/20/24 09:12 Aspirin 81 Mg PO 81 mg DAILY MIRI Administration Atorvastatin Calcium 20 mg 10/17/24 21:00 10/19/24 21:25 Atorvastatin 20 Mg Tab PO 20 mg HS MIRI Administration Buspirone HCl 15 mg 10/17/24 21:00 10/20/24 09:12 Buspirone Hcl 5 Mg Tab PO 15 mg BID MIRI Administration Cholecalciferol 50 mcg 10/18/24 09:00 10/20/24 09:12 Cholecalciferol 25 Mcg (1000 Iu) Tablet PO 50 mcg DAILY MIRI Administration Citalopram Hydrobromide 40 mg 10/18/24 06:00 10/20/24 05:51 Citalopram Hydrobromide 20 Mg Tab PO 40 mg DAILY@0600 MIRI Administration Clonazepam 1 mg 10/17/24 21:00 10/19/24 21:25 Clonazepam 1 Mg Tab PO 1 mg HS MIRI Administration Cyclobenzaprine HCl 10 mg 10/17/24 11:51 10/18/24 13:20 Cyclobenzaprine 10 Mg Tab PO 10 mg TID PRN Administration Muscle Spasm Enoxaparin Sodium 70 mg 10/18/24 09:00 10/20/24 09:13 Enoxaparin 80 Mg/0.8 Ml Syringe SQ 70 mg DAILY MIRI Administration Fluticasone Propionate 2 spray 10/17/24 19:44 10/17/24 21:16 Fluticasone Nasal 50mcg/[place] 16gm Btl EA NOSTRIL 2 spray DAILY PRN Administration Allergy Symptoms Gabapentin 300 mg 10/17/24 14:00 10/20/24 05:51 Gabapentin 300 Mg Cap PO 300 mg Q8HR@0600,1400,2200 MIRI Administration Guaifenesin/Dextromethorphan 10 ml 10/18/24 12:00 10/20/24 12:02 Guaifenesin-Dm 100-10mg/5ml 10 Ml Cup PO 10/21/24 11:59 10 ml Q6HR MIRI Administration Sodium Chloride 1,000 mls @ 75 mls/hr 10/17/24 01:15 10/20/24 12:01 Saline 0.9% IV 75 mls/hr .[id number] MIRI Administration Levothyroxine Sodium 75 mcg 10/18/24 06:00 10/20/24 05:51 Levothyroxine 75 Mcg Tab PO 75 mcg SUTUWEFRSA@0600 MIRI Administration Levothyroxine Sodium 100 mcg 10/21/24 06:00 Levothyroxine 100 Mcg Tab PO MOTH@0600 MIRI Losartan Potassium 50 mg 10/17/24 21:00 10/20/24 09:12 Losartan 50 Mg Tab PO 50 mg BID MIRI Administration Methylprednisolone Sodium Succinate 60 mg 10/17/24 12:00 10/20/24 12:02 Methylprednisolone Sod Succi 125 Mg/2 Ml Vial IV 60 mg Q6HR MIRI Administration Mirtazapine 45 mg 10/17/24 21:00 10/19/24 21:25 Mirtazapine 45 Mg Tablet PO 45 mg HS MIRI Administration Miscellaneous Information 1 each 10/17/24 03:03 Pneumonia Protocol Utilized 1 Each Misc PO ONCE PRN Per Protocol Pantoprazole Sodium 40 mg 10/18/24 06:00 10/20/24 05:51 Pantoprazole 40 Mg Tablet PO 40 mg DAILY@0600 MIRI Administration Tiotropium [place] 2 puff 10/18/24 12:00 10/19/24 09:32 Tiotropium 2.5 Mcg Inhaler INHALATION Not Given RT-DAILY MIRI Objective - Vital Signs Vital signs: Vital Signs Temp 97.8 F 10/20/24 08:00 Pulse 96 10/20/24 09:50 Resp 17 10/20/24 08:00 BP 157/92 10/20/24 08:00 Pulse Ox 97 10/20/24 09:44 FiO2 Intake & Output 10/19/24 10/20/24 10/20/24 18:59 06:59 18:59 Output Total 800 1600 Balance -800 -1600 Output: Urine 800 1600 Other: Voiding Method External Catheter External Catheter External Catheter - Exam GENERAL: The patient is alert and oriented x3, not in any acute distress. Well developed, well nourished. HEENT: Pupils are round and equally reacting to light. EOMI. No scleral icterus. No conjunctival pallor. Normocephalic, atraumatic. No pharyngeal erythema. No thyromegaly. CARDIOVASCULAR: S1 and S2 present. No murmurs, rubs, or gallops. -PULMONARY: Chest is clear to auscultation, no wheezing , scattered crackles. ABDOMEN: Soft, nontender, nondistended, normoactive bowel sounds. No palpable organomegaly. MUSCULOSKELETAL: No joint swelling or deformity. EXTREMITIES: No cyanosis, clubbing, or pedal edema. NEUROLOGICAL: Gross neurological examination did not reveal any focal deficits. SKIN: No rashes. no petechiae. - Labs CBC & Chem 7: 10/18/24 02:46 10/18/24 02:46 Labs: Microbiology - Last 24 Hours (Table) 10/17/24 01:25 Blood Culture - Preliminary Blood Assessment and Plan Assessment: pulmonary acquired pneumonia, more on the right lower lobe Acute on chronic hypoxic respiratory failure acute COPD exacerbation Sepsis secondary to above Acute kidney injury Plan: Continue with ceftriaxone and Zithromax (today is last day for Zithromax) Continue with normal saline but lowered the rate to 75 mL/h Continue with IV Solu-Medrol Labs and medication were reviewed.. Continue same treatment. Continue with symptomatic treatment. Resume home medication. Monitor labs and vitals. DVT and GI prophylaxis. Further recommendations as per clinical course of the patient DVT prophylaxis: Subcutaneous he Lovenox GI Prophylaxis: Protonix Patient extremely weak and lethargic and she would benefit from PT/OT which is ordered patient may need ECF for subacute rehab Prognosis is guarded
--- NOTE | 2024-10-20 14:44 | P.PN ---
Subjective Progress Note Date: 10/20/24 This is a 69-year-old female patient, known history of advanced COPD, oxygen dependent 2 L/min nasal cannula, resides at [facility] on the [place]. Quite debilitated, nonambulatory at this point in time. The patient presented to the hospital because of worsening shortness of breath, cough, chest congestion and worsening respiratory status. No reported aspiration. No chest pain. No swelling in lower extremities. She is known to have osteoporosis and previous compression fracture of her spine and she suffers from chronic back pain. The patient accordingly was admitted to the hospital. Her white cell count of 10.7 with a hemoglobin 10.1 and a platelet count of 230. D-dimer is at 2.49 and the rest of the coagulation profiles been within normal limits. Creatinine was at 1.3 dropped down to 0.7. Serum bicarb was at 21 dropped down to 16 with a gap of 12 and a sodium levels at 141 and a potassium level is 3.7. Procalcitonin level is at 1.9. The viral screen was negative. Urine drug screen was positive for cannabinoids. She denies smoking for now. A chest x-ray was done in the emergency department and it showed COPD with chronic interstitial opacities bilaterally right more than left. Previous CT scan of the chest that was done in January 2024 was consistent with advanced emphysematous changes bilaterally and there was some resolving inflammatory changes in the right upper lobe. No evidence of any masses or malignant process. The patient accordingly was started on a combination of Rocephin and Zithromax. The patient is currently on DuoNeb AND IV Solu-Medrol was also started in addition to her home medications. Oxygenation remained worse as the patient is currently on 6 L of oxygen nasal cannula as the patient has been maintained on 2 L at baseline at the senior living. Troponins are negative. proBNP level is at 742. On 10/18/2024, the patient is being seen for a follow-up. Patient is essentially the same as yesterday and the patient continues to be bronchospastic and wheezy. She does have a right lung pneumonia in addition. Blood cultures been negative. The patient is afebrile. She remains hemodynamically stable and she remains on 60 Suboxone by nasal cannula with a pulse ox of 97%. She is currently afebrile. She is on IV Rocephin. She is also on IV Solu-Medrol 60 mg every 6 hours. No nausea. No vomiting. No diarrhea. No abdominal pain. No altered mentation. The viral screen was negative. Legionella urine antigen was negative. Follow-up chest x-ray was done today and the patient was found to have COPD with right perihilar and right lower lobe pulmonary infiltrate which remains essentially stable. On 10/19/2024, the patient is being seen for a follow-up. Less bronchospastic and wheezy compared to yesterday. Less congested. She continues to have some cough however and she remains on oxygen at 6 liters of oxygen nasal cannula with a pulse ox of 93%. The white cell count is 6.1 with a hemoglobin 9.1 and a platelet count of 256. Electrolytes show a sodium level of 143, serum bicarb is at 19, potassium level 3.8. Legionella urine antigen is negative. Viral screen is also negative. No altered mentation. The patient remains on a combination of Rocephin and Zithromax. 10/20/2024, patient continues to have a congested cough. Oxygenation is stable with a pulse ox of 97% on 4 L oxygen by nasal cannula. Remains on DuoNeb nebulized treatments [id number]. Remains on IV Solu-Medrol. Remains on Rocephin. No hemoptysis. No pleurisy. No new labs from today. Overall condition is stable. Viral screen has been negative. Objective - Vital Signs Vital signs: Vital Signs Temp 97.8 F 10/20/24 08:00 Pulse 96 10/20/24 09:50 Resp 17 10/20/24 08:00 BP 157/92 10/20/24 08:00 Pulse Ox 97 10/20/24 09:44 FiO2 Intake & Output 10/19/24 10/20/24 10/20/24 18:59 06:59 18:59 Output Total 800 1600 Balance -800 -1600 Output: Urine 800 1600 Other: Voiding Method External Catheter External Catheter - Exam GENERAL EXAM: Alert, very pleasant 69-year-old female, on 4 L nasal cannula, in no apparent distress. HEAD: Normocephalic. EYES: Normal reaction of pupils, equal size. NOSE: Clear with pink turbinates. THROAT: No erythema or exudates. NECK: No masses, no JVD. CHEST: No chest wall deformity. LUNGS: Diminished but equal air entry with few scattered rhonchi. The patient has scattered rhonchi throughout the lung base bilaterally right more than left along with expiratory wheezes and air entry is diminished bilaterally. CVS: S1 and S2 normal with no audible murmur, regular rhythm. ABDOMEN: No hepatosplenomegaly, normal bowel sounds, no guarding or rigidity. SPINE: No scoliosis or deformity SKIN: No rashes CENTRAL NERVOUS SYSTEM: No focal deficits, tone is normal in all 4 extremities. The patient has profound generalized weakness and the patient is nonambulatory at this point. EXTREMITIES: There is no peripheral edema. No clubbing, no cyanosis. Peripheral pulses are intact. - Labs CBC & Chem 7: 10/18/24 02:46 10/18/24 02:46 Labs: Microbiology - Last 24 Hours (Table) 10/17/24 01:25 Blood Culture - Preliminary Blood Assessment and Plan Plan: Acute on chronic hypoxic respiratory failure, the patient is on 4 L O2 nasal cannula, baseline is up to. This is related to a combination of COPD and right lung pneumonia. The patient remains on a combination Rocephin and Zithromax. Slight improvement in the patient's oxygenation Acute COPD exacerbation, slightly improved compared to yesterday Acute right lung pneumonia as the patient has new areas of infiltration/consolidation involving the right lung compared to the previous chest x-rays. Clinically, the patient continues to have increased cough and congestion and worsening shortness of breath. The procalcitonin level is at 1.9 Advanced COPD with chronic hypoxic respiratory failure maintained on oxygen at 2 L Osteoporosis Compression fracture of the lumbar spine Hyperlipidemia Hyperlipidemia anxiety/depression Acute kidney injury, improved creatinine is normalized Elevated procalcitonin level, consider underlying bacterial right lung infection Plan Clinically slightly better compared to yesterday. Slight improvement in oxygenation and the patient is currently down to 40s of oxygen by nasal cannula Chest x-ray shows stable infiltration of the right perihilar/right lower lobe Titrate oxygen flow to maintain oxygen saturation above 90%, currently on 4 L/min nasal cannula Sputum Gram stain and culture pending DuoNeb nebulized treatments [id number] Continue Rocephin and Zithromax IV Solu-Medrol 60 mg every 6 hours Continue normal saline at 75 cc an hour D-dimer is moderately elevated. Nevertheless, the suspicion for pulmonary embolism is quite low in this patient. Will continue to follow.
[2024-10-21] MEDS: LEVOTHYROXINE 100 MCG TAB PO SCH (05:34)
--- NOTE | 2024-10-21 14:40 | CDI ---
Documentation Clarification Form Date: 10/21/2024 02:17:09 PM From: Anabel Rios RN, CCDS Email: [email or web address] Admit Date: 10/17/2024 03:07:00 AM Patient Name: Zoila Cheema Visit Number: [id number] Discharge Date: ATTENTION: The Clinical Documentation Specialists (CDI) and [facility] Coding Staff appreciate your assistance in clarifying documentation. Please respond to the clarification below the line at the bottom and electronically sign. The CDI & [facility] Coding staff will review the response and follow-up if needed. Please note: Queries are made part of the Legal Health Record. If you have any questions, please contact the author of this message via ITS. Doctor Aidan E Sheet Sepsis is documented in the H&P and progress notes which may lack sufficient clinical evidence/support in the medical record. Additional clarification is requested. History/Risk Factors: Asthma, COPD on home O2. Presents with dyspnea and cough. Admitted with Sepsis and pneumonia Clinical Indicators: 10/17-10/18 WBC: 10.7-6.16, Cr 1.33-0.79 10/17 Lactic acid: 0.9 10/17 Procalcitonin: 1.90 10/17 blood cultures: no growth after 72 hours H&P: "pulmonary acquired pneumonia, more on the right lower lobe. Acute on chronic hypoxic respiratory failure. Sepsis secondary to above." 10/16 Vital signs: Temp 99.2, HR 95, RR 24, BP 94/58, pox 81% Treatment: supplemental O2, IV Rocephin 2gm Q24H 10/17-10/20; IV Rocephin 1gm Q24H 10/20-current; IV Azithromycin 500mg daily 10/18-10/20; 1L 0.9 NS IV bolus x1 on 10/17 After work up and study, please clarify which diagnosis is most appropriate? [ ] Sepsis ruled out [ ] Sepsis treated prophylactically [ x ] Sepsis is a valid diagnosis as evidence by the following: (Please add rationale): tachycardia, tachypnea, borderline low bp , low greade fever, acute kid inj requiring iv fluids [ ] Other, please specify [ ] Unable to determine MTDD
--- NOTE | 2024-10-21 15:04 | P.PN ---
Subjective Progress Note Date: 10/21/24 This is a 69-year-old female patient, known history of advanced COPD, oxygen dependent 2 L/min nasal cannula, resides at [facility] on the [place]. Quite debilitated, nonambulatory at this point in time. The patient presented to the hospital because of worsening shortness of breath, cough, chest congestion and worsening respiratory status. No reported aspiration. No chest pain. No swelling in lower extremities. She is known to have osteoporosis and previous compression fracture of her spine and she suffers from chronic back pain. The patient accordingly was admitted to the hospital. Her white cell count of 10.7 with a hemoglobin 10.1 and a platelet count of 230. D-dimer is at 2.49 and the rest of the coagulation profiles been within normal limits. Creatinine was at 1.3 dropped down to 0.7. Serum bicarb was at 21 dropped down to 16 with a gap of 12 and a sodium levels at 141 and a potassium level is 3.7. Procalcitonin level is at 1.9. The viral screen was negative. Urine drug screen was positive for cannabinoids. She denies smoking for now. A chest x-ray was done in the emergency department and it showed COPD with chronic interstitial opacities bilaterally right more than left. Previous CT scan of the chest that was done in January 2024 was consistent with advanced emphysematous changes bilaterally and there was some resolving inflammatory changes in the right upper lobe. No evidence of any masses or malignant process. The patient accordingly was started on a combination of Rocephin and Zithromax. The patient is currently on DuoNeb AND IV Solu-Medrol was also started in addition to her home medications. Oxygenation remained worse as the patient is currently on 6 L of oxygen nasal cannula as the patient has been maintained on 2 L at baseline at the senior living. Troponins are negative. proBNP level is at 742. On 10/18/2024, the patient is being seen for a follow-up. Patient is essentially the same as yesterday and the patient continues to be bronchospastic and wheezy. She does have a right lung pneumonia in addition. Blood cultures been negative. The patient is afebrile. She remains hemodynamically stable and she remains on 60 Suboxone by nasal cannula with a pulse ox of 97%. She is currently afebrile. She is on IV Rocephin. She is also on IV Solu-Medrol 60 mg every 6 hours. No nausea. No vomiting. No diarrhea. No abdominal pain. No altered mentation. The viral screen was negative. Legionella urine antigen was negative. Follow-up chest x-ray was done today and the patient was found to have COPD with right perihilar and right lower lobe pulmonary infiltrate which remains essentially stable. On 10/19/2024, the patient is being seen for a follow-up. Less bronchospastic and wheezy compared to yesterday. Less congested. She continues to have some cough however and she remains on oxygen at 6 liters of oxygen nasal cannula with a pulse ox of 93%. The white cell count is 6.1 with a hemoglobin 9.1 and a platelet count of 256. Electrolytes show a sodium level of 143, serum bicarb is at 19, potassium level 3.8. Legionella urine antigen is negative. Viral screen is also negative. No altered mentation. The patient remains on a combination of Rocephin and Zithromax. 10/20/2024, patient continues to have a congested cough. Oxygenation is stable with a pulse ox of 97% on 4 L oxygen by nasal cannula. Remains on DuoNeb n ebulized treatments [id number]. Remains on IV Solu-Medrol. Remains on Rocephin. No hemoptysis. No pleurisy. No new labs from today. Overall condition is stable. Viral screen has been negative. The patient is seen today October 21, 2024 in follow-up on the regular medical floor. She is currently up in a chair at the bedside. Awake and alert in no acute distress. She is maintaining O2 saturations in the 90s on 3 L/min per nasal cannula. Reji on ceftriaxone. Continued on bronchodilators and steroids. No new labs today. Objective - Vital Signs Vital signs: Vital Signs Temp 97.6 F 10/21/24 13:36 Pulse 102 H 10/21/24 13:36 Resp 18 10/21/24 13:36 BP 128/78 10/21/24 13:36 Pulse Ox 92 L 10/21/24 13:36 FiO2 Intake & Output 10/20/24 10/21/24 10/21/24 18:59 06:59 18:59 Intake Total 900 Output Total 2450 Balance 900 -2450 Intake: IV 900 Sodium Chloride 0.9% 1, 900 000 ml @ 75 mls/hr IV . [id number] [facility] Rx#:[id number] Output: Urine 2450 Other: Voiding Method External Catheter External Catheter External Catheter # Bowel Movements 1 1 - Exam GENERAL EXAM: Alert, 69-year-old female, up in a chair, on 3 L nasal cannula, fairly comfortable in no apparent distress. HEAD: Normocephalic. EYES: Normal reaction of pupils, equal size. NOSE: Clear with pink turbinates. THROAT: No erythema or exudates. NECK: No masses, no JVD. CHEST: No chest wall deformity. LUNGS: Equal air entry with scattered rhonchi over the right lung mainly. CVS: S1 and S2 normal with no audible murmur, regular rhythm. ABDOMEN: No hepatosplenomegaly, normal bowel sounds, no guarding or rigidity. SPINE: No scoliosis or deformity SKIN: No rashes CENTRAL NERVOUS SYSTEM: No focal deficits, tone is normal in all 4 extremities. EXTREMITIES: There is no peripheral edema. No clubbing, no cyanosis. Perip heral pulses are intact. - Labs CBC & Chem 7: 10/18/24 02:46 10/18/24 02:46 Labs: Microbiology - Last 24 Hours (Table) 10/17/24 01:25 Blood Culture - Preliminary Blood Assessment and Plan Assessment: Acute on chronic hypoxic respiratory failure, the patient is on 3 L O2 nasal c annula, baseline is up to. This is related to a combination of COPD and right lung pneumonia. The patient remains on a combination Rocephin and completed Zithromax. Slight improvement in the patient's oxygenation Acute COPD exacerbation, improved Acute right lung pneumonia as the patient has new areas of infiltration/consolidation involving the right lung compared to the previous chest x-rays. The procalcitonin level is at 1.9 Advanced COPD with chronic hypoxic respiratory failure maintained on oxygen at 2 L Osteoporosis Compression fracture of the lumbar spine Hyperlipidemia Hyperlipidemia anxiety/depression Acute kidney injury, improved creatinine is normalized Elevated procalcitonin level, consider underlying bacterial right lung infection Plan: The patient was seen and evaluated Medications reviewed Currently on 3 L nasal cannula Titrate down the FiO2 as tolerated Continue bronchodilators, steroids Increase her activity as tolerated We will continue to follow I have personally seen and examined the patient, performed the documentation and the assessment and plan as written. Number of minutes spent on the visit: 10 Dictation was produced using [employer] dictation software. Please excuse any grammatical, word or spelling errors.
[2024-10-22] MEDS: methylPREDNISolone SOD SUCCI 40 MG/ML 1 ML VIAL IV SCH (02:21)
[2024-10-22] MEDS: ENOXAPARIN 40 MG/0.4 ML SYRINGE SQ SCH (08:26)
[2024-10-22 08:29] LABS: Basophils # (A) 0.03 X 10*3/uL (0.00-0.10); Basophils % (A) 0.3 %; Eosinophils # (A) 0 X 10*3/uL (0.04-0.35); Eosinophils % (A) 0 %; HCT 36.7 % (37.2-46.3); HGB 11.6 g/dL (12.0-15.0); Lymphocytes # (A) 0.98 X 10*3/uL (0.90-5.00); Lymphocytes % (A) 8.5 %; MCH 27.9 pg (27.0-32.0); MCHC 31.6 g/dL (32.0-37.0); MCV 88.2 FL (80.0-97.0); Mean Platelet Volume 10.8 FL (9.5-12.2); Monocytes # (A) 0.59 X 10*3/uL (0.20-1.00); Monocytes % (A) 5.1 %; NRBC Per 100 WBC 0.02 X 10*3/uL (0.00-0.01); Neutrophils # (A) 9.43 X 10*3/uL (1.80-7.70); Neutrophils % (A) 82.3 %; Platelet Count 405 X 10*3/uL (140-440); RBC 4.16 X 10*6/uL (4.10-5.20); RDW 15.4 % (11.5-14.5); WBC 11.47 X 10*3/uL (4.50-10.00)
[2024-10-22 08:46] LABS: Magnesium 1.9 mg/dL (1.5-2.4)
[2024-10-22 09:30] LABS: ALT 27 U/L (8-44); AST 21 U/L (13-35); Albumin 3.8 g/dL (3.8-4.9); Albumin/Globulin Ratio 1.31 Ratio (1.60-3.17); Alkaline Phosphatase 101 U/L (41-126); Calcium 8.6 mg/dL (8.7-10.3); Carbon Dioxide 25.4 mmol/L (21.6-31.8); Chloride 106 mmol/L (96-109); Globulin 2.9 g/dL (1.6-3.3); Glucose 188 mg/dL (70-110); Potassium 2.5 mmol/L (3.5-5.5); Sodium 148 mmol/L (135-145); Total Bilirubin <0.2 mg/dL (0.3-1.2); Total Protein 6.7 g/dL (6.2-8.2)
[2024-10-22] MEDS: POTASSIUM CHLORIDE ER 20 MEQ TAB.ER PO STA (12:14)
[2024-10-22] MEDS: POTASSIUM CHLORIDE 10 MEQ in WATER FOR INJECTION 1 100ML.BAG IVPB SCH (13:04)
--- NOTE | 2024-10-22 14:25 | P.PN ---
Subjective Progress Note Date: 10/22/24 This is a 69-year-old female patient, known history of advanced COPD, oxygen dependent 2 L/min nasal cannula, resides at [facility] on the [place]. Quite debilitated, nonambulatory at this point in time. The patient presented to the hospital because of worsening shortness of breath, cough, chest congestion and worsening respiratory status. No reported aspiration. No chest pain. No swelling in lower extremities. She is known to have osteoporosis and previous compression fracture of her spine and she suffers from chronic back pain. The patient accordingly was admitted to the hospital. Her white cell count of 10.7 with a hemoglobin 10.1 and a platelet count of 230. D-dimer is at 2.49 and the rest of the coagulation profiles been within normal limits. Creatinine was at 1.3 dropped down to 0.7. Serum bicarb was at 21 dropped down to 16 with a gap of 12 and a sodium levels at 141 and a potassium level is 3.7. Procalcitonin level is at 1.9. The viral screen was negative. Urine drug screen was positive for cannabinoids. She denies smoking for now. A chest x-ray was done in the emergency department and it showed COPD with chronic interstitial opacities bilaterally right more than left. Previous CT scan of the chest that was done in January 2024 was consistent with advanced emphysematous changes bilaterally and there was some resolving inflammatory changes in the right upper lobe. No evidence of any masses or malignant process. The patient accordingly was started on a combination of Rocephin and Zithromax. The patient is currently on DuoNeb AND IV Solu-Medrol was also started in addition to her home medications. Oxygenation remained worse as the patient is currently on 6 L of oxygen nasal cannula as the patient has been maintained on 2 L at baseline at the care home. Troponins are negative. proBNP level is at 742. On 10/18/2024, the patient is being seen for a follow-up. Patient is essentially the same as yesterday and the patient continues to be bronchospastic and wheezy. She does have a right lung pneumonia in addition. Blood cultures been negative. The patient is afebrile. She remains hemodynamically stable and she remains on 60 Suboxone by nasal cannula with a pulse ox of 97%. She is currently afebrile. She is on IV Rocephin. She is also on IV Solu-Medrol 60 mg every 6 hours. No nausea. No vomiting. No diarrhea. No abdominal pain. No altered mentation. The viral screen was negative. Legionella urine antigen was negative. Follow-up chest x-ray was done today and the patient was found to have COPD with right perihilar and right lower lobe pulmonary infiltrate which remains essentially stable. On 10/19/2024, the patient is being seen for a follow-up. Less bronchospastic and wheezy compared to yesterday. Less congested. She continues to have some cough however and she remains on oxygen at 6 liters of oxygen nasal cannula with a pulse ox of 93%. The white cell count is 6.1 with a hemoglobin 9.1 and a platelet count of 256. Electrolytes show a sodium level of 143, serum bicarb is at 19, potassium level 3.8. Legionella urine antigen is negative. Viral screen is also negative. No altered mentation. The patient remains on a combination of Rocephin and Zithromax. 10/20/2024, patient continues to have a congested cough. Oxygenation is stable with a pulse ox of 97% on 4 L oxygen by nasal cannula. Remains on DuoNeb n ebulized treatments [id number]. Remains on IV Solu-Medrol. Remains on Rocephin. No hemoptysis. No pleurisy. No new labs from today. Overall condition is stable. Viral screen has been negative. The patient is seen today October 21, 2024 in follow-up on the regular medical floor. She is currently up in a chair at the bedside. Awake and alert in no acute distress. She is maintaining O2 saturations in the 90s on 3 L/min per nasal cannula. Reji on ceftriaxone. Continued on bronchodilators and steroids. No new labs today. The patient is seen today October 22, 2024 in follow-up on the regular medical floor. She is awake and alert in no acute distress. Sitting up in bed. No worsening shortness of breath, cough or congestion. Maintaining good O2 saturations in the 90s on 3 L/min per nasal cannula. She has been afebrile. Hemodynamically stable. Blood culture revealed no growth. White count 11.4. Hemoglobin 11.6. Platelets 405. Sodium 148. Potassium 2.5. Bicarb 25. BUN 20. Creatinine 0.8. Glucose 188. She is continued on bronchodilators and steroids. Antibiotics in the form of ceftriaxone. Lovenox for DVT prophylaxis. Normal saline at 75 mL/h. Objective - Vital Signs Vital signs: Vital Signs Temp 98.3 F 10/22/24 07:28 Pulse 92 10/22/24 11:51 Resp 18 10/22/24 09:47 BP 152/92 10/22/24 07:28 Pulse Ox 92 L 10/22/24 07:28 FiO2 Intake & Output 10/21/24 10/22/24 10/22/24 18:59 06:59 18:59 Intake Total 900 180 Output Total 800 550 Balance -800 350 180 Intake: Intake, IV Titration 900 Amount Sodium Chloride 0.9% 1, 900 000 ml @ 75 mls/hr IV . [id number] [facility] Rx#:[id number] Oral 180 Output: Urine 800 550 Other: Voiding Method External Catheter External Catheter External Catheter # Bowel Movements 1 1 - Exam GENERAL EXAM: Alert, pleasant 69-year-old female, on 3 L nasal cannula, comfortable in no apparent distress. HEAD: Normocephalic. EYES: Normal reaction of pupils, equal size. NOSE: Clear with pink turbinates. THROAT: No erythema or exudates. NECK: No masses, no JVD. CHEST: No chest wall deformity. LUNGS: Equal air entry with scattered rhonchi over the right lung mainly. CVS: S1 and S2 normal with no audible murmur, regular rhythm. ABDOMEN: No hepatosplenomegaly, normal bowel sounds, no guarding or rigidity. SPINE: No scoliosis or deformity SKIN: No rashes CENTRAL NERVOUS SYSTEM: No focal deficits, tone is normal in all 4 extremities. EXTREMITIES: There is no peripheral edema. No clubbing, no cyanosis. Peripheral pulses are intact. - Labs CBC & Chem 7: 10/22/24 02:37 10/22/24 02:37 Labs: Abnormal Lab Results - Last 24 Hours (Table) 10/22/24 10/22/24 Range/Units 02:37 02:37 WBC 11.47 H (4.50-10.00) X 10*3/uL Hgb 11.6 L (12.0-15.0) g/dL Hct 36.7 L (37.2-46.3) % MCHC 31.6 L (32.0-37.0) g/dL RDW 15.4 H (11.5-14.5) % Immature Gran # 0.44 H (0.00-0.04) X 10*3/uL Neutrophils # 9.43 H (1.80-7.70) X 10*3/uL Eosinophils # 0 L (0.04-0.35) X 10*3/uL NRBC/100 WBC Diff 0.02 H (0.00-0.01) X 10*3/uL Sodium 148 H (135-145) mmol/L Potassium 2.5 A* (3.5-5.5) mmol/L Anion Gap 16.60 H (4.00-12.00) mmol/L BUN/Creatinine Ratio 25.00 H (12.00-20.00) Ratio Glucose 188 H (70-110) mg/dL Calcium 8.6 L (8.7-10.3) mg/dL Total Bilirubin <0.2 L (0.3-1.2) mg/dL Albumin/Globulin Ratio 1.31 L (1.60-3.17) Ratio Microbiology - Last 24 Hours (Table) 10/17/24 01:25 Blood Culture - Final Blood Assessment and Plan Assessment: Acute on chronic hypoxic respiratory failure, the patient is on 3 L O2 nasal cannula. This is related to a combination of COPD and right lung pneumonia. The patient remains on a combination Rocephin and completed Zithromax. Slight improvement in the patient's oxygenation Acute COPD exacerbation, improved Acute right lung pneumonia as the patient has new areas of infiltration/consolidation involving the right lung compared to the previous chest x-rays. The procalcitonin level is at 1.9 Hypernatremia Hypokalemia Advanced COPD with chronic hypoxic respiratory failure maintained on oxygen at 2 L Osteoporosis Compression fracture of the lumbar spine Hyperlipidemia Hyperlipidemia anxiety/depression Acute kidney injury, improved creatinine is normalized Elevated procalcitonin level, consider underlying bacterial right lung infection Plan: The patient was seen and evaluated Medications and labs reviewed Correct electrolytes Titrate down the FiO2 as tolerated Continue bronchodilators, steroids Increase her activity as tolerated We will continue to follow I have personally seen and examined the patient, performed the documentation and the assessment and plan as written. Number of minutes spent on the visit: 10 Dictation was produced using [employer] dictation software. Please excuse any grammatical, word or spelling errors.
[2024-10-22] MEDS: guaiFENesin 600 MG TABLET.ER PO SCH (15:00)
[2024-10-22] MEDS ORDERED: methylPREDNISolone SOD SUCCI 40 MG/ML 1 ML VIAL IV SCH (20:00)
--- NOTE | 2024-10-22 20:00 | P.PN ---
Subjective Progress Note Date: 10/21/24 HISTORY OF PRESENT ILLNESS: Patient is a pleasant 69 years old female with multiple medical problems Presents because of worsening dyspnea over a few days associated with cough and phlegm She complains from chest pain which bother her a lot especially her chest below her ribs and in her abdomen whenever she c coughs, she is asking for cough medicine She has bowel movement yesterday which she thinks she is fine, she denies abdominal tenderness or vomiting, she has low appetite She has not urinated in 2 days No headache dizziness weakness or numbness She denies smoking alcohol or illicit drugs she uses 2 L of oxygen at home Currently she is on 6 L oxygen Labs reviewed, WBC 10.7 which is slightly up, hemoglobin 10.1, creatinine 1.3 with baseline 0.7 INR is unremarkable, troponin 0.02. proBNP 742. Influenza A and type B, RSV, SARS (coronavirus) are and detected Chest x-ray showed increased interstitial opacity more on the right lower area EKG showing sinus rhythm at [address]-T changes D-dimer is 2.49 10/18 Patient still complaining from breathing difficulty although she still is a li ttle better Her oxygen requirement went 5 up to 6 L/min She still coughing a lot and she was counseled to use antitussive as needed medication No significant chest pain. She remains on broad-spectrum antibiotics with Zithromax and ceftriaxone and normal saline at 75 mL/h Repeat chest x-ray this morning it looks to be little better than yesterday. With some evidence of perihilar fibrosis 10/19 Patient pneumonia is improving slowly and gradually Patient states she still short of breath but she looks better with less coughing She remains on IV Solu-Medrol, she remains on broad-spectrum antibiotic with ceftriaxone and Zithromax Chest x-ray showing right perihilar infiltrate 10/20/2024 Patient improving slowly and gradually She is very tired still in bed most of the time She still complains from dyspnea and occasional coughing but no significant chest pain Her oxygen saturation improving and today she is saturating 97% on 4 L oxygen Will check labs tomorrow morning She remains on Zithromax and ceftriaxone and IV Solu-Medrol 60 mg. 10/21: Patient is sitting up in bed she is eating her breakfast, she continues to have somewhat short of breath, she continues to have some cough and minimal from production, she denies any hemoptysis, she appears to be quite weak, she has been on 4 L nasal cannula, she has been on ceftriaxone 1 g piggyback every 24 hours, continue Zithromax 500 mg orally once every day we will decrease her Solu-Medrol to 40 mg IV push every 8 hours, continue nebulized treatment, patient was treated for COVID at the [facility], she appears to have a right lower lobe pneumonia likely due to to viral pneumonia versus bacterial pneumonia at this time procalcitonin level is elevated at 1.9, continue current treatment plan, physical therapy evaluation, follow-up with the patient very closely at this point in time, likely back to [facility] on the [place] hopefully in the next 24 hours. REVIEW OF SYSTEMS: Constitutional: No documented fever, no chills, no night sweats. No weight change. positive for weakness, fatigue or lethargy. No daytime sleepiness. EENT: positive for headache. No blurred vision or double vision, no loss of vision. No loss of Hearing, no ringing in the ears, no dizziness. No nasal drainage or congestion. No epistaxis. No sore throat. Lungs: poditive for shortness of breath, positive for cough, minimal sputum production. positive for wheezing. Reports dyspnea with activity. Cardiovascular: No chest pain, no lower extremity edema. No palpitations. No paroxysmal nocturnal dyspnea. No orthopnea. No lightheadedness or dizziness. No syncopal episodes. Abdominal: Reports abdominal pain. No nausea, vomiting. No diarrhea. No constipation. No bloody or tarry stools reports loss of appetite. Genitourinary: No dysuria, increased frequency, urgency. No urinary retention. Musculoskeletal: No myalgias. positive for muscle weakness, no gait dysfunction, no frequent falls. No back pain. No neck pain. Integumentary: DTI in the left heel , no lesions. No rash or pruritus. No unusual bruising. No change in hair or nails. Neurologic: No aphasia. No facial droop. No change in mentation. No head injury. No headache. No paralysis. No paresthesia. Psychiatric: positive for depression, positive for anxiety. No mood swings. Endocrine: No abnormal blood sugars. No weight change. PHYSICAL EXAMINATION: General: This is a 69-year-old female sitting up in bed in respiratory distress. HEENT: Head is atraumatic, normocephalic, pupils were equal round reactive to light and recommendation, extraocular muscle movement were intact, sclera nonicteric, conjunctivae were pale, mucous membranes of the mouth are somewhat dry. Neck: Supple, no JVP, normal carotid upstroke bilaterally, no lymphadenopathy. Chest: Decreased breath sounds at the bases, few rhonchi, positive for moderate expiratory wheezes, no chest wall tenderness, mild to moderate intercostal retractions. Heart: First heart sound is normal, second heart sounds normal, there is systolic ejection murmur 2/6 located in the left sternal border. Abdomen: Soft, nontender, nondistended, positive bowel sounds. Extremities: There is trace edema no calf tenderness DP +1 bilaterally.DTI in the left heel Neurologic examination: Patient is awake alert and oriented x 3, cranial nerves II-12 appear grossly intact, muscle power were 4 out of 5 in upper extremities and 3 out of 5 in bilateral lower extremities, deep tendon reflexes normal bilaterally. ASSESSMENT AND PLAN: 1. Acute on chronic hypoxemic respiratory failure due to acute exacerbation of COPD as well as right lower lobe pneumonia and COVID-19. Continue oxygen support 4 L nasal cannula, decrease Solu-Medrol to 40 mg IV push every 8 hours, continue DuoNeb 3 mL nebulization 4 times every day, monitor the patient symptoms very closely, likely the patient will be discharged to [facility] in the next 24 hours. 2. Acute COPD exacerbation in a patient with severe COPD. Continue oxygen 4 L nasal cannula, continue Solu-Medrol 40 mg IV push every 8 hours, continue DuoNeb 3 mL nebulization 4 times every day. 3. Hypertension and hypertensive cardiovascular disease. Continue amlodipine 5 mg once every day, losartan 50 mg orally twice every day, monitor the patient blood pressure very closely. 4. Mixed hyperlipidemia. Continue atorvastatin 20 mg orally once every day, monitor lipid panel, keep LDL 55-70. 5. History of severe PAD. Patient underwent a recent CT angiography of both lower extremities that showed evidence of PAD, she will follow-up with Dr. Guardado as an outpatient. Continue aspirin 81 mg once every day, atorvastatin 5 mg once every day for secondary prevention. 6. Anxiety disorder. Continue patient on citalopram 40 mg once every day, continue Remeron 45 mg at bedtime, Klonopin 1 mg at bedtime, buspirone 15 mg orally twice every day. 7. Depressive disorder. Continue patient on the previous citalopram 40 mg orally once every day as well as Remeron 45 mg at bedtime. 8. History of vertebral fracture due to significant osteoporosis. Continue gabapentin 300 mg orally 3 times every day. Continue hydrocodone for pain control. 9. COVID-19 infection. Patient was started on Paxlovid at the [facility], currently is not on any medication continue with vitamin C 500 mg once every day, continue Lovenox 70 mg subcutaneously every 24 hours. 10. Hypothyroidism. Continue levothyroxine 100 mcg 2 days of the week and 75 mcg rest of the week, monitor the patient TSH and free T4. 11. DVT prophylaxis. Continue patient on Lovenox decrease the dose to 40 mg subcutaneous every 24 hours. 12. GI prophylaxis. Continue Protonix 40 mg orally once every day. 13,. Medical debility. Physical therapy evaluation. 14. bridge gang worker consultation for discharge planning. Objective - Vital Signs Vital signs: Vital Signs Temp 97.3 F L 10/21/24 19:53 Pulse 92 10/21/24 19:53 Resp 14 10/21/24 19:53 BP 151/79 10/21/24 19:53 Pulse Ox 96 10/21/24 19:53 FiO2 Intake & Output 10/21/24 10/21/24 10/22/24 06:59 18:59 06:59 Output Total 2450 800 Balance -2450 -800 Output: Urine 2450 800 Other: Voiding Method External Catheter External Catheter # Bowel Movements 1 1 - Labs CBC & Chem 7: 10/22/24 02:37 10/22/24 02:37
--- NOTE | 2024-10-22 20:04 | P.PN ---
Subjective Progress Note Date: 10/22/24 HISTORY OF PRESENT ILLNESS: Patient is a pleasant 69 years old female with multiple medical problems Presents because of worsening dyspnea over a few days associated with cough and phlegm She complains from chest pain which bother her a lot especially her chest below her ribs and in her abdomen whenever she c coughs, she is asking for cough medicine She has bowel movement yesterday which she thinks she is fine, she denies abdominal tenderness or vomiting, she has low appetite She has not urinated in 2 days No headache dizziness weakness or numbness She denies smoking alcohol or illicit drugs she uses 2 L of oxygen at home Currently she is on 6 L oxygen Labs reviewed, WBC 10.7 which is slightly up, hemoglobin 10.1, creatinine 1.3 with baseline 0.7 INR is unremarkable, troponin 0.02. proBNP 742. Influenza A and type B, RSV, SARS (coronavirus) are and detected Chest x-ray showed increased interstitial opacity more on the right lower area EKG showing sinus rhythm at [address]-T changes D-dimer is 2.49 10/18 Patient still complaining from breathing difficulty although she still is a li ttle better Her oxygen requirement went 5 up to 6 L/min She still coughing a lot and she was counseled to use antitussive as needed medication No significant chest pain. She remains on broad-spectrum antibiotics with Zithromax and ceftriaxone and normal saline at 75 mL/h Repeat chest x-ray this morning it looks to be little better than yesterday. With some evidence of perihilar fibrosis 10/19 Patient pneumonia is improving slowly and gradually Patient states she still short of breath but she looks better with less coughing She remains on IV Solu-Medrol, she remains on broad-spectrum antibiotic with ceftriaxone and Zithromax Chest x-ray showing right perihilar infiltrate 10/20/2024 Patient improving slowly and gradually She is very tired still in bed most of the time She still complains from dyspnea and occasional coughing but no significant chest pain Her oxygen saturation improving and today she is saturating 97% on 4 L oxygen Will check labs tomorrow morning She remains on Zithromax and ceftriaxone and IV Solu-Medrol 60 mg. 10/21: Patient is sitting up in bed she is eating her breakfast, she continues to have somewhat short of breath, she continues to have some cough and minimal from production, she denies any hemoptysis, she appears to be quite weak, she has been on 4 L nasal cannula, she has been on ceftriaxone 1 g piggyback every 24 hours, continue Zithromax 500 mg orally once every day we will decrease her Solu-Medrol to 40 mg IV push every 8 hours, continue nebulized treatment, patient was treated for COVID at the long term, she appears to have a right lower lobe pneumonia likely due to to viral pneumonia versus bacterial pneumonia at this time procalcitonin level is elevated at 1.9, continue current treatment plan, physical therapy evaluation, follow-up with the patient very closely at this point in time, likely back to [facility] on the [place] hopefully in the next 24 hours. 10/22: Patient is laying down in bed she continues to be somewhat short of breath, she continues to have dry cough, she is not able to bring up any phlegm, she continues to be on 4 L nasal cannula, she denies any chest pain, she has no abdominal pain, nausea or vomiting, she does appear to have a deep tissue injury to the left heel, currently in a boot and keep off load, increase protein intake, discontinue IV fluid at this time, her potassium level is quite low at 2.5, patient will be receiving 40 mill equivalent orally and 40 mEq IV, repeat her potassium and magnesium level this evening, continue to monitor the patient very closely discontinue IV fluid. REVIEW OF SYSTEMS: Constitutional: No documented fever, no chills, no night sweats. No weight change. positive for weakness, fatigue or lethargy. No daytime sleepiness. EENT: positive for headache. No blurred vision or double vision, no loss of vision. No loss of Hearing, no ringing in the ears, no dizziness. No nasal drainage or congestion. No epistaxis. No sore throat. Lungs: poditive for shortness of breath, positive for cough, minimal sputum production. positive for wheezing. Reports dyspnea with activity. Cardiovascular: No chest pain, no lower extremity edema. No palpitations. No paroxysmal nocturnal dyspnea. No orthopnea. No lightheadedness or dizziness. No syncopal episodes. Abdominal: Reports abdominal pain. No nausea, vomiting. No diarrhea. No constipation. No bloody or tarry stools reports loss of appetite. Genitourinary: No dysuria, increased frequency, urgency. No urinary retention. Musculoskeletal: No myalgias. positive for muscle weakness, no gait dysfunction, no frequent falls. No back pain. No neck pain. Integumentary: DTI in the left heel , no lesions. No rash or pruritus. No unusual bruising. No change in hair or nails. Neurologic: No aphasia. No facial droop. No change in mentation. No head injury. No headache. No paralysis. No paresthesia. Psychiatric: positive for depression, positive for anxiety. No mood swings. Endocrine: No abnormal blood sugars. No weight change. PHYSICAL EXAMINATION: General: This is a 69-year-old female sitting up in bed in respiratory distress. HEENT: Head is atraumatic, normocephalic, pupils were equal round reactive to light and recommendation, extraocular muscle movement were intact, sclera n onicteric, conjunctivae were pale, mucous membranes of the mouth are somewhat dry. Neck: Supple, no JVP, normal carotid upstroke bilaterally, no lymphadenopathy. Chest: Decreased breath sounds at the bases, few rhonchi, positive for mild expiratory wheezes, no chest wall tenderness, mild intercostal retractions. Heart: First heart sound is normal, second heart sounds normal, there is systolic ejection murmur 2/6 located in the left sternal border. Abdomen: Soft, nontender, nondistended, positive bowel sounds. Extremities: There is trace edema no calf tenderness DP +1 bilaterally.DTI in the left heel Neurologic examination: Patient is awake alert and oriented x 3, cranial nerves II-12 appear grossly intact, muscle power were 4 out of 5 in upper extremities and 3 out of 5 in bilateral lower extremities, deep tendon reflexes normal bilaterally. ASSESSMENT AND PLAN: 1. Acute on chronic hypoxemic respiratory failure due to acute exacerbation of COPD as well as right lower lobe pneumonia and COVID-19. Continue oxygen support 4 L nasal cannula, decrease Solu-Medrol to 40 mg IV push every 12 hours, continue DuoNeb 3 mL nebulization 4 times every day, monitor the patient symptoms very closely, likely the patient will be discharged to [facility] on the [place] in the next 24 hours. 2. Acute COPD exacerbation in a patient with severe COPD. Continue oxygen 4 L nasal cannula, continue Solu-Medrol 40 mg IV push every 12 hours, continue DuoNeb 3 mL nebulization 4 times every day, added Mucinex 600 mg orally twice every day. 3. Hypertension and hypertensive cardiovascular disease. Continue amlodipine 5 mg once every day, losartan 50 mg orally twice every day, monitor the patient blood pressure very closely. 4. Mixed hyperlipidemia. Continue atorvastatin 20 mg orally once every day, monitor lipid panel, keep LDL 55-70. 5. History of severe PAD. Patient underwent a recent CT angiography of both lower extremities that showed evidence of PAD, she will follow-up with Dr. Dionisio carter as an outpatient. Continue aspirin 81 mg once every day, atorvastatin 5 mg once every day for secondary prevention. 6. Anxiety disorder. Continue patient on citalopram 40 mg once every day, co ntinue Remeron 45 mg at bedtime, Klonopin 1 mg at bedtime, buspirone 15 mg orally twice every day. 7. Depressive disorder. Continue patient on the previous citalopram 40 mg orally once every day as well as Remeron 45 mg at bedtime. 8. History of vertebral fracture due to significant osteoporosis. Continue gabapentin 300 mg orally 3 times every day. Continue hydrocodone for pain control. 9. COVID-19 infection. Patient was started on Paxlovid at the [facility], currently is not on any medication continue with vitamin C 500 mg once every day, continue Lovenox 70 mg subcutaneously every 24 hours. 10. Hypothyroidism. Continue levothyroxine 100 mcg 2 days of the week and 75 mcg rest of the week, monitor the patient TSH and free T4. 11. DVT prophylaxis. Continue patient on Lovenox decrease the dose to 40 mg subcutaneous every 24 hours. 12. GI prophylaxis. Continue Protonix 40 mg orally once every day. 13. Deep tissue injury to the left heel, continue offload, continue the boot, increase protein intake. 14. Medical debility. Physical therapy evaluation. 15. 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 Hopefully [facility] on the [place] tomorrow morning. 16. Severe hypokalemia. Patient did receive a total of 80 mill equivalent of potassium, recheck her potassium and magnesium level this evening. Objective - Vital Signs Vital signs: Vital Signs Temp 97.3 F L 10/22/24 13:40 Pulse 96 10/22/24 16:39 Resp 16 10/22/24 13:40 BP 148/78 10/22/24 13:40 Pulse Ox 93 L 10/22/24 13:40 FiO2 Intake & Output 10/22/24 10/22/24 10/23/24 06:59 18:59 06:59 Intake Total 900 380 Output Total 550 Balance 350 380 Intake: Intake, IV Titration 900 Amount Sodium Chloride 0.9% 1, 900 000 ml @ 75 mls/hr IV . [id number] MIRI Rx#:[id number] Oral 380 Output: Urine 550 Other: Voiding Method External Catheter External Catheter # Voids 2 # Bowel Movements 1 - Labs CBC & Chem 7: 10/22/24 02:37 10/22/24 02:37 Labs: Abnormal Lab Results - Last 24 Hours (Table) 10/22/24 10/22/24 Range/Units 02:37 02:37 WBC 11.47 H (4.50-10.00) X 10*3/uL Hgb 11.6 L (12.0-15.0) g/dL Hct 36.7 L (37.2-46.3) % MCHC 31.6 L (32.0-37.0) g/dL RDW 15.4 H (11.5-14.5) % Immature Gran # 0.44 H (0.00-0.04) X 10*3/uL Neutrophils # 9.43 H (1.80-7.70) X 10*3/uL Eosinophils # 0 L (0.04-0.35) X 10*3/uL NRBC/100 WBC Diff 0.02 H (0.00-0.01) X 10*3/uL Sodium 148 H (135-145) mmol/L Potassium 2.5 A* (3.5-5.5) mmol/L Anion Gap 16.60 H (4.00-12.00) mmol/L BUN/Creatinine Ratio 25.00 H (12.00-20.00) Ratio Glucose 188 H (70-110) mg/dL Calcium 8.6 L (8.7-10.3) mg/dL Total Bilirubin <0.2 L (0.3-1.2) mg/dL Albumin/Globulin Ratio 1.31 L (1.60-3.17) Ratio Microbiology - Last 24 Hours (Table) 10/17/24 01:25 Blood Culture - Final Blood
[2024-10-22 20:44] LABS: African American GFR (CKD) 83 (>60 ml/min/1.73 sqM); Anion Gap 9 mmol/L; Blood Urea Nitrogen 24 mg/dL (7-17); Calcium 8.6 mg/dL (8.4-10.2); Carbon Dioxide 27 mmol/L (22-30); Chloride 109 mmol/L (98-107); Glucose 161 mg/dL (74-99); Non-African American GFR(CKD) 72 (>60 ml/min/1.73 sqM); Potassium 3.7 mmol/L (3.5-5.1); Sodium 145 mmol/L (137-145)
[2024-10-23] MEDS: methylPREDNISolone SOD SUCCI 40 MG/ML 1 ML VIAL IV SCH (06:32)
[2024-10-23 08:27] LABS: Basophils # (A) 0.02 X 10*3/uL (0.00-0.10); Basophils % (A) 0.2 %; Eosinophils # (A) 0 X 10*3/uL (0.04-0.35); Eosinophils % (A) 0 %; HCT 35.1 % (37.2-46.3); HGB 10.9 g/dL (12.0-15.0); Lymphocytes # (A) 0.99 X 10*3/uL (0.90-5.00); Lymphocytes % (A) 8.3 %; MCH 27.4 pg (27.0-32.0); MCHC 31.1 g/dL (32.0-37.0); MCV 88.2 FL (80.0-97.0); Mean Platelet Volume 11.1 FL (9.5-12.2); Monocytes # (A) 0.82 X 10*3/uL (0.20-1.00); Monocytes % (A) 6.9 %; NRBC Per 100 WBC 0 X 10*3/uL (0.00-0.01); Neutrophils # (A) 9.67 X 10*3/uL (1.80-7.70); Neutrophils % (A) 81.2 %; Platelet Count 334 X 10*3/uL (140-440); RBC 3.98 X 10*6/uL (4.10-5.20); RDW 15.8 % (11.5-14.5); WBC 11.91 X 10*3/uL (4.50-10.00)
[2024-10-23 09:00] LABS: Magnesium 1.8 mg/dL (1.5-2.4)
[2024-10-23 09:24] LABS: ALT 28 U/L (8-44); AST 29 U/L (13-35); Albumin 3.4 g/dL (3.8-4.9); Albumin/Globulin Ratio 1.31 Ratio (1.60-3.17); Alkaline Phosphatase 89 U/L (41-126); BUN/Creat Ratio 29.86 Ratio (12.00-20.00); Blood Urea Nitrogen 20.9 mg/dL (9.0-27.0); Calcium 8.2 mg/dL (8.7-10.3); Carbon Dioxide 27.4 mmol/L (21.6-31.8); Chloride 108 mmol/L (96-109); Globulin 2.6 g/dL (1.6-3.3); Glucose 134 mg/dL (70-110); Sodium 147 mmol/L (135-145); Total Bilirubin 0.2 mg/dL (0.3-1.2)
--- NOTE | 2024-10-23 13:03 | P.PN ---
Subjective Progress Note Date: 10/23/24 This is a 69-year-old female patient, known history of advanced COPD, oxygen dependent 2 L/min nasal cannula, resides at [facility] on the [place]. Quite debilitated, nonambulatory at this point in time. The patient presented to the hospital because of worsening shortness of breath, cough, chest congestion and worsening respiratory status. No reported aspiration. No chest pain. No swelling in lower extremities. She is known to have osteoporosis and previous compression fracture of her spine and she suffers from chronic back pain. The patient accordingly was admitted to the hospital. Her white cell count of 10.7 with a hemoglobin 10.1 and a platelet count of 230. D-dimer is at 2.49 and the rest of the coagulation profiles been within normal limits. Creatinine was at 1.3 dropped down to 0.7. Serum bicarb was at 21 dropped down to 16 with a gap of 12 and a sodium levels at 141 and a potassium level is 3.7. Procalcitonin level is at 1.9. The viral screen was negative. Urine drug screen was positive for cannabinoids. She denies smoking for now. A chest x-ray was done in the emergency department and it showed COPD with chronic interstitial opacities bilaterally right more than left. Previous CT scan of the chest that was done in January 2024 was consistent with advanced emphysematous changes bilaterally and there was some resolving inflammatory changes in the right upper lobe. No evidence of any masses or malignant process. The patient accordingly was started on a combination of Rocephin and Zithromax. The patient is currently on DuoNeb AND IV Solu-Medrol was also started in addition to her home medications. Oxygenation remained worse as the patient is currently on 6 L of oxygen nasal cannula as the patient has been [facility] Troponins are negative. proBNP level is at 742. On 10/18/2024, the patient is being seen for a follow-up. Patient is essentially the same as yesterday and the patient continues to be bronchospastic and wheezy. She does have a right lung pneumonia in addition. Blood cultures been negative. The patient is afebrile. She remains hemodynamically stable and she remains on 60 Suboxone by nasal cannula with a pulse ox of 97%. She is currently afebrile. She is on IV Rocephin. She is also on IV Solu-Medrol 60 mg every 6 hours. No nausea. No vomiting. No diarrhea. No abdominal pain. No altered mentation. The viral screen was negative. Legionella urine antigen was negative. Follow-up chest x-ray was done today and the patient was found to have COPD with right perihilar and right lower lobe pulmonary infiltrate which remains essentially stable. On 10/19/2024, the patient is being seen for a follow-up. Less bronchospastic and wheezy compared to yesterday. Less congested. She continues to have some cough however and she remains on oxygen at 6 liters of oxygen nasal cannula with a pulse ox of 93%. The white cell count is 6.1 with a hemoglobin 9.1 and a platelet count of 256. Electrolytes show a sodium level of 143, serum bicarb is at 19, potassium level 3.8. Legionella urine antigen is negative. Viral screen is also negative. No altered mentation. The patient remains on a combination of Rocephin and Zithromax. 10/20/2024, patient continues to have a congested cough. Oxygenation is stable with a pulse ox of 97% on 4 L oxygen by nasal cannula. Remains on DuoNeb n ebulized treatments [id number]. Remains on IV Solu-Medrol. Remains on Rocephin. No hemoptysis. No pleurisy. No new labs from today. Overall condition is stable. Viral screen has been negative. The patient is seen today October 21, 2024 in follow-up on the regular medical floor. She is currently up in a chair at the bedside. Awake and alert in no acute distress. She is maintaining O2 saturations in the 90s on 3 L/min per nasal cannula. Reji on ceftriaxone. Continued on bronchodilators and steroids. No new labs today. The patient is seen today October 22, 2024 in follow-up on the regular medical floor. She is awake and alert in no acute distress. Sitting up in bed. No worsening shortness of breath, cough or congestion. Maintaining good O2 saturations in the 90s on 3 L/min per nasal cannula. She has been afebrile. Hemodynamically stable. Blood culture revealed no growth. White count 11.4. Hemoglobin 11.6. Platelets 405. Sodium 148. Potassium 2.5. Bicarb 25. BUN 20. Creatinine 0.8. Glucose 188. She is continued on bronchodilators and steroids. Antibiotics in the form of ceftriaxone. Lovenox for DVT prophylaxis. Normal saline at 75 mL/h. The patient is seen today October 23, 2024 in follow-up on the regular medical floor. She is awake and alert in no acute distress. Sitting up in a chair at the bedside. Denies any worsening shortness of breath, cough or congestion. Not quite back to her baseline. She is continued on DuoNeb inhalations, Symbicort, Solu-Medrol. Antibiotics in the form of ceftriaxone. Lovenox for DVT prophylaxis. White count 11.9. Hemoglobin 10.9. Platelets 334. Sodium 147. Potassium 4.0. Bicarb 27. BUN 21. Creatinine 0.7. Glucose 134. Objective - Vital Signs Vital signs: Vital Signs Temp 97.7 F 10/23/24 07:40 Pulse 94 10/23/24 11:47 Resp 15 10/23/24 07:40 BP 158/88 10/23/24 07:40 Pulse Ox 92 L 10/23/24 07:40 FiO2 Intake & Output 10/22/24 10/23/24 10/23/24 18:59 06:59 18:59 Intake Total 380 Output Total 600 Balance 380 -600 Intake: Oral 380 Output: Urine 600 Other: Voiding Method External Catheter External Catheter External Catheter # Voids 2 1 1 # Bowel Movements 1 1 - Exam GENERAL EXAM: Alert, 69-year-old female, up in a chair, on 3 L nasal cannula, comfortable in no apparent distress. HEAD: Normocephalic. EYES: Normal reaction of pupils, equal size. NOSE: Clear with pink turbinates. THROAT: No erythema or exudates. NECK: No masses, no JVD. CHEST: No chest wall deformity. LUNGS: Equal air entry with scattered rhonchi over the right lung mainly. CVS: S1 and S2 normal with no audible murmur, regular rhythm. ABDOMEN: No hepatosplenomegaly, normal bowel sounds, no guarding or rigidity. SPINE: No scoliosis or deformity SKIN: No rashes CENTRAL NERVOUS SYSTEM: No focal deficits, tone is normal in all 4 extremities. EXTREMITIES: There is no peripheral edema. No clubbing, no cyanosis. Peripheral pulses are intact. - Labs CBC & Chem 7: 10/23/24 02:41 10/23/24 02:41 Labs: Abnormal Lab Results - Last 24 Hours (Table) 10/22/24 10/23/24 10/23/24 Range/Units 20:01 02:41 02:41 WBC 11.91 H (4.50-10.00) X 10*3/uL RBC 3.98 L (4.10-5.20) X 10*6/uL Hgb 10.9 L (12.0-15.0) g/dL Hct 35.1 L (37.2-46.3) % MCHC 31.1 L (32.0-37.0) g/dL RDW 15.8 H (11.5-14.5) % Immature Gran # 0.41 H (0.00-0.04) X 10*3/uL Neutrophils # 9.67 H (1.80-7.70) X 10*3/uL Eosinophils # 0 L (0.04-0.35) X 10*3/uL Sodium 147 H (135-145) mmol/L Chloride 109 H (98-107) mmol/L BUN 24 H (7-17) mg/dL BUN/Creatinine Ratio 29.86 H (12.00-20.00) Ratio Glucose 161 H 134 H (74-99) mg/dL Calcium 8.2 L (8.7-10.3) mg/dL Total Bilirubin 0.2 L (0.3-1.2) mg/dL Total Protein 6.0 L (6.2-8.2) g/dL Albumin 3.4 L (3.8-4.9) g/dL Albumin/Globulin Ratio 1.31 L (1.60-3.17) Ratio Microbiology - Last 24 Hours (Table) 10/17/24 01:25 Blood Culture - Final Blood Assessment and Plan Assessment: Acute on chronic hypoxic respiratory failure, the patient is on 3 L O2 nasal cannula. This is related to a combination of COPD and right lung pneumonia. The patient remains on a combination Rocephin and completed Zithromax. Slight improvement in the patient's oxygenation Acute COPD exacerbation, improved Acute right lung pneumonia as the patient has new areas of infiltration/consolidation involving the right lung compared to the previous chest x-rays. The procalcitonin level is at 1.9 Hypernatremia Hypokalemia Advanced COPD with chronic hypoxic respiratory failure maintained on oxygen at 2 L Osteoporosis Compression fracture of the lumbar spine Hyperlipidemia Hyperlipidemia anxiety/depression Acute kidney injury, improved creatinine is normalized Elevated procalcitonin level, consider underlying bacterial right lung infection Plan: The patient was seen and evaluated Medications and labs reviewed Titrate down the FiO2 as tolerated Continue bronchodilators, steroids Increase her activity as tolerated Improved but not quite back to baseline We will continue to follow I have personally seen and examined the patient, performed the documentation and the assessment and plan as written. Number of minutes spent on the visit: 10 Dictation was produced using [employer] dictation software. Please excuse any grammatical, word or spelling errors.
--- NOTE | 2024-10-23 15:48 | P.PN ---
Subjective Progress Note Date: 10/23/24 HISTORY OF PRESENT ILLNESS: Patient is a pleasant 69 years old female with multiple medical problems Presents because of worsening dyspnea over a few days associated with cough and phlegm She complains from chest pain which bother her a lot especially her chest below her ribs and in her abdomen whenever she c coughs, she is asking for cough medicine She has bowel movement yesterday which she thinks she is fine, she denies abdominal tenderness or vomiting, she has low appetite She has not urinated in 2 days No headache dizziness weakness or numbness She denies smoking alcohol or illicit drugs she uses 2 L of oxygen at home Currently she is on 6 L oxygen Labs reviewed, WBC 10.7 which is slightly up, hemoglobin 10.1, creatinine 1.3 with baseline 0.7 INR is unremarkable, troponin 0.02. proBNP 742. Influenza A and type B, RSV, SARS (coronavirus) are and detected Chest x-ray showed increased interstitial opacity more on the right lower area EKG showing sinus rhythm at [address]-T changes D-dimer is 2.49 10/18 Patient still complaining from breathing difficulty although she still is a li ttle better Her oxygen requirement went 5 up to 6 L/min She still coughing a lot and she was counseled to use antitussive as needed medication No significant chest pain. She remains on broad-spectrum antibiotics with Zithromax and ceftriaxone and normal saline at 75 mL/h Repeat chest x-ray this morning it looks to be little better than yesterday. With some evidence of perihilar fibrosis 10/19 Patient pneumonia is improving slowly and gradually Patient states she still short of breath but she looks better with less coughing She remains on IV Solu-Medrol, she remains on broad-spectrum antibiotic with ceftriaxone and Zithromax Chest x-ray showing right perihilar infiltrate 10/20/2024 Patient improving slowly and gradually She is very tired still in bed most of the time She still complains from dyspnea and occasional coughing but no significant chest pain Her oxygen saturation improving and today she is saturating 97% on 4 L oxygen Will check labs tomorrow morning She remains on Zithromax and ceftriaxone and IV Solu-Medrol 60 mg. 10/21: Patient is sitting up in bed she is eating her breakfast, she continues to have somewhat short of breath, she continues to have some cough and minimal from production, she denies any hemoptysis, she appears to be quite weak, she has been on 4 L nasal cannula, she has been on ceftriaxone 1 g piggyback every 24 hours, continue Zithromax 500 mg orally once every day we will decrease her Solu-Medrol to 40 mg IV push every 8 hours, continue nebulized treatment, patient was treated for COVID at the [facility], she appears to have a right lower lobe pneumonia likely due to to viral pneumonia versus bacterial pneumonia at this time procalcitonin level is elevated at 1.9, continue current treatment plan, physical therapy evaluation, follow-up with the patient very closely at this point in time, likely back to [facility] on the [place] hopefully in the next 24 hours. 10/22: Patient is laying down in bed she continues to be somewhat short of breath, she continues to have dry cough, she is not able to bring up any phlegm, she continues to be on 4 L nasal cannula, she denies any chest pain, she has no abdominal pain, nausea or vomiting, she does appear to have a deep tissue injury to the left heel, currently in a boot and keep off load, increase protein intake, discontinue IV fluid at this time, her potassium level is quite low at 2.5, patient will be receiving 40 mill equivalent orally and 40 mEq IV, repeat her potassium and magnesium level this evening, continue to monitor the patient very closely discontinue IV fluid. 10/23: Patient is laying down in bed is feeling a bit better today, she continues to have some coughing, able to bring some of the phlegm up after she was started on Mucinex 600 mg orally twice every day, continue to be on Solu-Medrol 40 mg IV push every 12 hours, will continue with that, continue nebulized treatment [id number], continue to follow-up with the patient very closely, hopefully she will be able to get out of the hospital in the next 1 or 2 days. REVIEW OF SYSTEMS: Constitutional: No documented fever, no chills, no night sweats. No weight change. positive for weakness, fatigue or lethargy. No daytime sleepiness. EENT: positive for headache. No blurred vision or double vision, no loss of vision. No loss of Hearing, no ringing in the ears, no dizziness. No nasal drainage or congestion, positive for sore throat(thrush) Lungs: poditive for shortness of breath, positive for cough, minimal sputum production. positive for wheezing. Reports dyspnea with activity. Cardiovascular: No chest pain, no lower extremity edema. No palpitations. No paroxysmal nocturnal dyspnea. No orthopnea. No lightheadedness or dizziness. No syncopal episodes. Abdominal: Reports abdominal pain. No nausea, vomiting. No diarrhea. No constipation. No bloody or tarry stools reports loss of appetite. Genitourinary: No dysuria, increased frequency, urgency. No urinary retention. Musculoskeletal: No myalgias. positive for muscle weakness, no gait dysfunction, no frequent falls. No back pain. No neck pain. Integumentary: DTI in the left heel , no lesions. No rash or pruritus. No unusual bruising. No change in hair or nails. Neurologic: No aphasia. No facial droop. No change in mentation. No head injury. No headache. No paralysis. No paresthesia. Psychiatric: positive for depression, positive for anxiety. No mood swings. Endocrine: No abnormal blood sugars. No weight change. PHYSICAL EXAMINATION: General: This is a 69-year-old female sitting up in bed in respiratory distress. HEENT: Head is atraumatic, normocephalic, pupils were equal round reactive to light and recommendation, extraocular muscle movement were intact, sclera nonicteric, conjunctivae were pale, mucous membranes with thrush Neck: Supple, no JVP, normal carotid upstroke bilaterally, no lymphadenopathy. Chest: Decreased breath sounds at the bases, few rhonchi, positive for mild expiratory wheezes, no chest wall tenderness, mild intercostal retractions. Heart: First heart sound is normal, second heart sounds normal, there is systolic ejection murmur 2/6 located in the left sternal border. Abdomen: Soft, nontender, nondistended, positive bowel sounds. Extremities: There is trace edema no calf tenderness DP +1 bilaterally.DTI in the left heel Neurologic examination: Patient is awake alert and oriented x 3, cranial nerves II-12 appear grossly intact, muscle power were 4 out of 5 in upper extremities and 3 out of 5 in bilateral lower extremities, deep tendon reflexes normal bilaterally. ASSESSMENT AND PLAN: 1. Acute on chronic hypoxemic respiratory failure due to acute exacerbation of COPD as well as right lower lobe pneumonia and COVID-19. Continue oxygen support 4 L nasal cannula, decrease Solu-Medrol to 40 mg IV push every 12 hours, continue DuoNeb 3 mL nebulization 4 times every day, monitor the patient symptoms very closely, likely the patient will be discharged to [facility] in the next 24 hours. 2. Acute COPD exacerbation in a patient with severe COPD. Continue oxygen 4 L nasal cannula, continue Solu-Medrol 40 mg IV push every 12 hours, continue DuoNeb 3 mL nebulization 4 times every day, added Mucinex 600 mg orally twice every day. 3. Hypertension and hypertensive cardiovascular disease. Continue amlodipine 5 mg once every day, losartan 50 mg orally twice every day, monitor the patient blood pressure very closely. 4. Mixed hyperlipidemia. Continue atorvastatin 20 mg orally once every day, monitor lipid panel, keep LDL 55-70. 5. History of severe PAD. Patient underwent a recent CT angiography of both lower extremities that showed evidence of PAD, she will follow-up with Dr. Guardado as an outpatient. Continue aspirin 81 mg once every day, atorvastatin 5 mg once every day for secondary prevention. 6. Anxiety disorder. Continue patient on citalopram 40 mg once every day, continue Remeron 45 mg at bedtime, Klonopin 1 mg at bedtime, buspirone 15 mg orally twice every day. 7. Depressive disorder. Continue patient on the previous citalopram 40 mg orally once every day as well as Remeron 45 mg at bedtime. 8. History of vertebral fracture due to significant osteoporosis. Continue gabapentin 300 mg orally 3 times every day. Continue hydrocodone for pain control. 9. COVID-19 infection. Patient was started on Paxlovid at the [facility], currently is not on any medication continue with vitamin C 500 mg once every day, continue Lovenox 70 mg subcutaneously every 24 hours. 10. Hypothyroidism. Continue levothyroxine 100 mcg 2 days of the week and 75 mcg rest of the week, monitor the patient TSH and free T4. 11. DVT prophylaxis. Continue patient on Lovenox decrease the dose to 40 mg subcutaneous every 24 hours. 12. GI prophylaxis. Continue Protonix 40 mg orally once every day. 13. Deep tissue injury to the left heel, continue offload, continue the boot, increase protein intake. 14. Medical debility. Physical therapy evaluation. 15. boom worker consultation for [facility] planning[facility] 16. Severe hypokalemia. Patient did receive a total of 80 mill equivalent of potassium, her potassium is normal 17. Thrush. Started the patient on nystatin swish and swallow 500,000 unit orally 4 times every day. Objective - Vital Signs Vital signs: Vital Signs Temp 98.3 F 10/23/24 13:50 Pulse 99 10/23/24 13:50 Resp 17 10/23/24 13:50 BP 121/81 10/23/24 13:50 Pulse Ox 92 L 10/23/24 13:50 FiO2 Intake & Output 10/22/24 10/23/24 10/23/24 18:59 06:59 18:59 Intake Total 380 Output Total 600 Balance 380 -600 Intake: Oral 380 Output: Urine 600 Other: Voiding Method External Catheter External Catheter External Catheter # Voids 2 1 1 # Bowel Movements 1 1 - Labs CBC & Chem 7: 10/23/24 02:41 10/23/24 02:41 Labs: Abnormal Lab Results - Last 24 Hours (Table) 10/22/24 10/23/24 10/23/24 Range/Units 20:01 02:41 02:41 WBC 11.91 H (4.50-10.00) X 10*3/uL RBC 3.98 L (4.10-5.20) X 10*6/uL Hgb 10.9 L (12.0-15.0) g/dL Hct 35.1 L (37.2-46.3) % MCHC 31.1 L (32.0-37.0) g/dL RDW 15.8 H (11.5-14.5) % Immature Gran # 0.41 H (0.00-0.04) X 10*3/uL Neutrophils # 9.67 H (1.80-7.70) X 10*3/uL Eosinophils # 0 L (0.04-0.35) X 10*3/uL Sodium 147 H (135-145) mmol/L Chloride 109 H (98-107) mmol/L BUN 24 H (7-17) mg/dL BUN/Creatinine Ratio 29.86 H (12.00-20.00) Ratio Glucose 161 H 134 H (74-99) mg/dL Calcium 8.2 L (8.7-10.3) mg/dL Total Bilirubin 0.2 L (0.3-1.2) mg/dL Total Protein 6.0 L (6.2-8.2) g/dL Albumin 3.4 L (3.8-4.9) g/dL Albumin/Globulin Ratio 1.31 L (1.60-3.17) Ratio Microbiology - Last 24 Hours (Table) 10/17/24 01:25 Blood Culture - Final Blood
[2024-10-23] MEDS: NYSTATIN 100,000 UNIT/ML SUSP 500,000 UNIT/5 ML CUP PO SCH (17:41)
[2024-10-23] MEDS: SYMBICORT 160-4.5 MCG INHALER INHALATION SCH (21:35)
[2024-10-24 09:03] LABS: Basophils # (A) 0.06 X 10*3/uL (0.00-0.10); Basophils % (A) 0.5 %; Eosinophils # (A) 0 X 10*3/uL (0.04-0.35); Eosinophils % (A) 0 %; HCT 37.1 % (37.2-46.3); HGB 11.6 g/dL (12.0-15.0); Lymphocytes # (A) 0.77 X 10*3/uL (0.90-5.00); Lymphocytes % (A) 6.3 %; MCH 27.7 pg (27.0-32.0); MCHC 31.3 g/dL (32.0-37.0); MCV 88.5 FL (80.0-97.0); Mean Platelet Volume 10.7 FL (9.5-12.2); Monocytes # (A) 0.53 X 10*3/uL (0.20-1.00); Monocytes % (A) 4.3 %; NRBC Per 100 WBC 0 X 10*3/uL (0.00-0.01); Neutrophils # (A) 10.34 X 10*3/uL (1.80-7.70); Neutrophils % (A) 83.9 %; Platelet Count 329 X 10*3/uL (140-440); RBC 4.19 X 10*6/uL (4.10-5.20); WBC 12.31 X 10*3/uL (4.50-10.00)
[2024-10-24 09:39] LABS: ALT 38 U/L (8-44); AST 26 U/L (13-35); Albumin 3.6 g/dL (3.8-4.9); Albumin/Globulin Ratio 1.44 Ratio (1.60-3.17); Alkaline Phosphatase 93 U/L (41-126); BUN/Creat Ratio 30.17 Ratio (12.00-20.00); Blood Urea Nitrogen 18.1 mg/dL (9.0-27.0); Calcium 8.3 mg/dL (8.7-10.3); Carbon Dioxide 27.7 mmol/L (21.6-31.8); Chloride 108 mmol/L (96-109); Globulin 2.5 g/dL (1.6-3.3); Glucose 130 mg/dL (70-110); Potassium 3.5 mmol/L (3.5-5.5); Sodium 148 mmol/L (135-145); Total Bilirubin 0.2 mg/dL (0.3-1.2); Total Protein 6.1 g/dL (6.2-8.2)
--- NOTE | 2024-10-24 13:02 | P.PN ---
Subjective Progress Note Date: 10/24/24 HISTORY OF PRESENT ILLNESS: Patient is a pleasant 69 years old female with multiple medical problems Presents because of worsening dyspnea over a few days associated with cough and phlegm She complains from chest pain which bother her a lot especially her chest below her ribs and in her abdomen whenever she c coughs, she is asking for cough medicine She has bowel movement yesterday which she thinks she is fine, she denies abdominal tenderness or vomiting, she has low appetite She has not urinated in 2 days No headache dizziness weakness or numbness She denies smoking alcohol or illicit drugs she uses 2 L of oxygen at home Currently she is on 6 L oxygen Labs reviewed, WBC 10.7 which is slightly up, hemoglobin 10.1, creatinine 1.3 with baseline 0.7 INR is unremarkable, troponin 0.02. proBNP 742. Influenza A and type B, RSV, SARS (coronavirus) are and detected Chest x-ray showed increased interstitial opacity more on the right lower area EKG showing sinus rhythm at [address]-T changes D-dimer is 2.49 10/18 Patient still complaining from breathing difficulty although she still is a li ttle better Her oxygen requirement went 5 up to 6 L/min She still coughing a lot and she was counseled to use antitussive as needed medication No significant chest pain. She remains on broad-spectrum antibiotics with Zithromax and ceftriaxone and normal saline at 75 mL/h Repeat chest x-ray this morning it looks to be little better than yesterday. With some evidence of perihilar fibrosis 10/19 Patient pneumonia is improving slowly and gradually Patient states she still short of breath but she looks better with less coughing She remains on IV Solu-Medrol, she remains on broad-spectrum antibiotic with ceftriaxone and Zithromax Chest x-ray showing right perihilar infiltrate 10/20/2024 Patient improving slowly and gradually She is very tired still in bed most of the time She still complains from dyspnea and occasional coughing but no significant chest pain Her oxygen saturation improving and today she is saturating 97% on 4 L oxygen Will check labs tomorrow morning She remains on Zithromax and ceftriaxone and IV Solu-Medrol 60 mg. 10/21: Patient is sitting up in bed she is eating her breakfast, she continues to have somewhat short of breath, she continues to have some cough and minimal from production, she denies any hemoptysis, she appears to be quite weak, she has been on 4 L nasal cannula, she has been on ceftriaxone 1 g piggyback every 24 hours, continue Zithromax 500 mg orally once every day we will decrease her Solu-Medrol to 40 mg IV push every 8 hours, continue nebulized treatment, [facility], she appears to have a right lower lobe pneumonia likely due to to viral pneumonia versus bacterial pneumonia at this time procalcitonin level is elevated at 1.9, continue current treatment plan, physical therapy evaluation, follow-up with the patient very closely at this point in time, likely back to [facility] on the [place] hopefully in the next 24 hours. 10/22: Patient is laying down in bed she continues to be somewhat short of breath, she continues to have dry cough, she is not able to bring up any phlegm, she continues to be on 4 L nasal cannula, she denies any chest pain, she has no abdominal pain, nausea or vomiting, she does appear to have a deep tissue injury to the left heel, currently in a boot and keep off load, increase protein intake, discontinue IV fluid at this time, her potassium level is quite low at 2.5, patient will be receiving 40 mill equivalent orally and 40 mEq IV, repeat her potassium and magnesium level this evening, continue to monitor the patient very closely discontinue IV fluid. 10/23: Patient is laying down in bed is feeling a bit better today, she continues to have some coughing, able to bring some of the phlegm up after she was started on Mucinex 600 mg orally twice every day, continue to be on Solu-Medrol 40 mg IV push every 12 hours, will continue with that, continue nebulized treatment [id number], continue to follow-up with the patient very closely, hopefully she will be able to get out of the hospital in the next 1 or 2 days. 10/24: Patient is sitting up in bed is feeling better, she continues to be somewhat congested, she is bringing up a lot of phlegm, she has no abdominal pain, nausea vomiting or diarrhea, her sores in the mouth are better she denies any shortness of breath, she continues to be on 3 L nasal cannula, she continues to be on Solu-Medrol 40 mg IV push every 12 hours, will continue with for another 24 hours switch her to oral prednisone tomorrow morning, hopefully she will be able to get out of here to [facility] [place] tomorrow morning. REVIEW OF SYSTEMS: Constitutional: No documented fever, no chills, no night sweats. No weight change. positive for weakness, fatigue or lethargy. No daytime sleepiness. EENT: positive for headache. No blurred vision or double vision, no loss of vision. No loss of Hearing, no ringing in the ears, no dizziness. No nasal drainage or congestion, positive for sore throat(thrush) Lungs: poditive for shortness of breath, positive for cough, minimal sputum production. positive for wheezing. Reports dyspnea with activity. Cardiovascular: No chest pain, no lower extremity edema. No palpitations. No paroxysmal nocturnal dyspnea. No orthopnea. No lightheadedness or dizziness. No syncopal episodes. Abdominal: Reports abdominal pain. No nausea, vomiting. No diarrhea. No constipation. No bloody or tarry stools reports loss of appetite. Genitourinary: No dysuria, increased frequency, urgency. No urinary retention. Musculoskeletal: No myalgias. positive for muscle weakness, no gait dysf unction, no frequent falls. No back pain. No neck pain. Integumentary: DTI in the left heel , no lesions. No rash or pruritus. No unusual bruising. No change in hair or nails. Neurologic: No aphasia. No facial droop. No change in mentation. No head injury. No headache. No paralysis. No paresthesia. Psychiatric: positive for depression, positive for anxiety. No mood swings. Endocrine: No abnormal blood sugars. No weight change. PHYSICAL EXAMINATION: General: This is a 69-year-old female sitting up in bed in respiratory distress. HEENT: Head is atraumatic, normocephalic, pupils were equal round reactive to light and recommendation, extraocular muscle movement were intact, sclera nonicteric, conjunctivae were pale, mucous membranes with thrush Neck: Supple, no JVP, normal carotid upstroke bilaterally, no lymphadenopathy. Chest: Decreased breath sounds at the bases, few rhonchi, positive for mild expiratory wheezes, no chest wall tenderness, mild intercostal retractions. Heart: First heart sound is normal, second heart sounds normal, there is systolic ejection murmur 2/6 located in the left sternal border. Abdomen: Soft, nontender, nondistended, positive bowel sounds. Extremities: There is trace edema no calf tenderness DP +1 bilaterally.DTI in the left heel Neurologic examination: Patient is awake alert and oriented x 3, cranial nerves II-12 appear grossly intact, muscle power were 4 out of 5 in upper extremities and 3 out of 5 in bilateral lower extremities, deep tendon reflexes normal bilaterally. ASSESSMENT AND PLAN: 1. Acute on chronic hypoxemic respiratory failure due to acute exacerbation of COPD as well as right lower lobe pneumonia and COVID-19. Continue oxygen support 4 L nasal cannula, decrease Solu-Medrol to 40 mg IV push every 12 hours, continue DuoNeb 3 mL nebulization 4 times every day, monitor the patient symptoms very closely, likely the patient will be discharged to [facility] [place] in the next 24 hours. 2. Acute COPD exacerbation in a patient with severe COPD. Continue oxygen 4 L nasal cannula, continue Solu-Medrol 40 mg IV push every 12 hours, continue DuoNeb 3 mL nebulization 4 times every day, added Mucinex 600 mg orally twice every day. 3. Hypertension and hypertensive cardiovascular disease. Continue amlodipine 5 mg once every day, losartan 50 mg orally twice every day, monitor the patient blood pressure very closely. 4. Mixed hyperlipidemia. Continue atorvastatin 20 mg orally once every day, monitor lipid panel, keep LDL 55-70. 5. History of severe PAD. Patient underwent a recent CT angiography of both lower extremities that showed evidence of PAD, she will follow-up with Dr. Guardado as an outpatient. Continue aspirin 81 mg once every day, atorvastatin 5 mg once every day for secondary prevention. 6. Anxiety disorder. Continue patient on citalopram 40 mg once every day, continue Remeron 45 mg at bedtime, Klonopin 1 mg at bedtime, buspirone 15 mg orally twice every day. 7. Depressive disorder. Continue patient on the previous citalopram 40 mg orally once every day as well as Remeron 45 mg at bedtime. 8. History of vertebral fracture due to significant osteoporosis. Continue gabapentin 300 mg orally 3 times every day. Continue hydrocodone for pain control. 9. COVID-19 infection. Patient was started on Paxlovid at the [facility], currently is not on any medication continue with vitamin C 500 mg once every day, continue Lovenox 70 mg subcutaneously every 24 hours. 10. Hypothyroidism. Continue levothyroxine 100 mcg 2 days of the week and 75 mcg rest of the week, monitor the patient TSH and free T4. 11. DVT prophylaxis. Continue patient on Lovenox decrease the dose to 40 mg subcutaneous every 24 hours. 12. GI prophylaxis. Continue Protonix 40 mg orally once every day. 13. Deep tissue injury to the left heel, continue offload, continue the boot, increase protein intake. 14. Medical debility. Physical therapy evaluation. 15. parish worker consultation for discharge planning. 16. Severe hypokalemia. Patient did receive a total of 80 mill equivalent of potassium, her potassium is normal 17. Thrush. Started the patient on nystatin swish and swallow 500,000 unit orally 4 times every day. 18. [facility] [place] tomorrow morning. Objective - Vital Signs Vital signs: Vital Signs Temp 97.6 F 10/24/24 07:03 Pulse 92 10/24/24 07:03 Resp 16 10/24/24 07:03 BP 151/94 10/24/24 07:03 Pulse Ox 98 10/24/24 07:03 FiO2 Intake & Output 10/23/24 10/24/24 10/24/24 18:59 06:59 18:59 Output Total 600 Balance -600 Output: Urine 600 Other: Voiding Method External Catheter External Catheter # Voids 1 # Bowel Movements 1 1 - Labs CBC & Chem 7: 10/24/24 05:28 10/24/24 05:28 Labs: Abnormal Lab Results - Last 24 Hours (Table) 10/23/24 10/23/24 Range/Units 02:41 02:41 WBC 11.91 H (4.50-10.00) X 10*3/uL RBC 3.98 L (4.10-5.20) X 10*6/uL Hgb 10.9 L (12.0-15.0) g/dL Hct 35.1 L (37.2-46.3) % MCHC 31.1 L (32.0-37.0) g/dL RDW 15.8 H (11.5-14.5) % Immature Gran # 0.41 H (0.00-0.04) X 10*3/uL Neutrophils # 9.67 H (1.80-7.70) X 10*3/uL Eosinophils # 0 L (0.04-0.35) X 10*3/uL Sodium 147 H (135-145) mmol/L BUN/Creatinine Ratio 29.86 H (12.00-20.00) Ratio Glucose 134 H (70-110) mg/dL Calcium 8.2 L (8.7-10.3) mg/dL Total Bilirubin 0.2 L (0.3-1.2) mg/dL Total Protein 6.0 L (6.2-8.2) g/dL Albumin 3.4 L (3.8-4.9) g/dL Albumin/Globulin Ratio 1.31 L (1.60-3.17) Ratio
[2024-10-24 14:02] VITALS: BMI 28.1
[2024-10-24] MEDS: FUROSEMIDE 10 MG/ML 2 ML VIAL IV ONE (14:16)
--- NOTE | 2024-10-24 15:10 | P.PN ---
Subjective Progress Note Date: 10/24/24 This is a 69-year-old female patient, known history of advanced COPD, oxygen dependent 2 L/min nasal cannula, resides at [facility] [place] the [place]. Quite debilitated, nonambulatory at this point in time. The patient presented to the hospital because of worsening shortness of breath, cough, chest congestion and worsening respiratory status. No reported aspiration. No chest pain. No swelling in lower extremities. She is known to have osteoporosis and previous compression fracture of her spine and she suffers from chronic back pain. The patient accordingly was admitted to the hospital. Her white cell count of 10.7 with a hemoglobin 10.1 and a platelet count of 230. D-dimer is at 2.49 and the rest of the coagulation profiles been within normal limits. Creatinine was at 1.3 dropped down to 0.7. Serum bicarb was at 21 dropped down to 16 with a gap of 12 and a sodium levels at 141 and a potassium level is 3.7. Procalcitonin level is at 1.9. The viral screen was negative. Urine drug screen was positive for cannabinoids. She denies smoking for now. A chest x-ray was done in the emergency department and it showed COPD with chronic interstitial opacities bilaterally right more than left. Previous CT scan of the chest that was done in January 2024 was consistent with advanced emphysematous changes bilaterally and there was some resolving inflammatory changes in the right upper lobe. No evidence of any masses or malignant process. The patient accordingly was started on a combination of Rocephin and Zithromax. The patient is currently on DuoNeb AND IV Solu-Medrol was also started in addition to her home medications. Oxygenation remained worse as the patient is currently on 6 L of oxygen nasal cannula as the patient has been maintained on 2 L at baseline at the shelter. Troponins are negative. proBNP level is at 742. On 10/18/2024, the patient is being seen for a follow-up. Patient is essentially the same as yesterday and the patient continues to be bronchospastic and wheezy. She does have a right lung pneumonia in addition. Blood cultures been negative. The patient is afebrile. She remains hemodynamically stable and she remains on 60 Suboxone by nasal cannula with a pulse ox of 97%. She is currently afebrile. She is on IV Rocephin. She is also on IV Solu-Medrol 60 mg every 6 hours. No nausea. No vomiting. No diarrhea. No abdominal pain. No altered mentation. The viral screen was negative. Legionella urine antigen was negative. Follow-up chest x-ray was done today and the patient was found to have COPD with right perihilar and right lower lobe pulmonary infiltrate which remains essentially stable. On 10/19/2024, the patient is being seen for a follow-up. Less bronchospastic and wheezy compared to yesterday. Less congested. She continues to have some cough however and she remains on oxygen at 6 liters of oxygen nasal cannula with a pulse ox of 93%. The white cell count is 6.1 with a hemoglobin 9.1 and a platelet count of 256. Electrolytes show a sodium level of 143, serum bicarb is at 19, potassium level 3.8. Legionella urine antigen is negative. Viral screen is also negative. No altered mentation. The patient remains on a combination of Rocephin and Zithromax. 10/20/2024, patient continues to have a congested cough. Oxygenation is stable with a pulse ox of 97% on 4 L oxygen by nasal cannula. Remains on DuoNeb n ebulized treatments [id number]. Remains on IV Solu-Medrol. Remains on Rocephin. No hemoptysis. No pleurisy. No new labs from today. Overall condition is stable. Viral screen has been negative. The patient is seen today October 21, 2024 in follow-up on the regular medical floor. She is currently up in a chair at the bedside. Awake and alert in no acute distress. She is maintaining O2 saturations in the 90s on 3 L/min per nasal cannula. Reji on ceftriaxone. Continued on bronchodilators and steroids. No new labs today. The patient is seen today October 22, 2024 in follow-up on the regular medical floor. She is awake and alert in no acute distress. Sitting up in bed. No worsening shortness of breath, cough or congestion. Maintaining good O2 saturations in the 90s on 3 L/min per nasal cannula. She has been afebrile. Hemodynamically stable. Blood culture revealed no growth. White count 11.4. Hemoglobin 11.6. Platelets 405. Sodium 148. Potassium 2.5. Bicarb 25. BUN 20. Creatinine 0.8. Glucose 188. She is continued on bronchodilators and steroids. Antibiotics in the form of ceftriaxone. Lovenox for DVT prophylaxis. Normal saline at 75 mL/h. The patient is seen today October 23, 2024 in follow-up on the regular medical floor. She is awake and alert in no acute distress. Sitting up in a chair at the bedside. Denies any worsening shortness of breath, cough or congestion. Not quite back to her baseline. She is continued on DuoNeb inhalations, Symbicort, Solu-Medrol. Antibiotics in the form of ceftriaxone. Lovenox for DVT prophylaxis. White count 11.9. Hemoglobin 10.9. Platelets 334. Sodium 147. Potassium 4.0. Bicarb 27. BUN 21. Creatinine 0.7. Glucose 134. The patient is seen today October 24, 2024 in follow-up on the regular medical floor. She is sitting up in a chair. Awake and alert in no acute distress. Denies any worsening shortness of breath, cough or congestion. Still not quite back to her baseline. Maintaining O2 saturations in the 90s on 3 L/min per nasal cannula. She is afebrile. Hemodynamically stable. Blood culture revealed no growth. White count 12.3. Hemoglobin 11.6. Platelets 329. Sodium 148. Potassium 3.5. Bicarb 28. BUN 18. Creatinine 0.6. Glucose 130. She remains on DuoNeb ventilations, Symbicort, Solu-Medrol. Lovenox for DVT prophylaxis. Mucinex for her congestion. Antibiotics in the form of ceftriaxone. She did receive Lasix 20 mg IVP x 1 today. Objective - Vital Signs Vital signs: Vital Signs Temp 97.9 F 10/24/24 13:40 Pulse 77 10/24/24 13:40 Resp 18 10/24/24 13:40 BP 105/51 10/24/24 13:40 Pulse Ox 93 L 10/24/24 13:40 FiO2 Intake & Output 10/23/24 10/24/24 10/24/24 18:59 06:59 18:59 Output Total 600 Balance -600 Weight 65.317 kg Output: Urine 600 Other: Voiding Method External Catheter External Catheter External Catheter # Voids 1 # Bowel Movements 1 1 - Exam GENERAL EXAM: Alert, pleasant 69-year-old female, on 3 L nasal cannula, in no apparent distress. HEAD: Normocephalic. EYES: Normal reaction of pupils, equal size. NOSE: Clear with pink turbinates. THROAT: No erythema or exudates. NECK: No masses, no JVD. CHEST: No chest wall deformity. LUNGS: Equal air entry with scattered rhonchi. CVS: S1 and S2 normal with no audible murmur, regular rhythm. ABDOMEN: No hepatosplenomegaly, normal bowel sounds, no guarding or rigidity. SPINE: No scoliosis or deformity SKIN: No rashes CENTRAL NERVOUS SYSTEM: No focal deficits, tone is normal in all 4 extremities. EXTREMITIES: There is no peripheral edema. No clubbing, no cyanosis. Peripheral pulses are intact. - Labs CBC & Chem 7: 10/24/24 05:28 10/24/24 05:28 Labs: Abnormal Lab Results - Last 24 Hours (Table) 10/24/24 10/24/24 Range/Units 05:28 05:28 WBC 12.31 H (4.50-10.00) X 10*3/uL Hgb 11.6 L (12.0-15.0) g/dL Hct 37.1 L (37.2-46.3) % MCHC 31.3 L (32.0-37.0) g/dL RDW 16.0 H (11.5-14.5) % Immature Gran # 0.61 H (0.00-0.04) X 10*3/uL Neutrophils # 10.34 H (1.80-7.70) X 10*3/uL Lymphocytes # 0.77 L (0.90-5.00) X 10*3/uL Eosinophils # 0 L (0.04-0.35) X 10*3/uL Sodium 148 H (135-145) mmol/L Anion Gap 12.30 H (4.00-12.00) mmol/L BUN/Creatinine Ratio 30.17 H (12.00-20.00) Ratio Glucose 130 H (70-110) mg/dL Calcium 8.3 L (8.7-10.3) mg/dL Total Bilirubin 0.2 L (0.3-1.2) mg/dL Total Protein 6.1 L (6.2-8.2) g/dL Albumin 3.6 L (3.8-4.9) g/dL Albumin/Globulin Ratio 1.44 L (1.60-3.17) Ratio Assessment and Plan Assessment: Acute on chronic hypoxic respiratory failure, on 3 L O2 nasal cannula. This is related to a combination of COPD and right lung pneumonia. The patient remains on a combination Rocephin and completed Zithromax. Slight improvement in the patient's oxygenation Acute COPD exacerbation, improved Acute right lung pneumonia as the patient has new areas of infiltr ation/consolidation involving the right lung compared to the previous chest x- rays. The procalcitonin level is at 1.9 Hypernatremia Hypokalemia Advanced COPD with chronic hypoxic respiratory failure maintained on oxygen at 2 L Osteoporosis Compression fracture of the lumbar spine Hyperlipidemia Hyperlipidemia anxiety/depression Acute kidney injury, improved creatinine is normalized Elevated procalcitonin level, consider underlying bacterial right lung infection Plan: The patient was seen and evaluated Medications and labs reviewed Titrate down the FiO2 as tolerated Continue the current treatment plan Plan is to return to [facility] at discharge I have personally seen and examined the patient, performed the documentation and the assessment and plan as written. Number of minutes spent on the visit: 10 Dictation was produced using [employer] dictation software. Please excuse any grammatical, word or spelling errors.
[2024-10-25 08:35] LABS: Basophils # (A) 0.06 X 10*3/uL (0.00-0.10); Basophils % (A) 0.5 %; Eosinophils # (A) 0 X 10*3/uL (0.04-0.35); Eosinophils % (A) 0 %; HCT 36.8 % (37.2-46.3); HGB 11.4 g/dL (12.0-15.0); Lymphocytes # (A) 0.73 X 10*3/uL (0.90-5.00); Lymphocytes % (A) 5.5 %; MCH 27.9 pg (27.0-32.0); MCV 90.2 FL (80.0-97.0); Mean Platelet Volume 11.1 FL (9.5-12.2); Monocytes # (A) 0.54 X 10*3/uL (0.20-1.00); Monocytes % (A) 4.1 %; NRBC Per 100 WBC 0 X 10*3/uL (0.00-0.01); Neutrophils # (A) 11.37 X 10*3/uL (1.80-7.70); Neutrophils % (A) 85.7 %; Platelet Count 302 X 10*3/uL (140-440); RBC 4.08 X 10*6/uL (4.10-5.20); RDW 16.3 % (11.5-14.5); WBC 13.25 X 10*3/uL (4.50-10.00)
[2024-10-25 09:12] LABS: BUN/Creat Ratio 34.57 Ratio (12.00-20.00); Blood Urea Nitrogen 24.2 mg/dL (9.0-27.0); Calcium 8.5 mg/dL (8.7-10.3); Carbon Dioxide 27.3 mmol/L (21.6-31.8); Chloride 106 mmol/L (96-109); Glucose 269 mg/dL (70-110); Potassium 3.5 mmol/L (3.5-5.5); Sodium 146 mmol/L (135-145)
--- NOTE | 2024-10-25 09:14 | P.DS ---
Providers Date of admission: 10/17/24 03:07 Expected date of discharge: 10/25/24 Attending physician: Master Oswald Consults: 10/17/24 08:01 Consult Physician Routine Consulting Provider: Mario Alberto Jaramillo Consult Reason/Comments: COVID patient with pneumonia Do you want consulting provider notified?: Yes Primary care physician: Master Oswald Hospital Course: HISTORY OF PRESENT ILLNESS: Patient is a pleasant 69 years old female with multiple medical problems Presents because of worsening dyspnea over a few days associated with cough and phlegm She complains from chest pain which bother her a lot especially her chest below her ribs and in her abdomen whenever she c coughs, she is asking for cough medicine She has bowel movement yesterday which she thinks she is fine, she denies abdominal tenderness or vomiting, she has low appetite She has not urinated in 2 days No headache dizziness weakness or numbness She denies smoking alcohol or illicit drugs she uses 2 L of oxygen at home Currently she is on 6 L oxygen Labs reviewed, WBC 10.7 which is slightly up, hemoglobin 10.1, creatinine 1.3 with baseline 0.7 INR is unremarkable, troponin 0.02. proBNP 742. Influenza A and type B, RSV, SARS (coronavirus) are and detected Chest x-ray showed increased interstitial opacity more on the right lower area EKG showing sinus rhythm at [address]-T changes D-dimer is 2.49 10/18 Patient still complaining from breathing difficulty although she still is a little better Her oxygen requirement went 5 up to 6 L/min She still coughing a lot and she was counseled to use antitussive as needed medication No significant chest pain. She remains on broad-spectrum antibiotics with Zithromax and ceftriaxone and normal saline at 75 mL/h Repeat chest x-ray this morning it looks to be little better than yesterday. With some evidence of perihilar fibrosis 10/19 Patient pneumonia is improving slowly and gradually Patient states she still short of breath but she looks better with less coughing She remains on IV Solu-Medrol, she remains on broad-spectrum antibiotic with ceftriaxone and Zithromax Chest x-ray showing right perihilar infiltrate 10/20/2024 Patient improving slowly and gradually She is very tired still in bed most of the time She still complains from dyspnea and occasional coughing but no significant chest pain Her oxygen saturation improving and today she is saturating 97% on 4 L oxygen Will check labs tomorrow morning She remains on Zithromax and ceftriaxone and IV Solu-Medrol 60 mg. 10/21: Patient is sitting up in bed she is eating her breakfast, she continues to have somewhat short of breath, she continues to have some cough and minimal from production, she denies any hemoptysis, she appears to be quite weak, she has been on 4 L nasal cannula, she has been on ceftriaxone 1 g piggyback every 24 hours, continue Zithromax 500 mg orally once every day we will decrease her Solu-Medrol to 40 mg IV push every 8 hours, continue nebulized treatment, mario martin was treated for COVID at the halfway, she appears to have a right lower lobe pneumonia likely due to to viral pneumonia versus bacterial pneumonia at this time procalcitonin level is elevated at 1.9, continue current treatment plan, physical therapy evaluation, follow-up with the patient very closely at this point in time, likely back to [facility] on [facility] hopefully in the next 24 hours. 10/22: Patient is laying down in bed she continues to be somewhat short of breath, she continues to have dry cough, she is not able to bring up any phlegm, she continues to be on 4 L nasal cannula, she denies any chest pain, she has no abdominal pain, nausea or vomiting, she does appear to have a deep tissue injury to the left heel, currently in a boot and keep off load, increase protein intake, discontinue IV fluid at this time, her potassium level is quite low at 2.5, patient will be receiving 40 mill equivalent orally and 40 mEq IV, repeat her potassium and magnesium level this evening, continue to monitor the patient very closely discontinue IV fluid. 10/23: Patient is laying down in bed is feeling a bit better today, she continues to have some coughing, able to bring some of the phlegm up after she was started on Mucinex 600 mg orally twice every day, continue to be on Solu-Medrol 40 mg IV push every 12 hours, will continue with that, continue nebulized treatment [id number], continue to follow-up with the patient very closely, hopefully she will be able to get out of the hospital in the next 1 or 2 days. 10/24: Patient is sitting up in bed is feeling better, she continues to be somewhat congested, she is bringing up a lot of phlegm, she has no abdominal pain, nausea vomiting or diarrhea, her sores in the mouth are better she denies any shortness of breath, she continues to be on 3 L nasal cannula, she continues to be on Solu-Medrol 40 mg IV push every 12 hours, will continue with for another 24 hours switch her to oral prednisone tomorrow morning, hopefully she will be able to get out of here to [facility] on the [place] tomorrow morning. 10/25: Patient continues to slowly improve. She continues to have some cough and wheezing but improving as well. She has been afebrile, blood pressure 158/88, heart rate in the 80s and 90s, pulse ox 94% on 3 L nasal cannula. Repeat blood work reveals WBC 13.2, hemoglobin 11.4. Chemistry report is pending. Blood culture was finalized with no growth at 5 days. Discharge plan is in place for return to [facility]. Patient will be discharged once all arrangements are completed. DISCHARGE DIAGNOSES: 1. Acute on chronic hypoxemic respiratory failure due to acute exacerbation of COPD as well as right lower lobe pneumonia and COVID-19. 2. Acute COPD exacerbation in a patient with severe COPD. 3. Hypertension and hypertensive cardiovascular disease. 4. Mixed hyperlipidemia. 5. History of severe PAD. 6. Anxiety disorder. 7. Depressive disorder. 8. History of vertebral fracture due to significant osteoporosis. 9. COVID-19 infection. 10. Hypothyroidism. 11. Deep tissue injury to the left heel. 12. Medical debility. 13. Severe hypokalemia. 14. Thrush. 15. [facility] [place] return Greater than 35 minutes was utilized and coordinating patient's discharge. Impression and plan of care have been directed as dictated by the signing physician. Alma Hernandes nurse practitioner acting as scribe for signing physician. Plan - Discharge Summary Discharge Rx Participant: Yes New Discharge Prescriptions: New Nystatin 100,000 Unit/ml Susp [Mycostatin Oral Susp] 500,000 unit PO QID 5 Days ml Fluticasone Nasal [place] [Flonase Nasal [place]] 2 spray EA NOSTRIL DAILY PRN ml PRN Reason: Allergy Symptoms predniSONE 0 mg PO DIRECTED #30 tab Continue Atorvastatin Calcium 20 mg PO HS amLODIPine [Norvasc] 5 mg PO DAILY tab Albuterol Nebulized [Ventolin Nebulized] 2.5 mg INHALATION RT-Q4H PRN PRN Reason: Shortness Of Breath Ascorbic Acid [Vitamin C] 500 mg PO DAILY Cholecalciferol [Vitamin D3 (25 Mcg = 1000 Iu)] 50 mcg PO DAILY Levothyroxine Sodium [Synthroid] 75 mcg PO SUTUWEFRSA@0600 Acetaminophen Tab [Tylenol] 650 mg PO Q6HR PRN PRN Reason: Pain guaiFENesin [Mucinex] 1,200 mg PO Q6H PRN PRN Reason: COUGH/CONGESTION Melatonin 10 mg PO HS PRN PRN Reason: Insomnia Cyclobenzaprine [Flexeril] 10 mg PO TID PRN PRN Reason: Muscle Spasm busPIRone HCL 15 mg PO BID Levothyroxine Sodium [Synthroid] 100 mcg PO MOTH@0600 Mirtazapine [Remeron] 45 mg PO HS Aspirin EC [Ecotrin Low Dose] 81 mg PO DAILY clonazePAM [KlonoPIN] 1 mg PO HS #3 tab Albuterol Inhaler [Ventolin Hfa Inhaler] 2 puff INHALATION RT-Q6H PRN PRN Reason: Shortness Of Breath cloNIDine HCL [Catapres] 0.1 mg PO Q8HR@0600,1400,2200 Ipratropium-Albuterol Nebulize [Duoneb 0.5 mg-3 mg/3 ml Soln] 3 ml INHALATION RT-Q6H Loratadine 10 mg PO DAILY PRN PRN Reason: Allergy Symptoms Omeprazole Magnesium [PriLOSEC OTC] 20 mg PO DAILY@0600 Zinc Sulfate [Orazinc] 220 mg PO DAILY Sennosides/Docusate Sodium [Senna Plus 8.6-50 mg Tablet] 1 tab PO DAILY PRN PRN Reason: Constipation Ipratropium-Albuterol Nebulize [Duoneb 0.5 mg-3 mg/3 ml Soln] 3 ml INHALATION RT-QID PRN each PRN Reason: Shortness Of Breath Or Wheezing Budesonide-Formot 160-4.5 Mcg [Symbicort 160-4.5 Mcg Inhaler] 2 puff INHALATION RT-BID each Gabapentin 300 mg PO Q8HR@0600,1400,2200 #6 cap guaiFENesin-DM 100-10MG/5ML [Robitussin DM] 10 ml PO Q4H PRN PRN Reason: Cough Losartan [Cozaar] 50 mg PO BID Citalopram Hydrobromide [CeleXA] 40 mg PO DAILY@0600 Changed HYDROcodone/APAP 5-325MG [Kiln 5-325] 1 tab PO TID@0900,1700,2100 #9 tab Discontinued dexAMETHasone [Decadron] 6 mg PO DAILY Discharge Medication List Albuterol Inhaler [Ventolin Hfa Inhaler] 2 puff INHALATION RT-Q6H PRN 03/24/23 [History] Atorvastatin Calcium 20 mg PO HS 03/24/23 [History] cloNIDine HCL [Catapres] 0.1 mg PO Q8HR@0600,1400,2200 03/24/23 [History] amLODIPine [Norvasc] 5 mg PO DAILY tab 03/31/23 [Rx] Acetaminophen Tab [Tylenol] 650 mg PO Q6HR PRN 11/24/23 [History] Albuterol Nebulized [Ventolin Nebulized] 2.5 mg INHALATION RT-Q4H PRN 11/24/23 [History] Ascorbic Acid [Vitamin C] 500 mg PO DAILY 11/24/23 [History] Cholecalciferol [Vitamin D3 (25 Mcg = 1000 Iu)] 50 mcg PO DAILY 11/24/23 [History] Ipratropium-Albuterol Nebulize [Duoneb 0.5 mg-3 mg/3 ml Soln] 3 ml INHALATION RT-Q6H 11/24/23 [History] Levothyroxine Sodium [Synthroid] 75 mcg PO SUTUWEFRSA@0600 11/24/23 [History] Loratadine 10 mg PO DAILY PRN 11/24/23 [History] Omeprazole Magnesium [PriLOSEC OTC] 20 mg PO DAILY@0600 11/24/23 [History] Sennosides/Docusate Sodium [Senna Plus 8.6-50 mg Tablet] 1 tab PO DAILY PRN 11/24/23 [History] Zinc Sulfate [Orazinc] 220 mg PO DAILY 11/24/23 [History] Budesonide-Formot 160-4.5 Mcg [Symbicort 160-4.5 Mcg Inhaler] 2 puff INHALATION RT-BID each 11/30/23 [Rx] Gabapentin 300 mg PO Q8HR@0600,1400,2200 #6 cap 11/30/23 [Rx] Ipratropium-Albuterol Nebulize [Duoneb 0.5 mg-3 mg/3 ml Soln] 3 ml INHALATION RT-QID PRN each 11/30/23 [Rx] Aspirin EC [Ecotrin Low Dose] 81 mg PO DAILY 10/17/24 [History] Citalopram Hydrobromide [CeleXA] 40 mg PO DAILY@0600 10/17/24 [History] Cyclobenzaprine [Flexeril] 10 mg PO TID PRN 10/17/24 [History] Levothyroxine Sodium [Synthroid] 100 mcg PO MOTH@0600 10/17/24 [History] Losartan [Cozaar] 50 mg PO BID 10/17/24 [History] Melatonin 10 mg PO HS PRN 10/17/24 [History] Mirtazapine [Remeron] 45 mg PO HS 10/17/24 [History] busPIRone HCL 15 mg PO BID 10/17/24 [History] guaiFENesin [Mucinex] 1,200 mg PO Q6H PRN 10/17/24 [History] guaiFENesin-DM 100-10MG/5ML [Robitussin DM] 10 ml PO Q4H PRN 10/17/24 [History] Fluticasone Nasal [place] [Flonase Nasal [place]] 2 spray EA NOSTRIL DAILY PRN ml 10/25/24 [Rx] HYDROcodone/APAP 5-325MG [Kiln 5-325] 1 tab PO TID@0900,1700,2100 #9 tab 10/25/24 [Rx] Nystatin 100,000 Unit/ml Susp [Mycostatin Oral Susp] 500,000 unit PO QID 5 Days ml 10/25/24 [Rx] clonazePAM [KlonoPIN] 1 mg PO HS #3 tab 10/25/24 [Rx] predniSONE 0 mg PO DIRECTED #30 tab 10/25/24 [Rx] Follow up Appointment(s)/Referral(s): [facility] [place], [NON-STAFF] - As Needed Master Oswald MD [Primary Care Provider] - 1 Week (AT [facility]) Sajan Maravilla MD [STAFF PHYSICIAN] - 1 Week Discharge Disposition: TRANSFER TO SNF/ECF
[2024-10-25 09:15] VITALS: BP 167/92; RESP 20; TEMP 98.1
[2024-10-25 12:57] VITALS: PULSE 75
--- NOTE | 2024-10-25 14:44 | P.PN ---
Subjective Progress Note Date: 10/25/24 This is a 69-year-old female patient, known history of advanced COPD, oxygen dependent 2 L/min nasal cannula, resides at [facility] on the [place]. Quite debilitated, nonambulatory at this point in time. The patient presented to the hospital because of worsening shortness of breath, cough, chest congestion and worsening respiratory status. No reported aspiration. No chest pain. No swelling in lower extremities. She is known to have osteoporosis and previous compression fracture of her spine and she suffers from chronic back pain. The patient accordingly was admitted to the hospital. Her white cell count of 10.7 with a hemoglobin 10.1 and a platelet count of 230. D-dimer is at 2.49 and the rest of the coagulation profiles been within normal limits. Creatinine was at 1.3 dropped down to 0.7. Serum bicarb was at 21 dropped down to 16 with a gap of 12 and a sodium levels at 141 and a potassium level is 3.7. Procalcitonin level is at 1.9. The viral screen was negative. Urine drug screen was positive for cannabinoids. She denies smoking for now. A chest x-ray was done in the emergency department and it showed COPD with chronic interstitial opacities bilaterally right more than left. Previous CT scan of the chest that was done in January 2024 was consistent with advanced emphysematous changes bilaterally and there was some resolving inflammatory changes in the right upper lobe. No evidence of any masses or malignant process. The patient accordingly was started on a combination of Rocephin and Zithromax. The patient is currently on DuoNeb AND IV Solu-Medrol was also started in addition to her home medications. Oxygenation remained worse as the patient is currently on 6 L of oxygen nasal cannula as the patient has been maintained on 2 L at baseline at the correction. Troponins are negative. proBNP level is at 742. On 10/18/2024, the patient is being seen for a follow-up. Patient is essentially the same as yesterday and the patient continues to be bronchospastic and wheezy. She does have a right lung pneumonia in addition. Blood cultures been negative. The patient is afebrile. She remains hemodynamically stable and she remains on 60 Suboxone by nasal cannula with a pulse ox of 97%. She is currently afebrile. She is on IV Rocephin. She is also on IV Solu-Medrol 60 mg every 6 hours. No nausea. No vomiting. No diarrhea. No abdominal pain. No altered mentation. The viral screen was negative. Legionella urine antigen was negative. Follow-up chest x-ray was done today and the patient was found to have COPD with right perihilar and right lower lobe pulmonary infiltrate which remains essentially stable. On 10/19/2024, the patient is being seen for a follow-up. Less bronchospastic and wheezy compared to yesterday. Less congested. She continues to have some cough however and she remains on oxygen at 6 liters of oxygen nasal cannula with a pulse ox of 93%. The white cell count is 6.1 with a hemoglobin 9.1 and a platelet count of 256. Electrolytes show a sodium level of 143, serum bicarb is at 19, potassium level 3.8. Legionella urine antigen is negative. Viral screen is also negative. No altered mentation. The patient remains on a combination of Rocephin and Zithromax. 10/20/2024, patient continues to have a congested cough. Oxygenation is stable with a pulse ox of 97% on 4 L oxygen by nasal cannula. Remains on DuoNeb n ebulized treatments [id number]. Remains on IV Solu-Medrol. Remains on Rocephin. No hemoptysis. No pleurisy. No new labs from today. Overall condition is stable. Viral screen has been negative. The patient is seen today October 21, 2024 in follow-up on the regular medical floor. She is currently up in a chair at the bedside. Awake and alert in no acute distress. She is maintaining O2 saturations in the 90s on 3 L/min per nasal cannula. Reji on ceftriaxone. Continued on bronchodilators and steroids. No new labs today. The patient is seen today October 22, 2024 in follow-up on the regular medical floor. She is awake and alert in no acute distress. Sitting up in bed. No worsening shortness of breath, cough or congestion. Maintaining good O2 saturations in the 90s on 3 L/min per nasal cannula. She has been afebrile. Hemodynamically stable. Blood culture revealed no growth. White count 11.4. Hemoglobin 11.6. Platelets 405. Sodium 148. Potassium 2.5. Bicarb 25. BUN 20. Creatinine 0.8. Glucose 188. She is continued on bronchodilators and steroids. Antibiotics in the form of ceftriaxone. Lovenox for DVT prophylaxis. Normal saline at 75 mL/h. The patient is seen today October 23, 2024 in follow-up on the regular medical floor. She is awake and alert in no acute distress. Sitting up in a chair at the bedside. Denies any worsening shortness of breath, cough or congestion. Not quite back to her baseline. She is continued on DuoNeb inhalations, Symbicort, Solu-Medrol. Antibiotics in the form of ceftriaxone. Lovenox for DVT prophylaxis. White count 11.9. Hemoglobin 10.9. Platelets 334. Sodium 147. Potassium 4.0. Bicarb 27. BUN 21. Creatinine 0.7. Glucose 134. The patient is seen today October 24, 2024 in follow-up on the regular medical floor. She is sitting up in a chair. Awake and alert in no acute distress. Denies any worsening shortness of breath, cough or congestion. Still not quite back to her baseline. Maintaining O2 saturations in the 90s on 3 L/min per nasal cannula. She is afebrile. Hemodynamically stable. Blood culture revealed no growth. White count 12.3. Hemoglobin 11.6. Platelets 329. Sodium 148. Potassium 3.5. Bicarb 28. BUN 18. Creatinine 0.6. Glucose 130. She remains on DuoNeb ventilations, Symbicort, Solu-Medrol. Lovenox for DVT prophylaxis. Mucinex for her congestion. Antibiotics in the form of ceftriaxone. She did receive Lasix 20 mg IVP x 1 today. The patient is seen today October 25, 2024 in follow-up on the regular medical floor. She is currently sitting up in the bedside. Awake and alert in no acute distress. She is feeling a bit better today compared to yesterday nearly back to her baseline. Maintaining good O2 saturations in the 90s on 2 L/min per nasal cannula. White count 13.2. Hemoglobin 11.4. Platelets 302. Sodium 146. Potassium 3.5. Bicarb 27. BUN 24. Creatinine 0.7. Glucose 269. She remains on DuoNeb inhalations, Symbicort, prednisone taper. Objective - Vital Signs Vital signs: Vital Signs Temp 98.1 F 10/25/24 08:20 Pulse 75 10/25/24 12:57 Resp 20 10/25/24 08:20 BP 167/92 10/25/24 08:20 Pulse Ox 91 L 10/25/24 09:20 FiO2 Intake & Output 10/24/24 10/25/24 10/25/24 18:59 06:59 18:59 Output Total 400 1100 Balance -400 -1100 Weight 65.317 kg Output: Urine 400 1100 Other: Voiding Method External Catheter External Catheter External Catheter # Voids 1 - Exam GENERAL EXAM: Alert, pleasant 69-year-old female, sitting up in a chair, on 2 L nasal cannula, in no apparent distress. HEAD: Normocephalic. EYES: Normal reaction of pupils, equal size. NOSE: Clear with pink turbinates. THROAT: No erythema or exudates. NECK: No masses, no JVD. CHEST: No chest wall deformity. LUNGS: Equal air entry with few scattered rhonchi. CVS: S1 and S2 normal with no audible murmur, regular rhythm. ABDOMEN: No hepatosplenomegaly, normal bowel sounds, no guarding or rigidity. SPINE: No scoliosis or deformity SKIN: No rashes CENTRAL NERVOUS SYSTEM: No focal deficits, tone is normal in all 4 extremities. EXTREMITIES: There is no peripheral edema. No clubbing, no cyanosis. Peripheral pulses are intact. - Labs CBC & Chem 7: 10/25/24 03:28 10/25/24 03:28 Labs: Abnormal Lab Results - Last 24 Hours (Table) 10/25/24 10/25/24 Range/Units 03:28 03:28 WBC 13.25 H (4.50-10.00) X 10*3/uL RBC 4.08 L (4.10-5.20) X 10*6/uL Hgb 11.4 L (12.0-15.0) g/dL Hct 36.8 L (37.2-46.3) % MCHC 31.0 L (32.0-37.0) g/dL RDW 16.3 H (11.5-14.5) % Immature Gran # 0.55 H (0.00-0.04) X 10*3/uL Neutrophils # 11.37 H (1.80-7.70) X 10*3/uL Lymphocytes # 0.73 L (0.90-5.00) X 10*3/uL Eosinophils # 0 L (0.04-0.35) X 10*3/uL Sodium 146 H (135-145) mmol/L Anion Gap 12.70 H (4.00-12.00) mmol/L BUN/Creatinine Ratio 34.57 H (12.00-20.00) Ratio Glucose 269 H (70-110) mg/dL Calcium 8.5 L (8.7-10.3) mg/dL Assessment and Plan Assessment: Acute on chronic hypoxic respiratory failure, on 2 L O2 nasal cannula. This is related to a combination of COPD and right lung pneumonia. The patient remains on a combination Rocephin and completed Zithromax. Slight improvement in the patient's oxygenation Acute COPD exacerbation, improved Acute right lung pneumonia as the patient has new areas of infiltration/consolidation involving the right lung compared to the previous chest x-rays. The procalcitonin level is at 1.9 Hypernatremia Hypokalemia Advanced COPD with chronic hypoxic respiratory failure maintained on oxygen at 2 L Osteoporosis Compression fracture of the lumbar spine Hyperlipidemia Hyperlipidemia anxiety/depression Acute kidney injury, improved creatinine is normalized Elevated procalcitonin level, consider underlying bacterial right lung infection Plan: The patient was seen and evaluated Medications and labs reviewed Continue DuoNeb inhalations, Symbicort, prednisone taper Plan is to return to [facility] today This patient was seen independently by the pulmonary nurse practitioner addressing pulmonary issues I have personally seen and examined the patient, performed the documentation and the assessment and plan as written. Number of minutes spent on the visit: 23 Dictation was produced using [employer] dictation software. Please excuse any grammatical, word or spelling errors.
--- NOTE | 2024-10-28 18:03 | CDI ---
Documentation Clarification Form Date: 10/28/2024 05:52:12 PM From: Anabel Gloria Phone: Admit Date: 10/17/2024 03:07:00 AM Patient Name: Zoila Cheema Visit Number: [id number] Discharge Date: 10/25/2024 01:21:00 PM ATTENTION: The Clinical Documentation Specialists (CDI) and [facility] Coding Staff appreciate your assistance in clarifying documentation. Please respond to the clarification below the line at the bottom and electronically sign. The CDI & [facility] Coding staff will review the response and follow-up if needed. Please note: Queries are made part of the Legal Health Record. If you have any questions, please contact the author of this message via ITS. Doctor/Provider: Master Oswald Deep tissue injury to LT heel is documented per Progress Note 10/22-10/24 and DCS. For each diagnosis, documentation must be clear to determine if the condition was present at the time of the patients inpatient admission or developed during the hospital stay. Additional clarification regarding the LT foot DTI is requested. History/Risk Factors: 69yo F, COVID PNA w sepsis, ACHRF, AECOPD, HTNHD, mixed HLD, PAD, hypothyroid, thrush, osteoporosis Clinical Indicators: DTIin the LT heel,nolesions. Norashorpruritus. No unusualbruising. No change in hair or nails. Treatment: continue offload, continue the boot, increase protein intake. Definition of Present on Admission (POA): A diagnosis present at the time the order for admission to inpatient status was written. Please clarify if the left foot DTI was POA [ ] Y = Yes, the condition was present at the time of the order for inpatient admission. [ X] N = No, the condition was not present at the time of the order for inpatient admission. [ ] W = Clinically undetermined if the condition was present at the time of the order for inpatient admission. (Template Last Revised: January 2021) Left heel DTI with minimal change in skin color MTDD
== END 2024-10-25 13:21 | DRG 871 ==
LOC: EC 23:54 → 5NMEDONC 10-17 03:07 → EEVIPCON 10-17 03:07 → 4SSUR 10-17 05:30
PROVIDERS: ADMIT Internal Medicine; ATTEND Internal Medicine
DX: A41.89 Other specified sepsis (principal); J12.82 Pneumonia due to coronavirus disease 2019; J96.21 Acute and chronic respiratory failure with hypoxia; U07.1 COVID-19; E87.0 Hyperosmolality and hypernatremia; B37.0 Candidal stomatitis; J44.1 Chronic obstructive pulmonary disease with (acute) exacerbation; J44.0 Chronic obstructive pulmonary disease with (acute) lower respiratory infection; N17.9 Acute kidney failure, unspecified; M80.88XA Other osteoporosis with current pathological fracture, vertebra(e), initial encounter for fracture; Z99.81 Dependence on supplemental oxygen; I73.9 Peripheral vascular disease, unspecified; I11.9 Hypertensive heart disease without heart failure; E03.9 Hypothyroidism, unspecified; F32.A Depression, unspecified; E78.2 Mixed hyperlipidemia; F41.9 Anxiety disorder, unspecified; G89.29 Other chronic pain; E87.6 Hypokalemia; R53.81 Other malaise; Z96.642 Presence of left artificial hip joint; Z79.890 Hormone replacement therapy; Z79.51 Long term (current) use of inhaled steroids; Z79.82 Long term (current) use of aspirin; Z79.899 Other long term (current) drug therapy; Z87.891 Personal history of nicotine dependence; S90.32XA Contusion of left foot, initial encounter
CPT/HCPCS: 36410; 36415; 71045; 71046; 76937; 80048; 80053; 81001; 83605; 83735; 83880; 84145; 84484; 85025; 85379; 85610; 85730; 87040; 87449; 87636; 93005; 94640; 94760; 96361; 96365; 96372; 96375; 99285